=== PATIENT | female | born 1985 | race Two or more races ===

== ENCOUNTER 2023-12-22 12:51 | Emergency (ER) | payer MEDICAID, SELFPAY ==
[2023-12-22 12:56] VITALS: BP 100/70; PULSE 99; RESP 20; TEMP 37; O2SAT 98
[2023-12-22 13:06] VITALS: PULSE 120; RESP 18; O2SAT 100; BMI 29.2
--- NOTE | 2023-12-22 13:15 | EKG_ITS ---
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
--- NOTE | 2023-12-22 13:15 | XR_ITS ---
Examination: AP chest single view Technique one AP portable upright chest single view Exam date and time: December 22, 2023 1349 hrs. Comparison November 11, 2023 Indications: Onset chest pain today. Findings: Normal heart size Epidural pain lead projects lower dorsal spine No pneumonia or pulmonary edema Mild osteopenia Impression: No active disease
--- NOTE | 2023-12-22 13:17 | EDNOTE_ITS ---
ED Chest Pain RME/HPI General Chief Complaint: Chest Pain Stated Complaint: CHEST PAIN Time Seen by Provider: 12/22/23 13:10 Arrival date/time: 12/22/23 12:51 RME / HPI RME / HPI narrative: 38-year-old female patient with significant history of neurological disorder, was brought in by EMS for evaluation regarding left-sided chest pain. Onset of symptoms for the last 10 minutes as sudden onset of left-sided chest pain, more on the chest wall pain, reproducible with palpation, severity 9 out of 10. Patient denies any cough denies any fever denies any diaphoresis denies any other complaints no medication was taken prior to arrival. Related Data Home Medications ?Medication ?Instructions ?Recorded ?Confirmed rosuvastatin 40 mg tablet 40 mg PO HS 03/07/23 12/14/23 Previous Rx's ?Medication ?Instructions ?Recorded omeprazole 20 mg capsule,delayed 20 mg PO QDAY #30 caps 05/05/23 release tamsulosin 0.4 mg capsule (Flomax) 0.4 mg PO QDAY #20 caps 11/13/23 linaclotide 72 mcg capsule 72 mcg PO QDAY #30 caps 12/16/23 (Linzess) Allergies Allergy/AdvReac Type Severity Reaction Status Date / Time alcohol Allergy Severe ICHY, Verified 12/09/23 17:55 REDNESS TO FACE diphenhydramine Allergy Severe Difficulty Verified 12/09/23 17:55 [From Benadryl Allergy] Swallowing ibuprofen Allergy Severe RASH Verified 12/09/23 17:55 loratadine [From Claritin] Allergy Severe Hives Verified 12/09/23 17:55 morphine Allergy Severe Difficulty Verified 12/09/23 17:55 Breathing oxycodone Allergy Severe Hives Verified 12/09/23 17:55 Penicillins Allergy Severe Difficulty Verified 12/09/23 17:55 Swallowing hydrocodone [From [place]] Allergy Intermediate Hypertensio Verified 12/09/23 17:55 n ketorolac [From Toradol] AdvReac Severe Fainting Verified 12/10/23 00:36 Review of Systems Review of Systems Narrative Review of Systems: Review of system reviewed and within normal limits except mentioned in HPI ED Exam Narrative Physical exam: VITAL SIGNS: Reviewed. GENERAL APPEARANCE: Alert and interactive, follows commands, no acute distress, HEAD AND FACE: Non-traumatic. ENT: PERRL, pink conjunctivitis, eyelid no trauma, Mucous membrane moist. NECK: Supple, nontender, no nuchal rigidity. CHEST: Left chest wall tenderness, no crepitus, no paradoxical movement, no retractions. LUNGS: Clear, well ventilated, symmetric, no rales, no wheezing, no ronchi, no stridor, good breath sounds bilaterally. HEART: Regular rate, regular rhythm, no murmur, no gallops. ABDOMEN: Soft, positive bowel sounds, nondistended, no guarding, nontender, no rebound, no masses, RECTAL: Deferred. GENITAL: Deferred. NEUROLOGICAL: Gross motor function intact sensory function intact, Appropriate for age. MUSCULOSKELETAL: low back nontender, full range of motion. EXTREMITIES: Weakness left upper extremity, chronic, full range of motion. SKIN: Color pink, dry, no rash, no lacerations, no abrasions, no contusions. LYMPHATICS: Deferred. Course Quality Measures none Orders Category Date Time Status EKG (ED ONLY) *Do not use* NOW Care 12/22/23 13:16 Completed EKG (ED Only) Stat Exams 12/22/23 13:15 Draft XR chest 1V Stat Exams 12/22/23 13:15 Completed CBC [CBC] Stat Lab 12/22/23 14:25 Completed CMP [Comprehensive Metabolic Panel] Stat Lab 12/22/23 14:25 Completed Troponin I Stat Lab 12/22/23 14:25 Completed Vital Signs Vital signs: Vital Signs Temperature 98.6 F 12/22/23 12:56 Pulse Rate 99 12/22/23 12:56 Respiratory Rate 20 12/22/23 12:56 Blood Pressure 100/70 12/22/23 12:56 Pulse Oximetry (%) 98 12/22/23 12:56 Oxygen Delivery Method Nasal Cannula 12/22/23 12:56 Oxygen Flow Rate 2 12/22/23 12:56 Chest Pain Patient data External records reviewed:: None Clinical information provided by:: patient Social determinants that could affect healthcare access:: none Patient has the following chronic illnesses:: Neurological disorder How is presenting disease/condition affected by chronic disease/condition?: uneffected by Evaluation data The following diagnostics were reviewed and interpreted by me:: lab results, radiology exam(s) and EKG tracing(s) Lab and/or radiology exams considered but not ordered:: None Interpretation Summary: Lab workup all came back normal. Troponin is normal. I personally reviewed and interpreted the x-ray of this patient. There is no acute abnormalities found, no infiltrates no pneumothorax no hemothorax normal chest x-ray. Review of other structures was without significant abnormal findings also. I additionally reviewed the radiologist report and agree with the interpretation. EKG as interpreted by me showed normal sinus rhythm, ventricular rate of 84 bpm, no ST segment elevation depression noted. Medications / Prescriptions Medications or Prescriptions considered but not ordered:: None Medication administrations:: Aspirin Consultations Consultation(s) initiated? (list below): No Diagnosis Chest Pain Differential Diagnosis: atypical chest pain, costochondritis and chest pain Most likely diagnosis given after review of the tests above:: Costochondritis Admission Indicated Admission indicated?: not indicated Explain why admission is indicated or not indicated:: Stable Admission Request Was there a request for admission?: No Disposition Plan Disposition Plan: Discharge Discharge Attestation Discharge Attestation: The patient and all family members were given an opportunity to ask questions and understood the discharge instructions. Discharge instructions specifically effects, indications for sooner follow up or return to the emergency department, and the expected course of current diagnosis. Patient condition: Stable Discharge Plan Plan Patient Disposition: HOME (Self Care) Disposition Comment: stable Prescriptions/Referrals Prescriptions/Med Rec: No Action rosuvastatin 40 mg tablet 40 mg PO HS Patient Comments: TAKE 1 TABLET BY MOUTH EVERY DAY omeprazole 20 mg capsule,delayed release(DR/EC) 20 mg PO QDAY Qty: 30 0RF Linzess 72 mcg capsule 72 mcg PO QDAY Qty: 30 0RF tamsulosin [Flomax] 0.4 mg capsule 0.4 mg PO QDAY Qty: 20 0RF Referrals: Wyatt Kellogg PA-C [Primary Care Provider] - In 1 week Problem List Clinical Impression: Costochondritis Patient/Caregiver Discharge Instructions Discharge Activity: activity as tolerated Education Materials: ED Chest Wall Pain, Costochondritis Additional Instructions: Thank you for the opportunity for serving you today. You are stable for discharged . You are advised to: Follow-up with your PCP in 1 to 2 days Return to ED for worsening of symptoms Increase oral fluids Take [id number] Tylenol as needed for pain Print Language: Liberian Stand Alone Forms: Carin Award Info., Patient Portal Info Letter Attestation Attestation The patient was seen by the midlevel practitioner. I, the co-signing physician, was present during the entire ER visit. While I did not physically examine the patient, I was available for consultation as needed.
[2023-12-22 13:50] VITALS: BP 108/78; PULSE 79; RESP 15; TEMP 36.8; O2SAT 97
[2023-12-22 15:13] LABS: Basophils % (Auto) 0 % (0-2.5); Eosinophils # (Auto) 0.1 Thou/mm3 (0.0-0.5); Eosinophils % (Auto) 1 % (0-10); Hemoglobin 13.7 g/dL (12.0-16.0); Immature Granulocytes % (Auto) 0 % (0-0); Immature Granulocytes Auto 0.03 Thou/mm3 (0.00-0.00); Lymphocytes # (Auto) 3.2 Thou/mm3 (1.0-4.8); Lymphocytes % (Auto) 27 % (10-50); Mean Corpuscular HGB Conc 32.6 g/dl (31.0-37.0); Mean Corpuscular Hemoglobin 29.8 pg (25.0-35.0); Mean Corpuscular Volume 91 fL (80-100); Monocytes # (Auto) 0.5 Thou/mm3 (0.0-0.8); Monocytes % (Auto) 5 % (0-12); Neutrophils # (Auto) 7.7 Thou/mm3 (1.8-7.7); Neutrophils % (Auto) 67 % (37-80); Nucleated Red Blood Cell % 0 /100 WBC (0); Platelet Count 272 Thou/mm3 (140-440); RDW Standard Deviation 45.4 fL (36.4-46.3); White Blood Count 11.6 Thou/mm3 (3.6-11.0)
[2023-12-22 15:27] LABS: Alanine Aminotransferase 55 U/L (10-49); Albumin, Serum 4.7 gm/dL (3.5-5.0); Albumin/Globulin Ratio 1.8 (1.2-2.2); Alkaline Phosphatase 112 U/L (46-116); Anion Gap 6 (7-16); Aspartate Amino Transferase 23 U/L (0-34); BUN/Creatinine Ratio 11 Ratio (12-20); Bilirubin,Total 0.5 mg/dL (0.3-1.2); Blood Urea Nitrogen 8 mg/dL (9-23); Calcium 9.7 mg/dL (8.3-10.6); Calcium (Corrected) 9.7 mg/dL (8.5-10.1); Carbon Dioxide 25.9 mMol/L (20.0-31.0); Chloride 106 mMol/L (98-107); Creatinine (Component) 0.7 mg/dL (0.6-1.3); Estimated Creatinine Clearance 111.5 mL/min (>60); Globulin 2.6 gm/dL (2.3-3.5); Glucose 83 mg/dL (74-106); Osmolality,Calculated 272 (275-295); Sodium 138 mMol/L (136-145); Total Protein 7.3 gm/dL (5.7-8.2); Troponin I < 0.002 ng/mL (0.0-0.045); eGFR > 60 See Note
[2023-12-22 16:06] VITALS: BP 116/71; PULSE 71; RESP 16; TEMP 36.6; O2SAT 99
--- NOTE | 2023-12-24 10:21 | PC.CM ---
Start of care date with Ravin ADAMSON is 12/24/23.
== END 2023-12-22 18:05 | disposition home or self-care (01) ==
PROVIDERS: Nurse Practitioner Family; Emergency Provider Emergency Medicine; PCP Physician Assistant
DX: M94.0 Chondrocostal junction syndrome [Tietze] (principal); R94.31 Abnormal electrocardiogram [ECG] [EKG]
CPT/HCPCS: 36415; 71045; 80053; 84484; 85025; 93005; 99283

== ENCOUNTER → 2024-05-22 | Outpatient (CLI) | payer MEDICAID, SELFPAY ==
--- NOTE | 2024-05-22 10:00 | XR_ITS ---
Examination: Breast ultrasound complete, bilateral Date and time of exam: May 22, 2024 1030 hrs. Indications: Palpable lump left breast note is beginning 3 months ago Technique: Real-time grayscale ultrasonographic imaging bilateral breasts, including all 4 quadrants as well as nipple retroareolar and axillary regions. Findings: Sonographic images right breast Multiple benign cysts 5:00 nodule lobular margins 5 x 5 mm Sonographic images left breast Multiple benign cysts No solid nodules Impression: BI-RADS Category 3: Probably benign findings One additional 6 month right breast sonogram follow-up needed to document stability of 5:00 nodule right breast described above
--- NOTE | 2024-05-22 11:00 | XR_ITS ---
Examination: Diagnostic digital mammography, bilateral Computer aided detection 3-D breast Tomosynthesis, bilateral Date and time of exam: Palpable abnormality left breast 3 months Comparisons: February 2021 through Indications:Palpable abnormality left breast. Technique: Nonmagnified MLO, CC views of the breasts to been obtained, reconstructed from 3-D Tomosynthesis images. R2 computer aided detection program utilized for evaluation of suspicious masses and/or abnormal calcifications. 3-D Tomosynthesis images obtained. Findings: The breasts are heterogeneously dense, which may obscure small masses. Oval mass with indistinct borders in the lower central right breast. Finding corresponds 5:00, 4 cm from the nipple on today's ultrasound exam. Otherwise, no evidence of abnormal masses or suspicious calcifications. Impression: Suspicious mass in the lower central right breast corresponds to mass seen at 5:00, 4 cm from the nipple on today's ultrasound exam. Findings are suspicious. Ultrasound-guided biopsy is recommended. BI-RADS category 4: Suspicious abnormality, biopsy recommended
== END | disposition home or self-care (01) ==
LOC: CDIM 10:05
PROVIDERS: PCP Physician Assistant; Referring Provider Physician Assistant; Visit Provider Physician Assistant
DX: R92.343 Mammographic extreme density, bilateral breasts (principal); N63.14 Unspecified lump in the right breast, lower inner quadrant
CPT/HCPCS: 76641; 77062; 77066; G0279

== ENCOUNTER 2024-06-30 14:59 | Emergency (ER) | payer MEDICAID, SELFPAY ==
[2024-06-30 15:01] VITALS: BMI 30.7
[2024-06-30 15:17] VITALS: BP 103/71; PULSE 97; RESP 16; TEMP 36.6; O2SAT 97; BMI 30.7
--- NOTE | 2024-06-30 15:41 | EDRME_ITS ---
Rapid Medical Screening Exam RME Arrival date/time: 06/30/24 14:59 Chief Complaint: Syncope / Near Syncope Time Seen by Provider: 06/30/24 15:32 Vital signs: Vital Signs Temperature 97.8 F 06/30/24 15:17 Pulse Rate 97 06/30/24 15:17 Respiratory Rate 16 06/30/24 15:17 Blood Pressure 103/71 06/30/24 15:17 Pulse Oximetry (%) 97 06/30/24 15:17 Oxygen Delivery Method Room Air 06/30/24 15:17 Patient is 97% [facility] Narrative: Patient presents with a bad headache x 4 days with findings of very mild racing heart chest pain chest pain began 2 days ago. Diarrhea x 4 days 78 times per day. Past medical history includes as she describes it with water drain with loss of urine
--- NOTE | 2024-06-30 15:43 | XR_ITS ---
Examination: CT brain head without contrast. 2-D sagittal coronal reconstructions Date and time of exam:June 30, 2024 1652 hours Comparison December 13, 2023 INDICATIONS: Stroke alert, onset left-sided body weakness December 13, 2023, headache today CTDI: vol (mGy):46 DLP: (mGycm):873 Technique: Multiple CT axial sections of the brain have been obtained, 5 mm slice thickness. Contrast has not been administered. 2-D sagittal, coronal reconstructions have been obtained Low dose protocols were performed. One or more of the following dose reduction techniques were used; automated exposure control, adjustment of the mA and/or KV according to patient size, use of iterative reconstruction technique. Findings: No significant ventricular enlargement. Intra-axial or extra-axial hemorrhage density is not seen. No mass effect or midline shift Basal cisterns are not remarkable. Fourth ventricle is midline. Cranial vault intact. Impression: Negative for acute hemorrhage, mass effect or midline shift As clinically warranted, consider repeat brain MRI follow-up without contrast
--- NOTE | 2024-06-30 15:44 | EKG_ITS ---
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
--- NOTE | 2024-06-30 15:44 | XR_ITS ---
Examination: PA lateral chest 2 views TECHNIQUE: upright PA lateral chest 2 views Date and time: June 30, 2024 1700 hours Comparison December 22, 2023 INDICATIONS: Syncopal episode last night. FINDINGS: Normal heart size. Lungs are clear. Osseous structures are intact IMPRESSION: No active disease
[2024-06-30 16:39] LABS: Basophils # (Auto) 0.1 Thou/mm3 (0.0-0.2); Basophils % (Auto) 0 % (0-2.5); Eosinophils # (Auto) 0.1 Thou/mm3 (0.0-0.5); Eosinophils % (Auto) 1 % (0-10); Hematocrit 42.4 % (36.0-46.0); Hemoglobin 14.1 g/dL (12.0-16.0); Immature Granulocytes % (Auto) 0 % (0-0); Immature Granulocytes Auto 0.03 Thou/mm3 (0.00-0.00); Lymphocytes # (Auto) 2.6 Thou/mm3 (1.0-4.8); Lymphocytes % (Auto) 21 % (10-50); Mean Corpuscular HGB Conc 33.3 g/dl (31.0-37.0); Mean Corpuscular Hemoglobin 29.2 pg (25.0-35.0); Mean Corpuscular Volume 88 fL (80-100); Monocytes # (Auto) 0.5 Thou/mm3 (0.0-0.8); Monocytes % (Auto) 4 % (0-12); Neutrophils # (Auto) 9.2 Thou/mm3 (1.8-7.7); Neutrophils % (Auto) 73 % (37-80); Nucleated Red Blood Cell % 0 /100 WBC (0); Platelet Count 290 Thou/mm3 (140-440); RDW Standard Deviation 45.9 fL (36.4-46.3); Red Blood Count 4.83 Miln/mm3 (4.00-5.20); White Blood Count 12.5 Thou/mm3 (3.6-11.0)
[2024-06-30 17:02] LABS: B-Type Natriuretic Peptide < 20 pg/mL (0-100)
[2024-06-30 17:03] LABS: Alanine Aminotransferase 18 U/L (10-49); Albumin, Serum 4.8 gm/dL (3.5-5.0); Albumin/Globulin Ratio 1.6 (1.2-2.2); Alkaline Phosphatase 101 U/L (46-116); Anion Gap 11 (7-16); Aspartate Amino Transferase 14 U/L (0-34); BUN/Creatinine Ratio 10 Ratio (12-20); Bilirubin,Total 0.7 mg/dL (0.3-1.2); Blood Urea Nitrogen 8 mg/dL (9-23); Calcium 9.2 mg/dL (8.3-10.6); Calcium (Corrected) 9.2 mg/dL (8.5-10.1); Carbon Dioxide 21.9 mMol/L (20.0-31.0); Chloride 107 mMol/L (98-107); Creatinine (Component) 0.8 mg/dL (0.6-1.3); Glucose 88 mg/dL (74-106); Osmolality,Calculated 276 (275-295); Potassium 4.2 mMol/L (3.4-5.1); Sodium 140 mMol/L (136-145); Total Protein 7.8 gm/dL (5.7-8.2); Troponin I < 0.002 ng/mL (0.0-0.045); eGFR > 60 See Note
[2024-06-30 17:46] VITALS: BP 112/81; PULSE 76; RESP 17; TEMP 36.6; O2SAT 98
--- NOTE | 2024-06-30 21:59 | PD.EDSYNC ---
ED Syncope RME/HPI General Chief Complaint: Syncope / Near Syncope Stated Complaint: HEADACHE SINCE LAST NIGHT; NEAR SYNCOPE Time Seen by Provider: 06/30/24 15:32 Arrival date/time: 06/30/24 14:59 RME / HPI RME / HPI narrative: Dr. Rain?s Main ED Evaluation: 39yo female presents to the ED for a chief complaint of near syncope. Patient states she's had nausea, feels like the room is spinning, a headache, diarrhea, and felt like she was going to pass out for the last 4 days, reporting her symptoms significantly worsened today, so she came in for evaluation. Patient reports also having a loss of appetite. Patient denies any vomiting, cough, sore throat, fever, chills or any other associated symptoms. Related Data Home Medications ?Medication ?Instructions ?Recorded ?Confirmed rosuvastatin 40 mg tablet 40 mg PO HS 03/07/23 12/14/23 Previous Rx's ?Medication ?Instructions ?Recorded omeprazole 20 mg capsule,delayed 20 mg PO QDAY #30 caps 05/05/23 release tamsulosin 0.4 mg capsule (Flomax) 0.4 mg PO QDAY #20 caps 11/13/23 linaclotide 72 mcg capsule 72 mcg PO QDAY #30 caps 12/16/23 (Linzess) acetaminophen 500 mg tablet 1,000 mg (2 x 500 mg) PO Q6H PRN 06/30/24 pain #30 tabs loperamide 2 mg capsule 2 mg PO Q6H PRN loose stool #20 06/30/24 (Anti-Diarrheal (loperamide)) caps Allergies Allergy/AdvReac Type Severity Reaction Status Date / Time alcohol Allergy Severe ICHY, Verified 06/30/24 15:06 REDNESS TO FACE diphenhydramine (From Allergy Severe Difficulty Verified 06/30/24 15:06 Benadryl Allergy) Swallowing ibuprofen Allergy Severe RASH Verified 06/30/24 15:06 loratadine (From Claritin) Allergy Severe Hives Verified 06/30/24 15:06 morphine Allergy Severe Difficulty Verified 06/30/24 15:06 Breathing oxycodone Allergy Severe Hives Verified 06/30/24 15:06 Penicillins Allergy Severe Difficulty Verified 06/30/24 15:06 Swallowing hydrocodone (From [place]) Allergy Intermediate Hypertensio Verified 06/30/24 15:06 n ketorolac (From Toradol) AdvReac Severe Fainting Verified 06/30/24 15:06 Review of Systems Review of Systems Systems Reviewed: All systems reviewed, normal except as documented Past Medical History Past Medical History NEUROLOGIC: Positive Neurological Disorders; Negative Seizures CARDIAC: Positive Hypercholesterolemia; Negative Cardiac Disorders, Congestive Heart Failure or Hypertension RESPIRATORY: Negative Chronic Obstructive Pulmonary Disease (COPD) or Asthma GASTROINTESTINAL: Negative Gastrointestinal Disorders, Hepatitis or Colorectal Cancer GENITOURINARY: Negative Genitourinary Disorders or Renal Disease REPRODUCTIVE: Negative Breast Cancer, Endometriosis, Genital Herpes, Gonorrhea, Pelvic Inflammatory Disease, Previous Pregnancies, Syphilis or Uterine Prolapse MUSCULOSKELETAL: Positive Carpal Tunnel Syndrome; Negative Musculoskeletal Disorders or Bone Cancer ENDOCRINE: Negative Endocrine Disorders, Diabetes Mellitus Type 1 or Diabetes Mellitus Type 2 HEMATOLOGIC: Negative Blood Disorders, Anemia, Leukemia, Hemophilia, Thalassemia, Sickle Cell Disease or Clotting Problems OTHER HISTORY: Negative Hospitalization, Autoimmune Disease, Down Syndrome, Developmental Delay, Shingles, Falls, Blood Transfusions, Blood Transfusion Reaction, Anesthesia Reactions, Organ Transplant, Chemotherapy, Radiation Therapy, Hyperbaric Therapy, MRSA, VRSA, Vancomycin-Resistant Enterococci, Human Immunodeficiency Virus (HIV), Chicken Pox, Measles, Mumps, Rubella ([place] Irish Measles), Pertussis, Clostridium Difficile, Breast Cancer, Cervical Cancer, Colorectal Cancer, Lung Cancer or Ovarian Cancer Family History FAMILY HISTORY: Positive Family Respiratory Disorders and Family Cardiac Disorders; Negative Family Psychiatric Problems, Family Gastrointestinal Problems, Family Cancer, Family Surgery or Family Anesthesia Reaction Surgical History SURGICAL: Positive Abdominal Surgery; Negative Organ Transplant Social History SMOKING STATUS: Never smoker SECOND HAND EXPOSURE: No ED Exam Narrative Physical exam: GENERAL APPEARANCE: alert and oriented x 4, well-developed, well-nourished, no acute distress VITALS: All vitals were reviewed and the pulse ox is 98% on room air, which is normal according to my interpretation. HEENT: Normocephalic, atraumatic; pupils equal, round, reactive to light; EOMI; no nystagmus, mucous membranes pink, moist; oropharynx clear NECK: Supple LUNGS: CTABL; no wheezes, no rales, no rhonchi HEART: Regular rate, regular rhythm; normal S1, S2; no murmurs ABDOMEN: non distended; normal BS; soft, no tenderness, no guarding, no rebound; no masses, no organomegaly, no hernia BACK: no CVA tenderness EXTREMITIES: atraumatic; no edema NEUROLOGIC: awake; alert and oriented x4; cranial nerves II-XII grossly intact; no focal sensory or motor deficits PSYCHIATRIC: appropriate mood and affect SKIN: warm, dry, normal color; no rashes Course Course Course Narrative: CXR is ordered for determining the etiology of dizziness. Quality Measures none Orders Category Date Time Status EKG (ED ONLY) *Do not use* NOW Care 06/30/24 15:[address] head/brain wo con Stat Exams 06/30/24 15:43 Completed CXR2 [XR chest 2V] Stat Exams 06/30/24 15:44 Completed EKG (ED Only) Stat Exams 06/30/24 15:44 Draft BNP [B-Type Natriuretic Peptide] Stat Lab 06/30/24 16:22 Completed CBC Stat Lab 06/30/24 16:22 Completed CMP [Comprehensive Metabolic Panel] Stat Lab 06/30/24 16:22 Completed Troponin I Stat Lab 06/30/24 16:22 Completed Acetaminophen Tab [Tylenol ES Tab] Med 06/30/24 22:06 Discontinued 1,000 mg PO X1 ONE Ondansetron Odt [Zofran Odt] Med 06/30/24 22:05 Discontinued 4 mg PO X1 ONE Vital Signs Vital signs: Vital Signs Temperature 97.8 F 06/30/24 15:17 Pulse Rate 97 06/30/24 15:17 Respiratory Rate 16 06/30/24 15:17 Blood Pressure 103/71 06/30/24 15:17 Pulse Oximetry (%) 97 06/30/24 15:17 Oxygen Delivery Method Room Air 06/30/24 15:17 Syncope MDM Narrative [facility] Narrative:: Scribe Attestation: 06/30/24 Gayatri Kumar am scribing for and in the presence of Dr. Rain. Patient data External records reviewed:: [facility] previous records (Per chart review, patient was seen here on 12/22/23 for costochondritis.) Clinical information provided by:: patient Social determinants that could affect healthcare access:: none Patient has the following chronic illnesses:: HLD How is presenting disease/condition affected by chronic disease/condition?: uneffected by Evaluation data The following diagnostics were reviewed and interpreted by me:: lab results and EKG tracing(s) Lab and/or radiology exams considered but not ordered:: none Interpretation Summary: WBC 12.5, CMP is normal, Troponin is normal, BNP is normal, according to my interpretation. EKG done at 1609, paced rhythm, rate of 84, good sensing, good capture, no ischemia, according to my interpretation. [facility] Report Signed Patient: MARCO ANTONIO SALAS. Record#: [id number] Birthdate: 1985 Age/Sex: 39 / F Location: [facility] Attending Dr: Ordering Physician: Leonardo Galan PA-C Date of Service: 06/30/24 Procedure(s): XR chest 2V Accession Number(s): [id number] cc: Rey Vizcarra MD; Leonardo Galan PA-C~ Examination: PA lateral chest 2 views TECHNIQUE: upright PA lateral chest 2 views Date and time: June 30, 2024 1700 hours Comparison December 22, 2023 INDICATIONS: Syncopal episode last night. FINDINGS: Normal heart size. Lungs are clear. Osseous structures are intact IMPRESSION: No active disease Dictated By: Rey Vizcarra MD Signed By: <Electronically signed by Rey Vizcarra MD in OV> 06/30/24 1645 [facility] Signed Patient: MARCO ANTONIO SALAS. Record#: [id number] Birthdate: 1985 Age/Sex: 39 / F Location: [facility] Attending Dr: Ordering Physician: Leonardo Galan PA-C Date of Service: 06/30/24 Procedure(s): CT head/brain wo con Accession Number(s): [id number] cc: Rey Vizcarra MD; Leonardo Galan PA-C~ Examination: CT brain head without contrast. 2-D sagittal coronal reconstructions Date and time of exam:June 30, 2024 1652 hours Comparison December 13, 2023 INDICATIONS: Stroke alert, onset left-sided body weakness December 13, 2023, headache today CTDI: vol (mGy):46 DLP: (mGycm):873 Technique: Multiple CT axial sections of the brain have been obtained, 5 mm slice thickness. Contrast has not been administered. 2-D sagittal, coronal reconstructions have been obtained Low dose protocols were performed. One or more of the following dose reduction techniques were used; automated exposure control, adjustment of the mA and/or KV according to patient size, use of iterative reconstruction technique. Findings: No significant ventricular enlargement. Intra-axial or extra-axial hemorrhage density is not seen. No mass effect or midline shift Basal cisterns are not remarkable. Fourth ventricle is midline. Cranial vault intact. Impression: Negative for acute hemorrhage, mass effect or midline shift As clinically warranted, consider repeat brain MRI follow-up without contrast Dictated By: Rey Vizcarra MD Signed By: <Electronically signed by Rey Vizcarra MD in OV> 06/30/24 1649 Medications / Prescriptions Medications or Prescriptions considered but not ordered:: none Medication administrations:: Medication Administration History Discontinued Medications Acetaminophen (Acetaminophen 500 Mg Tablet) 1,000 mg PO X1 ONE Stop: 06/30/24 22:07 Last Admin: 06/30/24 22:17 Dose: 1,000 mg Documented By: KAMALJIT Ondansetron HCl (Ondansetron Odt 4 Mg Tabrap) 4 mg PO X1 ONE; Protocol Stop: 06/30/24 22:06 Last Admin: 06/30/24 22:17 Dose: 4 mg Documented By: KAMALJIT see above, if any Consultations Consultation(s) initiated? (list below): No Diagnosis Syncope Differential Diagnosis: other (STEMI, NSTEMI, dehydration, sepsis, viral syndrome, near syncope) Most likely diagnosis given after review of the tests above:: Near syncope, Headache, Diarrhea Admission Indicated Admission indicated?: not indicated Admission Request Was there a request for admission?: No Disposition Plan Disposition Plan: Discharge Discharge Attestation Discharge Attestation: The patient and all family members were given an opportunity to ask questions and understood the discharge instructions. Discharge instructions specifically effects, indications for sooner follow up or return to the emergency department, and the expected course of current diagnosis. Patient condition: Stable Discharge Plan Plan Patient Disposition: HOME (Self Care) Discharge Disposition comment: Stable for discharge home Patient condition on transfer: Stable Prescriptions/Referrals Prescriptions/Med Rec: New acetaminophen 500 mg tablet 1,000 mg PO Q6H PRN (Reason: pain) Qty: 30 0RF loperamide [Anti-Diarrheal (loperamide)] 2 mg capsule 2 mg PO Q6H PRN (Reason: loose stool) Qty: 20 0RF No Action rosuvastatin 40 mg tablet 40 mg PO HS Patient Comments: TAKE 1 TABLET BY MOUTH EVERY DAY omeprazole 20 mg capsule,delayed release(DR/EC) 20 mg PO QDAY Qty: 30 0RF Linzess 72 mcg capsule 72 mcg PO QDAY Qty: 30 0RF tamsulosin [Flomax] 0.4 mg capsule 0.4 mg PO QDAY Qty: 20 0RF Referrals: Wyatt Kellogg PA-C [Primary Care Provider] - In 1 week Problem List Clinical Impression: Headache, Near syncope, Diarrhea Patient/Caregiver Discharge Instructions Discharge Activity: activity as tolerated Education Materials: Self-Care for Headaches, Dizziness Balance Probs Fainting, ED Diarrhea, Unknown Cause, ED Near-Fainting, Uncertain Cause Additional Instructions: Please return to the emergency department if you have any worsening or any further medical problems and they will help you. Otherwise you should follow-up with your primary care doctor within the next several days. There are several prescriptions waiting for you at your pharmacy. One of them is called Imodium. This is for diarrhea. You could take it up to 4 times per day. The other 1 is acetaminophen. You should take 2 tabs up to every 6 hours for headache. Print Language: Belgian Stand Alone Forms: [employer] Award Info., Patient Portal Info Letter
[2024-06-30] MEDS: ACETAMINOPHEN 500 MG TABLET 1000 MG PO (22:17)
[2024-06-30] MEDS: ONDANSETRON ODT 4 MG TABRAP PO (22:17)
[2024-06-30 22:20] VITALS: BP 116/76; PULSE 72; RESP 18; TEMP 36.6; O2SAT 98
== END 2024-06-30 22:21 | disposition home or self-care (01) ==
PROVIDERS: Physician Assistant; Emergency Provider Emergency Medicine; PCP Physician Assistant
DX: R51.9 Headache, unspecified (principal); R55 Syncope and collapse; R19.7 Diarrhea, unspecified; R94.31 Abnormal electrocardiogram [ECG] [EKG]
CPT/HCPCS: 36415; 70450; 71046; 80053; 83880; 84484; 85025; 93005; 99284; Q0162; A9270

== ENCOUNTER 2024-07-16 15:11 | Emergency (ER) | payer MEDICAID, SELFPAY ==
[2024-07-16 15:28] VITALS: BP 133/84; PULSE 83; RESP 18; TEMP 36.8; O2SAT 95
--- NOTE | 2024-07-16 15:31 | XR_ITS ---
Examination: Foot, left, 3 views Technique: AP, oblique, lateral views foot, 3 views Date and time of exam: July 16, 2024 1535 hours INDICATIONS: Injury to the foot today, foot pain. FINDINGS: No acute fracture. No dislocation. No foreign body IMPRESSION: No acute fracture
--- NOTE | 2024-07-16 15:31 | XR_ITS ---
EXAMINATION: Ankle, left 3 views . Technique: Ankle AP, oblique, lateral 3 views Date and time of exam: July 16, 2024 1535 hours INDICATIONS: Injury with ankle today with pain and swelling. FINDINGS: No fracture or dislocation. No foreign body IMPRESSION: No fracture or dislocation
--- NOTE | 2024-07-16 17:24 | EDNOTE_ITS ---
Lower Extremity Injury RME/HPI General Chief Complaint: Extremity Injury, Lower Stated Complaint: Left foot injury Time Seen by Provider: 07/16/24 15:17 Arrival date/time: 07/16/24 15:11 39-year-old female presents to the emergency department for complaint of left foot and left ankle injury patient works at a twisting injury injuring her left foot Limitations: no limitations Related Data Home Medications ?Medication ?Instructions ?Recorded ?Confirmed rosuvastatin 40 mg tablet 40 mg PO HS 03/07/23 4 Previous Rx's ?Medication ?Instructions ?Recorded omeprazole 20 mg capsule,delayed 20 mg PO QDAY #30 cap s 05/05/23 release tamsulosin 0.4 mg capsule (Flomax) 0.4 mg PO QDAY #20 caps 11/13/23 linaclotide 72 mcg capsule 72 mcg PO QDAY #30 caps 05/05 (Linzess) acetaminophen 500 mg tablet 1,000 mg (2 x 500 mg) PO Q 6H PRN 06/30/24 pain #30 tabs loperamide 2 mg capsule 2 mg PO Q6H PRN loose stool #20 06/30/24 (Anti-Diarrheal (loperamide)) caps Allergies Allergy/AdvReac Type Severity Reaction Status Date / Time alcohol Allergy Severe ICHY, Verified 07/16/24 15:15 REDNESS TO FACE diphenhydramine (From Allergy Severe Difficulty Verified 07/16/24 15:15 Benadryl Allergy) Swallowing ibuprofen Allergy Severe RASH Verified 07/16/24 15:15 loratadine (From Claritin) Allergy Severe Hives Verified 07/16/24 15:15 morphine Allergy Severe Difficulty Verified 07/16/24 15:15 Breathing oxycodone Allergy Severe Hives Verified 07/16/24 15:15 Penicillins Allergy Severe Difficulty Verified 07/16/24 15:15 Swallowing hydrocodone (From [place]) Allergy Intermediate Hypertensio Verified 07/16/24 15:15 n ketorolac (From Toradol) AdvReac Severe Fainting Verified 07/16/24 15:15 Review of Systems Review of Systems Systems Reviewed: All systems reviewed, normal except as documented Constitutional Constitutional: Reports system reviewed and no additional complaints, except as documented, Denies fever(s) and Denies headache(s) Eyes Eyes: Reports system reviewed and no additional complaints, except as documented and Denies blurry vision ENT Ears, Nose, Mouth, and Throat: Reports system reviewed and no additional complaints, except as documented, Denies headache(s), Denies nasal congestion and Denies nasal discharge Cardiovascular Cardiovascular: Reports system reviewed and no additional complaints, except as documented, Denies chest pain and Denies dyspnea Respiratory Respiratory: Reports system reviewed and no additional complaints, except as documented, Denies chest congestion, Denies cough and Denies dyspnea Gastrointestinal Gastrointestinal: Reports system reviewed and no additional complaints, except as documented and Denies abdominal pain Musculoskeletal Musculoskeletal: Reports system reviewed and no additional complaints, except as documented, Reports abnormal gait, Reports arthralgias, Denies back pain, Denies deformity, Denies numbness, Reports stiffness and Denies tingling Integumentary/Breasts Skin/Breast: Reports system reviewed and no additional complaints, except as documented and Denies rash Neurologic Neurologic: Reports system reviewed and no additional complaints, except as documented, Reports as per HPI, Reports abnormal gait, Denies headache(s), Denies numbness and Denies tingling Past Medical History Past Medical History NEUROLOGIC: Positive Neurological Disorders; Negative Seizures CARDIAC: Positive Hypercholesterolemia; Negative Cardiac Disorders, Congestive Heart Failure or Hypertension RESPIRATORY: Negative Chronic Obstructive Pulmonary Disease (COPD) or Asthma GASTROINTESTINAL: Negative Gastrointestinal Disorders, Hepatitis or Colorectal Cancer GENITOURINARY: Negative Genitourinary Disorders or Renal Disease REPRODUCTIVE: Negative Breast Cancer, Endometriosis, Genital Herpes, Gonorrhea, Pelvic Inflammatory Disease, Previous Pregnancies, Syphilis or Uterine Prolapse MUSCULOSKELETAL: Positive Carpal Tunnel Syndrome; Negative Musculoskeletal Disorders or Bone Cancer ENDOCRINE: Negative Endocrine Disorders, Diabetes Mellitus Type 1 or Diabetes Mellitus Type 2 HEMATOLOGIC: Negative Blood Disorders, Anemia, Leukemia, Hemophilia, Thalas semia, Sickle Cell Disease or Clotting Problems OTHER HISTORY: Negative Hospitalization, Autoimmune Disease, Down Syndrome, Developmental Delay, Shingles, Falls, Blood Transfusions, Blood Transfusion Reaction, Anesthesia Reactions, Organ Transplant, Chemotherapy, Radiation Therapy, Hyperbaric Therapy, MRSA, VRSA, Vancomycin-Resistant Enterococci, Human Immunodeficiency Virus (HIV), Chicken Pox, Measles, Mumps, Rubella (Lao Measles), Pertussis, Clostridium Difficile, Breast Cancer, Cervical Cancer, Colorectal Cancer, Lung Cancer or Ovarian Cancer Family History FAMILY HISTORY: Positive Family Respiratory Disorders and Family Cardiac Disorders; Negative Family Psychiatric Problems, Family Gastrointestinal Problems, Family Cancer, Family Surgery or Family Anesthesia Reaction Surgical History SURGICAL: Positive Abdominal Surgery; Negative Organ Transplant Social History SMOKING STATUS: Never smoker SECOND HAND EXPOSURE: No ED Exam General Limitations: Present no limitations General appearance: Present alert and in no apparent distress Head Head exam: Present atraumatic Eye Eye exam: Present normal appearance, PERRL and EOMI ENT ENT exam: Present normal exam, normal oropharynx and mucous membranes moist Neck Neck exam: Present normal inspection, full ROM and trachea midline Chest Chest inspection: Present normal inspection and symmetric chest wall rise Respiratory Respiratory exam: Present normal lung sounds bilaterally Cardiovascular Cardiovascular exam: Present regular rate, normal rhythm and normal heart sounds Abdominal Exam Abdominal exam: Present soft and normal bowel sounds Extremities Exam Extremities exam: Present full ROM, tenderness, normal capillary refill and joint swelling; Absent pedal edema or calf tenderness Back Exam Back exam: Present normal inspection and full ROM Neurological Exam Neurological exam: Present alert, oriented X3 and CN II-XII intact Psychiatric Psychiatric exam: Present normal affect and normal mood Skin Skin exam: Present warm, dry, intact and normal color Course Quality Measures none Orders Category Date Time Status XR ankle comp LT min 3V Stat Exams 07/16/24 15:31 Completed XR foot comp LT min 3V Stat Exams 07/16/24 15:31 Completed Vital Signs Vital signs: Vital Signs Temperature 98.3 F 07/16/24 15:28 Pulse Rate 83 07/16/24 15:28 Respiratory Rate 18 07/16/24 15:28 Blood Pressure 133/84 H 07/16/24 15:28 Pulse Oximetry (%) 95 07/16/24 15:28 Oxygen Delivery Method Room Air 07/16/24 15:28 O2 saturation 95% on room air within normal limits Extremity Injury, Lower MDM Narrative MDM Narrative:: 39-year-old female presents to the emergency department for complaint of left foot and left ankle injury patient works at a twisting injury injuring her left foot On exam patient is mild swelling dorsal aspect of the left foot X-ray of the left foot and ankle obtained no acute fracture dislocation noted Patient placed in Tylor wrap and given crutches Patient discharged home in no distress to follow-up with primary care doctor in the next 24 to 48 hours and for any worsening symptoms to return to the ER immediately Patient data External records reviewed:: [facility] previous records Clinical information provided by:: patient Social determinants that could affect healthcare access:: none Patient has the following chronic illnesses:: none How is presenting disease/condition affected by chronic disease/condition?: no chronic disease Evaluation data The following diagnostics were reviewed and interpreted by me:: radiology exam(s) Lab and/or radiology exams considered but not ordered:: radiology obtained Interpretation Summary: By me Medications / Prescriptions Medications or Prescriptions considered but not ordered:: Given Medication administrations:: Given Consultations Consultation(s) initiated? (list below): No Diagnosis Extremity Injury, Lower Differential Diagnosis: other Most likely diagnosis given after review of the tests above:: Foot sprain Admission Indicated Admission indicated?: not indicated Admission Request Was there a request for admission?: No Disposition Plan Disposition Plan: Discharge Discharge Attestation Discharge Attestation: The patient and all family members were given an opportunity to ask questions and understood the discharge instructions. Discharge instructions specifically effects, indications for sooner follow up or return to the emergency department, and the expected course of current diagnosis. Patient condition: Stable Discharge Plan Plan Patient Disposition: HOME (Self Care) Discharge Disposition comment: Stable Prescriptions/Referrals Prescriptions/Med Rec: No Action rosuvastatin 40 mg tablet 40 mg PO HS Patient Comments: TAKE 1 TABLET BY MOUTH EVERY DAY omeprazole 20 mg capsule,delayed release(DR/EC) 20 mg PO QDAY Qty: 30 0RF Linzess 72 mcg capsule 72 mcg PO QDAY Qty: 30 0RF tamsulosin [Flomax] 0.4 mg capsule 0.4 mg PO QDAY Qty: 20 0RF acetaminophen 500 mg tablet 1,000 mg PO Q6H PRN (Reason: pain) Qty: 30 0RF loperamide [Anti-Diarrheal (loperamide)] 2 mg capsule 2 mg PO Q6H PRN (Reason: loose stool) Qty: 20 0RF Referrals: George Grijalva MD [Primary Care Provider] - 07/17/24 Problem List Clinical Impression: Sprain of foot, left Patient/Caregiver Discharge Instructions Education Materials: ED Foot Sprain Additional Instructions: Please follow up with your primary care doctor in the next 24-48hrs for any worsening symptoms return here immediately Print Language: Upper Sorbian Stand Alone Forms: Carin Award Info., Patient Portal Info Letter PA/CORPORATE LEARNING CONSULTANT Supervising Physician PA/TERESE Supervising Physician: Dr Saunders
== END 2024-07-16 17:49 | disposition home or self-care (01) ==
PROVIDERS: Emergency Provider Emergency Medicine; PCP Family Medicine
DX: S93.602A Unspecified sprain of left foot, initial encounter (principal); X50.1XXA Overexertion from prolonged static or awkward postures, initial encounter
CPT/HCPCS: 73610; 73630; 99283

== ENCOUNTER 2024-08-12 06:21 | Emergency (ER) | payer MEDICAID, SELFPAY ==
[2024-08-12 06:23] VITALS: BMI 29.6
[2024-08-12 06:35] VITALS: BP 106/73; PULSE 78; RESP 16; TEMP 36.7; O2SAT 98
--- NOTE | 2024-08-12 06:55 | XR_ITS ---
Examination: CT abdomen and pelvis without contrast. Coronal 3-D reconstructions. Sagittal 2-D reconstructions. Date and time of exam:August 12, 2024 1014 hours Comparison December 09, 2023 INDICATIONS: Left-sided flank pain beginning 3 days ago, history kidney stones December 09, 2023 CTDI: vol (mGy): 15.1 DLP: (mGycm): 855 Technique: Axial images of the abdomen have been obtained, 3 mm slice thickness Intravenous contrast material has not been administered. Low dose protocols were performed. One or more of the following dose reduction techniques were used; automated exposure control, adjustment of the mA and/or KV according to patient size, use of iterative reconstruction technique. Findings: No focal liver or splenic lesions No gallstones No pancreatic or adrenal mass Bilateral minute 1 to 2 mm renal calculi, no hydronephrosis or ureteral calculi Aorta normal size No bowel obstruction No pericecal inflammatory change Anteverted uterus No adnexal mass No bladder mass or bladder calculi IMPRESSION: Bilateral 1 to 2 mm renal calculi, no hydronephrosis or ureteral calculi No pericecal inflammatory change No bladder mass or bladder calculi, bladder wall is not thickened
--- NOTE | 2024-08-12 06:56 | EDNOTE_ITS ---
<Statement entered by Brina Haider MD - 08/25/24 18:58> As co-signing physician, I was present and available for consult prn. I concur with the plan and care as documented by the midlevel provider. ED Abdominal Pain RME/HPI General Chief Complaint: Abdominal Pain Stated complaint: LEFT ABD PAIN Time seen by provider: 08/12/24 06:33 Arrival date/time: 08/12/24 06:21 39-year-old female with no known medical history presents to the emergency room with a chief complaint of 8 out of 10 left-sided abdominal pain and left-sided flank pain x 2 days Source: patient Mode of arrival: ambulatory Limitations: no limitations Related Data Home Medications ?Medication ?Instructions ?Recorded ?Confirmed rosuvastatin 40 mg tablet 40 mg PO HS 03/07/23 4 Previous Rx's ?Medication ?Instructions ?Recorded omeprazole 20 mg capsule,delayed 20 mg PO QDAY #30 cap s 05/05/23 release tamsulosin 0.4 mg capsule (Flomax) 0.4 mg PO QDAY #20 caps 11/13/23 linaclotide 72 mcg capsule 72 mcg PO QDAY #30 caps 05/05 (Linzess) acetaminophen 500 mg tablet 1,000 mg (2 x 500 mg) PO Q 6H PRN 06/30/24 pain #30 tabs loperamide 2 mg capsule 2 mg PO Q6H PRN loose stool #20 06/30/24 (Anti-Diarrheal (loperamide)) caps Allergies Allergy/AdvReac Type Severity Reaction Status Date / Time alcohol Allergy Severe ICHY, Verified 08/12/24 06:22 REDNESS TO FACE diphenhydramine (From Allergy Severe Difficulty Verified 08/12/24 06:22 Benadryl Allergy) Swallowing ibuprofen Allergy Severe RASH Verified 08/12/24 06:22 loratadine (From Claritin) Allergy Severe Hives Verified 08/12/24 06:22 morphine Allergy Severe Difficulty Verified 08/12/24 06:22 Breathing oxycodone Allergy Severe Hives Verified 08/12/24 06:22 Penicillins Allergy Severe Difficulty Verified 08/12/24 06:22 Swallowing hydrocodone (From Republic) Allergy Intermediate Hypertensio Verified 08/12/24 06:22 n ketorolac (From Toradol) AdvReac Severe Fainting Verified 08/12/24 06:22 Review of Systems Review of Systems Systems Reviewed: All systems reviewed, normal except as documented Constitutional Constitutional: Reports system reviewed and no additional complaints, except as documented, Denies fatigue, Denies fever(s), Denies headache(s) and Denies weakness Eyes Eyes: Reports system reviewed and no additional complaints, except as documented, Denies blurry vision and Denies change in vision ENT Ears, Nose, Mouth, and Throat: Reports system reviewed and no additional complaints, except as documented, Denies otalgia, Denies headache(s), Denies nasal congestion, Denies throat swelling and Denies vertigo Cardiovascular Cardiovascular: Reports system reviewed and no additional complaints, except as documented, Denies chest pain, Denies dyspnea and Denies dyspnea on exertion Respiratory Respiratory: Reports system reviewed and no additional complaints, except as documented, Denies chest congestion, Denies cough, Denies dyspnea, Denies dyspnea on exertion and Denies wheezing Gastrointestinal Gastrointestinal: Reports system reviewed and no additional complaints, except as documented, Reports abdominal pain, Reports cramping, Reports nausea and Denies vomiting Genitourinary Genitourinary: Reports system reviewed and no additional complaints, except as documented Musculoskeletal Musculoskeletal: Reports system reviewed and no additional complaints, except as documented and Denies back pain Integumentary/Breasts Skin/Breast: Reports system reviewed and no additional complaints, except as documented and Denies wounds Neurologic Neurologic: Reports system reviewed and no additional complaints, except as documented, Denies confusion, Denies headache(s), Denies lack of coordination, Denies vertigo and Denies weakness Psychiatric Psychiatric: Reports system reviewed and no additional complaints, except as documented, Denies anxiety, Denies confusion, Denies depression, Denies paranoia, Denies suicidal ideation and Denies tactile hallucinations Endocrine Endocrine: Reports system reviewed and no additional complaints, except as documented and Denies fatigue Hematologic/Lymphatic Hematologic/Lymphatic: Reports system reviewed and no additional complaints, except as documented and Denies lymphadenopathy Allergic/Immunologic Allergic/Immunologic: Reports system reviewed and no additional complaints, except as documented, Denies throat swelling, Denies urticaria and Denies wheezing Past Medical History Past Medical History NEUROLOGIC: Positive Neurological Disorders; Negative Seizures CARDIAC: Positive Hypercholesterolemia; Negative Cardiac Disorders, Congestive Heart Failure or Hypertension RESPIRATORY: Negative Chronic Obstructive Pulmonary Disease (COPD) or Asthma GASTROINTESTINAL: Negative Gastrointestinal Disorders, Hepatitis or Colorectal Cancer GENITOURINARY: Negative Genitourinary Disorders or Renal Disease REPRODUCTIVE: Negative Breast Cancer, Endometriosis, Genital Herpes, Gonorrhea, Pelvic Inflammatory Disease, Previous Pregnancies, Syphilis or Uterine Prolapse MUSCULOSKELETAL: Positive Carpal Tunnel Syndrome; Negative Musculoskeletal Disorders or Bone Cancer ENDOCRINE: Negative Endocrine Disorders, Diabetes Mellitus Type 1 or Diabetes Mellitus Type 2 HEMATOLOGIC: Negative Blood Disorders, Anemia, Leukemia, Hemophilia, Thalassemia, Sickle Cell Disease or Clotting Problems OTHER HISTORY: Negative Hospitalization, Autoimmune Disease, Down Syndrome, Developmental Delay, Shingles, Falls, Blood Transfusions, Blood Transfusion Reaction, Anesthesia Reactions, Organ Transplant, Chemotherapy, Radiation Therapy, Hyperbaric Therapy, MRSA, VRSA, Vancomycin-Resistant Enterococci, Human Immunodeficiency Virus (HIV), Chicken Pox, Measles, Mumps, Rubella (Urdu Measles), Pertussis, Clostridium Difficile, Breast Cancer, Cervical Cancer, Colorectal Cancer, Lung Cancer or Ovarian Cancer Family History FAMILY HISTORY: Positive Family Respiratory Disorders and Family Cardiac Disorders; Negative Family Psychiatric Problems, Family Gastrointestinal Problems, Family Cancer, Family Surgery or Family Anesthesia Reaction Surgical History SURGICAL: Positive Abdominal Surgery; Negative Organ Transplant Social History SMOKING STATUS: Never smoker SECOND HAND EXPOSURE: No ED Exam General Limitations: Present no limitations General appearance: Present alert and in no apparent distress Head Head exam: Present atraumatic Eye Eye exam: Present normal appearance, PERRL and EOMI ENT ENT exam: Present normal exam, normal oropharynx and mucous membranes moist Neck Neck exam: Present normal inspection, full ROM and trachea midline Chest Chest inspection: Present normal inspection and symmetric chest wall rise Respiratory Respiratory exam: Present normal lung sounds bilaterally Cardiovascular Cardiovascular exam: Present regular rate, normal rhythm and normal heart sounds Abdominal Exam Abdominal exam: Present soft, tenderness and normal bowel sounds Abdominal tenderness: Present LLQ and mild Extremities Exam Extremities exam: Present normal inspection and full ROM Back Exam Back exam: Present normal inspection, full ROM and CVA tenderness (L) Neurological Exam Neurological exam: Present alert, oriented X3 and CN II-XII intact Psychiatric Psychiatric exam: Present normal affect and normal mood Skin Skin exam: Present warm, dry, intact and normal color Course Quality Measures none Orders Category Date Time Status CT abdomen pelvis wo con Stat Exams 08/12/24 06:55 Completed CBC Stat Lab 08/12/24 07:39 Completed CMP [Comprehensive Metabolic Panel] Stat Lab 08/12/24 07:39 Completed HCG Qualitative,Urine Stat Lab 08/12/24 08:06 Completed Lipase Stat Lab 08/12/24 07:39 Completed UA [Urinalysis] Stat Lab 08/12/24 08:06 Completed Urine Culture Stat Lab 08/12/24 08:06 Received Acetaminophen Tab [Tylenol Tab] Med 08/12/24 06:56 Discontinued 650 mg PO X1 ONE Ondansetron Odt [Zofran Odt] Med 08/12/24 06:56 Discontinued 4 mg PO X1 ONE Vital Signs Vital signs: Vital Signs Temperature 98.0 F 08/12/24 06:35 Pulse Rate 78 08/12/24 06:35 Respiratory Rate 16 08/12/24 06:35 Blood Pressure 106/73 08/12/24 06:35 Pulse Oximetry (%) 98 08/12/24 06:35 Oxygen Delivery Method Room Air 08/12/24 06:35 Abdominal Pain MDM MDM Narrative MDM Narrative:: 39-year-old female with no known medical history presents to the emergency room with a chief complaint of 8 out of 10 left-sided abdominal pain and left-sided flank pain x 2 days Patient is hemodynamically stable and in no apparent distress. Patient is hemodynamically stable and in no apparent distress. She is afebrile not tachycardic not tachypneic Physical examination shows left-sided CVA tenderness with palpation as well as left-sided groin tenderness. CT of the abdomen and pelvis was completed and shows a 1 to 2 mm renal calculi there is no hydronephrosis there is no urinary tract infection and there are no other acute findings CBC CMP are within normal limits Patient was discharged and educated to follow-up with primary care provider in the next 24 to 48 hours and return to the emergency room for any evidence of worsening signs or symptoms Patient data External records reviewed:: [facility] previous records Clinical information provided by:: patient Social determinants that could affect healthcare access:: none Patient has the following chronic illnesses:: No chronic illness How is presenting disease/condition affected by chronic disease/condition?: no chronic disease Evaluation data The following diagnostics were reviewed and interpreted by me:: lab results and radiology exam(s) Lab and/or radiology exams considered but not ordered:: Labs and radiology exams considered and ordered Interpretation Summary: CT abdomen and pelvis-Findings: No focal liver or splenic lesions No gallstones No pancreatic or adrenal mass Bilateral minute 1 to 2 mm renal calculi, no hydronephrosis or ureteral calculi Aorta normal size No bowel obstruction No pericecal inflammatory change Anteverted uterus No adnexal mass No bladder mass or bladder calculi IMPRESSION: Bilateral 1 to 2 mm renal calculi, no hydronephrosis or ureteral calculi No pericecal inflammatory change No bladder mass or bladder calculi, bladder wall is not thickened Medications / Prescriptions Medications or Prescriptions considered but not ordered:: Medication given Medication administrations:: Medication Administration History Discontinued Medications Acetaminophen (Acetaminophen 325 Mg Tablet) 650 mg PO X1 ONE Stop: 08/12/24 06:57 Last Admin: 08/12/24 07:38 Dose: 650 mg Documented By: KIM Ondansetron HCl (Ondansetron Odt 4 Mg Tabrap) 4 mg PO X1 ONE; Protocol Stop: 08/12/24 06:57 Last Admin: 08/12/24 07:39 Dose: 4 mg Documented By: KIM Medication given Consultations Consultation(s) initiated? (list below): No Diagnosis Differential diagnosis abdominal pain: abdominal pain, calculus of kidney, const ipation, gastroenteritis, small bowel obstruction and other (Renal calculi/pyelonephritis/urinary tract infection) Most likely diagnosis given after review of the tests above:: Calculus of kidney Admission Indicated Admission indicated?: not indicated Admission Request Was there a request for admission?: No Disposition Plan Disposition Plan: Discharge Discharge Attestation Discharge Attestation: The patient and all family members were given an opportunity to ask questions and understood the discharge instructions. Discharge instructions specifically effects, indications for sooner follow up or return to the emergency department, and the expected course of current diagnosis. Patient condition: Stable Discharge Plan Plan Patient Disposition: HOME (Self Care) Discharge Disposition comment: Stable Prescriptions/Referrals Prescriptions/Med Rec: No Action rosuvastatin 40 mg tablet 40 mg PO HS Patient Comments: TAKE 1 TABLET BY MOUTH EVERY DAY omeprazole 20 mg capsule,delayed release(DR/EC) 20 mg PO QDAY Qty: 30 0RF Linzess 72 mcg capsule 72 mcg PO QDAY Qty: 30 0RF tamsulosin [Flomax] 0.4 mg capsule 0.4 mg PO QDAY Qty: 20 0RF acetaminophen 500 mg tablet 1,000 mg PO Q6H PRN (Reason: pain) Qty: 30 0RF loperamide [Anti-Diarrheal (loperamide)] 2 mg capsule 2 mg PO Q6H PRN (Reason: loose stool) Qty: 20 0RF Referrals: Wyatt Kellogg PA-C [Primary Care Provider] - In 1 week Problem List Clinical Impression: Left renal stone Patient/Caregiver Discharge Instructions Education Materials: ED Kidney Stone w/ Colic Additional Instructions: Please follow-up with your primary care provider in the next [address] of your abdomen and pelvis showed some stones in your left kidney. At this point there are not in your ureters and there is no urinary tract infection. Your blood work was all within normal limits For any evidence of worsening signs or symptoms return to the emergency room immediately Print Language: French Stand Alone Forms: Carin Award Info., Work/School Release, Patient Portal Info Letter TAMANNA/TERESE Supervising Physician TAMANNA/TERESE Supervising Physician: Dr. HAIDER
[2024-08-12] MEDS: ACETAMINOPHEN 325 MG TABLET 650 MG PO (07:38)
[2024-08-12] MEDS: ONDANSETRON ODT 4 MG TABRAP PO (07:39)
[2024-08-12 07:52] LABS: Basophils # (Auto) 0.0 Thou/mm3 (0.0-0.2); Basophils % (Auto) 0 % (0-2.5); Eosinophils # (Auto) 0.2 Thou/mm3 (0.0-0.5); Eosinophils % (Auto) 2 % (0-10); Hematocrit 42.7 % (36.0-46.0); Hemoglobin 13.9 g/dL (12.0-16.0); Immature Granulocytes Auto 0.03 Thou/mm3 (0.00-0.00); Lymphocytes # (Auto) 3.4 Thou/mm3 (1.0-4.8); Lymphocytes % (Auto) 32 % (10-50); Mean Corpuscular HGB Conc 32.6 g/dl (31.0-37.0); Mean Corpuscular Hemoglobin 29.8 pg (25.0-35.0); Mean Corpuscular Volume 91 fL (80-100); Monocytes # (Auto) 0.5 Thou/mm3 (0.0-0.8); Monocytes % (Auto) 5 % (0-12); Neutrophils # (Auto) 6.5 Thou/mm3 (1.8-7.7); Neutrophils % (Auto) 62 % (37-80); Nucleated Red Blood Cell # 0.00 Thou/mm3 (0.00-0.00); Nucleated Red Blood Cell % 0 /100 WBC (0); Platelet Count 315 Thou/mm3 (140-440); RDW Standard Deviation 47.8 fL (36.4-46.3); Red Blood Count 4.67 Miln/mm3 (4.00-5.20); White Blood Count 10.6 Thou/mm3 (3.6-11.0)
[2024-08-12 08:15] LABS: Alanine Aminotransferase 20 U/L (10-49); Albumin, Serum 4.6 gm/dL (3.5-5.0); Albumin/Globulin Ratio 1.7 (1.2-2.2); Alkaline Phosphatase 94 U/L (46-116); Anion Gap 7 (7-16); Aspartate Amino Transferase 14 U/L (0-34); BUN/Creatinine Ratio 13 Ratio (12-20); Bilirubin,Total 0.6 mg/dL (0.3-1.2); Blood Urea Nitrogen 10 mg/dL (9-23); Calcium 9.2 mg/dL (8.3-10.6); Calcium (Corrected) 9.2 mg/dL (8.5-10.1); Carbon Dioxide 25.2 mMol/L (20.0-31.0); Chloride 108 mMol/L (98-107); Creatinine (Component) 0.8 mg/dL (0.6-1.3); Estimated Creatinine Clearance 97.1 mL/min (>60); Globulin 2.7 gm/dL (2.3-3.5); Glucose 96 mg/dL (74-106); Lipase 45 U/L (12-53); Osmolality,Calculated 278 (275-295); Potassium 4.2 mMol/L (3.4-5.1); Sodium 140 mMol/L (136-145); Total Protein 7.3 gm/dL (5.7-8.2); eGFR > 60 See Note
[2024-08-12 08:16] LABS: Collection Type, Urine Clean Catch
[2024-08-12 08:30] LABS: HCG Qualitative,Urine Negative
[2024-08-12 08:48] LABS: Bacteria,Urine 2+; Bilirubin,Urine Negative (Negative); Blood,Urine Trace (Negative); Clarity,Urine Clear (Clear/Hazy); Color,Urine Lt-Yellow (Lt Yel-Yel); Glucose, Urine Negative (Negative); Hyaline Casts,Urine < 1 /hpf (0-1); Ketones,Urine Negative (Negative); Leukocyte Esterase,Urine Negative (Negative); Nitrite,Urine Negative (Negative); PH,Urine 6.5 (5.0-7.0); Protein,Urine Negative (Neg - Trace); RBC,Urine 3 /hpf (0-3); Specific Gravity,Urine 1.014 (1.001-1.035); Squamous Epithelial Cell,Urine 1 /hpf (0-5); Urobilinogen,Urine Negative mg/dL (0.0-1.0); WBC,Urine 1 /hpf (0-5)
--- NOTE | 2024-08-12 11:20 | PC.NURSE ---
PT C/O OF A LOT OF PAIN. REQUESTING PAIN MED. NOT LEFT FOR PROVIDER.
== END 2024-08-12 11:32 | disposition home or self-care (01) ==
PROVIDERS: Nurse Practitioner Family; Emergency Provider Emergency Medicine; PCP Physician Assistant
DX: N20.0 Calculus of kidney (principal)
CPT/HCPCS: 36415; 74176; 80053; 81001; 81025; 83690; 85025; 87086; 99284; Q0162; A9270

== ENCOUNTER 2024-08-18 23:34 | Inpatient (IN) | payer MEDICAID, SELFPAY ==
[2024-08-18 23:34] VITALS: BMI 29.6
[2024-08-18 23:41] VITALS: BP 122/84; PULSE 127; RESP 16; TEMP 37.6; O2SAT 97
[2024-08-19] VITALS (10 sets, daily range): BP systolic 92–112; BP diastolic 64–81; PULSE 75–112; RESP 13–96; TEMP 36.3–37.2; O2SAT 95–99; BMI 32.8; BMI 12.0
--- NOTE | 2024-08-19 | XR_ITS ---
Examinations: MRI Brain without intravenous contrast. MRI brain with intravenous contrast MRA brain with intravenous contrast. MRA brain without intravenous contrast MRA neck with intravenous contrast Date and time of exam: August 19, 2024, 1719 hours INDICATIONS: Stroke alert today, onset focal neurologic deficit left-sided body weakness numbness headaches today Technique: Multiple axial and sagittal images of the brain have been obtained Siemens high-resolution 1.5 Gely short bore scanner is utilized. Sagittal sections, T1-weighted, TR 500, TE 14 Axial sections proton density and T2-weighted, TR 3,000, TE 34, TR 3,000, TE 91 Inversion recovery axial images, TR 9,260, TE 111, TI 2,500 Diffusion weighted images, axial sections, TR 4,800, TE 128, B value 1,000 Axial sections, ADC map, TR 4,800, TE 128. Contrast images have been obtained post intravenous 20 cc Gadolinium. T1-weighted axial and coronal images post contrast have been obtained. Angiographic images of neck and brain are obtained pre and post contrast. 3-D post processing performed, including brain, extracranial neck arterial maximum intensity projections Findings: Sellaturcica is not enlarged. The optic chiasm and infundibular stalk are not remarkable. Prepontine and interpeduncular cisterns are not enlarged. No localized enlargement of the medulla or robin. Fourth ventricle and cerebellar tonsils normal in position. Subacute hemorrhage is not seen. Fourth ventricle is midline. Mass in the cerebellopontine angle region is not evident. 7th and 8th nerve complexes exhibits symmetry. Globes are symmetrical with no retro-orbital mass. Increased white matter signal not seen Diffusion-weighted images demonstrateno focus of restricted diffusion. Mass-effect upon the ventricular system is not identified. Abnormal contrast enhancement is not seen. MRA brain carotid images no carotid stenoses, no large vessel cerebral conclusions Impression: Negative for acute hemorrhage mass effect or midline shift No acute infarct No MR findings diagnostic for demyelinating disease No abnormal enhancing cerebellar or cerebral lesions No carotid stenoses No cerebral large vessel arterial occlusions or thrombus
--- NOTE | 2024-08-19 00:03 | EDNOTE_ITS ---
Altered Mental Status RME/HPI General Chief Complaint: Altered Mental Status Stated Complaint: ALTERED MENTAL STATUS Time Seen by Provider: 08/18/24 23:52 Arrival date/time: 08/18/24 23:34 RME / HPI RME / HPI narrative: This section includes all my notes and documentations, including HPI, PE, and ED course. Lonnie Bagley MD HPI: 39yo female presents to the ED for complaints of left-sided weakness, numbness, and headache x 45 minutes [employer]. Here with friend who witnessed it. Patient has trouble describing all her symptoms, repeatedly saying not feeling well. No speech or visual impairment. No chest pain. No other complaints. ROS: All negative except as documented in HPI. Physical Exam: General: Alert and oriented. Crying, probably from fear. Eyes: Conjunctivae and lids clear. EOMI. PERRL. ENT: No nasal congestion. Pharynx normal. Tympanic membrane normal bilaterally. Neck: Supple. No carotid bruit. No JVD. Heart: RRR. Lungs: No respiratory distress. Good air movement. No rhonchi, wheezing, rales. Abdomen: Soft and nontender. Normal bowel sounds. No distension. No rebound or guarding. Legs: No clubbing, cyanosis, edema. Skin: Warm and dry. Neuro: Alert and oriented X 3. Cranial Nerves II-XII grossly intact. Left arm and leg weakness noted. I reviewed all diagnostic test results. My review of the CT head report is NAD. My review of the CT angio head and neck report is NAD. Blood tests unremarkable. UA showed 6 RBC and 2+ bacteria. At this point, diagnoses include strokelike symptoms and bacteriuria. Treatment here from me included NS and Zofran and Rocephin. I discussed the case with our teleneurologist. About the presentation and exam and diagnostics and treatments here. And need of further care in the hospital. Recommended TNK but patient declined. Recommended hospitalization for further care. I discussed the case with our hospitalist. About the presentation and exam and diagnostics and treatments here. And need of further care in the hospital. Will accept the patient. Lonnie Bagley MD Related Data Home Medications ?Medication ?Instructions ?Recorded ?Confirmed rosuvastatin 40 mg tablet 40 mg PO HS 03/07/23 4 Previous Rx's ?Medication ?Instructions ?Recorded omeprazole 20 mg capsule,delayed 20 mg PO QDAY #30 cap s 05/05/23 release tamsulosin 0.4 mg capsule (Flomax) 0.4 mg PO QDAY #20 caps 11/13/23 linaclotide 72 mcg capsule 72 mcg PO QDAY #30 caps 05/05 (Linzess) acetaminophen 500 mg tablet 1,000 mg (2 x 500 mg) PO Q 6H PRN 06/30/24 pain #30 tabs loperamide 2 mg capsule 2 mg PO Q6H PRN loose stool #20 06/30/24 (Anti-Diarrheal (loperamide)) caps Allergies Allergy/AdvReac Type Severity Reaction Status Date / Time alcohol Allergy Severe ICHY, Verified 08/12/24 06:22 REDNESS TO FACE diphenhydramine (From Allergy Severe Difficulty Verified 08/12/24 06:22 Benadryl Allergy) Swallowing ibuprofen Allergy Severe RASH Verified 08/12/24 06:22 loratadine (From Claritin) Allergy Severe Hives Verified 08/12/24 06:22 morphine Allergy Severe Difficulty Verified 08/12/24 06:22 Breathing oxycodone Allergy Severe Hives Verified 08/12/24 06:22 Penicillins Allergy Severe Difficulty Verified 08/12/24 06:22 Swallowing hydrocodone (From [place]) Allergy Intermediate Hypertensio Verified 08/12/24 06:22 n ketorolac (From Toradol) AdvReac Severe Fainting Verified 08/12/24 06:22 Review of Systems Review of Systems Systems Reviewed: All systems reviewed, normal except as documented Past Medical History Past Medical History NEUROLOGIC: Positive Neurological Disorders; Negative Seizures CARDIAC: Positive Hypercholesterolemia; Negative Cardiac Disorders, Congestive Heart Failure or Hypertension RESPIRATORY: Negative Chronic Obstructive Pulmonary Disease (COPD) or Asthma GASTROINTESTINAL: Negative Gastrointestinal Disorders, Hepatitis or Colorectal Cancer GENITOURINARY: Negative Genitourinary Disorders or Renal Disease REPRODUCTIVE: Negative Breast Cancer, Endometriosis, Genital Herpes, Gonorrhea, Pelvic Inflammatory Disease, Previous Pregnancies, Syphilis or Uterine Prolapse MUSCULOSKELETAL: Positive Carpal Tunnel Syndrome; Negative Musculoskeletal Disorders or Bone Cancer ENDOCRINE: Negative Endocrine Disorders, Diabetes Mellitus Type 1 or Diabetes Mellitus Type 2 HEMATOLOGIC: Negative Blood Disorders, Anemia, Leukemia, Hemophilia, Thalassemia, Sickle Cell Disease or Clotting Problems OTHER HISTORY: Negative Hospitalization, Autoimmune Disease, Down Syndrome, Developmental Delay, Shingles, Falls, Blood Transfusions, Blood Transfusion Reaction, Anesthesia Reactions, Organ Transplant, Chemotherapy, Radiation Therapy, Hyperbaric Therapy, MRSA, VRSA, Vancomycin-Resistant Enterococci, Human Immunodeficiency Virus (HIV), Chicken Pox, Measles, Mumps, Rubella (Tamazight Measles), Pertussis, Clostridium Difficile, Breast Cancer, Cervical Cancer, Colorectal Cancer, Lung Cancer or Ovarian Cancer Family History FAMILY HISTORY: Positive Family Respiratory Disorders and Family Cardiac Disorders; Negative Family Psychiatric Problems, Family Gastrointestinal Problems, Family Cancer, Family Surgery or Family Anesthesia Reaction Surgical History SURGICAL: Positive Abdominal Surgery; Negative Organ Transplant Social History SMOKING STATUS: Never smoker SECOND HAND EXPOSURE: No ED Exam Narrative Physical exam: As noted in HPI. Course Course Course Narrative: Stroke alert initiated at 0002. Quality Measures Suspected type of Stroke: Unknown at this time Tenecteplase given: Reason(s) TPA not given: Refusal not given stroke Orders Category Date Time Status Bedside Blood Glucose NOW Care 08/19/24 00:05 Active Sword Swallower NOW Care 08/19/24 00:05 Active Continuous Pulse Oximetry NOW Care 08/19/24 00:05 Completed EKG (ED ONLY) *Do not use* NOW Care 08/19/24 00:05 Completed In and Out Catheter X1 Care 08/19/24 00:05 Completed Insert IV NOW Care 08/19/24 00:05 Active NIH Stroke Scale now Care 08/19/24 00:05 Active NPO NOW Care 08/19/24 00:05 Active Nurse Swallow Screen x1 Care 08/19/24 00:05 Active Consult to Neurology / Tele-Neurology Routine Cons 08/19/24 00:05 Active Referral Speech Therapy Stat Cons 08/19/24 01:[address] angio stroke protocol Stat Exams 08/19/24 00:[address] stroke protocol Stat Exams 08/19/24 00:05 Taken EKG (ED Only) Stat Exams 08/19/24 00:05 Ordered Alcohol, Blood Medical Stat Lab 08/19/24 00:42 Completed Arterial Blood Gas Stat Lab 08/19/24 01:20 Completed B-Type Natriuretic Peptide Stat Lab 08/19/24 00:42 Completed CBC Stat Lab 08/19/24 00:42 Completed Comprehensive Metabolic Panel Stat Lab 08/19/24 00:42 Completed Drug Screen,Urine Stat Lab 08/19/24 02:31 Completed Free T4 (Free Thyroxine) Stat Lab 08/19/24 00:42 Completed HCG Titer if Positive Stat Lab 08/19/24 00:42 Completed Magnesium Stat Lab 08/19/24 00:42 Completed Partial Thromboplastin Time Stat Lab 08/19/24 00:42 Completed Prothrombin Time with INR Stat Lab 08/19/24 00:42 Completed TSH [Thyroid Stimulating Hormone] Stat Lab 08/19/24 00:42 Completed Troponin I Stat Lab 08/19/24 00:42 Completed Urinalysis Stat Lab 08/19/24 02:31 Completed Urine Culture Stat Lab 08/19/24 02:31 Received Ondansetron Inj [Zofran Inj] Med 08/19/24 00:05 Active 4 mg IVP Q4HR PRN Sodium Chloride 0.9% 1000 ml [Ns] 1,000 ml Med 08/19/24 00:15 Active IV Q10H Oxygen Delivery NOW RT 08/19/24 00:05 Active Vital Signs Vital signs: Vital Signs Temperature 99.6 F 08/18/24 23:41 Pulse Rate 127 H 08/18/24 23:41 Respiratory Rate 16 08/18/24 23:41 Blood Pressure 122/84 08/18/24 23:41 Pulse Oximetry (%) 97 08/18/24 23:41 Oxygen Delivery Method Room Air 08/18/24 23:41 Altered Mental Status MDM Narrative MDM Narrative:: 39yo female presents to the ED for complaints of left-sided weakness, numbness, and a headache x 45 minutes [employer]. No history of similar symptoms. No other c omplaints reported. Patient data External records reviewed:: [facility] previous records (Per chart review, patient was seen here on 08/12/24 for left renal stone.) Clinical information provided by:: family Social determinants that could affect healthcare access:: none Patient has the following chronic illnesses:: HLD How is presenting disease/condition affected by chronic disease/condition?: uneffected by Evaluation data The following diagnostics were reviewed and interpreted by me:: lab results and radiology exam(s) Lab and/or radiology exams considered but not ordered:: none Interpretation Summary: I reviewed all diagnostic test results. My review of the CT head report is NAD. My review of the CT angio head and neck report is NAD. Blood tests unremarkable. UA showed 6 RBC and 2+ bacteria. Medications / Prescriptions Medications or Prescriptions considered but not ordered:: none Medication administrations:: Medication Administration History Acetaminophen (Acetaminophen 325 Mg Tablet) 650 mg PO Q6H PRN PRN Reason: Pain 1-3 and/or Fever >100.1 Stop: 09/18/24 02:15 Aspirin (Aspirin 325 Mg Tablet) 325 mg PO QDAY THU Stop: 09/18/24 08:59 Atorvastatin Calcium (Atorvastatin Calcium 20 Mg Tablet) 40 mg PO HS THU Stop: 09/18/24 20:59 Sodium Chloride (Ns) 1,000 mls @ 100 mls/hr IV Q10H THU Stop: 09/18/24 00:14 Last Admin: 08/19/24 01:08 Dose: 100 mls/hr Documented By: LOWELL Ondansetron HCl (Ondansetron Inj 2 Mg/Ml Inj 2 Ml) 4 mg IVP Q4HR PRN PRN Reason: NAUSEA OR VOMITING Stop: 09/18/24 00:04 Last Admin: 08/19/24 01:08 Dose: 4 mg Documented By: LOWELL Sennosides (Senna Tablet) 1 tab PO QDAY PRN; Protocol PRN Reason: constipation Stop: 09/18/24 02:15 Treatment here from me included NS and Zofran and Rocephin. Consultations Consultation(s) initiated? (list below): Yes Consultation #1 (Physician, Specialty, Details): I discussed the case with our teleneurologist. About the presentation and exam and diagnostics and treatments here. And need of further care in the hospital. Recommended TNK but patient declined. Recommended hospitalization for further care. Consultation #2 (Physician, Specialty, Details): I discussed the case with our hospitalist. About the presentation and exam and diagnostics and treatments here. And need of further care in the hospital. Will accept the patient. Diagnosis Differential diagnosis altered mental status: alcoholic intoxication, altered mental status, delirium, dementia, hypoglycemia, hyponatremia, subarachnoid hemorrhage, sepsis and other (CVA, brain tumor, psychogenic) Most likely diagnosis given after review of the tests above:: Strokelike symptoms and bacteriuria Admission Indicated Admission indicated?: indicated Explain why admission is indicated or not indicated:: I discussed the case with our teleneurologist. About the presentation and exam and diagnostics and treatments here. And need of further care in the hospital. Recommended TNK but patient declined. Recommended hospitalization for further care. Admission Request Was there a request for admission?: Yes Admission Attestation Admission request attestation: Discussed case with Hospitalist service regarding admission. Discussed patients ED course, exam findings, labs, and radiology results. The Hospitalist [agrees] to accept the patient for admission. Disposition Plan Disposition Plan: Admit Critical Care Time Critical Care Time Critical Care Time: Yes Total Critical Care Time (min.): 45 Attestation: Due to a high probability of clinically significant, life threatening deterioration, the patient required my highest level of preparedness to i ntervene emergently and I personally spent this critical care time directly and personally managing the patient. This critical care time included obtaining a history; examining the patient; ordering and review of studies; arranging urgent treatment with development of a management plan; evaluation of patient's response to treatment; frequent reassessment; and discussions with family and other providers. It was exclusive of separately billable procedures and treating other patients and teaching time. Lonnie Bagley MD Discharge Plan Plan Patient Disposition: Admit Acute Care w/in Hospital Problem List Clinical Impression: Stroke-like symptoms, Bacteriuria
--- NOTE | 2024-08-19 00:05 | XR_ITS ---
Examination: CT brain head without contrast. 2-D sagittal coronal reconstructions Date and time of exam:August 19, 2024 0010 hours, comparison June 30, 2024 INDICATIONS: Altered mental status today CTDI: vol (mGy):46.2. DLP: (mGycm):862. Technique: Multiple CT axial sections of the brain have been obtained, 5 mm slice thickness. Contrast has not been administered. 2-D sagittal, coronal reconstructions have been obtained Low dose protocols were performed. One or more of the following dose reduction techniques were used; automated exposure control, adjustment of the mA and/or KV according to patient size, use of iterative reconstruction technique. Findings: No significant ventricular enlargement. Intra-axial or extra-axial hemorrhage density is not seen. No mass effect or midline shift Basal cisterns are not remarkable. Fourth ventricle is midline. Cranial vault intact. Impression: Negative for acute hemorrhage, mass effect or midline shift Advise clinical correlation and follow-up coronary
--- NOTE | 2024-08-19 00:05 | XR_ITS ---
Examination: CTA carotids with intravenous contrast CTA brain, head with intravenous contrast. 2-D sagittal, coronal reconstructions. 3-D reconstructions. Exam date and time: August 19, 2024 0016 hours INDICATIONS: Stroke alert, onset focal neurologic deficit today CTDI: vol (mGy) 11.5 DLP: (mGycm) 432 Technique: Multiple CTA axial brain, head carotid images post intravenous contrast injection 75 cc, [id number]. 2-D sagittal, coronal reconstructions. 3-D reconstructions, 3-D post processing including vascular maximum intensity projection images. Low dose protocols were performed. One or more of the following dose reduction techniques were used; automated exposure control, adjustment of the mA and/or KV according to patient size, use of iterative reconstruction technique. Findings: No significant common carotid carotid bifurcation or internal carotid artery stenoses Dominant left vertebral artery with no critical stenoses No cerebral or basilar arterial occlusions thrombus. IMPRESSION: No significant neck arterial stenoses No cerebral large vessel arterial occlusions or thrombus
--- NOTE | 2024-08-19 00:32 | PRELIM_ITS ---
CT scan of the head without intravenous contrast (axial sections with sagittal and coronal reformats) August 19, 2024 0010 hours Clinical History: Focal neuro deficit, stroke suspected Left Sided weakness. Comparison: CT head June 30, 2024. Findings: No evidence of intracranial hemorrhage, mass effect or midline shift. No definitive wedge-shaped acute infarcts are detected. Again noted is a small ill- defined hypodensity in the left frontal lobe subcortical white matter, which may represent an old infarct, without significant interval change . The ventricles and CSF spaces are unremarkable. The calvarium is unremarkable. The mastoid air cells and the visualized paranasal sinuses are clear. Impression: No evidence of intracranial hemorrhage, mass effect or midline shift. No definitive wedge-shaped acute infarcts are detected. Please note that subtle early infarcts are better assessed using diffusion-weighted MR imaging, if clinically indicated. Discussion Details: Results verbally communicated to : Dr. Bagley at 12:27 AM 08/19/2024 Report Electronically Signed By: Gerardo Yanez 08/19/2024 12:32:29 AM [EST]
--- NOTE | 2024-08-19 00:41 | PC.NURSE ---
PT REFUSED TNK. DR. CAMPBELL MADE AWARE.
--- NOTE | 2024-08-19 00:42 | ESCONSULT_ITS ---
Tele Neuro Consultation Consultation Date 08/19/24 Most Recent Vital Signs Last Vital Signs Temp 99.6 F 08/18/24 23:41 Pulse 127 H 08/18/24 23:41 Resp 16 08/18/24 23:41 BP 122/84 08/18/24 23:41 Pulse Ox 97 08/18/24 23:41 O2 Del Method Room Air 08/18/24 23:41 Consultation Narrative [facility] Tele[facility]urology Consult Services Patient Name:???Marcella Jackson Date of :???1985 Identification Number:??? Date of Service:???08/19/2024 00:04:14 Diagnosis:?R53.1 - Weakness Impression: ?39 yo F who presents with left sided weakness. Head CT personally reviewed on PACS and negative for hemorrhage or acute area of developing infarct on my direct view. ? ?I discussed contraindications to thrombolytics with patient and no contraindications to thrombolytics reported. I discussed with patient that the major risk of thrombolytics (such as TNK/tPA) is bleeding, which can occur anywhere in the body and can be significant enough to cause symptoms and worsening of neurologic status. Approximately 3 out of 100 people that receive TNK/tPA do worse after administration (usually due to bleeding complications), with 1 out of 100 dying due to complications from TNK/tPA administration. I explained that the reason the medication is offered is approximately 1/3 of patient that receive thrombolytics (TNK/tPA) have improvement in their neurologic status after administration. After our discussion of these risks/benefits, the patient declined administration of TNK (we discussed risks/benefits of TNK a couple different times, also discussed what would happen if she did not take the medication and I even told her if it were me I would take the medication (after she asked me what I would do) before she decided against getting TNK). ? ?CTA head/neck pending. With friend saying she passed out this evening (and seemed normal prior to that), non GARNETT FEEDER etiology to symptoms certainly possible. Pending acute abnormalities on CTA, would admit for broad workup including stroke workup and EEG. Full recommendations as follows: Our recommendations are outlined below. Recommendations: ?-f/u CTA head/neck ?-frequent neuro checks/vitals during admission ?-Goal blood pressure less than 220 systolic ?-Euglycemia and Avoid Hyperthermia (PRN Acetaminophen) ?-NPO with maintenance IVFs (including no po medications) until bedside swallow screening performed (speech/swallow therapy if pt fails and also keep pt NPO) ?-obtain MRI brain w/ and w/o contrast (routine) ?-obtain Lipid panel, Hb A1c, TTE with bubble study ?-Place on telemetry ?-start asa 325 mg po daily ?-Start atorvastatin 40 mg po qhs ?-dvt ppx per primary team ?-obtain routine EEG ?-obtain UA, UDS, Etoh Level ?-obtain CMP, CBC if not already done ?-PT/OT/ST consults - inpatient rehab if recommended ?-Please notify neurology immediately for change in exam Advanced Imaging:Advanced imaging has been ordered. Results pending. Metrics: Last Known Well: 08/18/2024 21:00:00 Dispatch Time: 08/19/2024 00:04:13 Arrival Time: 08/18/2024 23:34:00 Initial Response Time: 08/19/2024 00:06:54Symptoms: left sided weakness. Initial patient interaction: 08/19/2024 00:11:29 NIHSS Assessment Completed: 08/19/2024 00:23:26Patient is not a candidate for Thrombolytic. Thrombolytic Medical Decision: 08/19/2024 00:30:10Patient was not deemed candidate for Thrombolytic because of following reasons: Patient/Family declined . CT Head: I personally reviewed all the CT images that were available to me and it showed: Head CT personally reviewed on PACS and negative for hemorrhage or acute area of developing infarct on my direct view (it is noted that remote physician workstations do not possess the same resolution, calibration, or diagnostic capabilities as hospital-based radiology reading stations, and formal radiologist read is necessary). Primary Provider Notified of Diagnostic Impression and Management Plan on: 08/19/2024 00:41:15 History of Present Illness:Patient is a 39 year old Female. Patient was brought by private transportation with symptoms of left sided weakness. 39 yo F who presents with left sided weakness. Per report, patient presents with LKN of 1130 pm. Not acting herself reportedly. Left side is flaccid . Reportedly only takes tylenol and has hx of anxiety. Has blank stare but can leave right side up. Patient states she feels like her heart is going so fast. Also has left sided weakness. Has had weakness like this in the past and was told she had fluid on the brain that was pushing on the nerves ; states since this happened in November she has gotten better with left sided weakness but not all the way better (uses walker she states when she goes out). States she was sitting with her mother and her friend and was normal at 9 pm. States after 9 pm she noted left sided weakness and also numb. States it is hard to talk right now. States her vision is foggy. Also had dizziness and headache. Later I spoke with patient's friend who was with her today/galen (through video/audio automobile mechanic helper at bedside for sinhala) who let me know that tonight she was doing fine. She then asked for hypertension device. BP taken and was high along with heart beat being high. She then went dizzy and then fainted. When she woke up she told them to take her to the hospital, and she fainted right away. Today she also faced alot of stress her friend states. Friend then brought her to hospital. ? Past Medical History: ?Hyperlipidemia ?There is no history of Hypertension ?There is no history of Diabetes Mellitus ?There is no history of Atrial Fibrillation ?There is no history of Stroke ?There is no history of Seizures Medications: No Anticoagulant use? No Antiplatelet use Reviewed EMR for current medications Other Medications Pertinent To Assessment Include: prescribed medication for headaches but does not take any medications every day Allergies:? Reviewed Social History: Smoking: No Family History: There is no family history of premature cerebrovascular disease pertinent to this consultation ROS : 14 Points Review of Systems was performed and was negative except mentioned in HPI. ? ? Examination: BP(122/84),?Pulse(108),?Blood Glucose(130) 1A: Level of Consciousness - Arouses to minor stimulation?+ 1 1B: Ask Month and Age - Both Questions Right?+ 0 1C: Blink Eyes & Squeeze Hands - Performs Both Tasks?+ 0 2: Test Horizontal Extraocular Movements - Normal?+ 0 3: Test Visual Valerio - Complete Hemianopia?+ 2 4: Test Facial Palsy (Use Grimace if Obtunded) - Minor paralysis (flat nasolabial fold, smile asymmetry)?+ 1 5A: Test Left Arm Motor Drift - No Effort Against [place]?+ 3 5B: Test Right Arm Motor Drift - No Drift for 10 Seconds?+ 0 6A: Test Left Leg Motor Drift - Some Effort Against [place]?+ 2 6B: Test Right Leg Motor Drift - No Drift for 5 Seconds?+ 0 7: Test Limb Ataxia (FNF/Heel-Daigle) - No Ataxia?+ 0 8: Test Sensation - Complete Loss: Cannot Sense Being Touched At All?+ 2 9: Test Language/Aphasia - Mild-Moderate Aphasia: Some Obvious Changes, Without Significant Limitation?+ 1 10: Test Dysarthria - Mild-Moderate Dysarthria: Slurring but can be understood?+ 1 11: Test Extinction/Inattention - No abnormality?+ 0 NIHSS Free Text :?full oriented at this time but does tend to close eyes at times but answer most questions appropriately but not following all commands; is not sensing light touch on left; cannot see on left side Pre-Morbid Modified [place] Scale:3 Points = Moderate disability; requiring some help, but able to walk without assistance Spoke with :?ED provider Dr. Bagley through video software at end of encounter This consult was conducted in real time using interactive audio and video technology. Patient was informed of the technology being used for this visit and agreed to proceed. Patient located in hospital and provider located at home/office setting. Patient is being evaluated for possible acute neurologic impairment and high p robability of imminent or life-threatening deterioration. I spent total of 40 minutes providing care to this patient, including time for face to face visit via telemedicine, review of medical records, imaging studies and discussion of findings with providers, the patient and/or family. Dr Matt Lei [facility] For Inpatient follow-up with [facility] physician please call [facility] at [phone]. As we are not an outpatient service for any post hospital discharge needs please contact the hospital for assistance. If you have any questions for the [facility] physicians or need to reconsult for clinical or diagnostic changes please contact us via [facility] at . ?
[2024-08-19 01:00] LABS: Basophils # (Auto) 0.1 Thou/mm3 (0.0-0.2); Basophils % (Auto) 0 % (0-2.5); Eosinophils # (Auto) 0.1 Thou/mm3 (0.0-0.5); Eosinophils % (Auto) 1 % (0-10); Hematocrit 37.9 % (36.0-46.0); Hemoglobin 12.8 g/dL (12.0-16.0); Immature Granulocytes Auto 0.05 Thou/mm3 (0.00-0.00); Lymphocytes # (Auto) 2.6 Thou/mm3 (1.0-4.8); Lymphocytes % (Auto) 21 % (10-50); Mean Corpuscular HGB Conc 33.8 g/dl (31.0-37.0); Mean Corpuscular Hemoglobin 29.6 pg (25.0-35.0); Mean Corpuscular Volume 88 fL (80-100); Monocytes # (Auto) 0.6 Thou/mm3 (0.0-0.8); Monocytes % (Auto) 5 % (0-12); Neutrophils # (Auto) 8.8 Thou/mm3 (1.8-7.7); Neutrophils % (Auto) 72 % (37-80); Nucleated Red Blood Cell # 0.00 Thou/mm3 (0.00-0.00); Nucleated Red Blood Cell % 0 /100 WBC (0); Platelet Count 263 Thou/mm3 (140-440); RDW Standard Deviation 46.1 fL (36.4-46.3); Red Blood Count 4.32 Miln/mm3 (4.00-5.20); White Blood Count 12.2 Thou/mm3 (3.6-11.0)
[2024-08-19] MEDS: ONDANSETRON INJ 2 MG/ML INJ 2 ML 4 MG IVP ×2 (01:08→12:07)
[2024-08-19] MEDS: SODIUM CHLORIDE 0.9% 1000 ML 1,000 ML 100 ML IV ×2 (01:08→14:24)
[2024-08-19 01:13] LABS: HCG Titer if Positive Negative
[2024-08-19 01:15] LABS: INR 1.0 (0.9-1.3); Partial Thromboplastin Time 29.3 Seconds (22.0-36.0); Prothrombin Time 10.8 Seconds (9.0-12.2)
[2024-08-19 01:19] LABS: B-Type Natriuretic Peptide < 20 pg/mL (0-100)
[2024-08-19 01:26] LABS: Alanine Aminotransferase 24 U/L (10-49); Albumin, Serum 4.3 gm/dL (3.5-5.0); Albumin/Globulin Ratio 1.8 (1.2-2.2); Alcohol, Blood Medical < 3.0 mg/dL (0-10.0); Alkaline Phosphatase 78 U/L (46-116); Anion Gap 9 (7-16); Aspartate Amino Transferase 16 U/L (0-34); BUN/Creatinine Ratio 11 Ratio (12-20); Bilirubin,Total 0.4 mg/dL (0.3-1.2); Blood Urea Nitrogen 8 mg/dL (9-23); Calcium 9.3 mg/dL (8.3-10.6); Calcium (Corrected) 9.3 mg/dL (8.5-10.1); Carbon Dioxide 23.4 mMol/L (20.0-31.0); Chloride 107 mMol/L (98-107); Creatinine (Component) 0.7 mg/dL (0.6-1.3); Estimated Creatinine Clearance 111.0 mL/min (>60); Free T4 (Free Thyroxine) 1.12 ng/dL (0.89-1.76); Globulin 2.4 gm/dL (2.3-3.5); Glucose 106 mg/dL (74-106); Magnesium 1.6 mg/dL (1.6-2.6); Osmolality,Calculated 275 (275-295); Potassium 3.7 mMol/L (3.4-5.1); Sodium 139 mMol/L (136-145); Thyroid Stimulating Hormone 1.99 uIU/mL (0.55-4.78); Total Protein 6.7 gm/dL (5.7-8.2); Troponin I < 0.002 ng/mL (0.0-0.045); eGFR > 60 See Note
[2024-08-19 01:26] LABS: Base Excess -1 (-3-3); HCO3 24 mEq/L (20-26); Inspired Oxygen, FIO2 21 %; O2 Saturation 78 % (91-98); PCO2 40 mmHg (32.0-48.0); pH, Arterial 7.39 (7.35-7.45)
[2024-08-19 01:33] LABS: Allen Test Performed/OK; PO2 35 mmHg (83-108); Puncture Site Left Radial
--- NOTE | 2024-08-19 02:20 | ECHO_ITS ---
Transthoracic Echo Report Ht (in): 65 Wt (lb): 178 Exam Location: Echo Lab Status: Emergency Beauty Artist: Ynes Miranda Indications: Procedure Performed: BP: 110 / 81 HR: 112 Technical Quality: Techncially Difficult Study Due to Body Habitus MEASUREMENTS (Male / Female) Normal Values 2D ECHO LV Diastolic Diameter PLAX 4.3 cm 4.2 - 5.9 / 3.9 - 5.3 cm LV Systolic Diameter PLAX 2.9 cm IVS Diastolic Thickness 0.9 cm 0.6 - 1.0 / 0.6 - 0.9 cm LVPW Diastolic Thickness 0.7 cm 0.6 - 1.0 / 0.6 - 0.9 cm LV Relative Wall Thickness 0.4 LVOT Diameter 1.7 cm Ascending Aorta Diameter 2.5 cm M-MODE AV Cusp Separation MM 1.5 cm DOPPLER AV Peak Velocity 111.0 cm/s AV Peak Gradient 4.9 mmHg LVOT Peak Velocity 79.1 cm/s LVOT Peak Gradient 2.5 mmHg AV Area Cont Eq pk 1.6 cm? MV Area PHT 2.8 cm? Mitral E Point Velocity 74.2 cm/s Mitral A Point Velocity 76.2 cm/s Mitral E to A Ratio 1.0 LV E' Lateral Velocity 14.1 cm/s Mitral E to LV E' Lateral Ratio 5.3 LV E' Septal Velocity 8.8 cm/s Mitral E to LV E' Septal Ratio 8.4 TR Peak Velocity 175.0 cm/s TR Peak Gradient 12.3 mmHg PV Peak Velocity 96.4 cm/s PV Peak Gradient 3.7 mmHg FINDINGS Left Ventricle Normal left ventricular size, wall thickness, systolic function with no obvious regional wall motion abnormalities. Normal left ventricular diastolic filling pattern for age. The ejection fraction is visually estimated at 55 %. Right Ventricle The right ventricle is normal in size and systolic function. The estimated right ventricular systolic pressure, 12 mmHg. RAP 5mmHg. Left Atrium The left atrium is normal by two-dimensional, color flow and Doppler imaging with no structural abnormalities, no thrombus formation present. Right Atrium The right atrium is normal by two-dimensional imaging, color flow and Doppler imaging with no structural abnormalities, no thrombus formation present. Atrial Septum The interatrial septum appears normal with no evidence of a shunt. Bubble study negative for PFO/ASD. Aorta The aorta is normal by two-dimensional, color flow and Doppler interrogation. Mitral Valve The mitral valve is normal by two-dimensional, color flow and Doppler interrogation. There is no significant mitral valve regurgitation, stenosis or prolapse. Aortic Valve The aortic valve is trileaflet and normal by two-dimensional, color flow and Doppler interrogation. There is no significant aortic valve regurgitation. Tricuspid Valve The tricuspid valve is normal by two-dimensional, color flow and Doppler interrogation. There is trace tricuspid valve regurgitation. Pulmonic Valve The pulmonic valve is not well visualized. There is no significant pulmonic valve regurgitation. Vessels The pulmonary artery appears normal. The inferior vena cava pulmonary and hepatic veins appear normal. Pericardium The pericardium is normal by two-dimensional imaging. There is no significant pericardial effusion. CONCLUSIONS Indications: R/O Stroke Bubble Study Negative for PFO/ASD. Normal LV size and function Estimated EF 55%. RV Normal. RVSP 12mmHg. RAP 5mmHg. Trace TR. No Pericardial Effusion. Marcela Madrid (Electronically Signed) Final Date: 19 August 2024 19:21
--- NOTE | 2024-08-19 02:26 | PD.RESHP ---
Documentation for date of: 08/19/24 HPI History of Present Illness Chief complaint: Headache, tachycardia and left-sided weakness History of present illness: 39-year-old female with significant medical history for right-side complex regional pain syndrome (CRPS), nephrolithiasis and GERD came to ED on 08/19 for tachycardia, left-sided weakness accompanied with headache which apparently began around 11 PM on 08/18. Patient states that she has difficulty ambulating her left upper and lower extremity since the onset of symptoms. She also does remember much of what occurred other than the fact that she was talking and laughing with her family and friend. Of note, patient with similar presentation and she was admitted on 12/12; moreover, at that time neurology was consulted and MRI studies were found to be inconclusive for any significant disease process.patient apparently follows up with a neurologist at [facility] and was seen sometime in July; moreover, she was started on new medications but she has not taking them due to fear of allergies. It appears based off looking at the [facility] EMR with the patient provided that the patient is on nortriptyline, rizatriptan, trazodone but she denies taking any of these medications at this time. She also states that she was told that she has fluid around her brain but there are no imaging findings that support that statement. Medical history: As stated above Surgical history: Denies Allergies: See list in the EMR Medications: Pending official med rec Family history: Noncontributory Social history: Denies smoking cigarettes, drinking alcohol or using other illicit drugs ROS: All 12 systems assessed and the patient denies unless otherwise stated in HPI In the ED, patient presented normotensive, tachycardic with a heart rate of 127, respiratory rate 16, moderately febrile 99.6 ?F but satting 97 on room air. Pertinent lab findings included WBC of 12.2, ABG which showed a pH of 7.39, PCO2 of 40 and PO2 of 35. Electrolytes were largely unremarkable other than a magnesium of 1.6, troponin was within normal limits and BNP was less than 20. Urinalysis was negative for any signs of infection and U tox is pending collection. Preliminary read of CT head shows no acute findings and CTA of the head and neck is still pending. Stroke alert was initiated and teleneurology was consulted who recommended admitting the patient for further workup. Will consult in-house neurology team for further evaluation as well. Exam Vital Signs Temp Pulse Resp BP Pulse Ox O2 Del Method 99.6 F 112 H 21 H 122/84 97 Room Air 08/18/24 23:41 08/19/24 01:24 08/19/24 01:24 08/18/24 23:41 08/18/24 23:41 08/18/24 23:41 Narrative Exam Physical Exam: GENERAL: Awake, mental status waxes and wanes, patient appears under the influence, but does answer questions appropriately when redirected HEENT: NC/AT. Moist mucosa. PERRLA/EOMI. CARDIO: Heart RRR, no obvious murmurs, no JVD. PULM: No coughing or visible SOB. Lungs CTA B/L. GI: Abdomen soft, NT/ND, +BS. SKIN/MSK/EXT: No wounds/discoloration/rashes/edema/amputations fissure. +Pedal pulses present B/L. NEURO: Oriented x3, cranial nerves II to XII intact other than cranial nerve V which the patient has reduced sensation on the left side of face, [id number] test failed, patient unable to keep left upper and lower extremities up against gravity, no deficits noted on the right extremities. [employer] Executive strength 0 out of 5 on the left but 5 out of 5 on the right. Results: Labs 08/19/24 00:42 08/19/24 00:42 Labs: Short CBC 08/19/24 Range/Units 00:42 WBC 12.2 H (3.6-11.0) Thou/mm3 Hgb 12.8 (12.0-16.0) g/dL Hct 37.9 (36.0-46.0) % Plt Count 263 D (140-440) Thou/mm3 BMP 08/19/24 00:42 Sodium 139 Potassium 3.7 Chloride 107 Carbon Dioxide 23.4 BUN 8 L Creatinine 0.7 Glucose 106 Calcium 9.3 Cardiac Enzymes 08/19/24 Range/Units 00:42 Troponin I < 0.002 (0.0-0.045) ng/mL Liver Function 08/19/24 Range/Units 00:42 Total Bilirubin 0.4 (0.3-1.2) mg/dL AST 16 (0-34) U/L ALT 24 (10-49) U/L Alkaline Phosphatase 78 (46-116) U/L Albumin 4.3 (3.5-5.0) gm/dL ABG Interpretation ABG results: 08/19/24 01:20 ABG pH 7.39 ABG pCO2 40 ABG pO2 35 L* ABG HCO3 24 ABG O2 Saturation 78 L ABG Base Excess -1 Quality Measures Quality Measures stroke Suspected type of Stroke: Unknown at this time Tenecteplase given: Reason(s) Tenecteplase not given: Refusal not given Rehab services: PT evaluation ordered VTE Prophylaxis: mechanical Antithrombotic by day 2:: ordered Statin ordered: <75 y/o high intensity dose Anticoagulation ordered for A-fib or flutter (current or hx): not indicated Medications Home Medications and Allergies Home Medications ?Medication ?Instructions ?Recorded ?Confirmed ?Type rosuvastatin 40 mg tablet 40 mg PO HS 03/07/23 08/19/24 History Allergies Allergy/AdvReac Type Severity Reaction Status Date / Time alcohol Allergy Severe ICHY, Verified 08/12/24 06:22 REDNESS TO FACE diphenhydramine (From Allergy Severe Difficulty Verified 08/12/24 06:22 Benadryl Allergy) Swallowing ibuprofen Allergy Severe RASH Verified 08/12/24 06:22 loratadine (From Claritin) Allergy Severe Hives Verified 08/12/24 06:22 morphine Allergy Severe Difficulty Verified 08/12/24 06:22 Breathing oxycodone Allergy Severe Hives Verified 08/12/24 06:22 Penicillins Allergy Severe Difficulty Verified 08/12/24 06:22 Swallowing hydrocodone (From [place]) Allergy Intermediate Hypertensio Verified 08/12/24 06:22 n ketorolac (From Toradol) AdvReac Severe Fainting Verified 08/12/24 06:22 Visit Medications Acetaminophen (Acetaminophen 325 Mg Tablet) 650 mg PO Q6H PRN PRN Reason: Pain 1-3 and/or Fever >100.1 Stop: 09/18/24 02:15 Aspirin (Aspirin 325 Mg Tablet) 325 mg PO QDAY THU Stop: 09/18/24 08:59 Atorvastatin Calcium (Atorvastatin Calcium 20 Mg Tablet) 40 mg PO HS THU Stop: 09/18/24 20:59 Sodium Chloride (Ns) 1,000 mls @ 100 mls/hr IV Q10H THU Stop: 09/18/24 00:14 Last Admin: 08/19/24 01:08 Dose: 100 mls/hr Ondansetron HCl (Ondansetron Inj 2 Mg/Ml Inj 2 Ml) 4 mg IVP Q4HR PRN PRN Reason: NAUSEA OR VOMITING Stop: 09/18/24 00:04 Last Admin: 08/19/24 01:08 Dose: 4 mg Sennosides (Senna Tablet) 1 tab PO QDAY PRN; Protocol PRN Reason: constipation Stop: 09/18/24 02:15 Assessment & Plan Plan 39-year-old female with significant medical history for right-side complex regional pain syndrome (CRPS), nephrolithiasis and GERD came to ED on 08/19 for tachycardia, left-sided weakness accompanied with headache which apparently began around 11 PM on 08/18 Stroke alert was initiated and teleneurology was consulted who recommended admitting the patient for further workup. Will consult in-house neurology team for further evaluation as well. #Acute encephalopathy with neurologic deficits #Leukocytosis, mild Differentials include: Hemiplegic migraine, stroke/TIA, MS, malingering, drug toxicity, primary [employer]ISH[employer] tumor less likely to be seizures versus meningitis As noted above in the HPI, patient has similar presentation in the past with MRI findings being largely negative Patient is presenting with similar complaints of left-sided hemiplegia associated with headache and apparent loss of consciousness with weakness On examination, patient does have tachycardia and neuroexam as noted above is significant Labs do show WBC of 12.2 but there are no signs of infection noted with UA and the patient's oxygen status is within normal limits even with an ABG showing a PO2 of 39 Teleneurology was consulted and recommendation was to admit for further workup Head CT negative and head CTA head and neck is pending at this time Plan: Will initiate aspirin 325 p.o. daily along with atorvastatin 40 mg p.o. daily Frequent neurochecks MR stroke protocol and echo with bubble study ordered Neurology consulted, appreciate recommendations Please follow-up on U tox Euglycemia and temperature monitoring PT and speech eval, n.p.o. until passes speech eval Head of bed greater than 30 degrees and aspiration precautions #Sinus tachycardia As noted from ED EKG Plan: Telemetry monitoring Health Maintenance: Lines: PIV Diet: N.p.o. pending speech eval Bowel: Senna as needed GI prophylaxis: Not needed DVT prophylaxis: SCDs Dispo: Neurology consultation for acute encephalopathy with neurologic deficits Code: Full Patient seen and assessed with attending Dr. Scooter Rodriguez, PGY-2 Internal Medicine - GME Attending Provider Attestation/Addendum I have examined the patient, reviewed labs and imaging findings, discussed the case with the resident(s), and reviewed entered orders. I agree with the plan of care as outlined in this note, with these additional summaries/recommendations: After examination of the patient and review of the clinical data, I feel that this patient needs admission to the hospital for further treatment and evaluation. Patient is a 39-year-old female with a medical history of CRPS, migraine headaches/occipital neuralgia, GERD, vitamin D deficiency, nephrolithiasis, and hyperlipidemia who presents to [facility] emergency department on of left-sided weakness and numbness. Patient seen at bedside. She appears to be in a pleasant mood and relatively unconcerned that she is unable to move the left side of her body. Left upper extremity strength 0 out of 5 and left lower extremity strength 1 out of 5. Sensation is intact throughout. Patient has previous hospitalizations for similar symptoms. At this time patient denies headache to me. Patient will be admitted for CVA rule out. CT head negative for intracranial hemorrhage, mass effect or midline shift. CTA head and neck currently pending read although I do not identify any LVO or critical stenosis. Patient was seen by teleneurology and NIHSS score of 13 on admission. Patient was deemed a tPA candidate although after a lengthy discussion with teleneurology patient opted against TNK. Start patient on aspirin 325 mg p.o. daily and atorvastatin 40 mg p.o. nightly. Consult in-house neurology, recommendations appreciated. We will allow permissive hypertension for the first 24 hours and maintain euglycemia. N.p.o. until bedside swallow screen and refer to speech therapy. Order physical therapy evaluation. Order MRI brain with and without contrast. Order EEG. Risk factor stratification with lipid panel, A1c, and TSH. Order echocardiogram with bubble study. Possible etiologies for left-sided weakness include acute CVA versus migraine headache versus demyelinating disease versus ?psychiatric. Leukocytosis present on hematology panel although most likely reactive and will monitor for now without antibiotics. Patient updated on the plan and in agreement. All questions answered to satisfaction. Please see residents note for additional details and management. Dr. Scooter MD
[2024-08-19 02:48] LABS: Collection Type, Urine Clean Catch
[2024-08-19 02:58] LABS: Bacteria,Urine 2+; Bilirubin,Urine Negative (Negative); Blood,Urine Trace (Negative); Clarity,Urine Clear (Clear/Hazy); Color,Urine Lt-Yellow (Lt Yel-Yel); Glucose, Urine Negative (Negative); Ketones,Urine Negative (Negative); Leukocyte Esterase,Urine Negative (Negative); Nitrite,Urine Negative (Negative); PH,Urine 6.0 (5.0-7.0); Protein,Urine Negative (Neg - Trace); RBC,Urine 6 /hpf (0-3); Specific Gravity,Urine 1.044 (1.001-1.035); Squamous Epithelial Cell,Urine 1 /hpf (0-5); Urobilinogen,Urine Negative mg/dL (0.0-1.0); WBC,Urine 1 /hpf (0-5)
[2024-08-19 03:02] LABS: Amphetamine/Methamp Scrn,U Negative (Negative); Barbiturate Screen,Urine Negative (Negative); Benzodiazepines Screen,Urine Negative (Negative); Benzoylecgonine Screen, Ur Negative (Negative); Fentanyl Screen,Urine Negative (Negative); Opiate Screen,Urine Negative (Negative); THC Screen,Urine Negative (Negative)
[2024-08-19] MEDS: cefTRIAXone/D5w 1gm IV premix 1 G/50 ML BAG IV (03:52)
[2024-08-19 05:15] LABS: Basophils # (Auto) 0.1 Thou/mm3 (0.0-0.2); Basophils % (Auto) 0 % (0-2.5); Eosinophils # (Auto) 0.1 Thou/mm3 (0.0-0.5); Eosinophils % (Auto) 1 % (0-10); Hematocrit 38.8 % (36.0-46.0); Hemoglobin 12.6 g/dL (12.0-16.0); Immature Granulocytes Auto 0.04 Thou/mm3 (0.00-0.00); Lymphocytes # (Auto) 3.4 Thou/mm3 (1.0-4.8); Lymphocytes % (Auto) 30 % (10-50); Mean Corpuscular HGB Conc 32.5 g/dl (31.0-37.0); Mean Corpuscular Hemoglobin 29.6 pg (25.0-35.0); Mean Corpuscular Volume 91 fL (80-100); Monocytes # (Auto) 0.5 Thou/mm3 (0.0-0.8); Monocytes % (Auto) 5 % (0-12); Neutrophils # (Auto) 7.1 Thou/mm3 (1.8-7.7); Neutrophils % (Auto) 63 % (37-80); Nucleated Red Blood Cell # 0.00 Thou/mm3 (0.00-0.00); Nucleated Red Blood Cell % 0 /100 WBC (0); Platelet Count 236 Thou/mm3 (140-440); RDW Standard Deviation 47.6 fL (36.4-46.3); Red Blood Count 4.26 Miln/mm3 (4.00-5.20); White Blood Count 11.2 Thou/mm3 (3.6-11.0)
[2024-08-19 05:32] LABS: Alanine Aminotransferase 26 U/L (10-49); Albumin, Serum 4.4 gm/dL (3.5-5.0); Albumin/Globulin Ratio 1.9 (1.2-2.2); Alkaline Phosphatase 82 U/L (46-116); Anion Gap 9 (7-16); Aspartate Amino Transferase 12 U/L (0-34); BUN/Creatinine Ratio 15 Ratio (12-20); Bilirubin,Total 0.4 mg/dL (0.3-1.2); Blood Urea Nitrogen 9 mg/dL (9-23); Calcium 9.7 mg/dL (8.3-10.6); Calcium (Corrected) 9.7 mg/dL (8.5-10.1); Carbon Dioxide 23.8 mMol/L (20.0-31.0); Chloride 109 mMol/L (98-107); Creatinine (Component) 0.6 mg/dL (0.6-1.3); Estimated Creatinine Clearance 129.5 mL/min (>60); Globulin 2.3 gm/dL (2.3-3.5); Glucose 93 mg/dL (74-106); Osmolality,Calculated 281 (275-295); Potassium 3.8 mMol/L (3.4-5.1); Sodium 142 mMol/L (136-145); Total Protein 6.7 gm/dL (5.7-8.2); eGFR > 60 See Note
--- NOTE | 2024-08-19 06:47 | ESCONSULT_ITS ---
HPI Data of Consult Requesting Physician: Noel Rodriguez MD Admitting Provider: Noel Rodriguez MD Attending Provider: Noel Rodriguez MD Primary Care Provider: Physician No Primary/Family Consult Narrative History of present illness: Ms. Jackson is a 39-year-old female with PMHx right-side complex regional pain syndrome (CRPS), migraine headaches/occipital neuralgia, GERD, vitamin D deficiency, nephrolithiasis, and hyperlipidemia came to ED on 08/19 for tachycardia, left-sided weakness, headache which began around 11 PM on 08/18. +LOC, witnessed by family. Upon initial evaluation by primary team, patient failed finger to nose, left upper and lower cannot sustain against gravity. 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 Of note, patient was admitted on 12/12 for similar presentation. At that time neurology was consulted and MRI studies were found to be inconclusive for any significant disease process. Patient follows up with a neurologist at [facility] and was seen sometime in July. Patient provided that she was prescribed nortriptyline, rizatriptan, trazodone. Denies smoking cigarettes, drinking alcohol or using other illicit drugs. In the ED, patient presented normotensive, tachycardic with a heart rate of 127, respiratory rate 16, moderately febrile 99.6 ?F but satting 97 on room air. Pertinent lab findings included WBC of 12.2, ABG which showed a pH of 7.39, PCO2 of 40 and PO2 of 35. Electrolytes were largely unremarkable other than a magnesium of 1.6, troponin was within normal limits and BNP was less than 20. Urinalysis was negative for any signs of infection. UDS negative, EtOH negative. Stroke alert was initiated and teleneurology was consulted who recommended admitting the patient for further workup. Upon evaluation today, patient reports dizziness, left-sided weakness, left sided headache, and blurry vision. She reports that she developed left-sided weakness in November 2023, after which her strength somewhat increased with PT. At that time, imaging showed isolated right occipital white change is not significant for demyelination. She suddenly developed worsening weakness on 08/18 which prompted her to come to the hospital. Patient reports blurry vision with white liight in left eye. cc:: cc: Noel Rodriguez MD Review of Systems Review of Systems Narrative Review of Systems: 14 point ROS negative other than HPI Exam Vital Signs Temp Pulse Resp BP Pulse Ox O2 Del Method 98.7 F 94 13 105/75 98 Room Air 08/19/24 05:10 08/19/24 05:10 08/19/24 05:10 08/19/24 05:10 08/19/24 05:10 08/19/24 05:10 Narrative Exam General: No acute distress, well nourished Eye: PERRL, EOMI, normal conjunctiva, no scleral icterus HENT: Normocephalic, atraumatic, hearing intact to conversation at normal volume, moist oral mucosa Neck: Supple, non-tender, no JVD, no lymphadenopathy Lungs: Non-labored respirations, symmetric chest rise Heart: Peripheral pulses intact bilaterally Abdomen: Soft, non-tender, non-distended Musculoskeletal: Normal range of motion and strength Skin: Skin is warm, dry, no rashes or lesions. Psychiatric: Cooperative, appropriate mood and affect Neurologic: Mental status: Orientation: Oriented to person, place, time, and situation Communication: Patient is cooperative and can follow simple instructions Language: Speech fluent, normal rate and volume, comprehension intact Cranial nerves: CN II: visual field intact in right eye, decreased in left eye in all visual ugarte CN III: Pupils equal, round, and reactive to light CN III, IV, : No gaze deviation, no nystagmus Horizontal pursuit: intact Vertical pursuit: intact Ptosis: none CN V: Facial sensation to light touch intact on right at the forehead, cheeks, and jaw line, decreased on left CN VII: Face symmetric, no facial droop appreciated CN VIII: Able to hear and respond to conversation at normal volume, intact to finger rub CN IX, X: Palate elevation symmetric, uvula midline CN XI: Head turn and shoulder shrug strong, symmetric bilaterally CN XII: Normal tongue protrusion without deviation, no fasciculations Motor: Normal bulk and tone No atrophy No abnormal movements or fasciculations Muscle strength: Shoulder abduction: R 5/5 L 0/5 Elbow flexion: R 5/5 L 0/5 Elbow extension: R 5/5 L 0/5 Hip flexion: R 5/5 L 0/5 Hip extension: R 5/5 L 0/5 Knee flexion: R 5/5 L 0/5 Knee extension: R 5/5 L 0/5 Sensory: Light touch intact in right upper and lower extremities. Absent in left upper and lower extremities Reflexes: Biceps (C5-6): R 2+ L 2+ Triceps (C7-8): R 2+ L 2+ Patellae (L3-4): R 2+ L 2+ No clonus Cerebellum: RUE: No dysmetria (finger to nose), no dysdiadochokinesia (rapid alternating movements) LUE: Unable to assess due to weakness Romberg: deferred Gait: Deferred Results Labs 08/19/24 04:32 08/19/24 04:32 Labs: Short CBC 08/19/24 08/19/24 Range/Units 00:42 04:32 WBC 12.2 H 11.2 H (3.6-11.0) Thou/mm3 Hgb 12.8 12.6 (12.0-16.0) g/dL Hct 37.9 38.8 (36.0-46.0) % Plt Count 263 D 236 (140-440) Thou/mm3 BMP 08/19/24 08/19/24 00:42 04:32 Sodium 139 142 Potassium 3.7 3.8 Chloride 107 109 H Carbon Dioxide 23.4 23.8 BUN 8 L 9 Creatinine 0.7 0.6 Glucose 106 93 Calcium 9.3 9.7 Cardiac Enzymes 08/19/24 Range/Units 00:42 Troponin I < 0.002 (0.0-0.045) ng/mL Liver Function 08/19/24 08/19/24 Range/Units 00:42 04:32 Total Bilirubin 0.4 0.4 (0.3-1.2) mg/dL AST 16 12 (0-34) U/L ALT 24 26 (10-49) U/L Alkaline Phosphatase 78 82 (46-116) U/L Albumin 4.3 4.4 (3.5-5.0) gm/dL Urine 08/19/24 Range/Units 02:31 Urine Color Lt-Yellow (Lt Yel-Yel) Urine Clarity Clear (Clear/Hazy) Urine pH 6.0 (5.0-7.0) Ur Specific [place] 1.044 H (1.001-1.035) Urine Protein Negative (Neg - Trace) Urine Glucose (UA) Negative (Negative) ABG Interpretation ABG results: 08/19/24 01:20 ABG pH 7.39 ABG pCO2 40 ABG pO2 35 L* ABG HCO3 24 ABG O2 Saturation 78 L ABG Base Excess -1 Quality Measures Quality Measures stroke Suspected type of Stroke: Unknown at this time Tenecteplase given: Reason(s) Tenecteplase not given: Refusal not given Rehab services: PT evaluation ordered VTE Prophylaxis: not indicated Antithrombotic by day 2:: not indicated (describe) Statin ordered: n/a Anticoagulation ordered for A-fib or flutter (current or hx): not indicated Medications Home Medications and Allergies Home Medications ?Medication ?Instructions ?Recorded ?Confirmed ?Type rosuvastatin 40 mg tablet 40 mg PO HS 03/07/23 5 History Allergies Allergy/AdvReac Type Severity Reaction Status Date / Time alcohol Allergy Severe ICHY, Verified 08/12/24 06:22 REDNESS TO FACE diphenhydramine (From Allergy Severe Difficulty Verified 08/12/24 06:22 Benadryl Allergy) Swallowing ibuprofen Allergy Severe RASH Verified 08/12/24 06:22 loratadine (From Claritin) Allergy Severe Hives Verified 08/12/24 06:22 morphine Allergy Severe Difficulty Verified 08/12/24 06:22 Breathing oxycodone Allergy Severe Hives Verified 08/12/24 06:22 Penicillins Allergy Severe Difficulty Verified 08/12/24 06:22 Swallowing hydrocodone (From [place]) Allergy Intermediate Hypertensio Verified 08/12/24 06:22 n ketorolac (From Toradol) AdvReac Severe Fainting Verified 08/12/24 06:22 Visit Medications Acetaminophen (Acetaminophen 325 Mg Tablet) 650 mg PO Q6H PRN PRN Reason: Pain 1-3 and/or Fever >100.1 Stop: 09/18/24 02:15 Aspirin (Aspirin 325 Mg Tablet) 325 mg PO QDAY THU Stop: 09/18/24 08:59 Atorvastatin Calcium (Atorvastatin Calcium 20 Mg Tablet) 40 mg PO HS [facility] Stop: 09/18/24 20:59 Sodium Chloride (Ns) 1,000 mls @ 100 mls/hr IV Q10H THU Stop: 09/18/24 00:14 Last Admin: 08/19/24 01:08 Dose: 100 mls/hr Ondansetron HCl (Ondansetron Inj 2 Mg/Ml Inj 2 Ml) 4 mg IVP Q4HR PRN PRN Reason: NAUSEA OR VOMITING Stop: 09/18/24 00:04 Last Admin: 08/19/24 01:08 Dose: 4 mg Sennosides (Senna Tablet) 1 tab PO QDAY PRN; Protocol PRN Reason: constipation Stop: 09/18/24 02:15 Discontinued Medications Ceftriaxone Sodium/Dextrose (Rocephin/D5w 1gm Iv Premix) 1 g in 50 mls @ 100 mls/hr IV X1 ONE Stop: 08/19/24 03:34 Last Infusion: 08/19/24 04:51 Dose: Infused Assessment & Plan Assessment #Acute encephalopathy with neurologic deficits Initial presentation: reduced sensation on left side of face, 0/5 LUE, 1/5 LLE, failed finger to nose. Initial NIHSS 13. Patient was deemed a tPA candidate although after a lengthy discussion with teleneurology patient opted against TNK Home meds for migraine: Prescribed nortriptyline, rizatriptan, trazodone but she denies taking any of these. 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 No acute infarct. No MR findings diagnostic for demyelinating disease. No abnormal enhancing cerebellar or cerebral lesions. No carotid stenoses. No cerebral large vessel arterial occlusions or thrombus TTE 12/13/23: No PFO. LVEF 60-65% Plan: - Permissive hypertension for the first 24 hours - Maintain euglycemia - ASA 81 mg daily, high intensity statin (Atorvastatin 40 mg daily) - Pending lipid panel, A1C - Pending routine spot EEG - Pending TTE with bubble study - Pending PT and speech/swallow eval #Sinus tachycardia As noted from ED EKG Plan: - Telemetry monitoring #Mild Leukocytosis Initial WBC: 12.2 Most likely reactive No apparent source of infection, afebrile Plan: - Continue to monitor Plan discussed with Dr. Kristine Fernandez, PGY1 Attending Provider Attestation/Addendum I personally have seen and examined the patient at the bedside and agreed with resident's findings, assessment and plan of care. Patient's symptoms continues to vary from time to time, workup is negative including CT CT angiogram of the head and neck and MRI of the brain. Suspect functional/nonneurological cause. Reassurance given to the patient regarding the negative workup. Encouraged her to participate with the physical therapy session. Follow-up with EEG.
--- NOTE | 2024-08-19 07:27 | PD.RESPRO ---
Documentation for date of: 08/19/24 Exam Vital Signs Temp Pulse Resp BP Pulse Ox O2 Del Method 98.7 F 94 13 105/75 98 Room Air 08/19/24 05:10 08/19/24 05:10 08/19/24 05:10 08/19/24 05:10 08/19/24 05:10 08/19/24 05:10 Objective Labs 08/19/24 04:32 08/19/24 04:32 Labs: Laboratory Results - last 24 hr 08/19/24 08/19/24 08/19/24 00:42 01:20 02:31 WBC 12.2 H RBC 4.32 Hgb 12.8 Hct 37.9 MCV 88 MCH 29.6 MCHC 33.8 RDW Std Deviation 46.1 Plt Count 263 D Neut % (Auto) 72 Lymph % (Auto) 21 [place] % (Auto) 5 Eos % (Auto) 1 Baso % (Auto) 0 Neut # (Auto) 8.8 H Lymph # (Auto) 2.6 [place] # (Auto) 0.6 Eos # (Auto) 0.1 Baso # (Auto) 0.1 Immature Gran # (Auto) 0.05 H Absolute Nucleated RBC 0.00 Immature Gran % 0 Nucleated RBC % 0 PT 10.8 INR 1.0 APTT 29.3 Puncture Site Left Radial ABG pH 7.39 ABG pCO2 40 ABG pO2 35 L* ABG HCO3 24 ABG O2 Saturation 78 L ABG Base Excess -1 FiO2 21 Sodium 139 Potassium 3.7 Chloride 107 Carbon Dioxide 23.4 Anion Gap 9 BUN 8 L Creatinine 0.7 Estim Creat Clear Calc 111.0 eGFR > 60 BUN/Creatinine Ratio 11 L Glucose 106 Calculated Osmolality 275 Calcium 9.3 Corrected Calcium 9.3 Magnesium 1.6 Total Bilirubin 0.4 AST 16 ALT 24 Alkaline Phosphatase 78 Troponin I < 0.002 B-Natriuretic Peptide < 20 Total Protein 6.7 Albumin 4.3 Globulin 2.4 Albumin/Globulin Ratio 1.8 TSH 1.99 Free T4 1.12 Ur Collection Type Clean Catch Urine Color Lt-Yellow Urine Clarity Clear Urine pH 6.0 Ur Specific [place] 1.044 H Urine Protein Negative Urine Glucose (UA) Negative Urine Ketones Negative Urine Blood Trace Urine Nitrite Negative Urine Bilirubin Negative Urine Urobilinogen (Auto) Negative Ur Leukocyte Esterase Negative Urine RBC 6 H Urine WBC 1 Ur Squamous Epith Cells 1 Urine Bacteria 2+ A Urine Opiates Screen Negative Urine Fentanyl Screen Negative Ur Barbiturates Screen Negative U Amphetamin/Meth Scrn Negative U Benzodiazepines Scrn Negative U Cocaine Metab Screen Negative U Marijuana (THC) Screen Negative Ethyl Alcohol < 3.0 HCG (Qual) Negative 08/19/24 04:32 WBC 11.2 H RBC 4.26 Hgb 12.6 Hct 38.8 MCV 91 MCH 29.6 MCHC 32.5 RDW Std Deviation 47.6 H Plt Count 236 Neut % (Auto) 63 Lymph % (Auto) 30 [place] % (Auto) 5 Eos % (Auto) 1 Baso % (Auto) 0 Neut # (Auto) 7.1 Lymph # (Auto) 3.4 [place] # (Auto) 0.5 Eos # (Auto) 0.1 Baso # (Auto) 0.1 Immature Gran # (Auto) 0.04 H Absolute Nucleated RBC 0.00 Immature Gran % 0 Nucleated RBC % 0 PT INR APTT Puncture Site ABG pH ABG pCO2 ABG pO2 ABG HCO3 ABG O2 Saturation ABG Base Excess FiO2 Sodium 142 Potassium 3.8 Chloride 109 H Carbon Dioxide 23.8 Anion Gap 9 BUN 9 Creatinine 0.6 Estim Creat Clear Calc 129.5 eGFR > 60 BUN/Creatinine Ratio 15 Glucose 93 Calculated Osmolality 281 Calcium 9.7 Corrected Calcium 9.7 Magnesium Total Bilirubin 0.4 AST 12 ALT 26 Alkaline Phosphatase 82 Troponin I B-Natriuretic Peptide Total Protein 6.7 Albumin 4.4 Globulin 2.3 Albumin/Globulin Ratio 1.9 TSH Free T4 Ur Collection Type Urine Color Urine Clarity Urine pH Ur Specific [place] Urine Protein Urine Glucose (UA) Urine Ketones Urine Blood Urine Nitrite Urine Bilirubin Urine Urobilinogen (Auto) Ur Leukocyte Esterase Urine RBC Urine WBC Ur Squamous Epith Cells Urine Bacteria Urine Opiates Screen Urine Fentanyl Screen Ur Barbiturates Screen U Amphetamin/Meth Scrn U Benzodiazepines Scrn U Cocaine Metab Screen U Marijuana (THC) Screen Ethyl Alcohol HCG (Qual) ABG Interpretation ABG results: 08/19/24 01:20 ABG pH 7.39 ABG pCO2 40 ABG pO2 35 L* ABG HCO3 24 ABG O2 Saturation 78 L ABG Base Excess -1 Quality Measures Quality Measures stroke Suspected type of Stroke: Unknown at this time Tenecteplase given: Reason(s) Tenecteplase not given: Refusal not given Assessment & Plan Assessment Current Active Medications: Generic Name Dose Route Start Last Admin Trade Name Crystal PRN Reason Stop Dose Admin Acetaminophen 650 mg 08/19/24 02:16 Acetaminophen 325 Mg Tablet PO 09/18/24 02:15 Q6H PRN Pain 1-3 and/or Fever >100.1 Aspirin 325 mg 08/19/24 09:00 Aspirin 325 Mg Tablet PO 09/18/24 08:59 QDAY HTU Atorvastatin Calcium 40 mg 08/19/24 21:00 Atorvastatin Calcium 20 Mg Tablet PO 09/18/24 20:59 HS THU Sodium Chloride 1,000 mls @ 100 mls/hr 08/19/24 00:15 08/19/24 01:08 Ns IV 09/18/24 00:14 100 mls/hr Q10H THU Administration Ondansetron HCl 4 mg 08/19/24 00:05 08/19/24 01:08 Ondansetron Inj 2 Mg/Ml Inj 2 Ml IVP 09/18/24 00:04 4 mg Q4HR PRN Administration NAUSEA OR VOMITING Sennosides 1 tab 08/19/24 02:16 Senna Tablet PO 09/18/24 02:15 QDAY PRN constipation Protocol
[2024-08-19 09:50] LABS: Magnesium 1.8 mg/dL (1.6-2.6)
--- NOTE | 2024-08-19 11:02 | PD.RESPRO ---
Documentation for date of: 08/19/24 Subjective Subjective Interval history: Senior attestation: Patient examined at bedside. Patient continues to have left upper and lower extremity weakness. Patient is pending MRI and EEG. Dysphagia diet per speech evaluation. Physical Therapy recommendations: rehab placement. Continue aspirin and atorvastatin. MRI negative for acute hemorrhage mass effect or midline shift. Pending physical therapy. Pending echo, taken but not read. Pending EEG. Pending Neurology Recommendations. Patient was seen and examined at bedside. A.m. vitals and labs reviewed. Patient still have motor and sensory deficit on her left upper and lower extremity. The left side of her head only has sensory deficit. Complains of constant frontal headache. Patient feels fine otherwise. Denies shortness of breath, chest pain, fever, chills. Exam Vital Signs Temp Pulse Resp BP Pulse Ox O2 Del Method 98.0 F 80 20 95/64 95 Room Air 08/19/24 08:00 08/19/24 08:00 08/19/24 08:00 08/19/24 08:00 08/19/24 08:00 08/19/24 08:00 Narrative Exam General: No acute distress, well nourished Eye: PERRL, EOMI, normal conjunctiva, no scleral icterus HENT: Normocephalic, atraumatic, hearing intact to conversation at normal volume, moist oral mucosa Neck: Supple, non-tender, no JVD, no lymphadenopathy Lungs: Non-labored respirations, symmetric chest rise, Clear to auscultate bilaterally Heart: Peripheral pulses intact bilaterally Abdomen: Soft, non-tender, non-distended Musculoskeletal: Normal range of motion and strength Skin: Skin is warm, dry, no rashes or lesions. Psychiatric: Cooperative, appropriate mood and affect Neuro: Cranial nerves II-XII grossly intact. Motor Strength 1/5 in left upper and lower extremity. Motor Strength 5/5 in right upper and lower extremity. Sensory deficit in left side of head, upper and lower extremity. Objective Labs 08/22/24 05:56 08/22/24 05:56 Labs: Laboratory Results - last 24 hr 08/19/24 08/19/24 08/19/24 00:42 01:20 02:31 WBC 12.2 H RBC 4.32 Hgb 12.8 Hct 37.9 MCV 88 MCH 29.6 MCHC 33.8 RDW Std Deviation 46.1 Plt Count 263 D Neut % (Auto) 72 Lymph % (Auto) 21 [place] % (Auto) 5 Eos % (Auto) 1 Baso % (Auto) 0 Neut # (Auto) 8.8 H Lymph # (Auto) 2.6 [place] # (Auto) 0.6 Eos # (Auto) 0.1 Baso # (Auto) 0.1 Immature Gran # (Auto) 0.05 H Absolute Nucleated RBC 0.00 Immature Gran % 0 Nucleated RBC % 0 PT 10.8 INR 1.0 APTT 29.3 Puncture Site Left Radial ABG pH 7.39 ABG pCO2 40 ABG pO2 35 L* ABG HCO3 24 ABG O2 Saturation 78 L ABG Base Excess -1 FiO2 21 Sodium 139 Potassium 3.7 Chloride 107 Carbon Dioxide 23.4 Anion Gap 9 BUN 8 L Creatinine 0.7 Estim Creat Clear Calc 111.0 eGFR > 60 BUN/Creatinine Ratio 11 L Glucose 106 Calculated Osmolality 275 Calcium 9.3 Corrected Calcium 9.3 Magnesium 1.6 Total Bilirubin 0.4 AST 16 ALT 24 Alkaline Phosphatase 78 Troponin I < 0.002 B-Natriuretic Peptide < 20 Total Protein 6.7 Albumin 4.3 Globulin 2.4 Albumin/Globulin Ratio 1.8 TSH 1.99 Free T4 1.12 Ur Collection Type Clean Catch Urine Color Lt-Yellow Urine Clarity Clear Urine pH 6.0 Ur Specific [place] 1.044 H Urine Protein Negative Urine Glucose (UA) Negative Urine Ketones Negative Urine Blood Trace Urine Nitrite Negative Urine Bilirubin Negative Urine Urobilinogen (Auto) Negative Ur Leukocyte Esterase Negative Urine RBC 6 H Urine WBC 1 Ur Squamous Epith Cells 1 Urine Bacteria 2+ A Urine Opiates Screen Negative Urine Fentanyl Screen Negative Ur Barbiturates Screen Negative U Amphetamin/Meth Scrn Negative U Benzodiazepines Scrn Negative U Cocaine Metab Screen Negative U Marijuana (THC) Screen Negative Ethyl Alcohol < 3.0 HCG (Qual) Negative 08/19/24 04:32 WBC 11.2 H RBC 4.26 Hgb 12.6 Hct 38.8 MCV 91 MCH 29.6 MCHC 32.5 RDW Std Deviation 47.6 H Plt Count 236 Neut % (Auto) 63 Lymph % (Auto) 30 [place] % (Auto) 5 Eos % (Auto) 1 Baso % (Auto) 0 Neut # (Auto) 7.1 Lymph # (Auto) 3.4 [place] # (Auto) 0.5 Eos # (Auto) 0.1 Baso # (Auto) 0.1 Immature Gran # (Auto) 0.04 H Absolute Nucleated RBC 0.00 Immature Gran % 0 Nucleated RBC % 0 PT INR APTT Puncture Site ABG pH ABG pCO2 ABG pO2 ABG HCO3 ABG O2 Saturation ABG Base Excess FiO2 Sodium 142 Potassium 3.8 Chloride 109 H Carbon Dioxide 23.8 Anion Gap 9 BUN 9 Creatinine 0.6 Estim Creat Clear Calc 129.5 eGFR > 60 BUN/Creatinine Ratio 15 Glucose 93 Calculated Osmolality 281 Calcium 9.7 Corrected Calcium 9.7 Magnesium 1.8 Total Bilirubin 0.4 AST 12 ALT 26 Alkaline Phosphatase 82 Troponin I B-Natriuretic Peptide Total Protein 6.7 Albumin 4.4 Globulin 2.3 Albumin/Globulin Ratio 1.9 TSH Free T4 Ur Collection Type Urine Color Urine Clarity Urine pH Ur Specific [place] Urine Protein Urine Glucose (UA) Urine Ketones Urine Blood Urine Nitrite Urine Bilirubin Urine Urobilinogen (Auto) Ur Leukocyte Esterase Urine RBC Urine WBC Ur Squamous Epith Cells Urine Bacteria Urine Opiates Screen Urine Fentanyl Screen Ur Barbiturates Screen U Amphetamin/Meth Scrn U Benzodiazepines Scrn U Cocaine Metab Screen U Marijuana (THC) Screen Ethyl Alcohol HCG (Qual) ABG Interpretation ABG results: 08/19/24 01:20 ABG pH 7.39 ABG pCO2 40 ABG pO2 35 L* ABG HCO3 24 ABG O2 Saturation 78 L ABG Base Excess -1 Quality Measures Quality Measures stroke Suspected type of Stroke: Unknown at this time Last known well (date): 08/18/24 Last known well (time): 23:30 Tenecteplase given: Reason(s) Tenecteplase not given: Refusal not given Rehab services: PT evaluation ordered VTE Prophylaxis: pharmaceutical Antithrombotic by day 2:: ordered Statin ordered: <75 y/o high intensity dose Anticoagulation ordered for A-fib or flutter (current or hx): not indicated Assessment & Plan Assessment Current Active Medications: Generic Name Dose Route Start Last Admin Trade Name Freq PRN Reason Stop Dose Admin Acetaminophen 650 mg 08/19/24 02:16 Acetaminophen 325 Mg Tablet PO 09/18/24 02:15 Q6H PRN Pain 1-3 and/or Fever >100.1 Aspirin 325 mg 08/19/24 09:00 08/19/24 08:17 Aspirin 325 Mg Tablet PO 09/18/24 08:59 325 mg QDAY THU Administration Atorvastatin Calcium 40 mg 08/19/24 21:00 Atorvastatin Calcium 20 Mg Tablet PO 09/18/24 20:59 HS THU Sodium Chloride 1,000 mls @ 100 mls/hr 08/19/24 00:15 08/19/24 01:08 Ns IV 09/18/24 00:14 100 mls/hr Q10H THU Administration Ondansetron HCl 4 mg 08/19/24 00:05 08/19/24 01:08 Ondansetron Inj 2 Mg/Ml Inj 2 Ml IVP 09/18/24 00:04 4 mg Q4HR PRN Administration NAUSEA OR VOMITING Sennosides 1 tab 08/19/24 02:16 Senna Tablet PO 09/18/24 02:15 QDAY PRN constipation Protocol Plan 39-year-old female with significant medical history for right-side complex regional pain syndrome (CRPS), nephrolithiasis and GERD came to ED on 08/19 for tachycardia, left-sided weakness accompanied with headache which apparently began around 11 PM on 08/18 Stroke alert was initiated and teleneurology was consulted who recommended admitting the patient for further workup. Will consult in-house neurology team for further evaluation as well. 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 less likely to be seizures versus meningitis As noted above in the HPI, patient has similar presentation in the past with MRI findings being largely negative Patient is presenting with similar complaints of left-sided hemiplegia associated with headache and apparent loss of consciousness with weakness On examination, patient does have tachycardia and neuroexam as noted above is significant Labs do show WBC of 12.2 but there are no signs of infection noted with UA and the patient's oxygen status is within normal limits even with an ABG showing a PO2 of 35 Teleneurology was consulted and recommendation was to admit for further workup Head CT negative and head CTA head and neck is negative. U-tox was negative. Plan: Continue aspirin 325 p.o. daily along with atorvastatin 40 mg p.o. daily Frequent neurochecks MR stroke protocol and echo with bubble study ordered Neurology consulted, appreciate recommendations Euglycemia and temperature monitoring Head of bed greater than 30 degrees and aspiration precautions PT-->SNF & Speech Dysphagia #Sinus tachycardia As noted from ED EKG Plan: Telemetry monitoring Health Maintenance: Lines: PIV Diet: Diet Dysphagia. Bowel: Senna as needed GI prophylaxis: Not needed DVT prophylaxis: SCDs Dispo: Neurology consultation for acute encephalopathy with neurologic deficits Code: Full Case discussed with attending,Dr. Borja and resident Dr. Rodriguez - The patient's plan was discussed with attending Dr. Jonh Rodriguez MD PGY2 Internal Medicine Attending Provider Attestation/Addendum 39-year-old female with history of complex regional pain syndrome diagnosed at [facility] who presented to the ER on 08/19/2024 with left-sided weakness and subsequently underwent stroke workup including CT head and CTA both of which was negative and teleneurology evaluated the patient and recommended admission for MRI however did not recommend giving the patient tPA. Currently, patient continues to have left upper and lower extremity weakness and will admit the patient for stroke workup. I reviewed above note and agree with findings and plans. I have also personally examined the patient with medicine team and went over assessment and plan with medical team including help desk intern and resident physician.
--- NOTE | 2024-08-19 16:23 | PC.RT ---
Attempted to do the EEG but CHAVA Medina said that she had to take to MRI- said MRI is priority.
--- NOTE | 2024-08-19 16:27 | PC.SS ---
SS met with patient regarding her d/c plan.? Pt is alert/oriented.? Pt was admitted for Stroke R/O.? Pt confirmed demographic and contact information is correct on facesheet.? Pt resides with mom.? Pt ambulates independently without assistance or DME.? Pt is ok with all ADLs.? Pt has a 2 wheel walker.? 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 Patient?s pharmacy of choice is [facility] [address] Pt named her mom, Lauryn Hathaway medical decision maker if she is unable.? Patient?s choice is to return home upon d/c.? Pt states she is not diabetic and is not on dialysis.? Cousin, Yoel Her, phone# [phone] provide transportation home. D/C plan:? Return home Next of Kin:? Sylviejose Manuel, mom, phone#[phone] PCP:? [facility]. [facility] Address:? Correct on facesheet
[2024-08-19] MEDS: ATORVASTATIN CALCIUM 20 MG TABLET 40 MG PO (21:13)
--- NOTE | 2024-08-19 23:30 | RESP.EEG ---
EEG has been completed and is ready for MD interpretation.
[2024-08-20] VITALS (9 sets, daily range): BP systolic 98–139; BP diastolic 60–91; PULSE 64–76; RESP 14–97; TEMP 35.9–36.6; O2SAT 95–99
[2024-08-20] MEDS: SODIUM CHLORIDE 0.9% 1000 ML 1,000 ML 100 ML IV ×3 (00:11→23:50)
[2024-08-20] MEDS: ACETAMINOPHEN 325 MG TABLET 650 MG PO ×3 (04:13→19:07)
[2024-08-20 06:03] LABS: Basophils # (Auto) 0.1 Thou/mm3 (0.0-0.2); Basophils % (Auto) 1 % (0-2.5); Eosinophils # (Auto) 0.2 Thou/mm3 (0.0-0.5); Eosinophils % (Auto) 2 % (0-10); Hematocrit 36.7 % (36.0-46.0); Hemoglobin 11.7 g/dL (12.0-16.0); Immature Granulocytes Auto 0.03 Thou/mm3 (0.00-0.00); Lymphocytes # (Auto) 3.3 Thou/mm3 (1.0-4.8); Lymphocytes % (Auto) 32 % (10-50); Mean Corpuscular HGB Conc 31.9 g/dl (31.0-37.0); Mean Corpuscular Hemoglobin 29.7 pg (25.0-35.0); Mean Corpuscular Volume 93 fL (80-100); Monocytes # (Auto) 0.6 Thou/mm3 (0.0-0.8); Monocytes % (Auto) 6 % (0-12); Neutrophils # (Auto) 6.0 Thou/mm3 (1.8-7.7); Neutrophils % (Auto) 60 % (37-80); Nucleated Red Blood Cell # 0.00 Thou/mm3 (0.00-0.00); Nucleated Red Blood Cell % 0 /100 WBC (0); Platelet Count 224 Thou/mm3 (140-440); RDW Standard Deviation 49.4 fL (36.4-46.3); Red Blood Count 3.94 Miln/mm3 (4.00-5.20); White Blood Count 10.1 Thou/mm3 (3.6-11.0)
[2024-08-20 06:38] LABS: Alanine Aminotransferase 25 U/L (10-49); Albumin, Serum 3.7 gm/dL (3.5-5.0); Albumin/Globulin Ratio 1.7 (1.2-2.2); Alkaline Phosphatase 70 U/L (46-116); Anion Gap 6 (7-16); Aspartate Amino Transferase 19 U/L (0-34); BUN/Creatinine Ratio 9 Ratio (12-20); Bilirubin,Total 0.6 mg/dL (0.3-1.2); Blood Urea Nitrogen 6 mg/dL (9-23); Calcium 8.7 mg/dL (8.3-10.6); Calcium (Corrected) 8.9 mg/dL (8.5-10.1); Carbon Dioxide 24.6 mMol/L (20.0-31.0); Chloride 110 mMol/L (98-107); Creatinine (Component) 0.7 mg/dL (0.6-1.3); Estimated Creatinine Clearance 121.9 mL/min (>60); Globulin 2.2 gm/dL (2.3-3.5); Glucose 85 mg/dL (74-106); Magnesium 1.7 mg/dL (1.6-2.6); Osmolality,Calculated 277 (275-295); Phosphorous 3.2 mg/dL (2.4-5.1); Potassium 3.8 mMol/L (3.4-5.1); Sodium 141 mMol/L (136-145); Total Protein 5.9 gm/dL (5.7-8.2); eGFR > 60 See Note
[2024-08-20] MEDS: ASPIRIN EC 81 MG TABEC PO (08:30)
--- NOTE | 2024-08-20 08:40 | ESPR_ITS ---
Documentation for date of: 08/20/24 Subjective Subjective Interval history: Patient seen at bedside. Reports left-sided headache and blurry vision in left eye, stable from yesterday. Reports that she slept well last night and feels a bit better today. Exam Vital Signs Temp Pulse Resp BP Pulse Ox O2 Del Method 97.0 F 71 24 H 98/64 96 Room Air 08/20/24 04:00 08/20/24 04:00 08/20/24 04:00 08/20/24 04:00 08/20/24 04:00 08/20/24 04:00 Narrative Exam General: No acute distress, well nourished Eye: PERRL, EOMI, normal conjunctiva, no scleral icterus HENT: Normocephalic, atraumatic, hearing intact to conversation at normal volume, moist oral mucosa Neck: Supple, non-tender, no JVD, no lymphadenopathy Lungs: Non-labored respirations, symmetric chest rise Heart: Peripheral pulses intact bilaterally Abdomen: Soft, non-tender, non-distended Musculoskeletal: Normal range of motion and strength Skin: Skin is warm, dry, no rashes or lesions. Psychiatric: Cooperative, appropriate mood and affect Neurologic: Mental status: Orientation: Oriented to person, place, time, and situation Communication: Patient is cooperative and can follow simple instructions Language: Speech fluent, normal rate and volume, comprehension intact Cranial nerves: CN II: visual field intact in right eye, decreased in left eye in all visual ugarte CN III: Pupils equal, round, and reactive to light CN III, IV, : No gaze deviation, no nystagmus Horizontal pursuit: intact Vertical pursuit: intact Ptosis: none CN V: Facial sensation to light touch intact on right at the forehead, cheeks, and jaw line, decreased on left CN VII: Face symmetric, no facial droop appreciated CN VIII: Able to hear and respond to conversation at normal volume, intact to finger rub CN IX, X: Palate elevation symmetric, uvula midline CN XI: Head turn and shoulder shrug strong, symmetric bilaterally CN XII: Normal tongue protrusion without deviation, no fasciculations Motor: Normal bulk and tone No atrophy No abnormal movements or fasciculations Muscle strength: Shoulder abduction: R 5/5 L 0/5 Elbow flexion: R 5/5 L 0/5 Elbow extension: R 5/5 L 0/5 Hip flexion: R 5/5 L 0/5 Hip extension: R 5/5 L 0/5 Knee flexion: R 5/5 L 0/5 Knee extension: R 5/5 L 0/5 Sensory: Light touch intact in right upper and lower extremities. Absent in left upper and lower extremities Reflexes: Biceps (C5-6): R 2+ L 2+ Triceps (C7-8): R 2+ L 2+ Patellae (L3-4): R 2+ L 2+ No clonus Cerebellum: RUE: No dysmetria (finger to nose), no dysdiadochokinesia (rapid alternating movements) LUE: Unable to assess due to weakness Romberg: deferred Gait: Deferred Objective Labs 08/20/24 05:28 08/20/24 05:28 Labs: Laboratory Results - last 24 hr 08/19/24 08/20/24 04:32 05:28 WBC 10.1 RBC 3.94 L Hgb 11.7 L Hct 36.7 MCV 93 MCH 29.7 MCHC 31.9 RDW Std Deviation 49.4 H Plt Count 224 Neut % (Auto) 60 Lymph % (Auto) 32 [place] % (Auto) 6 Eos % (Auto) 2 Baso % (Auto) 1 Neut # (Auto) 6.0 Lymph # (Auto) 3.3 [place] # (Auto) 0.6 Eos # (Auto) 0.2 Baso # (Auto) 0.1 Immature Gran # (Auto) 0.03 H Absolute Nucleated RBC 0.00 Immature Gran % 0 Nucleated RBC % 0 Sodium 141 Potassium 3.8 Chloride 110 H Carbon Dioxide 24.6 Anion Gap 6 L BUN 6 L Creatinine 0.7 Estim Creat Clear Calc 121.9 eGFR > 60 BUN/Creatinine Ratio 9 L Glucose 85 Calculated Osmolality 277 Calcium 8.7 Corrected Calcium 8.9 Phosphorus 3.2 Magnesium 1.8 1.7 Total Bilirubin 0.6 AST 19 ALT 25 Alkaline Phosphatase 70 Total Protein 5.9 Albumin 3.7 D Globulin 2.2 L Albumin/Globulin Ratio 1.7 ABG Interpretation ABG results: 08/19/24 01:20 ABG pH 7.39 ABG pCO2 40 ABG pO2 35 L* ABG HCO3 24 ABG O2 Saturation 78 L ABG Base Excess -1 Quality Measures Quality Measures stroke Suspected type of Stroke: Unknown at this time Last known well (date): 08/18/24 Last known well (time): 23:30 Tenecteplase given: Reason(s) Tenecteplase not given: Refusal not given Rehab services: PT evaluation ordered VTE Prophylaxis: not indicated Antithrombotic by day 2:: not indicated (describe) Statin ordered: n/a Anticoagulation ordered for A-fib or flutter (current or hx): not indicated Assessment & Plan Assessment Current Active Medications: Generic Name Dose Route Start Last Admin Trade Name Freq PRN Reason Stop Dose Admin Acetaminophen 650 mg 08/19/24 02:16 08/20/24 04:13 Acetaminophen 325 Mg Tablet PO 09/18/24 02:15 650 mg Q6H PRN Administration Pain 1-3 and/or Fever >100.1 Aspirin 81 mg 08/20/24 09:00 08/20/24 08:30 Aspirin Ec 81 Mg Tabec PO 09/19/24 08:59 81 mg QDAY THU Administration Protocol Atorvastatin Calcium 40 mg 08/19/24 21:00 08/19/24 21:13 Atorvastatin Calcium 20 Mg Tablet PO 09/18/24 20:59 40 mg HS THU Administration Sodium Chloride 1,000 mls @ 100 mls/hr 08/19/24 00:15 08/20/24 00:11 Ns IV 09/18/24 00:14 100 mls/hr Q10H THU Administration Ondansetron HCl 4 mg 08/19/24 00:05 08/19/24 12:07 Ondansetron Inj 2 Mg/Ml Inj 2 Ml IVP 09/18/24 00:04 4 mg Q4HR PRN Administration NAUSEA OR VOMITING Sennosides 1 tab 08/19/24 02:16 Senna Tablet PO 09/18/24 02:15 QDAY PRN constipation Protocol Plan #Acute encephalopathy with neurologic deficits Initial presentation: reduced sensation on left side of face, 0/5 LUE, 1/5 LLE, failed finger to nose. Initial NIHSS 13. Patient was deemed a tPA candidate although after a lengthy discussion with teleneurology patient opted against TNK Home meds for migraine: Prescribed nortriptyline, rizatriptan, trazodone but she denies taking any of these. Rosuvastatin 40 daily Afebrile, BP WNL Mild leukocytosis, TSH WNL, UA negative, UDS negative, EtOH <10, glucose WNL, HCG negative December 2023 labs: A1C 4.8, cholesterol high 210, LDL high 160, HDL low 35 CT head: Negative for acute hemorrhage, mass effect or midline shift CTA: No LVO, thrombus, stenosis MR stroke: Negative for acute hemorrhage mass effect or midline shift. No acute infarct. No MR findings diagnostic for demyelinating disease. No abnormal enhancing cerebellar or cerebral lesions. No carotid stenoses. No cerebral large vessel arterial occlusions or thrombus TTE 12/13/23: No PFO. LVEF 60-65% TTE 08/19/24: No PFO. LVEF 55% Workup is negative for stroke at this time EEG: Abnormal - bitemporal epileptic discharges PT rec acute rehab for PT DDX: seizure, function / non-neurological cause / conversion disorder,, hemplegic migraine Plan: - ASA 81 mg daily, high intensity statin (Atorvastatin 40 mg daily) - Keppra 500 mg BID, watch 24 hours then decide on discharge plans - Repeat EEG in 1 month outpatient - Encouraged patient to participate in PT sessions #Sinus tachycardia - resolved As noted from ED EKG Plan: - Telemetry monitoring #Mild Leukocytosis - resolved Initial WBC: 12.2 Most likely reactive No apparent source of infection, afebrile Plan: - Continue to monitor Plan discussed with Dr. Kristine Fernandez, PGY1 Attending Provider Attestation/Addendum I personally have seen and examined the patient at the bedside and I agreed with resident's findings, assessment and plan of care. Persistent left sided weakness and paresthesias could have been chronic it has been there since November of last year. As the EEG shows bitemporal epileptiform discharges suggestive of seizures, we will start her on Keppra 500 mg twice a day.we will observe her overnight and then decide about discharge tomorrow.
--- NOTE | 2024-08-20 12:27 | PC.SS ---
SS met with pt to inform her PT is recommending SNF due to her being maximum assist. Pt refused SNF or acute rehab. Pt states her mom and cousin will help care for her at home. Pt state she has been followed up [facility] in the past and is requesting to return home with [facility]. Patient's PCP is Alisson Kellogg from [facility] and she followed up with her Jualy 2024. Bedside nurse is aware.
--- NOTE | 2024-08-20 13:26 | ESDS_ITS ---
Planned Discharge Date 08/20/24 Patient has a past medical history of right-sided complex regional syndrome and follows closesly with a neurologist from [facility]. Current left upper extremity weakness with increased swelling appears to be chronic as life threating condtitions have been ruled out during this admission such as stroke. [place] noted to have anterior temporal and temporal areas for suspicious for seizure, thus Keppra 500 mg BID started. Discharge canceled. Plan to discharge patient within the next 24 hours, as new medicaiton of Keppra monitored after starting. Repeat EEG within 4 weeks. DS: Providers Provider Date of admission: 08/19/24 02:16 Primary care physician: Physician No Primary/Family Admitting Provider: Noel Rodriguez MD Attending Provider on Admission: Adolfo Borja MD Consults: 08/19/24 00:05 Consult to Neurology / Tele-Neurology Routine Comment: Consulting Provider: [facility] 08/19/24 01:13 Referral Speech Therapy Stat Comment: 08/19/24 02:23 Consult to Neurology / Tele-Neurology Routine Comment: Stroke r/o vs. Migraine w/ Aura vs. other etiology Consulting Provider: Bora Carmona 08/19/24 09:00 Referral Physical Therapy Routine Comment: Physician Instructions: Attending Provider on DC: RESIDENT Ranjana Discharging Provider: RESIDENT Ranjana DS: Diagnosis Problem List Completed Was Problem List Reviewed/Reconciled?: Yes Hospital Course Hospital Course Hospital course: 39-year-old female with significant medical history for right-side complex regional pain syndrome (CRPS), nephrolithiasis and GERD came to ED on 08/19 for tachycardia, left-sided weakness accompanied with headache which apparently began around 11 PM on 08/18. CT head, CTA head/neck, ECHO, MRI was negative. Discharged to follow up with neurologist. ED Course: In the ED, patient presented normotensive, tachycardic with a heart rate of 127, respiratory rate 16, moderately febrile 99.6 ?F but satting 97 on room air. Pertinent lab findings included WBC of 12.2, ABG which showed a pH of 7.39, PCO2 of 40 and PO2 of 35. Electrolytes were largely unremarkable other than a magnesium of 1.6, troponin was within normal limits and BNP was less than 20. Urinalysis was negative for any signs of infection and U tox was negative. Preliminary read of CT head showed no acute findings and CTA of the head and neck was negative Hospital Course: Upon admission, patient was given aspirin 325mg PO along with atorvastatin 40mg POqd. Later, aspirin 81mg was given with atorvastatin 40mg. ECHO was negative, Bubble study was negative, MRI was negative. Stroke has been ruled out. Given with patient's history of similar episodes, the current symptoms appear to follow a chronic course. Patient was discharged to her home to follow up with her neurologist. #new onset of Seizure #Right-side complex regional pain syndrome #Acute encephalopathy with neurologic deficits #Left upper and lower hemiplegia #Leukocytosis, mild #Sinus tachycardia Instructions: -New medication of Keppra 500 mg orally twice daily for new onset of seizure. -Please continue all medication as prescribed. -Please follow up with your established outpatient neurologist. -Please follow up with your primary care provider within one week of discharge -If your symptoms worsen,please seek immediate medical attention and return to your nearest emergency room -If you do not have a primary care provider, you may follow up at the [facility] at [address] [place] [address] [address], [place] [address], Safe to discharge to Home Assessment and plan discussed with my attending physicianDr. Borja and Dr. Rodriguez (PGY-2) Dr. Quezada (PGY-1)- Internal medicine resident - The patient's plan was discussed with attending Dr. Jonh Rodriguez MD PGY2 Internal Medicine Time Spent with Patient Time attestation: Total time spent providing and/or coordinating discharge services: Time spent: Greater than 30 minutes Exam Vital Signs Temp Pulse Resp BP Pulse Ox O2 Del Method 97.2 F 76 18 98/60 97 Room Air 08/20/24 12:08/20/24 13:08/20/24 13:08/20/24 12:00 08/20/24 12:08/20/24 12:00 Narrative Exam General: No acute distress, well nourished Eye: PERRL, EOMI, normal conjunctiva, no scleral icterus HENT: Normocephalic, atraumatic, hearing intact to conversation at normal volume, moist oral mucosa Neck: Supple, non-tender, no JVD, no lymphadenopathy Lungs: Non-labored respirations, symmetric chest rise, Clear to auscultate bilaterally Heart: Peripheral pulses intact bilaterally Abdomen: Soft, non-tender, non-distended Musculoskeletal: Normal range of motion and strength Skin: Skin is warm, dry, no rashes or lesions. Psychiatric: Cooperative, appropriate mood and affect Neuro: Cranial nerves II-XII grossly intact. Motor Strength 1/5 in left upper and lower extremity. Motor Strength 5/5 in right upper and lower extremity. Sensory deficit in left side of head, upper and lower extremity. Discharge Plan Plan Patient Disposition: HOME (Self Care) Patient condition on transfer: Stable Care Plan Goals: Instructions: -Please continue all medication as prescribed. -Please follow up with your established outpatient neurologist. -Please follow up with your primary care provider within one week of discharge -If your symptoms worsen,please seek immediate medical attention and return to your nearest emergency room -If you do not have a primary care provider, [facility] [address], [place] [address], Prescriptions/Referrals Prescriptions/Med Rec: New aspirin 81 mg Tablet,Delayed Release (/Ec) 81 mg PO QDAY 30 Days Qty: 30 0RF lacosamide 50 mg tablet 50 mg PO BID Qty: 60 0RF Continued rosuvastatin 40 mg tablet 40 mg PO HS Patient Comments: TAKE 1 TABLET BY MOUTH EVERY DAY acetaminophen 500 mg tablet 1,000 mg PO Q6H PRN (Reason: pain) Qty: 30 0RF Discontinued tamsulosin [Flomax] 0.4 mg capsule 0.4 mg PO QDAY Qty: 20 0RF Referrals: No Primary/Family,Physician [Primary Care Provider] - Patient/Caregiver Discharge Instructions Education Materials: Discharge Instructions for Stroke Print Language: Syrian Stand Alone Forms: eInstruction by [employer] Award Info., Patient Portal Info Letter Discharge Order Discharge Orders: Discharge (Routine); Ordered 08/22/24 Ordered By: Linette Rodriguez Quality Discharge Quality Measures VTE prophylaxis Attestestation Attestation 39-year-old female with history of complex regional pain syndrome diagnosed at [facility] who presented to the ER on 08/19/2024 with left-sided weakness and subsequently underwent stroke workup including CT head and CTA both of which was negative and teleneurology evaluated the patient and recommended admission for MRI however did not recommend giving the patient tPA. Currently, patient continues to have left upper and lower extremity weakness and patient underwent MRI which was negative for any acute strokes. Evaluated by neurology and recommended EEG. I reviewed above note and agree with findings and plans. I have also personally examined the patient with medicine team and went over assessment and plan with medical team including manager internet and resident physician.
--- NOTE | 2024-08-20 13:44 | PC.SS ---
Addendum entered by Odessa Mcclure 08/20/24 16:05: SS spoke to Pauly from [facility] to inform her [facility] still has not been contacted for transportation. SS provided Pauly with [facility]'s phone#. Per Pauly, [facility] is has been contacted and transport time is now 6:30pm. Kalpana Alejo is aware. Reed CHOI is aware. Kalpana Alejo is covering for Ml Alejo. Original Note: has setup gurney transportation with Chani from [facility] [phone] for 3pm and requested [facility]. Ref# [id number]. has sent patient's facesheet and ambulance form to [facility] using [employer]. Georgette from [facility] has placed pt on will call list until they have been contacted by [facility]. Pt is aware. Bedside nurse, Ml is aware.
--- NOTE | 2024-08-20 16:22 | PC.SS ---
SS was informed by bedside nurse, Ml Carmona is requesting to keep pt over night. SS has confirmed with Dr. Casillas d/c has been cancelled. SS has called Georgette from [facility] to cancel transportation.
[2024-08-20] MEDS: ATORVASTATIN CALCIUM 20 MG TABLET 40 MG PO (20:43)
--- NOTE | 2024-08-20 22:11 | PC.NURSE ---
Patient was given new med, Keppra for the first time. Patient is very sensitive to any new medications and was monitored closely. After 15 minutes of taking Keppra po the patient became very lethargic, complaints of throat discomfort on the left side, difficulty swallowing and a swollen tongue. Concerns of a possible allergic reaction. Rapid response called called. Solumedrol IV given per physicians orders during [employer]. Orders to monitor the patient closely. See [employer] documentation.
--- NOTE | 2024-08-20 22:23 | PD.RESEVENT ---
Documentation for date of: 08/20/24 Event Note Event Note: A rapid response was called for the patient at around 9:30 PM for suspected anaphylaxis after Keppra was started for her. Patient was assessed and airway and breathing were found to be intact. Vitals at the time were BP 121/80 HR 71 RR 19 Temp 97.3 SpO2 95% on room air. Ordered a CBC to confirm whether or not patient's complaints about her throat swelling and difficulty breathing were a true anaphylactic reaction. At this time, the suspicion for an anaphylactic reaction is low due to patient's vitals being stable at the time of the rapid response. Will keep monitoring patient for any acute changes. -Dominik Harris, DO PGY-1 Internal Medicine GME A rapid response was called of concern for possible anaphylaxis, and somnolence status post dose of Keppra. I did assess the patient, concern for anaphylaxis was low, the patient had no tongue swelling no lip swelling, vital signs were stable, no respiratory distress. Hard to tell if the patient's neck was slightly edematous or not, the patient Rubbing the left side of her neck stating that her throat hurt which apparently she has been doing since admission, tissues may be inflamed just from that act alone. I did give her a dose of Solu-Medrol 120 mg IV and will continue to monitor closely. Day team can reevaluate in the morning and get additional recommendations from neurology in regards to possibly a different AED. - Dr. Trejo, attending physician
[2024-08-20 22:55] LABS: Basophils # (Auto) 0.0 Thou/mm3 (0.0-0.2); Basophils % (Auto) 0 % (0-2.5); Eosinophils # (Auto) 0.1 Thou/mm3 (0.0-0.5); Eosinophils % (Auto) 2 % (0-10); Hematocrit 35.4 % (36.0-46.0); Hemoglobin 11.8 g/dL (12.0-16.0); Immature Granulocytes Auto 0.03 Thou/mm3 (0.00-0.00); Lymphocytes # (Auto) 3.2 Thou/mm3 (1.0-4.8); Lymphocytes % (Auto) 35 % (10-50); Mean Corpuscular HGB Conc 33.3 g/dl (31.0-37.0); Mean Corpuscular Hemoglobin 29.5 pg (25.0-35.0); Mean Corpuscular Volume 89 fL (80-100); Monocytes # (Auto) 0.6 Thou/mm3 (0.0-0.8); Monocytes % (Auto) 7 % (0-12); Neutrophils # (Auto) 5.1 Thou/mm3 (1.8-7.7); Neutrophils % (Auto) 56 % (37-80); Nucleated Red Blood Cell # 0.00 Thou/mm3 (0.00-0.00); Nucleated Red Blood Cell % 0 /100 WBC (0); Platelet Count 232 Thou/mm3 (140-440); RDW Standard Deviation 47.0 fL (36.4-46.3); Red Blood Count 4.00 Miln/mm3 (4.00-5.20); White Blood Count 9.1 Thou/mm3 (3.6-11.0)
[2024-08-21] VITALS (8 sets, daily range): BP systolic 108–114; BP diastolic 65–83; PULSE 68–86; RESP 17–96; TEMP 36.1–36.5; O2SAT 95–97
[2024-08-21] MEDS: ACETAMINOPHEN 325 MG TABLET 650 MG PO ×4 (03:36→22:51)
[2024-08-21 06:37] LABS: Basophils # (Auto) 0.0 Thou/mm3 (0.0-0.2); Basophils % (Auto) 0 % (0-2.5); Eosinophils # (Auto) 0.0 Thou/mm3 (0.0-0.5); Eosinophils % (Auto) 0 % (0-10); Hematocrit 40.4 % (36.0-46.0); Hemoglobin 12.9 g/dL (12.0-16.0); Immature Granulocytes Auto 0.04 Thou/mm3 (0.00-0.00); Lymphocytes # (Auto) 1.1 Thou/mm3 (1.0-4.8); Lymphocytes % (Auto) 12 % (10-50); Mean Corpuscular HGB Conc 31.9 g/dl (31.0-37.0); Mean Corpuscular Hemoglobin 29.5 pg (25.0-35.0); Mean Corpuscular Volume 92 fL (80-100); Monocytes # (Auto) 0.1 Thou/mm3 (0.0-0.8); Monocytes % (Auto) 1 % (0-12); Neutrophils # (Auto) 7.7 Thou/mm3 (1.8-7.7); Neutrophils % (Auto) 87 % (37-80); Nucleated Red Blood Cell # 0.00 Thou/mm3 (0.00-0.00); Nucleated Red Blood Cell % 0 /100 WBC (0); Platelet Count 245 Thou/mm3 (140-440); RDW Standard Deviation 48.5 fL (36.4-46.3); Red Blood Count 4.38 Miln/mm3 (4.00-5.20); White Blood Count 8.8 Thou/mm3 (3.6-11.0)
[2024-08-21 07:15] LABS: Alanine Aminotransferase 27 U/L (10-49); Albumin, Serum 4.2 gm/dL (3.5-5.0); Albumin/Globulin Ratio 1.7 (1.2-2.2); Alkaline Phosphatase 79 U/L (46-116); Anion Gap 13 (7-16); Aspartate Amino Transferase 17 U/L (0-34); BUN/Creatinine Ratio 10 Ratio (12-20); Bilirubin,Total 0.5 mg/dL (0.3-1.2); Blood Urea Nitrogen 7 mg/dL (9-23); Calcium 9.2 mg/dL (8.3-10.6); Calcium (Corrected) 9.2 mg/dL (8.5-10.1); Carbon Dioxide 22.4 mMol/L (20.0-31.0); Chloride 107 mMol/L (98-107); Creatinine (Component) 0.7 mg/dL (0.6-1.3); Estimated Creatinine Clearance 121.3 mL/min (>60); Globulin 2.5 gm/dL (2.3-3.5); Glucose 133 mg/dL (74-106); Magnesium 1.5 mg/dL (1.6-2.6); Osmolality,Calculated 283 (275-295); Phosphorous 2.8 mg/dL (2.4-5.1); Potassium 4.2 mMol/L (3.4-5.1); Sodium 142 mMol/L (136-145); Total Protein 6.7 gm/dL (5.7-8.2); eGFR > 60 See Note
--- NOTE | 2024-08-21 07:27 | PC.NURSE ---
Spoke with Dr. Carmona regarding patients possible reaction to Keppra last evening. Infomred that a rapid response was called for the patient at around 9:30 PM for suspected anaphylaxis after Keppra was started for her. Patient was assessed by the physician and airway and breathing were found to be intact. Vitals at the time. Patient also complained of throat swelling and difficulty breathing. New orders to stop the Keppra and repeat an EEG. Will keep monitoring patient for any acute changes.
[2024-08-21] MEDS: ASPIRIN EC 81 MG TABEC PO (08:16)
[2024-08-21] MEDS: Magnesium Sulfate 2 GM Ivpb 2 GM/50 ML BAG IV (08:16)
--- NOTE | 2024-08-21 12:30 | PD.RESPRO ---
Documentation for date of: 08/21/24 Subjective Subjective Interval history: Overnight patient was given Keppra after which she developed tightening of her throat and respiratory distress. She was given Solu-Medrol x1 with resolution of symptoms. Patient was seen at bedside. She reports that she does not have a headache but continues to feel dizzy. Her appetite is good and she has been able to eat without nausea or vomiting. Her blurry vision has also somewhat improved from yesterday, though has not returned to baseline. Exam Vital Signs Temp Pulse Resp BP Pulse Ox O2 Del Method 97.1 F 72 18 108/71 95 Room Air 08/21/24 08:00 08/21/24 11:43 08/21/24 11:43 08/21/24 08:00 08/21/24 08:00 08/21/24 08:00 Narrative Exam General: No acute distress, well nourished Eye: PERRL, EOMI, normal conjunctiva, no scleral icterus HENT: Normocephalic, atraumatic, hearing intact to conversation at normal volume, moist oral mucosa, no erythema or edema noted Neck: Supple, non-tender, no JVD, no lymphadenopathy Lungs: Non-labored respirations, symmetric chest rise Heart: Peripheral pulses intact bilaterally Abdomen: Soft, non-tender, non-distended Musculoskeletal: Normal range of motion and strength Skin: Skin is warm, dry, no rashes or lesions. Psychiatric: Cooperative, appropriate mood and affect Neurologic: Mental status: Orientation: Oriented to person, place, time, and situation Communication: Patient is cooperative and can follow simple instructions Language: Speech fluent, normal rate and volume, comprehension intact Cranial nerves: CN II: visual field intact in right eye, decreased in left eye in all visual ugarte CN III: Pupils equal, round, and reactive to light CN III, IV, : No gaze deviation, no nystagmus Horizontal pursuit: intact Vertical pursuit: intact Ptosis: none CN V: Facial sensation to light touch intact on right at the forehead, cheeks, and jaw line, decreased on left CN VII: Face symmetric, no facial droop appreciated CN VIII: Able to hear and respond to conversation at normal volume, intact to finger rub CN IX, X: Palate elevation symmetric, uvula midline CN XI: Head turn and shoulder shrug strong, symmetric bilaterally CN XII: Normal tongue protrusion without deviation, no fasciculations Motor: Normal bulk and tone No atrophy No abnormal movements or fasciculations Muscle strength: Patient was able to stand with minimal support and use walker to walk several steps Sensory: Light touch intact in right upper and lower extremities. Absent in left upper and lower extremities Reflexes: Biceps (C5-6): R 2+ L 2+ Triceps (C7-8): R 2+ L 2+ Patellae (L3-4): R 2+ L 2+ Objective Labs 08/22/24 05:56 08/22/24 05:56 Labs: Laboratory Results - last 24 hr 08/20/24 08/21/24 21:55 05:40 WBC 9.1 8.8 RBC 4.00 4.38 Hgb 11.8 L 12.9 Hct 35.4 L 40.4 MCV 89 92 MCH 29.5 29.5 MCHC 33.3 31.9 RDW Std Deviation 47.0 H 48.5 H Plt Count 232 245 Neut % (Auto) 56 87 H Lymph % (Auto) 35 12 [place] % (Auto) 7 1 Eos % (Auto) 2 0 Baso % (Auto) 0 0 Neut # (Auto) 5.1 7.7 Lymph # (Auto) 3.2 1.1 [place] # (Auto) 0.6 0.1 Eos # (Auto) 0.1 0.0 Baso # (Auto) 0.0 0.0 Immature Gran # (Auto) 0.03 H 0.04 H Absolute Nucleated RBC 0.00 0.00 Immature Gran % 0 1 H Nucleated RBC % 0 0 Sodium 142 Potassium 4.2 Chloride 107 Carbon Dioxide 22.4 Anion Gap 13 BUN 7 L Creatinine 0.7 Estim Creat Clear Calc 121.3 eGFR > 60 BUN/Creatinine Ratio 10 L Glucose 133 H D Calculated Osmolality 283 Calcium 9.2 Corrected Calcium 9.2 Phosphorus 2.8 Magnesium 1.5 L Total Bilirubin 0.5 AST 17 ALT 27 Alkaline Phosphatase 79 Total Protein 6.7 Albumin 4.2 D Globulin 2.5 Albumin/Globulin Ratio 1.7 ABG Interpretation ABG results: 08/19/24 01:20 ABG pH 7.39 ABG pCO2 40 ABG pO2 35 L* ABG HCO3 24 ABG O2 Saturation 78 L ABG Base Excess -1 Quality Measures Quality Measures VTE prophylaxis Assessment & Plan Assessment Current Active Medications: Generic Name Dose Route Start Last Admin Trade Name Freq PRN Reason Stop Dose Admin Acetaminophen 650 mg 08/19/24 02:16 08/21/24 10:32 Acetaminophen 325 Mg Tablet PO 09/18/24 02:15 650 mg Q6H PRN Administration Pain 1-3 and/or Fever >100.1 Aspirin 81 mg 08/20/24 09:00 08/21/24 08:16 Aspirin Ec 81 Mg Tabec PO 09/19/24 08:59 81 mg QDAY TUH Administration Protocol Atorvastatin Calcium 40 mg 08/19/24 21:00 08/20/24 20:43 Atorvastatin Calcium 20 Mg Tablet PO 09/18/24 20:59 40 mg HS THU Administration Sodium Chloride 1,000 mls @ 100 mls/hr 08/19/24 00:15 08/20/24 23:50 Ns IV 09/18/24 00:14 100 mls/hr Q10H THU Administration Ondansetron HCl 4 mg 08/19/24 00:05 08/19/24 12:07 Ondansetron Inj 2 Mg/Ml Inj 2 Ml IVP 09/18/24 00:04 4 mg Q4HR PRN Administration NAUSEA OR VOMITING Sennosides 1 tab 08/19/24 02:16 Senna Tablet PO 09/18/24 02:15 QDAY PRN constipation Protocol Plan #Acute encephalopathy with neurologic deficits Initial presentation: reduced sensation on left side of face, 0/5 LUE, 1/5 LLE, failed finger to nose. Initial NIHSS 13. Patient was deemed a tPA candidate although after a lengthy discussion with teleneurology patient opted against TNK Patient reports that she initially developed left-sided deficits in November 2023 which somewhat improved with PT. These symptoms acutely worsened prompting ED visit. Home meds for migraine: Prescribed nortriptyline, rizatriptan, trazodone but she denies taking any of these. Rosuvastatin 40 daily Afebrile, BP WNL Mild leukocytosis, TSH WNL, UA negative, UDS negative, EtOH <10, glucose WNL, HCG negative December 2023 labs: A1C 4.8, cholesterol high 210, LDL high 160, HDL low 35 CT head: Negative for acute hemorrhage, mass effect or midline shift CTA: No LVO, thrombus, stenosis MR stroke: Negative for acute hemorrhage mass effect or midline shift. No acute infarct. No MR findings diagnostic for demyelinating disease. No abnormal enhancing cerebellar or cerebral lesions. No carotid stenoses. No cerebral large vessel arterial occlusions or thrombus TTE 12/13/23: No PFO. LVEF 60-65% TTE 08/19/24: No PFO. LVEF 55% Workup is negative for stroke at this time EEG and repeat EEG: Abnormal - bitemporal epileptic discharges Patient did not tolerate Keppra 2/2 respiratory distress, possible angioedema. D/C Keppra, switch to Lacosamide PT rec acute rehab for PT DDX: seizure, function / non-neurological cause / conversion disorder,, hemplegic migraine Plan: - ASA 81 mg daily, high intensity statin (Atorvastatin 40 mg daily) - Lacosamide 50 mg BID, watch 24 hours then decide on discharge plans - Repeat EEG in 1 month outpatient - Encouraged patient to participate in PT sessions #Sinus tachycardia - resolved As noted from ED EKG Plan: - Telemetry monitoring #Mild Leukocytosis - resolved Initial WBC: 12.2 Most likely reactive No apparent source of infection, afebrile Plan: - Continue to monitor Plan discussed with Dr. Kristine Fernandez, PGY1 Attending Provider Attestation/Addendum I personally have seen and examined the patient at the bedside and agree with resident findings, assessment and plan of care. She did not have any seizures after admission. As the EEG continued to be adequate we will try Vimpat 50 mg to get suppression as she tolerates.
[2024-08-21] MEDS: SODIUM CHLORIDE 0.9% 1000 ML 1,000 ML 100 ML IV ×2 (12:54→22:52)
--- NOTE | 2024-08-21 13:20 | PD.RESPRO ---
Documentation for date of: 08/21/24 -------- Patinet examined at bedside. Patient experienced possible allergic reaction to Keppra. Currenlty holding keppra and repeat EEG. Subjective Subjective Interval history: Patient was seen and examined at bedside. A.m. vitals and labs reviewed. Patient still have motor and sensory deficit on her left upper and lower extremity. The left side of her head only has sensory deficit. Complains of constant frontal headache. Patient feels fine otherwise. Denies shortness of breath, chest pain, fever, chills. Patient failed to discharge due to EEG report of suspicion for seizure. Continue all treatment as previous progressive note Exam Vital Signs Temp Pulse Resp BP Pulse Ox O2 Del Method 97.1 F 72 18 108/71 95 Room Air 08/21/24 08:00 08/21/24 11:43 08/21/24 11:43 08/21/24 08:00 08/21/24 08:00 08/21/24 08:00 Narrative Exam General: No acute distress, well nourished Eye: PERRL, EOMI, normal conjunctiva, no scleral icterus HENT: Normocephalic, atraumatic, hearing intact to conversation at normal volume, moist oral mucosa Neck: Supple, non-tender, no JVD, no lymphadenopathy Lungs: Non-labored respirations, symmetric chest rise, Clear to auscultate bilaterally Heart: Peripheral pulses intact bilaterally Abdomen: Soft, non-tender, non-distended Musculoskeletal: Motor Strength 1/5 in left upper and lower extremity. Motor Strength 5/5 in right upper and lower extremity. Skin: Skin is warm, dry, no rashes or lesions. Psychiatric: Cooperative, appropriate mood and affect Neuro: Cranial nerves II-XII grossly intact. Sensory deficit in left side of head, upper and lower extremity. Objective Labs 08/22/24 05:56 08/22/24 05:56 Labs: Laboratory Results - last 24 hr 08/20/24 08/21/24 21:55 05:40 WBC 9.1 8.8 RBC 4.00 4.38 Hgb 11.8 L 12.9 Hct 35.4 L 40.4 MCV 89 92 MCH 29.5 29.5 MCHC 33.3 31.9 RDW Std Deviation 47.0 H 48.5 H Plt Count 232 245 Neut % (Auto) 56 87 H Lymph % (Auto) 35 12 [place] % (Auto) 7 1 Eos % (Auto) 2 0 Baso % (Auto) 0 0 Neut # (Auto) 5.1 7.7 Lymph # (Auto) 3.2 1.1 [place] # (Auto) 0.6 0.1 Eos # (Auto) 0.1 0.0 Baso # (Auto) 0.0 0.0 Immature Gran # (Auto) 0.03 H 0.04 H Absolute Nucleated RBC 0.00 0.00 Immature Gran % 0 1 H Nucleated RBC % 0 0 Sodium 142 Potassium 4.2 Chloride 107 Carbon Dioxide 22.4 Anion Gap 13 BUN 7 L Creatinine 0.7 Estim Creat Clear Calc 121.3 eGFR > 60 BUN/Creatinine Ratio 10 L Glucose 133 H D Calculated Osmolality 283 Calcium 9.2 Corrected Calcium 9.2 Phosphorus 2.8 Magnesium 1.5 L Total Bilirubin 0.5 AST 17 ALT 27 Alkaline Phosphatase 79 Total Protein 6.7 Albumin 4.2 D Globulin 2.5 Albumin/Globulin Ratio 1.7 ABG Interpretation ABG results: 08/19/24 01:20 ABG pH 7.39 ABG pCO2 40 ABG pO2 35 L* ABG HCO3 24 ABG O2 Saturation 78 L ABG Base Excess -1 Quality Measures Quality Measures VTE prophylaxis Assessment & Plan Assessment Current Active Medications: Generic Name Dose Route Start Last Admin Trade Name Freq PRN Reason Stop Dose Admin Acetaminophen 650 mg 08/19/24 02:16 08/21/24 10:32 Acetaminophen 325 Mg Tablet PO 09/18/24 02:15 650 mg Q6H PRN Administration Pain 1-3 and/or Fever >100.1 Aspirin 81 mg 08/20/24 09:00 08/21/24 08:16 Aspirin Ec 81 Mg Tabec PO 09/19/24 08:59 81 mg QDAY THU Administration Protocol Atorvastatin Calcium 40 mg 08/19/24 21:00 08/20/24 20:43 Atorvastatin Calcium 20 Mg Tablet PO 09/18/24 20:59 40 mg HS THU Administration Sodium Chloride 1,000 mls @ 100 mls/hr 08/19/24 00:15 08/21/24 12:54 Ns IV 09/18/24 00:14 100 mls/hr Q10H THU Administration Ondansetron HCl 4 mg 08/19/24 00:05 08/19/24 12:07 Ondansetron Inj 2 Mg/Ml Inj 2 Ml IVP 09/18/24 00:04 4 mg Q4HR PRN Administration NAUSEA OR VOMITING Sennosides 1 tab 08/19/24 02:16 Senna Tablet PO 09/18/24 02:15 QDAY PRN constipation Protocol Plan 39-year-old female with significant medical history for right-side complex regional pain syndrome (CRPS), nephrolithiasis and GERD came to ED on 08/19 for tachycardia, left-sided weakness accompanied with headache which apparently began around 11 PM on 08/18 Stroke alert was initiated and teleneurology was consulted who recommended admitting the patient for further workup. Will consult in-house neurology team for further evaluation as well. 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 less likely to be seizures versus meningitis As noted above in the HPI, patient has similar presentation in the past with MRI findings being largely negative Patient is presenting with similar complaints of left-sided hemiplegia associated with headache and apparent loss of consciousness with weakness On examination, patient does have tachycardia and neuroexam as noted above is significant Labs do show WBC of 12.2 but there are no signs of infection noted with UA and the patient's oxygen status is within normal limits even with an ABG showing a PO2 of 35 Teleneurology was consulted and recommendation was to admit for further workup Head CT negative and head CTA head and neck is negative. MRI and ECHO with bubble study was negative U-tox was negative. Rapid event called (08/20/2024 9:30PM) for patient's complaints about her throat swelling and difficulty breathing after taking Keppra. However, concern for anaphylaxis was low, the patient had no tongue swelling no lip swelling, vital signs were stable, no respiratory distress. A dose of Solu-Medrol 120 mg IV was given. Plan: -Continue aspirin 81mg p.o. daily along with atorvastatin 40 mg p.o. daily -Frequent neurochecks -Neurology consulted, appreciate recommendations -Euglycemia and temperature monitoring -Head of bed greater than 30 degrees and aspiration precautions -PT-->SNF & Speech Dysphagia - Keppra 500mg PO bid currently discontinued. - Second EEG was taken today 08/21/2024. Currently waiting for report. #Sinus tachycardia As noted from ED EKG Plan: Telemetry monitoring Health Maintenance: Lines: PIV Diet: Diet Dysphagia. Bowel: Senna as needed GI prophylaxis: Not needed DVT prophylaxis: SCDs Dispo: Neurology consultation for acute encephalopathy with neurologic deficits Code: Full Case discussed with attending,Dr. Borja and resident Dr. Rodriguez Attending Provider Attestation/Addendum 39-year-old female with history of complex regional pain syndrome diagnosed at [facility] who presented to the ER on 08/19/2024 with left-sided weakness and subsequently underwent stroke workup including CT head and CTA both of which was negative and teleneurology evaluated the patient and recommended admission for MRI however did not recommend giving the patient tPA. Currently, patient continues to have left upper and lower extremity weakness and patient underwent MRI which was negative for any acute strokes. Evaluated by neurology and recommended EEG. EEG positive for seizures and will start the patient on antiepileptic agents. Patient continues to have left-sided weakness. Asked neurology about doing an LP and cervical spine imaging however stated that patient had got it done in the past and follows up closely with [facility]. I reviewed above note and agree with findings and plans. I have also personally examined the patient with medicine team and went over assessment and plan with medical team including sports broadcasting internship and resident physician.
[2024-08-21] MEDS: ATORVASTATIN CALCIUM 20 MG TABLET 40 MG PO (21:00)
[2024-08-21] MEDS: LACOSAMIDE 50 MG TABLET PO (21:00)
[2024-08-22] VITALS: BP 114/70; PULSE 64; PULSE 74; RESP 19; TEMP 36.2; O2SAT 97
[2024-08-22 04:00] VITALS: BP 140/76; PULSE 71; PULSE 72; RESP 20; TEMP 36.6; O2SAT 98
[2024-08-22] MEDS: ACETAMINOPHEN 325 MG TABLET 650 MG PO ×2 (04:25→11:50)
--- NOTE | 2024-08-22 04:56 | PC.NURSE ---
Spoke with Dr. Harris regarding pt's O2 increased from 2L to 5L. O2 sats 93-95%. No signs of respiratory distress. MD to place orders for mucolytic
[2024-08-22 06:30] LABS: Basophils # (Auto) 0.0 Thou/mm3 (0.0-0.2); Basophils % (Auto) 0 % (0-2.5); Eosinophils # (Auto) 0.1 Thou/mm3 (0.0-0.5); Eosinophils % (Auto) 1 % (0-10); Hematocrit 35.4 % (36.0-46.0); Hemoglobin 11.7 g/dL (12.0-16.0); Immature Granulocytes Auto 0.04 Thou/mm3 (0.00-0.00); Lymphocytes # (Auto) 3.8 Thou/mm3 (1.0-4.8); Lymphocytes % (Auto) 37 % (10-50); Mean Corpuscular HGB Conc 33.1 g/dl (31.0-37.0); Mean Corpuscular Hemoglobin 30.0 pg (25.0-35.0); Mean Corpuscular Volume 91 fL (80-100); Monocytes # (Auto) 0.5 Thou/mm3 (0.0-0.8); Monocytes % (Auto) 5 % (0-12); Neutrophils # (Auto) 5.7 Thou/mm3 (1.8-7.7); Neutrophils % (Auto) 56 % (37-80); Nucleated Red Blood Cell # 0.00 Thou/mm3 (0.00-0.00); Nucleated Red Blood Cell % 0 /100 WBC (0); Platelet Count 218 Thou/mm3 (140-440); RDW Standard Deviation 48.2 fL (36.4-46.3); Red Blood Count 3.90 Miln/mm3 (4.00-5.20); White Blood Count 10.1 Thou/mm3 (3.6-11.0)
[2024-08-22 07:08] LABS: Alanine Aminotransferase 23 U/L (10-49); Albumin, Serum 3.8 gm/dL (3.5-5.0); Albumin/Globulin Ratio 1.7 (1.2-2.2); Alkaline Phosphatase 67 U/L (46-116); Anion Gap 10 (7-16); Aspartate Amino Transferase 14 U/L (0-34); BUN/Creatinine Ratio 11 Ratio (12-20); Bilirubin,Total 0.4 mg/dL (0.3-1.2); Blood Urea Nitrogen 8 mg/dL (9-23); Calcium 8.7 mg/dL (8.3-10.6); Calcium (Corrected) 8.9 mg/dL (8.5-10.1); Carbon Dioxide 24.7 mMol/L (20.0-31.0); Chloride 109 mMol/L (98-107); Creatinine (Component) 0.7 mg/dL (0.6-1.3); Estimated Creatinine Clearance 121.3 mL/min (>60); Globulin 2.2 gm/dL (2.3-3.5); Glucose 88 mg/dL (74-106); Magnesium 1.4 mg/dL (1.6-2.6); Osmolality,Calculated 284 (275-295); Phosphorous 3.2 mg/dL (2.4-5.1); Potassium 3.8 mMol/L (3.4-5.1); Sodium 144 mMol/L (136-145); Total Protein 6.0 gm/dL (5.7-8.2); eGFR > 60 See Note
[2024-08-22 08:00] VITALS: BP 108/76; PULSE 70; PULSE 98; RESP 12; TEMP 36.8; O2SAT 98
[2024-08-22] MEDS: ASPIRIN EC 81 MG TABEC PO (08:43)
[2024-08-22] MEDS: LACOSAMIDE 50 MG TABLET PO (08:44)
--- NOTE | 2024-08-22 10:12 | PC.SS ---
Follow up note: SS and bedside nurse, Ml met with pt and provided her with verbal options for d/c. Pt is aware PT is recommending acute rehab. Pt refused acute rehab and her choice is to return home with [facility].
[2024-08-22 12:00] VITALS: BP 118/74; PULSE 66; PULSE 71; RESP 15; TEMP 36.7; O2SAT 98
[2024-08-22] MEDS: LACTULOSE SYRUP 20 GM/30 ML UDC 10 GM PO (13:50)
[2024-08-22 16:00] VITALS: BP 113/80; PULSE 67; PULSE 75; RESP 18; TEMP 36.6; O2SAT 100
--- NOTE | 2024-08-22 16:30 | PC.SS ---
SS [facility]. First personal banking representative was unsuccessful (phone disconnected while SS was speaking with pt's insurance). Second representive was able to setup gurney transportation is set for 6pm.? Ref# [id number]. SS has requested [facility].? Per [facility] personal banking representative, [facility] is not a guaranteed transport company.? Estimated time is 3-4 hours.? SS has sent patient?s facesheet and ambulance form to [facility] using [facility] SS has spoken to Landen at [facility] who has placed pt on will call list until she has been contacted by [facility]. Bedside nurse, Ml is aware. Didi CHOI is aware. Pt is aware. SS has received call from [facility] transport is set for 7pm but will note pt is ready at 6pm.
--- NOTE | 2024-08-22 17:28 | PC.CM ---
Complete Home Health orders and packet sent to [facility] via [employer], pending acceptance and Start of care.
--- NOTE | 2024-08-22 19:40 | ESDS_ITS ---
<Statement entered by Adolfo Borja MD - 09/01/24 14:15> I reviewed above note and agree with findings and plans. I have also personally examined the patient with medicine team and went over assessment and plan with medical team including multicultural internship and resident physician. Planned Discharge Date 08/22/24 DS: Providers Provider Date of admission: 08/19/24 02:16 Primary care physician: Physician No Primary/Family Admitting Provider: Miky Helms MD Attending Provider on Admission: Adolfo Borja MD Consults: 08/19/24 00:05 Consult to Neurology / Tele-Neurology Routine Comment: Consulting Provider: [facility] 08/19/24 01:13 Referral Speech Therapy Stat Comment: 08/19/24 02:23 Consult to Neurology / Tele-Neurology Routine Comment: Stroke r/o vs. Migraine w/ Aura vs. other etiology Consulting Provider: Bora Carmona 08/19/24 09:00 Referral Physical Therapy Routine Comment: Physician Instructions: Attending Provider on DC: Linette Rodriguez MD Discharging Provider: Linette Rodriguez MD DS: Diagnosis Problem List Completed Was Problem List Reviewed/Reconciled?: Yes Hospital Course Hospital Course Hospital course: Summary: Patient is a 39-year-old female with past medical history of right-sided complex regional pain syndrome, nephrolithiasis, history of GERD, and admitted on 08/19/2024 with a chief complaint of headache and left-sided weakness and subsequently diagnosed with seizure seizures. ER Course: Vitals: BP 122/84, HR 127, RR 16, temperature 99.6 CMP: Unremarkable Troponin within normal limits, TSH within normal limits, free T4 within normal limits CBC: WBC count 12.2 CT head: Negative for acute hemorrhage/mass effect or midline shift Head neck CTA no significant neck arterial stenosis, no cerebral large vessel arterial occlusions or thrombosis Hospital Course: In the hospital course, patient followed up with an MRI for acute on chronic onset of left-sided weakness, which showed negative acute hemorrhages negative for acute infarcts and negative for any demyelinating disease. Per patient history, left sided weakness is not new and occurs periodically. Neurology consulted, Dr Carmona. Echo obtained on 08/19/2024 normal LV size and function and ejection fraction of 55. EEG: Noted for localized spike and wave activity was noted in both temporal areas consistent with seizures. Patient initially started on Keppra but concerned for allergic reaction,, decision was made to change patient over to lacosamide 50 mg p.o. twice daily. Patient advised to follow-up with outpatient neurology who she follows at [facility]. #New on set of Seizure #Acute encephalopathy with neurologic deficits, resolved. #History of Right Side Complex Region Pain syndrome #Left upper and lower hemiplegia, improved. #Leukocytosis, resolved. #Sinus tachycardia Instructions: -Please continue all medication as prescribed. -Please follow up with your established outpatient neurologist. -Please follow up with your primary care provider within one week of discharge -If your symptoms worsen,please seek immediate medical attention and return to your nearest emergency room -If you do not have a primary care provider, you may follow up at the [facility] at [address] [place] [address] [facility] [address], [place] [address], Phone [phone] - The patient's plan was discussed with attending Dr. Jonh Rodriguez MD PGY2 Internal Medicine Time Spent with Patient Time attestation: Total time spent providing and/or coordinating discharge services: at least thirty minutes of care and coordination Time spent: Greater than 30 minutes Quality: Stroke Pt Provided Written Stroke Discharge Instructions: Yes Home Health Home Health Referral Orders: 08/22/24 13:54 Home Health Referral Routine Reason For Exam: PT Home-Bound The patient must either because of illness or injury, need the aid of supportive devices such as crutches, canes, wheelchairs, and walkers; the use of special transportation; or the assistance of another person in order to leave their place of residence; OR have a condition such that leaving his or her home is medically contraindicated. In addition, the patient also meets the following criteria: patient is normally unable to leave the home and leaving home requires considerable taxing effort. Addendum to Home Health Certification Practitioner's Certification: I certify that the patient has been under my care in the hospital and the care of attending physician (see below). We had a [id number] encounter on (see date below). My clinical findings indicate that the patient is home bound per the above criteria and the Home Health Services noted in these orders are medically necessary. The primary reason for the [id number] encounter is related to the fact that the patient requires home health services. Date Certifying [id number] Physician Encounter: 08/19/24 Physician's Name who will Assume Oversight for HH Services: Physician No Primary/Family OUTBOUND SALES CONSULTANT - Community Resources: No PT to Evaluate: Yes PT to evaluate and provide a treatmnet plan to increase patient's mobility and strength. Wound Care: No IV Therapy: No RN Safety Evaluation: Yes RN to evaluate and create a plan of care that will produce positive outcomes. Palliative Treatment: No Palliative treatment and evaluate the need for hospice. Home Health Aide - Personal Care: No Home Health Aide to assist with any ADL's. Exam Vital Signs Temp Pulse Resp BP Pulse Ox O2 Del Method 97.8 F 67 18 113/80 100 Room Air 08/22/24 16:00 08/22/24 16:00 08/22/24 16:00 08/22/24 16:00 08/22/24 16:08/22/24 16:00 Narrative Exam General Appearance: Alert & Oriented X3, well-nourished female who is lying in bed in no acute distress HEENT: Skull symmetrical and atraumatic. Conjunctivae pink and moist. Pupils equal, round, reactive to light and accommodation (PERRL). External ear without lesion or discharge. Straight, nares patient, mucosa pink, no discharge. No thyroid nodule appreciated. No cervical lymphadenopathy. Cardio: Normal Rate and Rhythm with S1 and S2 heart sounds. No murmurs or extra heart sounds auscultated. No bruits on carotid auscultation. No peripheral edema or cyanosis. Lungs: Symmetric with good expansion. Chest and back non-tender. Breath sounds vesicular without crackles, wheezing or rhonchi Abdomen: Non-tender, Non-distended, Normal Reactive Bowel Sounds Neuro: Alert, cooperative, oriented to person, place, and time. Speech clear. CN grossly intact. left upper motor 3/5 and Lower motor strength 5/5. Sensation intact. Discharge Plan Plan Patient Disposition: HOME (Self Care) Patient condition on transfer: Stable Care Plan Goals: Instructions: -Please continue all medication as prescribed. -Please follow up with your established outpatient neurologist. -Please follow up with your primary care provider within one week of discharge -If your symptoms worsen,please seek immediate medical attention and return to your nearest emergency room -If you do not have a primary care provider, you may follow up at the [facility] at [address], [place] [address], Prescriptions/Referrals Prescriptions/Med Rec: New aspirin 81 mg Tablet,Delayed Release (Dr/Ec) 81 mg PO QDAY 30 Days Qty: 30 0RF lacosamide 50 mg tablet 50 mg PO BID Qty: 60 0RF Continued rosuvastatin 40 mg tablet 40 mg PO HS Patient Comments: TAKE 1 TABLET BY MOUTH EVERY DAY acetaminophen 500 mg tablet 1,000 mg PO Q6H PRN (Reason: pain) Qty: 30 0RF Discontinued tamsulosin [Flomax] 0.4 mg capsule 0.4 mg PO QDAY Qty: 20 0RF Referrals: No Primary/Family,Physician [Primary Care Provider] - Patient/Caregiver Discharge Instructions Meds to Beds: No Education Materials: Self-Care for Headaches, Discharge Instructions for Stroke Print Language: Khmer Stand Alone Forms: Carin Award Info., Patient Portal Info Letter Discharge Order Discharge Orders: Discharge (Routine); Ordered 08/22/24 Ordered By: Linette Rodriguez Quality Discharge Quality Measures VTE prophylaxis
[2024-08-22 19:45] VITALS: BP 114/59; PULSE 68; RESP 24; TEMP 36.5; O2SAT 100
--- NOTE | 2024-08-22 20:27 | PC.NURSE ---
@1936 [facility] here to hop picker pt, Patient A&O x3, IV and customer success specialist removed. VS: BP 114/58 HR 68 O2 95% on RA, Temp 97.7 RR 16, all belongings with pt.
--- NOTE | 2024-08-22 23:49 | PD.NEUROPROG ---
Documentation for date of: 08/22/24 Subjective Subjective Interval history: Patient was seen in telemetry at the bedside. No seizures or side effects on Vimpat. Exam - Neurology Vital Signs Temp Pulse Resp BP Pulse Ox O2 Del Method 97.7 F 68 24 H 114/59 L 100 Room Air 08/22/24 19:45 08/22/24 19:45 08/22/24 19:45 08/22/24 19:45 08/22/24 19:45 08/22/24 19:45 Narrative Exam GENERAL APPEARANCE: Well hydrated, well-nourished in no acute distress. HEENT: Normocephalic, atraumatic, extraocular movements intact. Pupils: Equal reacting to light and accommodation NECK: Supple, no JVD or bruits. CARDIOVASULAR: Heart: S1, S2 heard, regular without S3-S4 or murmur no rubs or gallops. LUNGS/CHEST: Clear to auscultation bilaterally. No rails, rhonchi, or wheezing. Normal inspection. ABDOMEN: Soft, nontender, with normal bowel sounds. No pulsatile masses. No rebound, rigidity, or guarding. Normal inspection and palpation. EXTREMITIES: Normal inspection and palpation. No edema, clubbing or cyanosis. SKIN: Warm and dry without rashes. Normal inspection. MUSCULOSKELETAL: No cervical, thoracic, lumbar or midline bony tenderness. Normal inspection. NEURO: Alert, awake and oriented x3. Cranial nerves: II through XII grossly intact. Speech and language: Normal with no dysarthria or dysphasia. Motor system: Tone and bulk: Normal: Strength: Continues to have giveaway weakness in the left upper and lower extremities. Deep tendon reflexes: 2+ bilaterally symmetrical. Plantar reflex: Downgoing bilaterally. Sensory system: Intact to all modalities of sensation bilaterally. Coordination: Intact to [id number] and risu-[id number]-[id number] test bilaterally. No ataxia, no dysmetria, or dysdiadochokinesia noted. No intention tremors noted. Gait: Walked better in the hallway without my assistance. No signs of meningeal irritation noted. PSYCHIATRIC: Normal mood and affect. Objective Labs 08/22/24 05:56 08/22/24 05:56 Labs: Laboratory Results - last 24 hr 08/22/24 05:56 WBC 10.1 RBC 3.90 L Hgb 11.7 L Hct 35.4 L MCV 91 MCH 30.0 MCHC 33.1 RDW Std Deviation 48.2 H Plt Count 218 Neut % (Auto) 56 Lymph % (Auto) 37 [place] % (Auto) 5 Eos % (Auto) 1 Baso % (Auto) 0 Neut # (Auto) 5.7 Lymph # (Auto) 3.8 [place] # (Auto) 0.5 Eos # (Auto) 0.1 Baso # (Auto) 0.0 Immature Gran # (Auto) 0.04 H Absolute Nucleated RBC 0.00 Immature Gran % 0 Nucleated RBC % 0 Sodium 144 Potassium 3.8 Chloride 109 H Carbon Dioxide 24.7 Anion Gap 10 BUN 8 L Creatinine 0.7 Estim Creat Clear Calc 121.3 eGFR > 60 BUN/Creatinine Ratio 11 L Glucose 88 Calculated Osmolality 284 Calcium 8.7 Corrected Calcium 8.9 Phosphorus 3.2 Magnesium 1.4 L Total Bilirubin 0.4 AST 14 ALT 23 Alkaline Phosphatase 67 Total Protein 6.0 Albumin 3.8 Globulin 2.2 L Albumin/Globulin Ratio 1.7 ABG Interpretation ABG results: 08/19/24 01:20 ABG pH 7.39 ABG pCO2 40 ABG pO2 35 L* ABG HCO3 24 ABG O2 Saturation 78 L ABG Base Excess -1 Assessment & Plan Assessment and plan (1) Numbness and tingling of left arm and leg: Status: Acute Assessment and plan: Reassurance given to the patient regarding the MRI brain findings, isolated right occipital white change is not significant for demyelination. Patient is stable from neurology standpoint for discharge home. As the EEG showed abnormal with bitemporal epileptiform discharges, we will start her on antiepileptic drug. No driving advised, we will follow-up in 2 weeks. Noted that she is scheduled to see neurology at [facility] next Sunday.
--- NOTE | 2024-08-23 11:13 | PC.CC ---
[facility] accepted and bookd. SOC 08/26
== END 2024-08-22 19:36 | disposition home or self-care (01) | DRG 53 ==
LOC: SERX 08-19 02:27 → SERHOLD 08-19 02:38 → S2NX 08-19 05:20
PROVIDERS: Student in an Organized Health Care Education/Training Program; Admitting Provider Student in an Organized Health Care Education/Training Program; Emergency Provider Emergency Medicine; Visit Provider Internal Medicine
DX: G40.909 Epilepsy, unspecified, not intractable, without status epilepticus (principal); G93.40 Encephalopathy, unspecified; R20.0 Anesthesia of skin; R53.1 Weakness; Z87.442 Personal history of urinary calculi; K21.9 Gastro-esophageal reflux disease without esophagitis; D72.829 Elevated white blood cell count, unspecified; R00.0 Tachycardia, unspecified; E78.5 Hyperlipidemia, unspecified; G43.909 Migraine, unspecified, not intractable, without status migrainosus; G81.94 Hemiplegia, unspecified affecting left nondominant side; G90.59 Complex regional pain syndrome I of other specified site; I10 Essential (primary) hypertension; R13.10 Dysphagia, unspecified; T78.2XXA Anaphylactic shock, unspecified, initial encounter; Z79.82 Long term (current) use of aspirin; Z79.899 Other long term (current) drug therapy; Z88.5 Allergy status to narcotic agent; Z88.0 Allergy status to penicillin; Z88.6 Allergy status to analgesic agent; Z88.8 Allergy status to other drugs, medicaments and biological substances
CPT/HCPCS: 36415; 36600; 70450; 70496; 70498; 70553; 80053; 80307; 80320; 81001; 82803; 83735; 83880; 84100; 84439; 84443; 84484; 84703; 85025; 85610; 85730; 87086; 92526; 92610; 93306; 95816; 96365; 97162; 99291; A4649; J0696; J2405; J2919; J3475; J7030; Q9967; A9270; G0480

== ENCOUNTER 2024-09-14 21:34 | Emergency (ER) | payer MEDICAID, SELFPAY ==
--- NOTE | 2024-09-14 21:41 | PD.EDCHEST ---
ED Chest Pain RME/HPI General Chief Complaint: Chest Pain Stated Complaint: CHEST WALL PAIN Arrival date/time: 09/14/24 21:34 RME / HPI RME / HPI narrative: This section includes all my notes and documentations, including HPI, PE, and ED course. 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 Patient has associated N/V and decreased appetite. No abdominal pain or diarrhea. No other complaints reported. ROS: All negative except as documented in HPI. Physical Exam: General: Alert and oriented. Appears anxious. Eyes: Conjunctivae and lids clear. ENT: No nasal congestion. Neck: Supple. Heart: RRR. Chest: Reproducible left-sided chest pain. Lungs: No respiratory distress. Good air movement. No rhonchi, wheezing, rales. Abdomen: Soft and nontender. Normal bowel sounds. No distension. No rebound or guarding. Back: No CVA tenderness. Skin: Warm and dry. Neuro: Alert and oriented X 3. I reviewed EMS notes. I reviewed all diagnostic test results. My interpretation of the EKG is sinus rhythm with nonspecific ST-T changes. My interpretation of the chest x-ray is NAD. Blood tests are unremarkable. UA showed 2 RBC, 2 WBC, and 4+ bacteria. COVID/Influenza negative. At this point, diagnoses include chest wall pain and UTI. Treatment here included Xanax, NS, Zofran, and Rocephin. Significant improvement noted. Based on my best medical judgment, made decision no further evaluation or treatment indicated at this time. Patient understands and agrees to the discharge instructions customized and printed, see below. Discharge instructions from Dr. Bagley: 1. After extensive evaluation, there is no life-threatening condition. Such as heart attack or pneumothorax (collapsed lung). 2. Your pain is originating from the chest wall and not from an internal organ. The chest wall has many joints and muscles between the ribs, so sprains and strains are common. 3. Apply ice or heat if helpful. Tylenol/ibuprofen as needed. Xanax can help by relaxing the muscles. Cefdinir for UTI. 4. See a private doctor on 09/15/2024 for recheck. To make sure there is no serious underlying heart condition, ask to help you get more tests for your heart that cannot be done here in the ER. Such as Holter Monitor (cardiac monitoring at home from a day to even a month), heart stress test (on treadmill or with medication), echocardiogram (imaging of your heart structures), heart catherization (checking for blockages in your heart arteries), and a referral to see a Radiology Equipment Servicer. Ask to review all test results and official radiology reports, to make sure you receive all necessary follow-ups and monitoring. 5. Seek immediate medical care with worsening or with any concerns. Lonnie Bagley MD Related Data Home Medications ?Medication ?Instructions ?Recorded ?Confirmed rosuvastatin 40 mg tablet 40 mg PO HS 03/07/23 08/19/24 Previous Rx's ?Medication ?Instructions ?Recorded acetaminophen 500 mg tablet 1,000 mg (2 x 500 mg) PO Q6H PRN 06/30/24 pain #30 tabs aspirin 81 mg tablet,delayed 81 mg PO QDAY 30 days #30 tabs 08/20/24 release lacosamide 50 mg tablet 50 mg PO BID #60 tabs 08/22/24 alprazolam 0.5 mg tablet (Xanax) 0.5 mg PO BID PRN anxiety #10 tabs 09/14/24 cefdinir 300 mg capsule 300 mg PO BID #14 caps 09/15/24 Allergies Allergy/AdvReac Type Severity Reaction Status Date / Time alcohol Allergy Severe ICHY, Verified 08/12/24 06:22 REDNESS TO FACE diphenhydramine (From Allergy Severe Difficulty Verified 08/12/24 06:22 Benadryl Allergy) Swallowing ibuprofen Allergy Severe RASH Verified 08/12/24 06:22 loratadine (From Claritin) Allergy Severe Hives Verified 08/12/24 06:22 morphine Allergy Severe Difficulty Verified 08/12/24 06:22 Breathing oxycodone Allergy Severe Hives Verified 08/12/24 06:22 Penicillins Allergy Severe Difficulty Verified 08/12/24 06:22 Swallowing hydrocodone (From [place]) Allergy Intermediate Hypertensio Verified 08/12/24 06:22 n ketorolac (From Toradol) AdvReac Severe Fainting Verified 08/12/24 06:22 Review of Systems Review of Systems Systems Reviewed: All systems reviewed, normal except as documented Past Medical History Past Medical History NEUROLOGIC: Positive Neurological Disorders (COMPLEX REGIONAL PAIN SYNDROME); Negative Seizures CARDIAC: Positive Hypercholesterolemia; Negative Cardiac Disorders, Congestive Heart Failure or Hypertension RESPIRATORY: Negative Chronic Obstructive Pulmonary Disease (COPD) or Asthma GASTROINTESTINAL: Positive Gastroesophageal Reflux Disease; Negative Gastrointestinal Disorders, Hepatitis or Colorectal Cancer GENITOURINARY: Positive Kidney Stones; Negative Genitourinary Disorders or Renal Disease REPRODUCTIVE: Negative Breast Cancer, Endometriosis, Genital Herpes, Gonorrhea, Pelvic Inflammatory Disease, Previous Pregnancies, Syphilis or Uterine Prolapse MUSCULOSKELETAL: Positive Carpal Tunnel Syndrome (LEFT WRIST); Negative Musculoskeletal Disorders or Bone Cancer ENDOCRINE: Negative Endocrine Disorders, Diabetes Mellitus Type 1 or Diabetes Mellitus Type 2 HEMATOLOGIC: Negative Blood Disorders, Anemia, Leukemia, Hemophilia, Thalassemia, Sickle Cell Disease or Clotting Problems PSYCHO/SOCIAL: Positive Anxiety OTHER HISTORY: Positive Hospitalization; Negative Autoimmune Disease, Down Syndrome, Developmental Delay, Shingles, Falls, Blood Transfusions, Blood Transfusion Reaction, Anesthesia Reactions, Organ Transplant, Chemotherapy, Radiation Therapy, Hyperbaric Therapy, MRSA, VRSA, Vancomycin-Resistant Enterococci, Human Immunodeficiency Virus (HIV), Chicken Pox, Measles, Mumps, Rubella (Bul[place]ian Measles), Pertussis, Clostridium Difficile, Breast Cancer, Cervical Cancer, Colorectal Cancer, Lung Cancer or Ovarian Cancer Family History FAMILY HISTORY: Positive Family Respiratory Disorders and Family Cardiac Disorders; Negative Family Psychiatric Problems, Family Gastrointestinal Problems, Family Cancer, Family Surgery or Family Anesthesia Reaction Surgical History SURGICAL: Positive Abdominal Surgery; Negative Organ Transplant Social History SMOKING STATUS: Never smoker SECOND HAND EXPOSURE: No ED Exam Narrative Physical exam: As noted in HPI. Course Course Course Narrative: CXR is ordered for determining the etiology of chest pain. Quality Measures none Orders Category Date Time Status Bedside COVID-19 Antigen Test NOW Care 09/14/24 21:51 Completed Bedside Influenza A&B Antigen Test NOW Care 09/14/24 21:51 Completed EKG (ED ONLY) *Do not use* NOW Care 09/14/24 21:55 Completed Saline [Insert IV] NOW Care 09/14/24 21:51 Completed Straight [In and Out Catheter] X1 Care 09/14/24 21:51 Completed EKG (ED Only) Stat Exams 09/14/24 21:55 Draft XR chest 1V portable Stat Exams 09/14/24 21:55 Completed Amylase Stat Lab 09/14/24 22:20 Completed BNP [B-Type Natriuretic Peptide] Stat Lab 09/14/24 22:20 Completed Bilirubin,Direct Stat Lab 09/14/24 22:20 Completed CBC Stat Lab 09/14/24 22:20 Completed CMP [Comprehensive Metabolic Panel] Stat Lab 09/14/24 22:20 Completed Lipase Stat Lab 09/14/24 22:20 Completed Magnesium Stat Lab 09/14/24 22:20 Completed Troponin I Stat Lab 09/14/24 22:20 Completed UA, C/S IF [Urinalysis, C/S if Indicated] Stat Lab 09/14/24 23:34 Completed Urine Culture Stat Lab 09/14/24 23:34 Received ALPRazoLAM [Xanax] Med 09/14/24 23:11 Discontinued 0.5 mg PO X1 ONE Famotidine [Pepcid] Med 09/14/24 21:53 Discontinued 40 mg PO X1 ONE LORazepam Inj (ASD USE ONLY) [Ativan Inj (ASD USE ONLY) Med 09/14/24 21:54 Discontinued ] 0.75 mg IV X1 ONE Ondansetron Inj [Zofran Inj] Med 09/14/24 21:53 Discontinued 4 mg IVP X1 ONE Sodium Chloride 0.9% 1000 ml [Ns] 1,000 ml Med 09/14/24 21:53 Discontinued IV 999 mls/hr cefTRIAXone/D5w 1gm IV premix [Rocephin/D5w 1gm IV Med 09/15/24 00:26 Discontinued premix] 1 gm in 50 ml IV X1 Vital Signs Vital signs: Vital Signs Temperature 98.2 F 09/14/24 21:43 Pulse Rate 81 09/14/24 21:43 Respiratory Rate 15 09/14/24 21:43 Blood Pressure 133/90 H 09/14/24 21:43 Pulse Oximetry (%) 95 09/14/24 21:43 Oxygen Delivery Method Room Air 09/14/24 21:43 Chest Pain MDM Narrative MDM Narrative:: 39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 Patient has associated N/V and decreased appetite. No abdominal pain or diarrhea. No other complaints reported. Patient data External records reviewed:: [facility] previous records (Per chart review, patient was admitted here on 08/19/54 for stroke-like symptoms and bacteriuria.) and EMS form Clinical information provided by:: patient and EMS Social determinants that could affect healthcare access:: none Patient has the following chronic illnesses:: none How is presenting disease/condition affected by chronic disease/condition?: no chronic disease Evaluation data The following diagnostics were reviewed and interpreted by me:: lab results, radiology exam(s) and EKG tracing(s) (My interpretation of the EKG is: Sinus rhythm (78 bpm) with nonspecific ST-T changes. Lonnie Bagley MD) Lab and/or radiology exams considered but not ordered:: none Interpretation Summary: I reviewed all diagnostic test results. My interpretation of the EKG is sinus rhythm with nonspecific ST-T changes. My interpretation of the chest x-ray is NAD. Blood tests are unremarkable. UA remarkable for 4+ bacteria. COVID/Influenza negative. Medications / Prescriptions Medications or Prescriptions considered but not ordered:: none Medication administrations:: Medication Administration History Discontinued Medications Alprazolam (Alprazolam 0.25 Mg Tablet) 0.5 mg PO X1 ONE Stop: 09/14/24 23:12 Last Admin: 09/14/24 23:37 Dose: 0.5 mg Documented By: CCT Famotidine (Famotidine 20 Mg Tablet) 40 mg PO X1 ONE Stop: 09/14/24 21:54 Last Admin: 09/14/24 22:36 Dose: 40 mg Documented By: CCT Sodium Chloride (Ns) 1,000 mls @ 999 mls/hr IV .Q1H1M ONE Stop: 09/14/24 22:53 Last Infusion: 09/15/24 00:40 Dose: Infused Documented By: Admin: 09/14/24 22:36 Dose: 999 mls/hr Documented By: CCT Ceftriaxone Sodium/Dextrose (Rocephin/D5w 1gm Iv Premix) 1 gm in 50 mls @ 100 mls/hr IV X1 ONE Stop: 09/15/24 00:55 Last Infusion: 09/15/24 02:05 Dose: Infused Documented By: Admin: 09/15/24 01:34 Dose: 100 mls/hr Documented By: CCT Lorazepam (Lorazepam 2 Mg/Ml Vial (Asd Use Only)) 0.75 mg IV X1 ONE Stop: 09/14/24 21:55 Last Admin: 09/14/24 23:10 Dose: Not Given Documented By: CCT Non-Admin Reason: Medication Not Available Ondansetron HCl (Ondansetron Inj 2 Mg/Ml Inj 2 Ml) 4 mg IVP X1 ONE; Protocol Stop: 09/14/24 21:54 Last Admin: 09/14/24 22:36 Dose: 4 mg Documented By: ANGE Steele, [place], Rocephin Consultations Consultation(s) initiated? (list below): No Diagnosis Chest Pain Differential Diagnosis: pneumothorax, stable angina, unstable angina pectoris, atypical chest pain, st elevation myocardial infarction, costochondritis, chest pain, biliary colic and other (Psychogenic) Most likely diagnosis given after review of the tests above:: Chest wall pain and UTI Admission Indicated Admission indicated?: not indicated Explain why admission is indicated or not indicated:: With significant improvement and no condition needing emergent intervention, there was no indication for admission. Admission Request Was there a request for admission?: No Disposition Plan Disposition Plan: Discharge Discharge Attestation Discharge Attestation: The patient and all family members were given an opportunity to ask questions and understood the discharge instructions. Discharge instructions specifically effects, indications for sooner follow up or return to the emergency department, and the expected course of current diagnosis. Patient condition: Stable Discharge Plan Plan Patient Disposition: HOME (Self Care) Prescriptions/Referrals Prescriptions/Med Rec: New alprazolam [Xanax] 0.5 mg tablet 0.5 mg PO BID PRN (Reason: anxiety) Qty: 10 0RF cefdinir 300 mg capsule 300 mg PO BID Qty: 14 0RF No Action rosuvastatin 40 mg tablet 40 mg PO HS Patient Comments: TAKE 1 TABLET BY MOUTH EVERY DAY aspirin 81 mg Tablet,Delayed Release (Dr/Ec) 81 mg PO QDAY 30 Days Qty: 30 0RF lacosamide 50 mg tablet 50 mg PO BID Qty: 60 0RF acetaminophen 500 mg tablet 1,000 mg PO Q6H PRN (Reason: pain) Qty: 30 0RF Referrals: No Primary/Family,Physician [Referring Provider] - In 1 week Problem List Clinical Impression: Chest wall pain, UTI (urinary tract infection) Patient/Caregiver Discharge Instructions Discharge Activity: activity as tolerated Education Materials: ED Chest Pain, Uncertain Cause, ED CYSTITIS Female Adult, ED Chest Wall Strain (Child) Additional Instructions: Discharge instructions from Dr. Bagley: 1. After extensive evaluation, there is no life-threatening condition.? Such as heart attack or pneumothorax (collapsed lung). 2. Your pain is originating from the chest wall and not from an internal organ.? The chest wall has many joints and muscles between the ribs, so sprains and strains are common.?? 3. Apply ice or heat if helpful.? Tylenol/ibuprofen as needed. Xanax can help by relaxing the muscles. Cefdinir for UTI. 4. See a private doctor on 09/15/2024 for recheck. To make sure there is no serious underlying heart condition, ask to help you get more tests for your heart that cannot be done here in the ER.? Such as Holter Monitor (cardiac monitoring at home from a day to even a month), heart stress test (on treadmill or with medication), echocardiogram (imaging of your heart structures), heart catherization (checking for blockages in your heart arteries), and a referral to see a Radiology Equipment Servicer.? Ask to review all test results and official radiology reports, to make sure you receive all necessary follow-ups and monitoring. 5. Seek immediate medical care with worsening or with any concerns.?? Print Language: Tunisian Stand Alone Forms: [facility]in Award Info., Patient Portal Info Letter
[2024-09-14 21:43] VITALS: BP 133/90; PULSE 81; RESP 15; TEMP 36.8; O2SAT 95
--- NOTE | 2024-09-14 21:55 | XR_ITS ---
Examination: AP chest single view TECHNIQUE: AP portable upright chest single view Date and time: September 14, 2024, 10:19 AM INDICATIONS: Left-sided chest pain today FINDINGS: Normal heart size. Lungs are clear. The osseous structures are intact IMPRESSION: No active disease
--- NOTE | 2024-09-14 21:55 | EKG_ITS ---
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
[2024-09-14 22:20] VITALS: PULSE 92; RESP 18; O2SAT 97
[2024-09-14 22:33] LABS: Basophils # (Auto) 0.0 Thou/mm3 (0.0-0.2); Basophils % (Auto) 0 % (0-2.5); Eosinophils # (Auto) 0.1 Thou/mm3 (0.0-0.5); Eosinophils % (Auto) 1 % (0-10); Hematocrit 41.6 % (36.0-46.0); Hemoglobin 13.5 g/dL (12.0-16.0); Immature Granulocytes Auto 0.04 Thou/mm3 (0.00-0.00); Lymphocytes # (Auto) 2.9 Thou/mm3 (1.0-4.8); Lymphocytes % (Auto) 25 % (10-50); Mean Corpuscular HGB Conc 32.5 g/dl (31.0-37.0); Mean Corpuscular Hemoglobin 29.1 pg (25.0-35.0); Mean Corpuscular Volume 90 fL (80-100); Monocytes # (Auto) 0.6 Thou/mm3 (0.0-0.8); Monocytes % (Auto) 5 % (0-12); Neutrophils # (Auto) 8.1 Thou/mm3 (1.8-7.7); Neutrophils % (Auto) 69 % (37-80); Nucleated Red Blood Cell # 0.00 Thou/mm3 (0.00-0.00); Nucleated Red Blood Cell % 0 /100 WBC (0); Platelet Count 280 Thou/mm3 (140-440); RDW Standard Deviation 45.5 fL (36.4-46.3); Red Blood Count 4.64 Miln/mm3 (4.00-5.20); White Blood Count 11.7 Thou/mm3 (3.6-11.0)
[2024-09-14] MEDS: SODIUM CHLORIDE 0.9% 1000 ML 1,000 ML 999 ML IV (22:36)
[2024-09-14] MEDS: ONDANSETRON INJ 2 MG/ML INJ 2 ML 4 MG IVP (22:36)
[2024-09-14] MEDS: FAMOTIDINE 20 MG TABLET 40 MG PO (22:36)
[2024-09-14 22:50] VITALS: BP 132/98; PULSE 76; RESP 14; TEMP 36.9; O2SAT 99
[2024-09-14 22:52] LABS: Alanine Aminotransferase 13 U/L (10-49); Albumin, Serum 4.6 gm/dL (3.5-5.0); Albumin/Globulin Ratio 1.8 (1.2-2.2); Alkaline Phosphatase 100 U/L (46-116); Amylase 117 U/L (30-118); Anion Gap 9 (7-16); Aspartate Amino Transferase 12 U/L (0-34); BUN/Creatinine Ratio 13 Ratio (12-20); Bilirubin,Direct 0.2 mg/dL (0.0-0.3); Bilirubin,Total 0.5 mg/dL (0.3-1.2); Blood Urea Nitrogen 9 mg/dL (9-23); Calcium 9.5 mg/dL (8.3-10.6); Calcium (Corrected) 9.5 mg/dL (8.5-10.1); Carbon Dioxide 24.8 mMol/L (20.0-31.0); Chloride 107 mMol/L (98-107); Creatinine (Component) 0.7 mg/dL (0.6-1.3); Globulin 2.5 gm/dL (2.3-3.5); Glucose 90 mg/dL (74-106); Lipase 50 U/L (12-53); Magnesium 2.1 mg/dL (1.6-2.6); Osmolality,Calculated 279 (275-295); Potassium 3.7 mMol/L (3.4-5.1); Sodium 141 mMol/L (136-145); Total Protein 7.1 gm/dL (5.7-8.2); Troponin I < 0.002 ng/mL (0.0-0.045); eGFR > 60 See Note
[2024-09-14 22:59] LABS: B-Type Natriuretic Peptide < 20 pg/mL (0-100)
[2024-09-14 23:43] LABS: Collection Type, Urine Clean Catch
[2024-09-14 23:58] LABS: Bacteria,Urine 4+; Bilirubin,Urine Negative (Negative); Blood,Urine Negative (Negative); Clarity,Urine Clear (Clear/Hazy); Color,Urine Lt-Yellow (Lt Yel-Yel); Glucose, Urine Negative (Negative); Ketones,Urine Negative (Negative); Leukocyte Esterase,Urine Negative (Negative); Nitrite,Urine Negative (Negative); PH,Urine 6.5 (5.0-7.0); Protein,Urine Negative (Neg - Trace); RBC,Urine 2 /hpf (0-3); Specific Gravity,Urine 1.007 (1.001-1.035); Squamous Epithelial Cell,Urine 1 /hpf (0-5); Urobilinogen,Urine Negative mg/dL (0.0-1.0); WBC,Urine 3 /hpf (0-5)
[2024-09-14 23:59] LABS: Culture Indicated,Urine Yes
[2024-09-15 00:25] VITALS: BP 125/81; PULSE 70; RESP 18; TEMP 36.8; O2SAT 97
[2024-09-15] MEDS: cefTRIAXone/D5w 1gm IV premix 1 GM/50 ML BAG IV (01:34)
[2024-09-15 02:15] VITALS: BP 117/68; PULSE 73; RESP 18; TEMP 36.5; O2SAT 98
== END 2024-09-15 02:15 | disposition home or self-care (01) ==
PROVIDERS: Emergency Provider Emergency Medicine; PCP Physician Assistant
DX: R07.89 Other chest pain (principal); N39.0 Urinary tract infection, site not specified; R94.31 Abnormal electrocardiogram [ECG] [EKG]
CPT/HCPCS: 36415; 71045; 80053; 81001; 82150; 82248; 83690; 83735; 83880; 84484; 85025; 87086; 87400; 87811; 93005; 96361; 96365; 96375; 99283; J0696; J2405; J7030; A9270

== ENCOUNTER → 2024-09-22 | Outpatient (CLI) | payer MEDICAID, SELFPAY ==
[2024-09-22 09:28] LABS: Basophils # (Auto) 0.0 Thou/mm3 (0.0-0.2); Basophils % (Auto) 0 % (0-2.5); Eosinophils # (Auto) 0.2 Thou/mm3 (0.0-0.5); Eosinophils % (Auto) 2 % (0-10); Hematocrit 40.5 % (36.0-46.0); Hemoglobin 13.4 g/dL (12.0-16.0); Immature Granulocytes Auto 0.02 Thou/mm3 (0.00-0.00); Lymphocytes # (Auto) 2.8 Thou/mm3 (1.0-4.8); Lymphocytes % (Auto) 30 % (10-50); Mean Corpuscular HGB Conc 33.1 g/dl (31.0-37.0); Mean Corpuscular Hemoglobin 29.8 pg (25.0-35.0); Mean Corpuscular Volume 90 fL (80-100); Monocytes # (Auto) 0.4 Thou/mm3 (0.0-0.8); Monocytes % (Auto) 5 % (0-12); Neutrophils # (Auto) 5.9 Thou/mm3 (1.8-7.7); Neutrophils % (Auto) 63 % (37-80); Nucleated Red Blood Cell # 0.00 Thou/mm3 (0.00-0.00); Nucleated Red Blood Cell % 0 /100 WBC (0); Platelet Count 278 Thou/mm3 (140-440); RDW Standard Deviation 46.4 fL (36.4-46.3); Red Blood Count 4.50 Miln/mm3 (4.00-5.20); White Blood Count 9.4 Thou/mm3 (3.6-11.0)
[2024-09-22 09:36] LABS: INR 1.0 (0.9-1.3); Partial Thromboplastin Time 28.0 Seconds (22.0-36.0); Prothrombin Time 10.6 Seconds (9.0-12.2)
[2024-09-22 09:40] LABS: HCG,Qualitative Serum Negative
--- NOTE | 2024-09-22 10:30 | XR_ITS ---
Examinations: Ultrasound-guided percutaneous breast biopsy, right breast 5:00 nodule Right breast sonography limited INDICATIONS: Suspicious nodule 5:00 position right breast on ultrasound May 22, 2024 Exam date and time: September 22, 2024 1044 hours. Informed consent provided. Technique: A timeout was completed verifying correct patient, procedure, site, positioning, and special equipment if applicable Informed consent provided. The patient was placed in a supine position for the breast biopsy. Sonographic images of the breast were performed for localization of the suspicious nodule The patient's breast was prepped and draped in sterile fashion. Maximum sterile barrier technique, hand hygiene, ultrasound sterile technique 1% lidocaine was used to anesthetize the skin and breast adjacent to the suspicious nodule. Utilizing ultrasonographic guidance, 8 core biopsies were obtained of the suspicious nodule utilizing an 18-gauge BioPince needle. The specimens appears satisfactory. US guided breast biopsy marker placement. Estimated blood loss 3 cc. The patient tolerated the procedure well and there were no complications. Impression: Successful ultrasound-guided percutaneous breast biopsy, right breast 5:00 nodule. Ultrasound guided breast biopsy marker placement.
== END | disposition home or self-care (01) ==
PROVIDERS: Radiology Diagnostic Radiology; PCP Physician Assistant; Referring Provider Surgery; Visit Provider Surgery
DX: D24.1 Benign neoplasm of right breast (principal); N60.11 Diffuse cystic mastopathy of right breast; Z01.812 Encounter for preprocedural laboratory examination
CPT/HCPCS: 19083; 36415; 84703; 85025; 85610; 85730; A4648

== ENCOUNTER 2024-11-08 14:03 | Inpatient (IN) | payer MEDICAID, SELFPAY ==
[2024-11-08] VITALS (9 sets, daily range): BP systolic 102–117; BP diastolic 66–78; PULSE 63–104; RESP 16–99; TEMP 36.1–36.7; O2SAT 97–99; BMI 29.3
--- NOTE | 2024-11-08 14:12 | XR_ITS ---
Examination: AP chest single view Technique one AP portable upright chest single view Date and time: November 08, 2024, 1545 hrs., Comparison September 14, 2024 Indications: Stroke alert today, onset focal neurologic deficit. Findings: Minimal prominence left ventricle. No aspiration pneumonia or pulmonary edema. Mild osteopenia. Impression: Graft no aspiration pneumonia or pulmonary edema
--- NOTE | 2024-11-08 14:12 | XR_ITS ---
Examination: CTA carotids with intravenous contrast CTA brain, head with intravenous contrast. 2-D sagittal, coronal reconstructions. 3-D reconstructions. Exam date and time: November 08, 2024, 1438 hrs. Indications: Stroke alert, onset focal neurologic deficit including dizziness blurred vision today CTDI: vol (mGy) 11.4 DLP: (mGycm) 400 Technique: Multiple CTA axial brain, head carotid images post intravenous contrast injection 75 cc, [id number]. 2-D sagittal, coronal reconstructions. 3-D reconstructions, 3-D post processing including vascular maximum intensity projection images. Low dose protocols were performed. One or more of the following dose reduction techniques were used; automated exposure control, adjustment of the mA and/or KV according to patient size, use of iterative reconstruction technique. Findings: 4 mm left thyroid nodule No significant common carotid carotid bifurcation or internal carotid artery stenoses. Dominant left vertebral artery in the neck Diffusely atretic right vertebral artery which is grossly intact Intracranial vertebral arteries basilar artery and posterior cerebral branches fill with no large vessel occlusions Petrous juxtasellar portions internal carotid arteries fill. M1 segments middle cerebral arteries middle cerebral artery trifurcation vessels anterior cerebral arteries fill with no large vessel occlusions. Impression: No significant neck arterial stenoses No cerebral large vessel arterial occlusions or thrombus
--- NOTE | 2024-11-08 14:12 | XR_ITS ---
Examination: CT brain head without contrast. 2-D sagittal coronal reconstructions Date and time of exam:November 08, 2024, 1423 hrs. Indications: Stroke alert, onset focal neurologic deficit today CTDI: vol (mGy):47.6 DLP: (mGycm):924 Technique: Multiple CT axial sections of the brain have been obtained, 5 mm slice thickness. Contrast has not been administered. 2-D sagittal, coronal reconstructions have been obtained Low dose protocols were performed. One or more of the following dose reduction techniques were used; automated exposure control, adjustment of the mA and/or KV according to patient size, use of iterative reconstruction technique. Findings: No significant ventricular enlargement. Intra-axial or extra-axial hemorrhage density is not seen. No mass effect or midline shift Basal cisterns are not remarkable. Fourth ventricle is midline. Cranial vault intact. Impression: Negative for acute hemorrhage, mass effect or midline shift
--- NOTE | 2024-11-08 14:12 | EKG_ITS ---
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
--- NOTE | 2024-11-08 14:13 | PD.EDDIZZY ---
ED Dizzyness RME/HPI General Chief Complaint: Head Injury Stated Complaint: HEAD ACHE/DIZZY X3 DAYS Time Seen by Provider: 11/08/24 14:07 Arrival date/time: 11/08/24 14:03 RME / HPI RME / HPI Narrative: 39-year-old female patient with significant history of migraine headache, seizure disorder, currently on lacosamide, came in for evaluation regarding worsening headache. Patient noticed worsening headache on the left side, associated with blurry vision on the left since 11:00 PM last night., severity moderate. Patient told me that she has been having weakness to the left upper and lower extremity since August. Currently followed by neurologist at [facility]. Patient denies any slurring of speech. Denies any vomiting, denies any nausea, denies any fever, denies any recent fall or trauma. No medication was taken prior to ER visit. Related Data Home Medications ?Medication ?Instructions ?Recorded ?Confirmed rosuvastatin 40 mg tablet 40 mg PO HS 03/07/23 08/19/24 Previous Rx's ?Medication ?Instructions ?Recorded acetaminophen 500 mg tablet 1,000 mg (2 x 500 mg) PO Q6H PRN 06/30/24 pain #30 tabs lacosamide 50 mg tablet 50 mg PO BID #60 tabs 08/22/24 alprazolam 0.5 mg tablet (Xanax) 0.5 mg PO BID PRN anxiety #10 tabs 09/14/24 cefdinir 300 mg capsule 300 mg PO BID #14 caps 09/15/24 Allergies Allergy/AdvReac Type Severity Reaction Status Date / Time alcohol Allergy Severe ICHY, Verified 08/12/24 06:22 REDNESS TO FACE diphenhydramine (From Allergy Severe Difficulty Verified 08/12/24 06:22 Benadryl Allergy) Swallowing ibuprofen Allergy Severe RASH Verified 08/12/24 06:22 loratadine (From Claritin) Allergy Severe Hives Verified 08/12/24 06:22 morphine Allergy Severe Difficulty Verified 08/12/24 06:22 Breathing oxycodone Allergy Severe Hives Verified 08/12/24 06:22 Penicillins Allergy Severe Difficulty Verified 08/12/24 06:22 Swallowing hydrocodone (From [place]) Allergy Intermediate Hypertensio Verified 08/12/24 06:22 n ketorolac (From Toradol) AdvReac Severe Fainting Verified 08/12/24 06:22 Review of Systems Review of Systems Narrative Review of Systems: Review of system reviewed and within normal limits except mentioned in HPI ED Exam Narrative Physical exam: VITAL SIGNS: Reviewed. GENERAL APPEARANCE: Alert and interactive, follows commands, no acute distress, HEAD AND FACE: Non-traumatic. ENT: PERRL, pink conjunctivitis, eyelid no trauma, Mucous membrane moist. NECK: Supple, nontender, no nuchal rigidity. CHEST: No tenderness, no crepitus, no paradoxical movement, no retractions. LUNGS: Clear, well ventilated, symmetric, no rales, no wheezing, no ronchi, no stridor, good breath sounds bilaterally. HEART: Regular rate, regular rhythm, no murmur, no gallops. ABDOMEN: Soft, positive bowel sounds, nondistended, no guarding, nontender, no rebound, no masses, RECTAL: Deferred. GENITAL: Deferred. NEUROLOGICAL: Gross motor function intact sensory function intact, Appropriate for age. MUSCULOSKELETAL: low back nontender, full range of motion. EXTREMITIES: Left upper extremity drifting noted, weakness also noted to the left lower extremity which according to the patient is chronic. Nontender, full range of motion. SKIN: Color pink, dry, no rash, no lacerations, no abrasions, no contusions. LYMPHATICS: Deferred. Course Quality Measures none Orders Category Date Time Status Bedside Blood Glucose NOW Care 11/08/24 14:12 Completed COVID-19 Screening Questionnaire NOW Care 11/08/24 15:52 Active Wire Charger NOW Care 11/08/24 14:12 Active Continuous Pulse Oximetry NOW Care 11/08/24 14:12 Completed Decision to Admit X1 Care 11/08/24 15:52 Completed EKG (ED ONLY) *Do not use* NOW Care 11/08/24 14:12 Completed In and Out Catheter NEEDED Care 11/08/24 14:12 Active Insert IV NOW Care 11/08/24 14:12 Active NIH Stroke Scale now Care 11/08/24 14:12 Active NPO NOW Care 11/08/24 14:12 Active Nurse Swallow Screen x1 Care 11/08/24 14:12 Active Consult to Neurology / Tele-Neurology Routine Cons 11/08/24 14:12 Active Referral Speech Therapy Stat Cons 11/08/24 15:[address] angio stroke protocol Stat Exams 11/08/24 14:[address] stroke protocol Stat Exams 11/08/24 14:12 Completed EKG (ED Only) Stat Exams 11/08/24 14:12 Draft XR chest 1V portable Stat Exams 11/08/24 14:12 Completed CBC Stat Lab 11/08/24 14:30 Completed Comprehensive Metabolic Panel Stat Lab 11/08/24 14:30 Completed Drug Screen,Urine Stat Lab 11/08/24 14:12 Ordered HCG Titer if Positive Stat Lab 11/08/24 14:30 Completed Magnesium Stat Lab 11/08/24 14:30 Completed Partial Thromboplastin Time Stat Lab 11/08/24 14:30 Completed Prothrombin Time with INR Stat Lab 11/08/24 14:30 Completed Troponin I Stat Lab 11/08/24 14:30 Completed Urinalysis, C/S if Indicated Stat Lab 11/08/24 14:12 Ordered Labetalol IV [Trandate IV] Med 11/08/24 14:11 Active 10 mg IVP Q15M PRN Ondansetron Inj [Zofran Inj] Med 11/08/24 14:11 Active 4 mg IVP Q4HR PRN Oxygen Delivery NOW RT 11/08/24 14:12 Active Vital Signs Vital signs: Vital Signs Temperature 97.8 F 11/08/24 14:08 Pulse Rate 104 H 11/08/24 14:08 Respiratory Rate 16 11/08/24 14:08 Blood Pressure 108/73 11/08/24 14:08 Pulse Oximetry (%) 98 11/08/24 14:08 Oxygen Delivery Method Room Air 11/08/24 14:08 Dizziness MDM Narrative MDM Narrative:: 39-year-old female patient with significant history of migraine headache, seizure disorder, currently on lacosamide, came in for evaluation regarding worsening headache. Patient noticed worsening headache on the left side, associated with blurry vision on the left since 11:00 PM last night., severity moderate. Patient told me that she has been having weakness to the left upper and lower extremity since August. Currently followed by neurologist at [facility]. Patient denies any slurring of speech. Denies any vomiting, denies any nausea, denies any fever, denies any recent fall or trauma. No medication was taken prior to ER visit. Stroke alert was initiated right away on my initial evaluation. I spoke with teleneurologist, who told me to admit the patient for stroke workup, no recommendation for TNKase, and no aspirin or Plavix at this time. Patient CT scan of the head came back unremarkable CTA of the head and neck also came back unremarkable patient's workup also came back normal. Spoke with hospitalist, will admit the patient. Patient data External records reviewed:: None Clinical information provided by:: patient Social determinants that could affect healthcare access:: none Patient has the following chronic illnesses:: Migraine headache, history of seizure How is presenting disease/condition affected by chronic disease/condition?: exacerbated by Evaluation data The following diagnostics were reviewed and interpreted by me:: lab results and radiology exam(s) Lab and/or radiology exams considered but not ordered:: None Interpretation Summary: EKG showed paced rhythm, ventricular rate of 73 bpm,no ST segment elevation depression noted. Medications / Prescriptions Medications or Prescriptions considered but not ordered:: None Medication administrations:: Medication Administration History Acetaminophen (Acetaminophen 325 Mg Tablet) 650 mg PO Q6H PRN PRN Reason: Pain 1-3 and/or Fever >100.1 Stop: 12/08/24 16:09 Hydrocodone Bitart/Acetaminophen (Hydrocodone/Apap 10/325 Tab) 1 tab PO Q4H PRN PRN Reason: PAIN SCALE 4-6 (Moderate Stop: 11/13/24 16:09 Alprazolam (Alprazolam 0.25 Mg Tablet) 0.5 mg PO BID PRN PRN Reason: ANXIETY Stop: 11/13/24 16:16 Atorvastatin Calcium (Atorvastatin Calcium 20 Mg Tablet) 40 mg PO HS THU Stop: 12/08/24 20:59 Heparin Sodium (Porcine) (Heparin Sod Inj 5000 Unit/Ml Vial) 5,000 unit SC Q12HR THU Stop: 11/22/24 20:59 Magnesium Sulfate (Magnesium Sulfate Ivpb) 4 gm in 50 mls @ 12.5 mls/hr IV X1 ONE Stop: 11/08/24 20:18 Last Admin: 11/08/24 16:39 Dose: 12.5 mls/hr Documented By: SOFIYA Labetalol HCl (Labetalol Inj 5 Mg/Ml Vial 20 Ml) 10 mg IVP Q15M PRN PRN Reason: HYPER Lacosamide (Lacosamide 50 Mg Tablet) 50 mg PO BID THU Stop: 12/08/24 20:59 Ondansetron HCl (Ondansetron Inj 2 Mg/Ml Inj 2 Ml) 4 mg IVP Q4HR PRN PRN Reason: NAUSEA OR VOMITING Stop: 12/08/24 14:10 Sennosides (Senna Tablet) 1 tab PO QDAY PRN; Protocol PRN Reason: constipation Stop: 12/08/24 16:09 None Consultations Consultation(s) initiated? (list below): Yes Consultation #1 (Physician, Specialty, Details): Teleneurologist thank you Diagnosis Dizziness Differential Diagnosis: cerebrovascular accident, transient cerebral ischemia and other (Strokelike symptoms) Most likely diagnosis given after review of the tests above:: Strokelike symptoms Admission Indicated Admission indicated?: indicated Admission Request Was there a request for admission?: Yes Admission Attestation Admission request attestation: Discussed case with [Dr. Zimmerman] from Hospitalist service regarding admission. Discussed patients ED course, exam findings, labs, and radiology results. The Hospitalist [agrees to accept the patient for admission. Disposition Plan Disposition Plan: Admit Discharge Plan Plan Patient Disposition: Admit Acute Care w/in Hospital Discharge Disposition comment: Stable Problem List Clinical Impression: Stroke-like symptom
--- NOTE | 2024-11-08 14:57 | PD.TNEURO ---
Tele Neuro Consultation Consultation Date 11/08/24 Most Recent Vital Signs Last Vital Signs Temp 97.8 F 11/08/24 14:08 Pulse 86 11/08/24 14:55 Resp 16 11/08/24 14:08 BP 108/73 11/08/24 14:08 Pulse Ox 98 11/08/24 14:08 O2 Del Method Room Air 11/08/24 14:08 Consultation Narrative [facility] Tele[facility] Consult [facility] Patient Name:???Marcella Jackson Date of :???1985 Identification Number:??? Date of Service:???11/08/2024 14:10:44 Diagnosis:?R20.2 - Paresthesia of skin ?H53.8 - Blurred Vision Impression: ?Patient is a 39 yo F with a PMH of right sided CRPS s/p nerve stimulator per patient, recent diagnosis of possibly epilepsy (EEG showing bitemporal epileptiform discharges on Lamictal), migraines, occipital neuralgia, HLD who p/w progressive, severe headache with associated dizziness and left eye blurred and double vision. LNK 2300 per patient. On exam, baseline LUE and LLE marked weakness/no effort against gravity, new left eye vision changes (inconsistent on exam) and left scalp numbness. CTH reviewed, no acute changes noted. CTA head and neck are pending. Prior CTA head and neck, MRI brain reviewed. No corresponding acute ischemia or changes consistent with MS noted in the past. Although lower clinical suspicion, stroke cannot be excluded. Possibly recurrent migraine/occipital neuralgia. Thrombolytic therapy not recommended with LNK >4.5 hours. Our recommendations are outlined below. Addendum: No LVO or dissection on CTA head and neck. Emergent BALWINDER not indicated. F/U of 4mm thyroid nodule per primary team/provider as indicated Case previously d/w ED MD Recommendations: ? Stroke/Telemetry Floor ? Neuro Checks (Q4) ? Bedside Swallow Eval ? DVT Prophylaxis ? IV Fluids, Normal Saline ? Head of Bed 30 Degrees ? Euglycemia and Avoid Hyperthermia (PRN Acetaminophen) ? Antihypertensives PRN if Blood pressure is greater than 220/120 or there is a concern for End organ damage/contraindications for permissive HTN. If blood pressure is greater than 220/120 give labetalol PO or IV or Vasotec IV with a goal of 15% reduction in BP during the first 24 hours. ?- Case d/w ED MD. Rec MRI brain w/wo contrast to evaluate for central cause of pain and headache. Given recurrent headaches worsening over the past 3 months, can consider MRV brain w/o. At this time lower suspicion of acute CVST. ?- In addition, would consider MRI cervical spine w/wo given persistent left sided weakness to evaluate for underlying structural/demyelinating disease ?- Avoid triptans ?- Will hold ASA given uncertain etiology of symptoms and lower suspicion of stroke with negative MRI brain x3 for stroke with similar symptoms, can be considered as indicated based on MRI results and neurology follow-up ?- She will need close outpt follow-up with her neurologist possibly referral to a headache center, consideration of occipital nn block as indicated Sign Out: ? Discussed with Emergency Department Provider Advanced Imaging: Advanced imaging has been ordered. Results pending. Metrics: Last Known Well: 11/07/2024 23:00:00 Dispatch Time: 11/08/2024 14:10:44 Arrival Time: 11/08/2024 14:03:00 Initial Response Time: 11/08/2024 14:14:09Symptoms: blurred vision, dizziness, headache. Initial patient interaction: 11/08/2024 14:25:00 NIHSS Assessment Completed: 11/08/2024 14:49:37Patient is not a candidate for Thrombolytic. Thrombolytic Medical Decision: 11/08/2024 14:49:39Patient was not deemed candidate for Thrombolytic because of following reasons: LKW outside 4.[address] Head: I personally reviewed all the CT images that were available to me and it showed: NO acute changes noted on review Primary Provider Notified of Diagnostic Impression and Management Plan on: 11/08/2024 14:53:23 History of Present Illness:Patient is a 39 year old Female. Patient was brought by private transportation with symptoms of blurred vision, dizziness, headache. Patient is a 39 yo F with a PMH of right sided CRPS s/p nerve stimulator per patient, recent diagnosis of possibly epilepsy (EEG showing bitemporal epileptiform discharges on Lamictal), migraines, occipital neuralgia, HLD who p/w progressive, severe headache with associated dizziness and left eye blurred and double vision. LNK 2300 per patient. She reports that she had a gradual onset headache, with increasing severity over the past three days. She called her neurologist at [facility] who prescribed a new medication, NOS. No relief in her headache. After 11pm last night she began to have blurred vision in her left eye and possibly seeing double. Associated dizziness. These symptoms have persisted. No LOC. No limb weakness or numbness. The left side of her head feels numb. No reported seizure activity. Since hospital discharge in 08/2024 she has had 5 similar severe headaches. Not thunderclap in nature. Associated dizziness and scalp numbness, previously dx as migraines/occipital neuralgia. In addition, she has been referred to a movement disorder specialist for her persistent left sided weakness. No recent pregnancies, trauma or history of hypercoagulable disorder. She is uncertain if she has had MRV head or MRI cervical spine since 08/2024. No records of these available in EMR> Past Medical History: Other PMH:? As noted above Medications: No Anticoagulant use? No Antiplatelet use Reviewed EMR for current medications Allergies:? Reviewed Social History: Drug Use: No Family History: There is no family history of premature cerebrovascular disease pertinent to this consultation ROS : 14 Points Review of Systems was performed and was negative except mentioned in HPI. Past Surgical History: There Is No Surgical History Contributory To Today?s Visit Examination: BP(108/73),?Pulse(103), 1A: Level of Consciousness - Alert; keenly responsive?+ 0 1B: Ask Month and Age - Both Questions Right?+ 0 1C: Blink Eyes & Squeeze Hands - Performs Both Tasks?+ 0 2: Test Horizontal Extraocular Movements - Normal?+ 0 3: Test Visual Valerio - No Visual Loss?+ 0 4: Test Facial Palsy (Use Grimace if Obtunded) - Normal symmetry?+ 0 5A: Test Left Arm Motor Drift - No Effort Against [place]?+ 3 5B: Test Right Arm Motor Drift - No Drift for 10 Seconds?+ 0 6A: Test Left Leg Motor Drift - No Effort Against [place]?+ 3 6B: Test Right Leg Motor Drift - No Drift for 5 Seconds?+ 0 7: Test Limb Ataxia (FNF/Heel-Daigle) - No Ataxia?+ 0 8: Test Sensation - Complete Loss: Cannot Sense Being Touched At All?+ 2 9: Test Language/Aphasia - Normal; No aphasia?+ 0 10: Test Dysarthria - Normal?+ 0 11: Test Extinction/Inattention - No abnormality?+ 0 NIHSS Score:?8 NIHSS Free Text :?Per patient left UE and LLE numbness and weakness inability to move against gravity has been constant since August 2024 Pre-Morbid Modified [place] Scale: 3 Points = Moderate disability; requiring some help, but able to walk without assistance Spoke with :?Dr Lea This consult was conducted in real time using interactive audio and video technology. Patient was informed of the technology being used for this visit and agreed to proceed. Patient located in hospital and provider located at home/office setting. Patient is being evaluated for possible acute neurologic impairment and high probability of imminent or life-threatening deterioration. I spent total of 41 minutes providing care to this patient, including time for face to face visit via telemedicine, review of medical records, imaging studies and discussion of findings with providers, the patient and/or family. Dr Sherry Wharton [facility] For Inpatient follow-up with [facility] physician please call [facility] at . As we are not an outpatient service for any post hospital discharge needs please contact the hospital for assistance. If you have any questions for the [facility] physicians or need to reconsult for clinical or diagnostic changes please contact us via [facility] at . Signature :?Sherry Wharton
[2024-11-08 15:20] LABS: Basophils # (Auto) 0.1 Thou/mm3 (0.0-0.2); Basophils % (Auto) 1 % (0-2.5); Eosinophils # (Auto) 0.1 Thou/mm3 (0.0-0.5); Eosinophils % (Auto) 2 % (0-10); Hematocrit 42.9 % (36.0-46.0); Hemoglobin 13.9 g/dL (12.0-16.0); Immature Granulocytes Auto 0.02 Thou/mm3 (0.00-0.00); Lymphocytes # (Auto) 3.4 Thou/mm3 (1.0-4.8); Lymphocytes % (Auto) 39 % (10-50); Mean Corpuscular HGB Conc 32.4 g/dl (31.0-37.0); Mean Corpuscular Hemoglobin 29.8 pg (25.0-35.0); Mean Corpuscular Volume 92 fL (80-100); Monocytes # (Auto) 0.4 Thou/mm3 (0.0-0.8); Monocytes % (Auto) 5 % (0-12); Neutrophils # (Auto) 4.7 Thou/mm3 (1.8-7.7); Neutrophils % (Auto) 54 % (37-80); Nucleated Red Blood Cell # 0.00 Thou/mm3 (0.00-0.00); Nucleated Red Blood Cell % 0 /100 WBC (0); Platelet Count 317 Thou/mm3 (140-440); RDW Standard Deviation 47.0 fL (36.4-46.3); Red Blood Count 4.67 Miln/mm3 (4.00-5.20); White Blood Count 8.7 Thou/mm3 (3.6-11.0)
[2024-11-08 15:31] LABS: HCG Titer if Positive Negative
[2024-11-08 15:33] LABS: INR 1.0 (0.9-1.3); Partial Thromboplastin Time 29.7 Seconds (22.0-36.0); Prothrombin Time 10.8 Seconds (9.0-12.2)
[2024-11-08 15:39] LABS: Alanine Aminotransferase 16 U/L (10-49); Albumin, Serum 4.7 gm/dL (3.5-5.0); Albumin/Globulin Ratio 1.7 (1.2-2.2); Alkaline Phosphatase 69 U/L (46-116); Anion Gap 11 (7-16); Aspartate Amino Transferase 16 U/L (0-34); BUN/Creatinine Ratio 11 Ratio (12-20); Bilirubin,Total 0.6 mg/dL (0.3-1.2); Blood Urea Nitrogen 8 mg/dL (9-23); Calcium 9.6 mg/dL (8.3-10.6); Calcium (Corrected) 9.6 mg/dL (8.5-10.1); Carbon Dioxide 20.0 mMol/L (20.0-31.0); Chloride 107 mMol/L (98-107); Creatinine (Component) 0.7 mg/dL (0.6-1.3); Estimated Creatinine Clearance 110.5 mL/min (>60); Globulin 2.8 gm/dL (2.3-3.5); Glucose 80 mg/dL (74-106); Magnesium 1.9 mg/dL (1.6-2.6); Osmolality,Calculated 272 (275-295); Potassium 4.0 mMol/L (3.4-5.1); Sodium 138 mMol/L (136-145); Total Protein 7.5 gm/dL (5.7-8.2); Troponin I < 0.002 ng/mL (0.0-0.045); eGFR > 60 See Note
--- NOTE | 2024-11-08 16:18 | ESHP_ITS ---
Documentation for date of: 11/08/24 HPI History of Present Illness Chief complaint: Left eye vision changes History of present illness: 39-year-old female with past medical history of right-sided complex regional pain syndrome status post nerve stimulator, possible epilepsy, migraines, occipital neuralgia, hyperlipidemia, nephrolithiasis presenting to the ED on 11/08 with worsening episode of headache associated with left eye vision changes. Patient states that about 3 days ago she started experiencing worsening left- sided headache which radiates from scalp down to her neck. Patient states that she was seen by her neurologist at [facility] about 2 days ago who has initiated some type of injection which patient states that has not helped her. Patient is also being referred by her neurologist to a movement specialist for her left upper extremity paralysis/weakness, she has yet to be seen by that specialist. Patient also states that she has been having vomiting episodes associated with the headache but denies any loss of consciousness or falls. Medical history: As stated above Surgical history: Denies Allergies: See list in the EMR Medications: Pending official med rec Family history: Noncontributory Social history: Denies smoking cigarettes, drinking alcohol or using other illicit drugs ROS: All 12 systems assessed and the patient denies unless otherwise stated in HPI In the ED, patient presented normotensive, slightly tachycardic heart rate 104, regular respiratory rate, afebrile satting 98 on room air. There was no significant lab findings. Chest x-ray did not show any active disease process, head CT was negative for any acute hemorrhage, mass effect or midline shift, head/neck CTA showed a 4 mm left thyroid nodule but otherwise no significant findings and EKG showed normal sinus rhythm without any concerning findings. Stroke alert was initiated and teleneurologist was able to see and assessed the patient. NIHS score was 8 and recommendation was to admit the patient for strokelike symptoms. Patient will be admitted for strokelike symptoms with neurology consultation and MRI imaging. Exam Vital Signs Temp Pulse Resp BP Pulse Ox O2 Del Method 97.8 F 66 16 108/73 98 Room Air 11/08/24 14:08 11/08/24 15:08 11/08/24 15:08 11/08/24 14:08 11/08/24 14:08 11/08/24 14:08 Narrative Exam Physical Exam: GENERAL: Awake, answer questions appropriately, appears stated age HEENT: NC/AT. Moist mucosa. PERRLA/EOMI. CARDIO: Heart RRR, no obvious murmurs, no JVD. PULM: No coughing or visible SOB. Lungs CTA B/L. GI: Abdomen soft, NT/ND, +BS. SKIN/MSK/EXT: No wounds/discoloration/rashes/edema/amputations fissure. +Pedal pulses present B/L. NEURO: Oriented x3, cranial nerves II to XII intact, [id number] test passed, L upper extremity unable to move or hold up against gravity, no deficits noted on the right extremities. Digital Content Coordinator strength 0 out of 5 on the left but 5 out of 5 on the right. Results: Labs 11/09/24 05:22 11/09/24 05:22 Labs: Short CBC 11/08/24 Range/Units 14:30 WBC 8.7 (3.6-11.0) Thou/mm3 Hgb 13.9 (12.0-16.0) g/dL Hct 42.9 (36.0-46.0) % Plt Count 317 (140-440) Thou/mm3 BMP 11/08/24 14:30 Sodium 138 Potassium 4.0 Chloride 107 Carbon Dioxide 20.0 BUN 8 L Creatinine 0.7 Glucose 80 Calcium 9.6 Cardiac Enzymes 11/08/24 Range/Units 14:30 Troponin I < 0.002 (0.0-0.045) ng/mL Liver Function 11/08/24 Range/Units 14:30 Total Bilirubin 0.6 (0.3-1.2) mg/dL AST 16 (0-34) U/L ALT 16 (10-49) U/L Alkaline Phosphatase 69 (46-116) U/L Albumin 4.7 (3.5-5.0) gm/dL Quality Measures Quality Measures VTE prophylaxis Medications Home Medications and Allergies Home Medications ?Medication ?Instructions ?Recorded ?Confirmed ?Type rosuvastatin 40 mg tablet 40 mg PO HS 03/07/23 5 History aspirin 81 mg tablet,delayed 81 mg PO DAILY 11/08/24 0 11/08/24 History release ondansetron HCl 8 mg tablet 8 mg PO Q8H PRN nausea and vomiting 11/08/24 11/08/24 History tirzepatide (weight loss) 7.5 7.5 mg subcut .weekly 11/08/24 History mg/0.5 mL subcutaneous pen injector (Zepbound) tizanidine 2 mg capsule 2 mg PO 1XD 11/08/24 5 History Allergies Allergy/AdvReac Type Severity Reaction Status Date / Time alcohol Allergy Severe ICHY, Verified 08/12/24 06:22 REDNESS TO FACE diphenhydramine (From Allergy Severe Difficulty Verified 08/12/24 06:22 Benadryl Allergy) Swallowing ibuprofen Allergy Severe RASH Verified 08/12/24 06:22 loratadine (From Claritin) Allergy Severe Hives Verified 08/12/24 06:22 morphine Allergy Severe Difficulty Verified 08/12/24 06:22 Breathing oxycodone Allergy Severe Hives Verified 08/12/24 06:22 Penicillins Allergy Severe Difficulty Verified 08/12/24 06:22 Swallowing hydrocodone (From Drury) Allergy Intermediate Hypertensio Verified 08/12/24 06:22 n ketorolac (From Toradol) AdvReac Severe Fainting Verified 08/12/24 06:22 Visit Medications Acetaminophen (Acetaminophen 325 Mg Tablet) 650 mg PO Q6H PRN PRN Reason: Pain 1-3 and/or Fever >100.1 Stop: 12/08/24 16:09 Hydrocodone Bitart/Acetaminophen (Hydrocodone/Apap 10/325 Tab) 1 tab PO Q4H PRN PRN Reason: PAIN SCALE 4-6 (Moderate Stop: 11/13/24 16:09 Heparin Sodium (Porcine) (Heparin Sod Inj 5000 Unit/Ml Vial) 5,000 unit SC Q12HR THU Stop: 11/22/24 20:59 Labetalol HCl (Labetalol Inj 5 Mg/Ml Vial 20 Ml) 10 mg IVP Q15M PRN PRN Reason: HYPER Lacosamide (Lacosamide 50 Mg Tablet) 50 mg PO BID THU Stop: 12/08/24 20:59 Ondansetron HCl (Ondansetron Inj 2 Mg/Ml Inj 2 Ml) 4 mg IVP Q4HR PRN PRN Reason: NAUSEA OR VOMITING Stop: 12/08/24 14:10 Sennosides (Senna Tablet) 1 tab PO QDAY PRN; Protocol PRN Reason: constipation Stop: 12/08/24 16:09 Assessment & Plan Plan 39-year-old female with past medical history of right-sided complex regional pain syndrome status post nerve stimulator, possible epilepsy, migraines, occipital neuralgia, hyperlipidemia, nephrolithiasis presenting with worsening episode of headache associated with left eye vision changes will be admitted for strokelike symptoms with neurology consultation and MRI imaging. #Stroke-like symptoms As noted above in HPI, patient is presenting with worsening left-sided headache with left eye vision changes Differentials include: Underlying migraine versus occipital neuralgia, MS versus possible TIA/CVA Teleneurologist seen and assessed the patient, NIH score of [address] was negative for any acute hemorrhage, mass effect or midline shift Head/neck CTA showed a 4 mm left thyroid nodule but otherwise no significant findings EKG showed normal sinus rhythm without any concerning findings Plan: MR stroke protocol MR cervical spine No need for antiplatelet as per teleneurology Statin, high intensity Head of bed greater than 30, keep euthermic and euglycemic PT and speech therapy Will hold off on echo with bubble study as it was completed recently #Right-sided complex regional pain syndrome #Possible epilepsy #MS? #Migraines #Occipital neuralgia Follows up with neurology at [facility] Patient is on lacosamide 50 mg twice daily for epilepsy Plan: Restarted epileptic medication and alprazolam as needed for anxiety #Hyperlipidemia As seen from lipid panel Plan: Continue high intensity statin as above Repeat lipid panel #Incidental thyroid nodule As seen on CTA of the head and neck, measuring 4 mm Plan: Follow-up outpatient Morning TSH level Health Maintenance: Lines: PIV Diet: Cardiac Bowel: Senna as needed GI prophylaxis: Not needed DVT prophylaxis: Heparin subcu Dispo: Neurology consultation for strokelike symptoms, MRI pending Code: Full Patient seen and assessed with attending Dr. Neil Rodriguez DO PGY-2 Internal Medicine - GME Attending Provider Attestation/Addendum After examination of the patient and review of the clinical data I feel that this patient needs admission to the hospital for further treatment/evaluation. I have discussed and was present for the essential components of the history, physical examination, diagnosis, and treatment plan with the resident. I agree with the patient's care as documented by the resident and amended herein by me. Enrike Trejo DO. Although this document has been carefully reviewed, there may still be some phonetic and other typographical errors. These errors are purely grammatical due to imperfections in the software program and should not be construed in any way to compromise the substance of the patient's medical care during this visit.
[2024-11-08] MEDS: Magnesium Sulfate 4 GM Ivpb 4 GM/50 ML BAG IV (16:39)
--- NOTE | 2024-11-08 18:12 | PC.NURSE ---
PER ANTONIO FROM MRI, HE IS UNABLE TO DO THE MRI DUE TO THE PT UNABLE TO TURN OFF THE CRPS NERVE STIMULATOR BECAUSE THE REMOTE ONLY HAS ONE BAR OF CHARGE.
[2024-11-08] MEDS: HEPARIN SOD INJ 5000 UNIT/ML VIAL SC (20:18)
[2024-11-08] MEDS: ACETAMINOPHEN 325 MG TABLET 650 MG PO (20:18)
[2024-11-08] MEDS: LACOSAMIDE 50 MG TABLET PO (20:18)
[2024-11-08] MEDS: ATORVASTATIN CALCIUM 20 MG TABLET 40 MG PO (20:18)
[2024-11-08 20:54] LABS: Collection Type, Urine Clean Catch
[2024-11-08 20:59] LABS: Bacteria,Urine 2+; Bilirubin,Urine Negative (Negative); Blood,Urine Trace (Negative); Clarity,Urine Clear (Clear/Hazy); Color,Urine Colorless (Lt Yel-Yel); Glucose, Urine Negative (Negative); Ketones,Urine Negative (Negative); Leukocyte Esterase,Urine Negative (Negative); Nitrite,Urine Negative (Negative); PH,Urine 5.5 (5.0-7.0); Protein,Urine Negative (Neg - Trace); RBC,Urine 2 /hpf (0-3); Squamous Epithelial Cell,Urine 2 /hpf (0-5); Urobilinogen,Urine Negative mg/dL (0.0-1.0); WBC,Urine 1 /hpf (0-5)
[2024-11-08 21:00] LABS: Culture Indicated,Urine Yes; Specific Gravity,Urine < 1.005 (1.001-1.035)
[2024-11-08 21:12] LABS: Amphetamine/Methamp Scrn,U Negative (Negative); Barbiturate Screen,Urine Negative (Negative); Benzodiazepines Screen,Urine Negative (Negative); Benzoylecgonine Screen, Ur Negative (Negative); Fentanyl Screen,Urine Negative (Negative); Opiate Screen,Urine Negative (Negative); THC Screen,Urine Negative (Negative)
--- NOTE | 2024-11-08 23:53 | ESPR_ITS ---
Documentation for date of: 11/08/24 Subjective Subjective Interval history: Patient was seen in [facility] today at the bedside. She continues to complain of dizziness, severe headache and vision changes for the last 3 days with persistent left-sided weakness since August. However she states that she uses the walker with her right hand to move around at her home. she stated that she underwent trigger point injections in both neck and upper back and occipital regions likely ON block at [facility] without much improvement. Exam - Neurology Vital Signs Temp Pulse Resp BP Pulse Ox O2 Del Method 97.0 F 68 17 117/78 98 Room Air 11/08/24 20:00 11/08/24 20:00 11/08/24 20:00 11/08/24 20:00 11/08/24 20:11/08/24 20:00 Narrative Exam GENERAL APPEARANCE: Well hydrated, well-nourished in no acute distress. HEENT: Normocephalic, atraumatic, extraocular movements intact. Pupils: Equal reacting to light and accommodation NECK: Supple, no JVD or bruits. CARDIOVASULAR: Heart: S1, S2 heard, regular without S3-S4 or murmur no rubs or gallops. LUNGS/CHEST: Clear to auscultation bilaterally. No rails, rhonchi, or wheezing. Normal inspection. ABDOMEN: Soft, nontender, with normal bowel sounds. No pulsatile masses. No rebound, rigidity, or guarding. Normal inspection and palpation. EXTREMITIES: Normal inspection and palpation. No edema, clubbing or cyanosis. SKIN: Warm and dry without rashes. Normal inspection. MUSCULOSKELETAL: No cervical, thoracic, lumbar or midline bony tenderness. Normal inspection. NEURO: Alert, awake and oriented x3. Cranial nerves: II through XII grossly intact. Speech and language: Normal with no dysarthria or dysphasia. Motor system: Tone and bulk: Normal: Strength: Continues to have giveaway weakness in the left upper and lower extremities. Deep tendon reflexes: 2+ bilaterally symmetrical. Plantar reflex: Downgoing bilaterally. Sensory system: Intact to all modalities of sensation bilaterally. Coordination: Intact to [id number] and [id number]-[id number] test on the right but cannot be tested on the left sec to weakness. No ataxia, no dysmetria, or dysdiadochokinesia noted. No intention tremors noted. Gait: cannot be tested. No signs of meningeal irritation noted. PSYCHIATRIC: Normal mood and affect. Objective Labs 11/08/24 14:30 11/08/24 14:30 Labs: Laboratory Results - last 24 hr 11/08/24 11/08/24 11/08/24 14:30 20:30 20:34 WBC 8.7 RBC 4.67 Hgb 13.9 Hct 42.9 MCV 92 MCH 29.8 MCHC 32.4 RDW Std Deviation 47.0 H Plt Count 317 Neut % (Auto) 54 Lymph % (Auto) 39 [place] % (Auto) 5 Eos % (Auto) 2 Baso % (Auto) 1 Neut # (Auto) 4.7 Lymph # (Auto) 3.4 [place] # (Auto) 0.4 Eos # (Auto) 0.1 Baso # (Auto) 0.1 Immature Gran # (Auto) 0.02 H Absolute Nucleated RBC 0.00 Immature Gran % 0 Nucleated RBC % 0 PT 10.8 INR 1.0 APTT 29.7 Sodium 138 Potassium 4.0 Chloride 107 Carbon Dioxide 20.0 Anion Gap 11 BUN 8 L Creatinine 0.7 Estim Creat Clear Calc 110.5 eGFR > 60 BUN/Creatinine Ratio 11 L Glucose 80 Calculated Osmolality 272 L Calcium 9.6 Corrected Calcium 9.6 Magnesium 1.9 Total Bilirubin 0.6 AST 16 ALT 16 Alkaline Phosphatase 69 Troponin I < 0.002 Total Protein 7.5 Albumin 4.7 Globulin 2.8 Albumin/Globulin Ratio 1.7 Ur Collection Type Clean Catch Urine Color Colorless A Urine Clarity Clear Urine pH 5.5 Ur Specific [place] < 1.005 Urine Protein Negative Urine Glucose (UA) Negative Urine Ketones Negative Urine Blood Trace Urine Nitrite Negative Urine Bilirubin Negative Urine Urobilinogen (Auto) Negative Ur Leukocyte Esterase Negative Urine RBC 2 Urine WBC 1 Ur Squamous Epith Cells 2 Urine Bacteria 2+ A Ur Culture Indicated? Yes Urine Opiates Screen Negative Urine Fentanyl Screen Negative Ur Barbiturates Screen Negative U Amphetamin/Meth Scrn Negative U Benzodiazepines Scrn Negative U Cocaine Metab Screen Negative U Marijuana (THC) Screen Negative HCG (Qual) Negative Assessment & Plan Assessment and plan (1) Headache: Status: Acute Assessment and plan: severe headache with dizziness and vision changes chronic left UE and LE weakness Will do a repeat MRI cervical spine and MRV with contrast to evaluate further. Then she might need EMG AND NCS of both UE and LE to see if there is any peripheral causes for the persistent weakness. If all the results come back negative, she most likely has FND. Noted that she is waiting to be seen by Movement disorder specialist in [facility]. Will do a repeat EEG as well to see if the findings from the last study persists. Then, if the EEG comes back normal, will d/c Lacosamide. Noted that she never had a clinical sz per the patient.
[2024-11-09] VITALS (10 sets, daily range): BP systolic 96–110; BP diastolic 58–74; PULSE 65–88; RESP 14–98; TEMP 36.2–36.6; O2SAT 97–99
[2024-11-09] MEDS: ACETAMINOPHEN 325 MG TABLET 650 MG PO ×2 (04:21→10:56)
[2024-11-09 06:24] LABS: Basophils # (Auto) 0.0 Thou/mm3 (0.0-0.2); Basophils % (Auto) 1 % (0-2.5); Eosinophils # (Auto) 0.2 Thou/mm3 (0.0-0.5); Eosinophils % (Auto) 2 % (0-10); Hematocrit 38.8 % (36.0-46.0); Hemoglobin 12.8 g/dL (12.0-16.0); Immature Granulocytes Auto 0.02 Thou/mm3 (0.00-0.00); Lymphocytes # (Auto) 3.2 Thou/mm3 (1.0-4.8); Lymphocytes % (Auto) 40 % (10-50); Mean Corpuscular HGB Conc 33.0 g/dl (31.0-37.0); Mean Corpuscular Hemoglobin 30.1 pg (25.0-35.0); Mean Corpuscular Volume 91 fL (80-100); Monocytes # (Auto) 0.4 Thou/mm3 (0.0-0.8); Monocytes % (Auto) 5 % (0-12); Neutrophils # (Auto) 4.3 Thou/mm3 (1.8-7.7); Neutrophils % (Auto) 53 % (37-80); Nucleated Red Blood Cell # 0.00 Thou/mm3 (0.00-0.00); Nucleated Red Blood Cell % 0 /100 WBC (0); Platelet Count 276 Thou/mm3 (140-440); RDW Standard Deviation 46.7 fL (36.4-46.3); Red Blood Count 4.25 Miln/mm3 (4.00-5.20); White Blood Count 8.1 Thou/mm3 (3.6-11.0)
[2024-11-09 06:45] LABS: Anion Gap 11 (7-16); BUN/Creatinine Ratio 10 Ratio (12-20); Blood Urea Nitrogen 6 mg/dL (9-23); Calcium 9.2 mg/dL (8.3-10.6); Carbon Dioxide 20.3 mMol/L (20.0-31.0); Cardiac Risk Estimate 8.7 RATIO (3.7-5.6); Chloride 107 mMol/L (98-107); Cholesterol 347 mg/dL (132-200); Creatinine (Component) 0.6 mg/dL (0.6-1.3); Estimated Creatinine Clearance 131.0 mL/min (>60); Glucose 76 mg/dL (74-106); HDL Cholesterol 40 mg/dL (40-60); LDL Cholesterol,Calculated 271 mg/dL (0-130); Osmolality,Calculated 272 (275-295); Potassium 3.7 mMol/L (3.4-5.1); Sodium 138 mMol/L (136-145); Thyroid Stimulating Hormone 1.53 uIU/mL (0.55-4.78); Triglycerides 179 mg/dL (30-150); eGFR > 60 See Note
[2024-11-09] MEDS: HEPARIN SOD INJ 5000 UNIT/ML VIAL SC ×2 (09:20→21:07)
[2024-11-09] MEDS: LACOSAMIDE 50 MG TABLET PO (09:20)
--- NOTE | 2024-11-09 13:21 | PD.RESPRO ---
Documentation for date of: 11/09/24 Subjective Subjective Interval history: Patient seen and assessed in hospital bed reporting persistent left eye blurriness with headache. Patient was seen by neurologist overnight who recommended completion of the MRI brain/MRV and MRI cervical spine along with an EEG. If the patient's studies are negative then as per neurology will obtain EMG and NCS of the upper and lower extremities. Patient continues to be on lacosamide with the following medication might be discontinued upon EEG findings. Patient's lipid panel shows severely high cholesterol with an LDL of 271 warranting genetic testing on an outpatient basis. Switch patient's p.o. Tylenol to IV Tylenol as she is having difficulty with swallowing pills as per speech evaluation. Nurse swallow screen was negative as she did not have any issues with taking lacosamide earlier. Will continue to monitor and expect MRI studies to be completed by Friday 11/10. Exam Vital Signs Temp Pulse Resp BP Pulse Ox O2 Del Method 97.6 F 88 20 100/58 L 97 Room Air 11/09/24 11:43 11/09/24 12:00 11/09/24 11:43 11/09/24 11:43 11/09/24 11:43 11/09/24 11:43 Narrative Exam Physical Exam: GENERAL: Awake, answer questions appropriately, appears stated age HEENT: NC/AT. Moist mucosa. PERRLA/EOMI. CARDIO: Heart RRR, no obvious murmurs, no JVD. PULM: No coughing or visible SOB. Lungs CTA B/L. GI: Abdomen soft, NT/ND, +BS. SKIN/MSK/EXT: No wounds/discoloration/rashes/edema/amputations fissure. +Pedal pulses present B/L. NEURO: Oriented x3, cranial nerves II to XII intact, [id number] test passed, L upper extremity unable to move or hold up against gravity, no deficits noted on the right extremities. Auto Electrician strength 0 out of 5 on the left but 5 out of 5 on the right. Objective Labs 11/09/24 05:22 11/09/24 05:22 Labs: Laboratory Results - last 24 hr 11/08/24 11/08/24 11/08/24 14:30 20:30 20:34 WBC 8.7 RBC 4.67 Hgb 13.9 Hct 42.9 MCV 92 MCH 29.8 MCHC 32.4 RDW Std Deviation 47.0 H Plt Count 317 Neut % (Auto) 54 Lymph % (Auto) 39 [place] % (Auto) 5 Eos % (Auto) 2 Baso % (Auto) 1 Neut # (Auto) 4.7 Lymph # (Auto) 3.4 [place] # (Auto) 0.4 Eos # (Auto) 0.1 Baso # (Auto) 0.1 Immature Gran # (Auto) 0.02 H Absolute Nucleated RBC 0.00 Immature Gran % 0 Nucleated RBC % 0 PT 10.8 INR 1.0 APTT 29.7 Sodium 138 Potassium 4.0 Chloride 107 Carbon Dioxide 20.0 Anion Gap 11 BUN 8 L Creatinine 0.7 Estim Creat Clear Calc 110.5 eGFR > 60 BUN/Creatinine Ratio 11 L Glucose 80 Calculated Osmolality 272 L Calcium 9.6 Corrected Calcium 9.6 Magnesium 1.9 Total Bilirubin 0.6 AST 16 ALT 16 Alkaline Phosphatase 69 Troponin I < 0.002 Total Protein 7.5 Albumin 4.7 Globulin 2.8 Albumin/Globulin Ratio 1.7 Triglycerides Cholesterol LDL Cholesterol, Calc HDL Cholesterol Cholesterol/HDL Ratio TSH Ur Collection Type Clean Catch Urine Color Colorless A Urine Clarity Clear Urine pH 5.5 Ur Specific [place] < 1.005 Urine Protein Negative Urine Glucose (UA) Negative Urine Ketones Negative Urine Blood Trace Urine Nitrite Negative Urine Bilirubin Negative Urine Urobilinogen (Auto) Negative Ur Leukocyte Esterase Negative Urine RBC 2 Urine WBC 1 Ur Squamous Epith Cells 2 Urine Bacteria 2+ A Ur Culture Indicated? Yes Urine Opiates Screen Negative Urine Fentanyl Screen Negative Ur Barbiturates Screen Negative U Amphetamin/Meth Scrn Negative U Benzodiazepines Scrn Negative U Cocaine Metab Screen Negative U Marijuana (THC) Screen Negative HCG (Qual) Negative 11/09/24 05:22 WBC 8.1 RBC 4.25 Hgb 12.8 Hct 38.8 MCV 91 MCH 30.1 MCHC 33.0 RDW Std Deviation 46.7 H Plt Count 276 D Neut % (Auto) 53 Lymph % (Auto) 40 [place] % (Auto) 5 Eos % (Auto) 2 Baso % (Auto) 1 Neut # (Auto) 4.3 Lymph # (Auto) 3.2 [place] # (Auto) 0.4 Eos # (Auto) 0.2 Baso # (Auto) 0.0 Immature Gran # (Auto) 0.02 H Absolute Nucleated RBC 0.00 Immature Gran % 0 Nucleated RBC % 0 PT INR APTT Sodium 138 Potassium 3.7 Chloride 107 Carbon Dioxide 20.3 Anion Gap 11 BUN 6 L Creatinine 0.6 Estim Creat Clear Calc 131.0 eGFR > 60 BUN/Creatinine Ratio 10 L Glucose 76 Calculated Osmolality 272 L Calcium 9.2 Corrected Calcium Magnesium Total Bilirubin AST ALT Alkaline Phosphatase Troponin I Total Protein Albumin Globulin Albumin/Globulin Ratio Triglycerides 179 H Cholesterol 347 H LDL Cholesterol, Calc 271 H HDL Cholesterol 40 Cholesterol/HDL Ratio 8.7 H TSH 1.53 Ur Collection Type Urine Color Urine Clarity Urine pH Ur Specific [place] Urine Protein Urine Glucose (UA) Urine Ketones Urine Blood Urine Nitrite Urine Bilirubin Urine Urobilinogen (Auto) Ur Leukocyte Esterase Urine RBC Urine WBC Ur Squamous Epith Cells Urine Bacteria Ur Culture Indicated? Urine Opiates Screen Urine Fentanyl Screen Ur Barbiturates Screen U Amphetamin/Meth Scrn U Benzodiazepines Scrn U Cocaine Metab Screen U Marijuana (THC) Screen HCG (Qual) Quality Measures Quality Measures none Assessment & Plan Assessment Current Active Medications: Generic Name Dose Route Start Last Admin Trade Name Freq PRN Reason Stop Dose Admin Hydrocodone Bitart/Acetaminophen 1 tab 11/08/24 16:10 Hydrocodone/Apap 10/325 Tab PO 11/13/24 16:09 Q4H PRN PAIN SCALE 4-6 (Moderate Alprazolam 0.5 mg 11/08/24 16:17 Alprazolam 0.25 Mg Tablet PO 11/13/24 16:16 BID PRN ANXIETY Atorvastatin Calcium 40 mg 11/08/24 21:00 11/08/24 20:18 Atorvastatin Calcium 20 Mg Tablet PO 12/08/24 20:59 40 mg HS THU Administration Diazepam 10 mg 11/09/24 08:06 Diazepam Inj 5 Mg/Ml Vial 2 Ml IV Q4HR PRN SEIZURES Heparin Sodium (Porcine) 5,000 unit 11/08/24 21:00 11/09/24 09:20 Heparin Sod Inj 5000 Unit/Ml Vial SC 11/22/24 20:59 5,000 unit Q12HR THU Administration Acetaminophen 1,000 mg in 100 mls @ 250 mls/hr 11/09/24 11:56 Ofirmev Inj IV 11/10/24 00:23 Q6HR PRN BREAKTHROUGH PAIN (MODERATE) Protocol Labetalol HCl 10 mg 11/08/24 14:11 Labetalol Inj 5 Mg/Ml Vial 20 Ml IVP Q15M PRN HYPER Lacosamide 50 mg 11/08/24 21:00 11/09/24 09:20 Lacosamide 50 Mg Tablet PO 12/08/24 20:59 50 mg BID THU Administration Ondansetron HCl 4 mg 11/08/24 14:11 Ondansetron Inj 2 Mg/Ml Inj 2 Ml IVP 12/08/24 14:10 Q4HR PRN NAUSEA OR VOMITING Sennosides 1 tab 11/08/24 16:10 Senna Tablet PO 12/08/24 16:09 QDAY PRN constipation Protocol Plan 39-year-old female with past medical history of right-sided complex regional pain syndrome status post nerve stimulator, possible epilepsy, migraines, occipital neuralgia, hyperlipidemia, nephrolithiasis presenting with worsening episode of headache associated with left eye vision changes will be admitted for strokelike symptoms with neurology consultation and MRI imaging. #Stroke-like symptoms As noted above in HPI, patient is presenting with worsening left-sided headache with left eye vision changes Differentials include: Underlying migraine versus occipital neuralgia, MS versus possible TIA/CVA, functional neurologic dysfunction Teleneurologist seen and assessed the patient, NIH score of [address] was negative for any acute hemorrhage, mass effect or midline shift Head/neck CTA showed a 4 mm left thyroid nodule but otherwise no significant findings EKG showed normal sinus rhythm without any concerning findings Plan: MR stroke protocol MR cervical spine No need for antiplatelet as per teleneurology Statin, high intensity Head of bed greater than 30, keep euthermic and euglycemic PT and speech therapy Will hold off on echo with bubble study as it was completed recently Neurology recommends EEG, ordered If MRI findings and EEG findings are inconclusive, can consider ordering EMG and NCS as per neurology #Right-sided complex regional pain syndrome #Possible epilepsy #MS? #Migraines #Occipital neuralgia Follows up with neurology at [facility] Patient is on lacosamide 50 mg twice daily for epilepsy Plan: Restarted epileptic medication and alprazolam as needed for anxiety Seizure precautions IV diazepam as needed for breakthrough seizures #Hyperlipidemia As seen from lipid panel Repeat lipid panel shows triglycerides 179, cholesterol 347, LDL 271, HDL 40 Plan: Continue high intensity statin as above Outpatient workup for familial hypercholesteremia along with genetic testing #Incidental thyroid nodule As seen on CTA of the head and neck, measuring 4 mm TSH 1.53 Plan: Follow-up outpatient Health Maintenance: Lines: PIV Diet: Cardiac Bowel: Senna as needed GI prophylaxis: Not needed DVT prophylaxis: Heparin subcu Dispo: Neurology consultation for strokelike symptoms, MRI brain/MRV/MRI cervical spine and EEG pending Code: Full Patient seen and assessed with attending Dr. Neil Rodriguez DO PGY-2 Internal Medicine - GME Attending Provider Attestation/Addendum I have discussed and was present for the essential components of the history, physical examination, diagnosis, and treatment plan with the resident. I agree with the patient's care as documented by the resident and amended herein by me. Enrike Trejo DO. Although this document has been carefully reviewed, there may still be some phonetic and other typographical errors. These errors are purely grammatical due to imperfections in the software program and should not be construed in any way to compromise the substance of the patient's medical care during this visit. Patient seen and evaluated this AM. Patient did have complaints of continued headache this morning although improved. She also had some episodes of dysphagia hence the patient has been made n.p.o., will have a formal swallow evaluation done tomorrow. The patient is also pending MRV and MRI cervical spine tomorrow as well as an EEG. Neurology is consulted, appreciate recommendation
--- NOTE | 2024-11-09 14:12 | PC.NURSE ---
PATIENT C/O HEADACHE,REFUSES NORCO, THERAPEUTIC PAIN INTERVENTIONS PROVIDED.
[2024-11-09] MEDS: ACETAMINOPHEN IVPB 1,000 MG/100 ML VIAL 250 MG IV (17:48)
--- NOTE | 2024-11-09 23:08 | PD.VPROG1 ---
Telemedicine visit statement This visit was conducted with the use of phone was obtained on 11/09/24 at 2308. Documentation for date of: 11/09/24 Subjective Subjective Interval history: Patient is in MedSurg. Her weakness and paresthesias involving the left upper and lower extremities have significantly improved. She is able to ambulate with a walker with the assistance. Now all of a sudden she started having trouble with swallowing and she was made n.p.o. Virtual exam Vital Signs Temp Pulse Resp BP Pulse Ox O2 Del Method 97.9 F 72 20 97/68 97 Room Air 11/09/24 20:00 11/09/24 20:00 11/09/24 20:00 11/09/24 20:00 11/09/24 20:00 11/09/24 20:00 Objective Labs 11/09/24 05:22 11/09/24 05:22 Labs: Laboratory Results - last 24 hr 11/09/24 05:22 WBC 8.1 RBC 4.25 Hgb 12.8 Hct 38.8 MCV 91 MCH 30.1 MCHC 33.0 RDW Std Deviation 46.7 H Plt Count 276 D Neut % (Auto) 53 Lymph % (Auto) 40 [place] % (Auto) 5 Eos % (Auto) 2 Baso % (Auto) 1 Neut # (Auto) 4.3 Lymph # (Auto) 3.2 [place] # (Auto) 0.4 Eos # (Auto) 0.2 Baso # (Auto) 0.0 Immature Gran # (Auto) 0.02 H Absolute Nucleated RBC 0.00 Immature Gran % 0 Nucleated RBC % 0 Sodium 138 Potassium 3.7 Chloride 107 Carbon Dioxide 20.3 Anion Gap 11 BUN 6 L Creatinine 0.6 Estim Creat Clear Calc 131.0 eGFR > 60 BUN/Creatinine Ratio 10 L Glucose 76 Calculated Osmolality 272 L Calcium 9.2 Triglycerides 179 H Cholesterol 347 H LDL Cholesterol, Calc 271 H HDL Cholesterol 40 Cholesterol/HDL Ratio 8.7 H TSH 1.53
[2024-11-10] VITALS (10 sets, daily range): BP systolic 93–113; BP diastolic 59–72; PULSE 61–83; RESP 15–94; TEMP 36.1–37.1; O2SAT 94–98
--- NOTE | 2024-11-10 | XR_ITS ---
Examinations: MRI Brain without intravenous contrast. MRI brain with intravenous contrast MRA brain with intravenous contrast. MRA brain without intravenous contrast MRA neck with intravenous contrast Date and time of exam: November 10, 2024, 1603 hrs., Comparison August 19, 2024 Indications: Stroke alert 11/08/2024, onset blurred vision vomiting focal neurologic deficit Technique: Multiple axial and sagittal images of the brain have been obtained Siemens high-resolution 1.5 Gely short bore scanner is utilized. Sagittal sections, T1-weighted, TR 500, TE 14 Axial sections proton density and T2-weighted, TR 3,000, TE 34, TR 3,000, TE 91 Inversion recovery axial images, TR 9,260, TE 111, TI 2,500 Diffusion weighted images, axial sections, TR 4,800, TE 128, B value 1,000 Axial sections, ADC map, TR 4,800, TE 128. Contrast images have been obtained post intravenous 19 cc Gadolinium. T1-weighted axial and coronal images post contrast have been obtained. Angiographic images of neck and brain are obtained pre and post contrast. 3-D post processing performed, including brain, extracranial neck arterial maximum intensity projections Findings: [place] is not enlarged. The optic chiasm and infundibular stalk are not remarkable. Prepontine and interpeduncular cisterns are not enlarged. No localized enlargement of the medulla or robin. Fourth ventricle and cerebellar tonsils normal in position. Subacute hemorrhage is not seen. Fourth ventricle is midline. Mass in the cerebellopontine angle region is not evident. 7th and 8th nerve complexes exhibits symmetry. Globes are symmetrical with no retro-orbital mass. Increased white matter signal evident, punctate focus increased signal in the right frontal white matter FLAIR image 16 Diffusion-weighted images demonstrateno focus of restricted diffusion. Mass-effect upon the ventricular system is not identified. Abnormal contrast enhancement is not seen. MRA brain carotid images no large vessel occlusions, no carotid stenoses Impression: Negative for acute hemorrhage mass effect or midline shift No acute infarct Punctate focus increased signal on the right frontal white matter, FLAIR image 16, demyelinating disease pattern No carotid stenoses No cerebral large vessel arterial occlusions
--- NOTE | 2024-11-10 | XR_ITS ---
Examination: MRI cervical spine, without intravenous contrast. MRI cervical spine , with intravenous contrast. Exam date and time: November 10, 2024 1603 hrs. Indications: Vomiting headaches neck pain 5 days Technique: Multiple axial, sagittal and coronal images of the cervical spine have been obtained with the Siemens high-resolution 1.5 Gely MRI scanner. Images obtained included T2 weighted fat suppressed sagittal sections, TR 3500, TE 46, T2 weighted coronal fat suppressed images, TR 3050, TE 84, T2-weighted transverse fat suppressed images, TR 30-60, TE 63, proton density transverse images, TR 4720, TE 46, and T1 weighted coronal images, TR 560, TE 13. Axial, sagittal and coronal images are obtained post intravenous injection 19 cc gadolinium. Findings: Precontrast images demonstrate subtle increased signal in the cervical cord No cervical fracture Intact odontoid Mild disc narrowing C5-C6 C5-C6 4 mm left paracentral disc bulge with moderate left neural foraminal stenosis Postcontrast images demonstrate no abnormal osseous epidural or cervical cord enhancement Impression: Subtle increased signal in the cervical cord on the precontrast images, seen with demyelinating disease C5-C6 4 mm left paracentral disc bulge with moderate left neural foraminal stenosis No abnormal osseous epidural or cervical cord enhancement
--- NOTE | 2024-11-10 | XR_ITS ---
Examination: MR venogram without contrast Date and time: November 10, 2024, 1708 hrs. Indications: Worsening headaches, vomiting left eye blurred vision beginning 5 days ago Technique: Multiple MR venogram images obtained without intravenous contrast including 3-D postprocessing maximum intensity projection images Findings: Intact sagittal sinus Internal cerebral vein and straight sinus transverse sinuses and jugular veins fill with no filling defects No angiomatous malformation, no large early draining veins Impression: No findings of venous thrombosis
[2024-11-10] MEDS: ACETAMINOPHEN IVPB 1,000 MG/100 ML VIAL 250 MG IV (03:42)
[2024-11-10 05:52] LABS: Basophils # (Auto) 0.0 Thou/mm3 (0.0-0.2); Basophils % (Auto) 0 % (0-2.5); Eosinophils # (Auto) 0.1 Thou/mm3 (0.0-0.5); Eosinophils % (Auto) 2 % (0-10); Hematocrit 39.6 % (36.0-46.0); Hemoglobin 12.8 g/dL (12.0-16.0); Immature Granulocytes Auto 0.02 Thou/mm3 (0.00-0.00); Lymphocytes # (Auto) 2.9 Thou/mm3 (1.0-4.8); Lymphocytes % (Auto) 42 % (10-50); Mean Corpuscular HGB Conc 32.3 g/dl (31.0-37.0); Mean Corpuscular Hemoglobin 29.6 pg (25.0-35.0); Mean Corpuscular Volume 92 fL (80-100); Monocytes # (Auto) 0.4 Thou/mm3 (0.0-0.8); Monocytes % (Auto) 5 % (0-12); Neutrophils # (Auto) 3.5 Thou/mm3 (1.8-7.7); Neutrophils % (Auto) 51 % (37-80); Nucleated Red Blood Cell # 0.00 Thou/mm3 (0.00-0.00); Nucleated Red Blood Cell % 0 /100 WBC (0); Platelet Count 257 Thou/mm3 (140-440); RDW Standard Deviation 46.4 fL (36.4-46.3); Red Blood Count 4.33 Miln/mm3 (4.00-5.20); White Blood Count 6.9 Thou/mm3 (3.6-11.0)
[2024-11-10 06:06] LABS: Anion Gap 9 (7-16); BUN/Creatinine Ratio 14 Ratio (12-20); Blood Urea Nitrogen 10 mg/dL (9-23); Calcium 9.5 mg/dL (8.3-10.6); Carbon Dioxide 24.8 mMol/L (20.0-31.0); Chloride 107 mMol/L (98-107); Creatinine (Component) 0.7 mg/dL (0.6-1.3); Estimated Creatinine Clearance 112.3 mL/min (>60); Glucose 76 mg/dL (74-106); Osmolality,Calculated 279 (275-295); Potassium 3.8 mMol/L (3.4-5.1); Sodium 141 mMol/L (136-145); eGFR > 60 See Note
[2024-11-10] MEDS: HEPARIN SOD INJ 5000 UNIT/ML VIAL SC ×2 (08:46→20:31)
[2024-11-10] MEDS: LACOSAMIDE 50 MG TABLET PO ×2 (08:47→20:31)
--- NOTE | 2024-11-10 10:10 | CHAP ---
Patient was visited by the Spiritual Care Volunteer who prayed for them. (Volunteer was in the hospital from 09:10-10:10)
--- NOTE | 2024-11-10 11:41 | PC.SS ---
Follow up note: MRI pending. Pt will return home upon dc.
--- NOTE | 2024-11-10 11:47 | ESPR_ITS ---
<Statement entered by Abundio Brennan MD - 11/11/24 17:10> I have personally seen and examined the patient, agree with residents assessment and plan Patient plan of care was discussed with the attending physician, Dr. Neil Brennan, PGY2 Documentation for date of: 11/10/24 Subjective Subjective Interval history: No acute overnight events. This morning, patient continues to endorse headache with left-sided blurry vision, given [place] with improvement. Also endorses difficulty swallowing. Was evaluated by speech who reports that patient is able to tolerate full liquid diet, recommended GI consult for esophageal symptoms. Consulted GI Dr. Heard who will complete EGD tomorrow. Patient is n.p.o. after midnight. Otherwise still pending MRI brain, MRI C-spine, MRI of venogram, and repeat EEG. Exam Vital Signs Temp Pulse Resp BP Pulse Ox O2 Del Method 97.8 F 74 16 93/62 97 Room Air 11/10/24 07:10 11/10/24 08:00 11/10/24 07:10 11/10/24 07:10 11/10/24 07:10 11/10/24 07:10 Narrative Exam Physical Exam General: Awake and in no acute distress. Conversational and non-toxic appearing. HEENT: Normocephalic, atraumatic, mucous membranes moist. Heart: Regular rate and rhythm, normal S1 and S2, no murmurs. Lungs: Clear to auscultation with no wheezing or crackles. Abdomen: Soft, nondistended, nontender, positive bowel sounds. No guarding or rebound tenderness. Neurologic: Alert and oriented x3, L upper extremity unable to move or hold up against gravity, no deficits noted on the right extremities. Insulation Machine Operator strength 0/5 on the left but 5/5 on the right. Extremities: No edema. Skin: No rash or ecchymoses. Objective Labs 11/11/24 05:30 11/11/24 05:30 Labs: Laboratory Results - last 24 hr 11/10/24 04:44 WBC 6.9 RBC 4.33 Hgb 12.8 Hct 39.6 MCV 92 MCH 29.6 MCHC 32.3 RDW Std Deviation 46.4 H Plt Count 257 Neut % (Auto) 51 Lymph % (Auto) 42 [place] % (Auto) 5 Eos % (Auto) 2 Baso % (Auto) 0 Neut # (Auto) 3.5 Lymph # (Auto) 2.9 [place] # (Auto) 0.4 Eos # (Auto) 0.1 Baso # (Auto) 0.0 Immature Gran # (Auto) 0.02 H Absolute Nucleated RBC 0.00 Immature Gran % 0 Nucleated RBC % 0 Sodium 141 Potassium 3.8 Chloride 107 Carbon Dioxide 24.8 Anion Gap 9 BUN 10 Creatinine 0.7 Estim Creat Clear Calc 112.3 eGFR > 60 BUN/Creatinine Ratio 14 Glucose 76 Calculated Osmolality 279 Calcium 9.5 Quality Measures Quality Measures none Assessment & Plan Assessment Current Active Medications: Generic Name Dose Route Start Last Admin Trade Name Freq PRN Reason Stop Dose Admin Hydrocodone Bitart/Acetaminophen 1 tab 11/08/24 16:10 Hydrocodone/Apap 10/325 Tab PO 11/13/24 16:09 Q4H PRN PAIN SCALE 4-6 (Moderate Alprazolam 0.5 mg 11/08/24 16:17 Alprazolam 0.25 Mg Tablet PO 11/13/24 16:16 BID PRN ANXIETY Atorvastatin Calcium 40 mg 11/08/24 21:00 11/09/24 20:11 Atorvastatin Calcium 20 Mg Tablet PO 12/08/24 20:59 Not Given HS THU Diazepam 10 mg 11/09/24 08:06 Diazepam Inj 5 Mg/Ml Vial 2 Ml IV Q4HR PRN SEIZURES Heparin Sodium (Porcine) 5,000 unit 11/08/24 21:00 11/10/24 08:46 Heparin Sod Inj 5000 Unit/Ml Vial SC 11/22/24 20:59 5,000 unit Q12HR THU Administration Labetalol HCl 10 mg 11/08/24 14:11 Labetalol Inj 5 Mg/Ml Vial 20 Ml IVP Q15M PRN HYPER Lacosamide 50 mg 11/08/24 21:00 11/10/24 08:47 Lacosamide 50 Mg Tablet PO 12/08/24 20:59 50 mg BID THU Administration Ondansetron HCl 4 mg 11/08/24 14:11 Ondansetron Inj 2 Mg/Ml Inj 2 Ml IVP 12/08/24 14:10 Q4HR PRN NAUSEA OR VOMITING Sennosides 1 tab 11/08/24 16:10 Senna Tablet PO 12/08/24 16:09 QDAY PRN constipation Protocol Plan Patient is a 39-year-old female with past medical history of right-sided complex regional pain syndrome status post nerve stimulator, possible epilepsy, migraines, occipital neuralgia, hyperlipidemia, nephrolithiasis who presented on 11/08 for worsening episode of headache associated with left eye vision changes, will be admitted for strokelike symptoms with neurology consultation and MRI imaging. #CVA #Left sided headache with left eye vision changes #Dysphagia Differentials include: Underlying migraine versus occipital neuralgia, MS versus possible TIA/CVA, functional neurologic dysfunction Presented with worsening left-sided headache with left eye vision changes. Teleneurology consulted in the ED, NIH score of 8. Head CT was negative for any acute hemorrhage, mass effect or midline shift Head/neck CTA showed a 4 mm left thyroid nodule but otherwise no significant findings EKG showed normal sinus rhythm without any concerning findings Patient now endorsing new onset odynophagia, likely secondary to CVA versus MS versus FND Plan: ?MR stroke protocol ?MR cervical spine ?MR venogram brain without contrast ?EEG ?No need for antiplatelet per teleneurology ?Atorvastatin 40 mg nightly ?Head of bed greater than 30, keep euthermic and euglycemic ?PT and speech therapy ?Will hold off on echo with bubble study as it was completed recently ?Neurology Dr. Carmona consulted, appreciate recommendations. If MRI findings and EEG findings are inconclusive, can consider ordering EMG and NCS as per neurology ?Consulted GI specialist Dr. Heard ?Plan for EGD tomorrow morning, n.p.o. after midnight #Right-sided complex regional pain syndrome #Possible epilepsy #MS? #Migraines #Occipital neuralgia Follows up with neurology at [facility] Patient is on lacosamide 50 mg twice daily for epilepsy Plan: - EEG as above ?Lacosamide 50 mg twice daily ?Alprazolam as needed for anxiety - Seizure precautions - IV diazepam as needed for breakthrough seizures #Hyperlipidemia As seen from lipid panel Repeat lipid panel shows triglycerides 179, cholesterol 347, LDL 271, HDL 40 Plan: - Atorvastatin as above - Outpatient workup for familial hypercholesteremia along with genetic testing #Incidental thyroid nodule As seen on CTA of the head and neck, measuring 4 mm TSH 1.53 Plan: - Follow-up outpatient Health Maintenance Disposition: Telemetry DVT prophylaxis: Heparin GI prophylaxis: None needed Diet: Cardiac CODE STATUS: Full Patient plan of care was discussed with the resident, Dr. Brennan, and attending physician, Dr. Trejo. Julianna No, PGY-1 Attending Provider Attestation/Addendum I have discussed and was present for the essential components of the history, physical examination, diagnosis, and treatment plan with the resident. I agree with the patient's care as documented by the resident and amended herein by me. Enrike Trejo, DO. Although this document has been carefully reviewed, there may still be some phonetic and other typographical errors. These errors are purely grammatical due to imperfections in the software program and should not be construed in any way to compromise the substance of the patient's medical care during this visit.
--- NOTE | 2024-11-10 11:53 | PC.SS ---
SS met with patient regarding her d/c plan. Pt is alert/oriented. Pt was admitted for Stroke R/O. Pt confirmed demographic and contact information is correct on facesheet. Pt resides with mom. Pt ambulates using a 4 wheel with seat, rollator walker. Pt states she is ok with ADLs. Pt also explained mom helps care for her at home. Patient?s pharmacy of choice is [facility] on [address]. Pt named her mom, Lauryn Jackson medical decision maker if she is unable. Patient?s choice is to return home upon d/c. Patient's cousin, Salina will provide transportation home. Pt followed up with PCP in September. D/C plan: Return home Next of Kin: Lauryn Jackson, mom, phone# [phone] PCP: Dr. Schneider from [facility] Address: Correct on facesheet
--- NOTE | 2024-11-10 14:03 | PD.IMCONS ---
HPI Data of Consult Requesting Physician: Yogesh Trejo DO Primary Care Provider: Physician No Primary/Family Consult Narrative Reason for consult: Progressive dysphagia History of present illness: 39 years of female with strokelike symptoms lately has been getting progressive dysphagia difficulty swallowing the pills She is already under the care of neurology and getting her imaging studies cc:: cc: Yogesh Trejo DO Review of Systems Review of Systems Systems Reviewed: All systems reviewed, normal except as documented Meds Home Medications and Allergies Home Medications ?Medication ?Instructions ?Recorded ?Confirmed ?Type rosuvastatin 40 mg tablet 40 mg PO HS 03/07/23 11/08/24 History aspirin 81 mg tablet,delayed 81 mg PO DAILY 11/08/24 11/08/24 History release ondansetron HCl 8 mg tablet 8 mg PO Q8H PRN nausea and vomiting 11/08/24 11/08/24 History tirzepatide (weight loss) 7.5 7.5 mg subcut .weekly 11/08/24 11/08/24 History mg/0.5 mL subcutaneous pen injector (Zepbound) tizanidine 2 mg capsule 2 mg PO 1XD 11/08/24 11/08/24 History Allergies Allergy/AdvReac Type Severity Reaction Status Date / Time alcohol Allergy Severe ICHY, Verified 08/12/24 06:22 REDNESS TO FACE diphenhydramine (From Allergy Severe Difficulty Verified 08/12/24 06:22 Benadryl Allergy) Swallowing ibuprofen Allergy Severe RASH Verified 08/12/24 06:22 loratadine (From Claritin) Allergy Severe Hives Verified 08/12/24 06:22 morphine Allergy Severe Difficulty Verified 08/12/24 06:22 Breathing oxycodone Allergy Severe Hives Verified 08/12/24 06:22 Penicillins Allergy Severe Difficulty Verified 08/12/24 06:22 Swallowing hydrocodone (From [place]) Allergy Intermediate Hypertensio Verified 08/12/24 06:22 n ketorolac (From Toradol) AdvReac Severe Fainting Verified 08/12/24 06:22 Exam Vital Signs Temp Pulse Resp BP Pulse Ox O2 Del Method 97.1 F 70 18 102/59 L 98 Room Air 11/10/24 12:00 11/10/24 12:00 11/10/24 12:00 11/10/24 12:00 11/10/24 12:00 11/10/24 12:00 Constitutional Comments: Chronically ill-appearing Routine Respiratory Exam Comments: Normal to auscultation Routine Abdominal Exam Comments: Soft nontender Results Labs 11/10/24 04:44 11/10/24 04:44 Labs: Short CBC 11/10/24 Range/Units 04:44 WBC 6.9 (3.6-11.0) Thou/mm3 Hgb 12.8 (12.0-16.0) g/dL Hct 39.6 (36.0-46.0) % Plt Count 257 (140-440) Thou/mm3 BMP 11/10/24 04:44 Sodium 141 Potassium 3.8 Chloride 107 Carbon Dioxide 24.8 BUN 10 Creatinine 0.7 Glucose 76 Calcium 9.5 Assessment and Plan Additional Assessment & Plan Additional Plan: # Progressive dysphagia Plan EBONIE TSH Consent obtained for fiberoptic esophagogastroduodenoscopy with possible biopsy possible therapeutic intervention under intravenous moderate sedation scheduled for tomorrow N.p.o. midnight galen Thank you very much for the opportunity to participate in care of this patient
--- NOTE | 2024-11-10 16:53 | RESP.EEG ---
EEG complete and ready to read
[2024-11-10] MEDS: ATORVASTATIN CALCIUM 20 MG TABLET 40 MG PO (20:31)
--- NOTE | 2024-11-10 22:47 | PD.NEUROPROG ---
Documentation for date of: 11/10/24 Subjective Subjective Interval history: Patient was seen in [facility] today at the bedside. She continues to complain of dizziness, severe headache and vision changes for the last 3 days with persistent left-sided weakness since August. However she states that she uses the walker with her right hand to move around at her home. she stated that she underwent trigger point injections in both neck and upper back and occipital regions likely ON block at [facility] without much improvement. Patient continues to complain of left hemiparesis, and not able to move out and help. However she was able to stand and walk and walk with a walker at times. She continues to claim inability to swallow medication/food and constant headache. Exam - Neurology Vital Signs Temp Pulse Resp BP Pulse Ox O2 Del Method 98.6 F 61 18 113/66 94 L Room Air 11/10/24 20:00 11/10/24 20:00 11/10/24 20:00 11/10/24 20:11/10/24 20:11/10/24 20:00 Narrative Exam GENERAL APPEARANCE: Well hydrated, well-nourished in no acute distress. HEENT: Normocephalic, atraumatic, extraocular movements intact. Pupils: Equal reacting to light and accommodation NECK: Supple, no JVD or bruits. CARDIOVASULAR: Heart: S1, S2 heard, regular without S3-S4 or murmur no rubs or gallops. LUNGS/CHEST: Clear to auscultation bilaterally. No rails, rhonchi, or wheezing. Normal inspection. ABDOMEN: Soft, nontender, with normal bowel sounds. No pulsatile masses. No rebound, rigidity, or guarding. Normal inspection and palpation. EXTREMITIES: Normal inspection and palpation. No edema, clubbing or cyanosis. SKIN: Warm and dry without rashes. Normal inspection. MUSCULOSKELETAL: No cervical, thoracic, lumbar or midline bony tenderness. Normal inspection. NEURO: Alert, awake and oriented x3. Cranial nerves: II through XII grossly intact. Speech and language: Normal with no dysarthria or dysphasia. Motor system: Tone and bulk: Normal: Strength: Continues to have giveaway weakness in the left upper and lower extremities. Deep tendon reflexes: 2+ bilaterally symmetrical. Plantar reflex: Downgoing bilaterally. Sensory system: Intact to all modalities of sensation bilaterally. Coordination: Intact to [id number] and [id number] test on the right but cannot be tested on the left sec to weakness. No ataxia, no dysmetria, or dysdiadochokinesia noted. No intention tremors noted. Gait: cannot be tested. No signs of meningeal irritation noted. PSYCHIATRIC: Normal mood and affect. Objective Labs 11/10/24 04:44 11/10/24 04:44 Labs: Laboratory Results - last 24 hr 11/10/24 04:44 WBC 6.9 RBC 4.33 Hgb 12.8 Hct 39.6 MCV 92 MCH 29.6 MCHC 32.3 RDW Std Deviation 46.4 H Plt Count 257 Neut % (Auto) 51 Lymph % (Auto) 42 [place] % (Auto) 5 Eos % (Auto) 2 Baso % (Auto) 0 Neut # (Auto) 3.5 Lymph # (Auto) 2.9 [place] # (Auto) 0.4 Eos # (Auto) 0.1 Baso # (Auto) 0.0 Immature Gran # (Auto) 0.02 H Absolute Nucleated RBC 0.00 Immature Gran % 0 Nucleated RBC % 0 Sodium 141 Potassium 3.8 Chloride 107 Carbon Dioxide 24.8 Anion Gap 9 BUN 10 Creatinine 0.7 Estim Creat Clear Calc 112.3 eGFR > 60 BUN/Creatinine Ratio 14 Glucose 76 Calculated Osmolality 279 Calcium 9.5 Assessment & Plan Assessment and plan (1) Headache: Status: Acute Assessment and plan: severe headache with dizziness and vision changes chronic left UE and LE weakness MRI of the brain showed nonspecific white matter changes, not suggestive of demyelination MRI of the cervical spine showed Subtle increased signal in the cervical cord on the precontrast images, seen with demyelinating disease, not in my opinion C5-C6 4 mm left paracentral disc bulge with moderate left neural foraminal stenosis; No abnormal osseous epidural or cervical cord enhancement MR venogram: Negative for venous sinus thrombosis. Noted that she is waiting to be seen by Movement disorder specialist in [facility]. 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 Follow-up with the EEG result. If it comes back normal, will d/c Lacosamide. Noted that she never had a clinical sz per the patient.
[2024-11-11] VITALS (20 sets, daily range): BP systolic 85–138; BP diastolic 58–87; PULSE 57–78; RESP 13–19; TEMP 36.4–36.7; O2SAT 95–100; BMI 30.2; BMI 30.3
[2024-11-11 05:54] LABS: Basophils # (Auto) 0.0 Thou/mm3 (0.0-0.2); Basophils % (Auto) 0 % (0-2.5); Eosinophils # (Auto) 0.1 Thou/mm3 (0.0-0.5); Eosinophils % (Auto) 2 % (0-10); Hematocrit 36.8 % (36.0-46.0); Hemoglobin 12.1 g/dL (12.0-16.0); Immature Granulocytes Auto 0.01 Thou/mm3 (0.00-0.00); Lymphocytes # (Auto) 2.7 Thou/mm3 (1.0-4.8); Lymphocytes % (Auto) 41 % (10-50); Mean Corpuscular HGB Conc 32.9 g/dl (31.0-37.0); Mean Corpuscular Hemoglobin 29.4 pg (25.0-35.0); Mean Corpuscular Volume 90 fL (80-100); Monocytes # (Auto) 0.4 Thou/mm3 (0.0-0.8); Monocytes % (Auto) 6 % (0-12); Neutrophils # (Auto) 3.3 Thou/mm3 (1.8-7.7); Neutrophils % (Auto) 51 % (37-80); Nucleated Red Blood Cell # 0.00 Thou/mm3 (0.00-0.00); Nucleated Red Blood Cell % 0 /100 WBC (0); Platelet Count 210 Thou/mm3 (140-440); RDW Standard Deviation 44.4 fL (36.4-46.3); Red Blood Count 4.11 Miln/mm3 (4.00-5.20); White Blood Count 6.6 Thou/mm3 (3.6-11.0)
[2024-11-11 06:22] LABS: Anion Gap 10 (7-16); BUN/Creatinine Ratio 11 Ratio (12-20); Blood Urea Nitrogen 8 mg/dL (9-23); Calcium 9.4 mg/dL (8.3-10.6); Carbon Dioxide 25.0 mMol/L (20.0-31.0); Chloride 106 mMol/L (98-107); Creatinine (Component) 0.7 mg/dL (0.6-1.3); Estimated Creatinine Clearance 112.3 mL/min (>60); Glucose 81 mg/dL (74-106); Osmolality,Calculated 278 (275-295); Potassium 3.8 mMol/L (3.4-5.1); Sodium 141 mMol/L (136-145); Thyroid Stimulating Hormone 2.70 uIU/mL (0.55-4.78); eGFR > 60 See Note
[2024-11-11 06:55] LABS: Glucose Estimated Average 91 mg/dL (80-131); Hemoglobin A1C 4.8 % Hgb (4.8-6.0)
[2024-11-11] MEDS: POTASSIUM CHLORIDE 10% 20 MEQ/15 ML UDC PO (09:27)
[2024-11-11] MEDS: HEPARIN SOD INJ 5000 UNIT/ML VIAL SC ×2 (09:27→23:56)
[2024-11-11] MEDS: LACOSAMIDE 50 MG TABLET PO ×2 (09:41→23:55)
--- NOTE | 2024-11-11 10:58 | CHAP ---
Patient was visited by a Spiritual Care Volunteer on 11/11/2024 between 0855 and 0915 and received comfort, encouragement and/or prayer.
--- NOTE | 2024-11-11 11:23 | ESPR_ITS ---
Documentation for date of: 11/11/24 Subjective Subjective Interval history: No acute overnight events. Continues to endorse left sided headache and left eye blurriness, likely secondary to migraine versus C5-C6 4 mm disc bulge with moderate stenosis. Pending EGD this afternoon for dysphagia. Vitals and labs otherwise stable. MRI brain showed demyelinating disease but negative for acute changes. EEG showed abnormal spikes indicative of seizure activity, will continue lacosamide per neurology recommendations. PT recommend discharge to home with outpatient PT follow up. Exam Vital Signs Temp Pulse Resp BP Pulse Ox O2 Del Method 97.8 F 66 18 91/60 98 Room Air 11/11/24 07:59 11/11/24 08:00 11/11/24 07:59 11/11/24 07:59 11/11/24 07:59 11/11/24 07:59 Narrative Exam Physical Exam General: Awake and in no acute distress. Conversational and non-toxic appearing. HEENT: Normocephalic, atraumatic, mucous membranes moist. Decreased vision of left eye. Tenderness at left C1-C2 transverse process. Heart: Regular rate and rhythm, normal S1 and S2, no murmurs. Lungs: Clear to auscultation with no wheezing or crackles. Abdomen: Soft, nondistended, nontender, positive bowel sounds. No guarding or rebound tenderness. Neurologic: Alert and oriented x3, L upper extremity unable to move or hold up against gravity, no deficits noted on the right extremities. Instructional Technology Coordinator strength 0/5 on the left but 5/5 on the right. Extremities: No edema. Skin: No rash or ecchymoses. Objective Labs 11/12/24 04:30 11/12/24 04:30 Labs: Laboratory Results - last 24 hr 11/11/24 05:30 WBC 6.6 RBC 4.11 Hgb 12.1 Hct 36.8 MCV 90 MCH 29.4 MCHC 32.9 RDW Std Deviation 44.4 Plt Count 210 D Neut % (Auto) 51 Lymph % (Auto) 41 [place] % (Auto) 6 Eos % (Auto) 2 Baso % (Auto) 0 Neut # (Auto) 3.3 Lymph # (Auto) 2.7 [place] # (Auto) 0.4 Eos # (Auto) 0.1 Baso # (Auto) 0.0 Immature Gran # (Auto) 0.01 H Absolute Nucleated RBC 0.00 Immature Gran % 0 Nucleated RBC % 0 Sodium 141 Potassium 3.8 Chloride 106 Carbon Dioxide 25.0 Anion Gap 10 BUN 8 L Creatinine 0.7 Estim Creat Clear Calc 112.3 eGFR > 60 BUN/Creatinine Ratio 11 L Glucose [address] Glu mg/dL 91 Hemoglobin A1c 4.8 Calculated Osmolality 278 Calcium 9.4 TSH 2.70 Quality Measures Quality Measures none Assessment & Plan Assessment Current Active Medications: Generic Name Dose Route Start Last Admin Trade Name Freq PRN Reason Stop Dose Admin Hydrocodone Bitart/Acetaminophen 1 tab 11/08/24 16:10 11/11/24 09:27 Hydrocodone/Apap 10/325 Tab PO 11/13/24 16:09 1 tab Q4H PRN Administration PAIN SCALE 4-6 (Moderate Alprazolam 0.5 mg 11/08/24 16:17 Alprazolam 0.25 Mg Tablet PO 11/13/24 16:16 BID PRN ANXIETY Atorvastatin Calcium 40 mg 11/08/24 21:00 11/10/24 20:31 Atorvastatin Calcium 20 Mg Tablet PO 12/08/24 20:59 40 mg HS THU Administration Diazepam 10 mg 11/09/24 08:06 Diazepam Inj 5 Mg/Ml Vial 2 Ml IV Q4HR PRN SEIZURES Heparin Sodium (Porcine) 5,000 unit 11/08/24 21:00 11/11/24 09:27 Heparin Sod Inj 5000 Unit/Ml Vial SC 11/22/24 20:59 5,000 unit Q12HR THU Administration Labetalol HCl 10 mg 11/08/24 14:11 Labetalol Inj 5 Mg/Ml Vial 20 Ml IVP Q15M PRN HYPER Lacosamide 50 mg 11/08/24 21:00 11/11/24 09:41 Lacosamide 50 Mg Tablet PO 12/08/24 20:59 50 mg BID THU Administration Ondansetron HCl 4 mg 11/08/24 14:11 Ondansetron Inj 2 Mg/Ml Inj 2 Ml IVP 12/08/24 14:10 Q4HR PRN NAUSEA OR VOMITING Sennosides 1 tab 11/08/24 16:10 Senna Tablet PO 12/08/24 16:09 QDAY PRN constipation Protocol Plan Patient is a 39-year-old female with past medical history of right-sided complex regional pain syndrome status post nerve stimulator, possible epilepsy, migraines, occipital neuralgia, hyperlipidemia, nephrolithiasis who presented on 11/08 for worsening episode of headache associated with left eye vision changes, will be admitted for strokelike symptoms with neurology consultation and MRI imaging. #CVA #Left sided headache with left eye vision changes #Dysphagia Differentials include: Underlying migraine versus occipital neuralgia, MS versus possible TIA/CVA, functional neurologic dysfunction Presented with worsening left-sided headache with left eye vision changes. Teleneurology consulted in the ED, NIH score of 8. Head CT was negative for any acute hemorrhage, mass effect or midline shift Head/neck CTA showed a 4 mm left thyroid nodule but otherwise no significant findings EKG showed normal sinus rhythm without any concerning findings Patient now endorsing new onset odynophagia, likely secondary to CVA versus MS versus FND MRI brain negative for stroke but suggestive of demyelinating disease. MRI venogram negative for stenosis. MRI C Spine showed left C5-C6 disc bulge with moderate stenosis. Plan: ?No need for antiplatelet per teleneurology ?Atorvastatin 40 mg nightly ?Head of bed greater than 30, keep euthermic and euglycemic ?PT and speech therapy consulted ?Will hold off on echo with bubble study as it was completed recently ?Neurology Dr. Carmona consulted, appreciate recommendations. May can consider ordering EMG and NCS as per neurology ?Consulted GI specialist Dr. Heard: EGD today #Right-sided complex regional pain syndrome #Possible epilepsy #MS? #Migraines #Occipital neuralgia Follows up with neurology at [facility]. Pain stimulator in place. Patient is on lacosamide 50 mg twice daily for epilepsy MRI brain showed Punctate focus increased signal on the right frontal white matter concerning for demyelinating disease pattern EEG showed abnormal spikes indicative of seizure activity Plan: ?Lacosamide 50 mg twice daily per neurology ?Alprazolam as needed for anxiety - Seizure precautions - IV diazepam as needed for breakthrough seizures - Consulted neurology, appreciate recommendations #Hyperlipidemia Repeat lipid panel shows triglycerides 179, cholesterol 347, LDL 271, HDL 40 Plan: - Atorvastatin as above - Outpatient workup for familial hypercholesteremia along with genetic testing #Incidental thyroid nodule As seen on CTA of the head and neck, measuring 4 mm TSH 1.53 Plan: - Follow-up outpatient Health Maintenance Disposition: Telemetry DVT prophylaxis: Heparin GI prophylaxis: None needed Diet: Cardiac CODE STATUS: Full Patient plan of care was discussed with the resident, Dr. Brennan, and attending physician, Dr. Trejo. Julianna No, PGY-1 Attending Provider Attestation/Addendum I have discussed and was present for the essential components of the history, physical examination, diagnosis, and treatment plan with the resident. I agree with the patient's care as documented by the resident and amended herein by me. Enrike Trejo DO. Although this document has been carefully reviewed, there may still be some phonetic and other typographical errors. These errors are purely grammatical due to imperfections in the software program and should not be construed in any way to compromise the substance of the patient's medical care during this visit.
[2024-11-11 22:49] LABS: HCG,Qualitative Serum Negative
[2024-11-11] MEDS: SODIUM CHLORIDE 0.9% 500 ML 500 ML 20 ML IV (22:55)
--- NOTE | 2024-11-11 23:47 | ESPR_ITS ---
Documentation for date of: 11/11/24 Subjective Subjective Interval history: Patient was seen in [facility] today at the bedside. She continues to complain of dizziness, severe headache and vision changes for the last 3 days with persistent left-sided weakness since August. However she states that she uses the walker with her right hand to move around at her home. she stated that she underwent trigger point injections in both neck and upper back and occipital regions likely ON block at [facility] without much improvement. Patient continues to complain of left hemiparesis, and not able to move out and help. However she was able to stand and walk and walk with a walker at times. She continues to claim inability to swallow medication/food and constant headache. She has been n.p.o. for scheduled upper GI endoscopy today to evaluate for dysphagia. Exam - Neurology Vital Signs Temp Pulse Resp BP Pulse Ox O2 Del Method O2 Flow Rate 97.8 F 67 16 121/75 97 Room Air 3 11/11/24 23:15 11/11/24 23:45 11/11/24 23:45 11/11/24 23:45 11/11/24 23:45 11/11/24 20:00 11/11/24 23:10 Narrative Exam GENERAL APPEARANCE: Well hydrated, well-nourished in no acute distress. HEENT: Normocephalic, atraumatic, extraocular movements intact. Pupils: Equal reacting to light and accommodation NECK: Supple, no JVD or bruits. CARDIOVASULAR: Heart: S1, S2 heard, regular without S3-S4 or murmur no rubs or gallops. LUNGS/CHEST: Clear to auscultation bilaterally. No rails, rhonchi, or wheezing. Normal inspection. ABDOMEN: Soft, nontender, with normal bowel sounds. No pulsatile masses. No rebound, rigidity, or guarding. Normal inspection and palpation. EXTREMITIES: Normal inspection and palpation. No edema, clubbing or cyanosis. SKIN: Warm and dry without rashes. Normal inspection. MUSCULOSKELETAL: No cervical, thoracic, lumbar or midline bony tenderness. Normal inspection. NEURO: Alert, awake and oriented x3. Cranial nerves: II through XII grossly intact. Speech and language: Normal with no dysarthria or dysphasia. Motor system: Tone and bulk: Normal: Strength: Continues to have giveaway weakness in the left upper and lower extremities. Deep tendon reflexes: 2+ bilaterally symmetrical. Plantar reflex: Downgoing bilaterally. Sensory system: Intact to all modalities of sensation bilaterally. Coordination: Intact to hhrfvv-[id number]-ysigib and iwwr-yseb-uhzl test on the right but cannot be tested on the left sec to weakness. No ataxia, no dysmetria, or dysdiadochokinesia noted. No intention tremors noted. Gait: cannot be tested. No signs of meningeal irritation noted. PSYCHIATRIC: Normal mood and affect. Objective Labs 11/11/24 05:30 11/11/24 05:30 Labs: Laboratory Results - last 24 hr 11/11/24 11/11/24 05:30 22:09 WBC 6.6 RBC 4.11 Hgb 12.1 Hct 36.8 MCV 90 MCH 29.4 MCHC 32.9 RDW Std Deviation 44.4 Plt Count 210 D Neut % (Auto) 51 Lymph % (Auto) 41 [place] % (Auto) 6 Eos % (Auto) 2 Baso % (Auto) 0 Neut # (Auto) 3.3 Lymph # (Auto) 2.7 [place] # (Auto) 0.4 Eos # (Auto) 0.1 Baso # (Auto) 0.0 Immature Gran # (Auto) 0.01 H Absolute Nucleated RBC 0.00 Immature Gran % 0 Nucleated RBC % 0 Sodium 141 Potassium 3.8 Chloride 106 Carbon Dioxide 25.0 Anion Gap 10 BUN 8 L Creatinine 0.7 Estim Creat Clear Calc 112.3 eGFR > 60 BUN/Creatinine Ratio 11 L Glucose [address] Glu mg/dL 91 Hemoglobin A1c 4.8 Calculated Osmolality 278 Calcium 9.4 TSH 2.70 HCG, Qual Negative Assessment & Plan Assessment and plan (1) Headache: Status: Acute Assessment and plan: Unchanged severe headache with dizziness and vision changes chronic left UE and LE weakness Workup: MRI of the brain showed nonspecific white matter changes, not suggestive of demyelination MRI of the cervical spine showed Subtle increased signal in the cervical cord on the precontrast images, seen with demyelinating disease, not in my opinion C5-C6 4 mm left paracentral disc bulge with moderate left neural foraminal stenosis; No abnormal osseous epidural or cervical cord enhancement MR venogram: Negative for venous sinus thrombosis. Noted that she is waiting to be seen by Movement disorder specialist in [facility]. 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 Continue with the lacosamide as the EEG resulted abnormal.
[2024-11-11] MEDS: ATORVASTATIN CALCIUM 20 MG TABLET 40 MG PO (23:55)
[2024-11-12] VITALS: BP 121/80; PULSE 69; RESP 17; TEMP 36.6; O2SAT 96
--- NOTE | 2024-11-12 02:47 | PC.NURSE ---
[employer] downtime occurred on <11/12> from <0200> to <0235>.
[2024-11-12 03:58] VITALS: BP 94/55; PULSE 64; RESP 17; TEMP 36.6; O2SAT 95
[2024-11-12 05:12] LABS: Basophils # (Auto) 0.0 Thou/mm3 (0.0-0.2); Basophils % (Auto) 1 % (0-2.5); Eosinophils # (Auto) 0.1 Thou/mm3 (0.0-0.5); Eosinophils % (Auto) 2 % (0-10); Hematocrit 36.1 % (36.0-46.0); Hemoglobin 11.8 g/dL (12.0-16.0); Immature Granulocytes Auto 0.01 Thou/mm3 (0.00-0.00); Lymphocytes # (Auto) 2.6 Thou/mm3 (1.0-4.8); Lymphocytes % (Auto) 42 % (10-50); Mean Corpuscular HGB Conc 32.7 g/dl (31.0-37.0); Mean Corpuscular Hemoglobin 30.0 pg (25.0-35.0); Mean Corpuscular Volume 92 fL (80-100); Monocytes # (Auto) 0.4 Thou/mm3 (0.0-0.8); Monocytes % (Auto) 6 % (0-12); Neutrophils # (Auto) 3.1 Thou/mm3 (1.8-7.7); Neutrophils % (Auto) 49 % (37-80); Nucleated Red Blood Cell # 0.00 Thou/mm3 (0.00-0.00); Nucleated Red Blood Cell % 0 /100 WBC (0); Platelet Count 229 Thou/mm3 (140-440); RDW Standard Deviation 46.5 fL (36.4-46.3); Red Blood Count 3.93 Miln/mm3 (4.00-5.20); White Blood Count 6.2 Thou/mm3 (3.6-11.0)
[2024-11-12 06:00] VITALS: BMI 30.3
[2024-11-12 06:10] LABS: Anion Gap 10 (7-16); BUN/Creatinine Ratio 10 Ratio (12-20); Blood Urea Nitrogen 7 mg/dL (9-23); Calcium 9.3 mg/dL (8.3-10.6); Carbon Dioxide 25.9 mMol/L (20.0-31.0); Chloride 105 mMol/L (98-107); Creatinine (Component) 0.7 mg/dL (0.6-1.3); Estimated Creatinine Clearance 110.0 mL/min (>60); Glucose 94 mg/dL (74-106); Osmolality,Calculated 279 (275-295); Potassium 3.4 mMol/L (3.4-5.1); Sodium 141 mMol/L (136-145); eGFR > 60 See Note
[2024-11-12 08:00] VITALS: BP 106/62; PULSE 65; PULSE 72; RESP 22; TEMP 36.1; O2SAT 95
[2024-11-12 08:18] LABS: Magnesium 1.8 mg/dL (1.6-2.6); Phosphorous 3.6 mg/dL (2.4-5.1)
[2024-11-12] MEDS: LACOSAMIDE 50 MG TABLET PO (08:59)
[2024-11-12] MEDS: HEPARIN SOD INJ 5000 UNIT/ML VIAL SC (08:59)
--- NOTE | 2024-11-12 10:17 | PC.CC ---
Addendum entered by Arian Daley RN 11/12/24 10:42: [facility] accepted and booked, soc 11/15 Original Note: [facility] ref sent out, waiting for responses
[2024-11-12 12:00] VITALS: BP 89/62; PULSE 70; RESP 12; TEMP 36.3; O2SAT 97
--- NOTE | 2024-11-12 13:46 | ESDS_ITS ---
<Statement entered by Adolfo Borja MD - 11/21/24 08:16> I reviewed above note and agree with findings and plans. I have also personally examined the patient with medicine team and went over assessment and plan with medical team including internal grinder and resident physician. Planned Discharge Date 11/12/24 DS: Providers Provider Date of admission: 11/08/24 16:10 Primary care physician: Physician No Primary/Family Admitting Provider: Yogesh Trejo DO Attending Provider on Admission: Yogesh Trejo DO Consults: 11/08/24 14:12 Consult to Neurology / Tele-Neurology Routine Comment: Consulting Provider: [facility] 11/08/24 15:26 Referral Speech Therapy Stat Comment: 11/08/24 16:14 Referral Physical Therapy Routine Comment: Physician Instructions: 11/09/24 08:45 Referral - PROJECT MANAGER INDUSTRIAL Living Coach Routine Comment: swallow nikosal brie Spencer 11/09/24 17:48 Consult to Neurology / Tele-Neurology Routine Comment: CVA Consulting Provider: Bora Carmona 11/10/24 10:26 Consult to Gastroenterology Routine Comment: odynophagia Consulting Provider: Carlos Heard Attending Provider on DC: Laureano Quezada DO Discharging Provider: Laureano Quezada DO DS: Diagnosis Problem List Completed Was Problem List Reviewed/Reconciled?: Yes Hospital Course Hospital Course Hospital course: Summary: 39-year-old female with past medical history of right-sided complex regional pain syndrome status post nerve stimulator, possible epilepsy, migraines, occipital neuralgia, hyperlipidemia, nephrolithiasis presenting to the ED on 11/08 with worsening episode of headache associated with left eye vision changes. Stroke has been ruled out. Patient was found to have C4-C5 disc bulging. MRI showed activity of seizure was prescribed lacosamide. Patient will need to follow-up with neurologist in outpatient setting. Also patient is to follow-up with GI doctor in clinic in outpatient setting for management of dysphagia. ED course: In the ED, patient presented normotensive, slightly tachycardic heart rate 104, regular respiratory rate, afebrile satting 98 on room air. There was no significant lab findings. Chest x-ray did not show any active disease process, head CT was negative for any acute hemorrhage, mass effect or midline shift, head/neck CTA showed a 4 mm left thyroid nodule but otherwise no significant findings and EKG showed normal sinus rhythm without any concerning findings. Stroke alert was initiated and teleneurologist was able to see and assessed the patient. NIHS score was 8 and recommendation was to admit the patient for strokelike symptoms. Hospital Course: MRI brain was negative for stroke but suggested demyelinating disease. MRI venogram was negative for stenosis. MRI cervical spine showed left C5-C6 disc bulge with moderate stenosis. EEG showed seizure activity with paroxysmal multifocal spike and wave discharges. Patient was kept on her lacosamide. Stroke has been ruled out. Patient will need to follow-up with a neurologist for her disc bulging. And the GI doctor for her dysphagia. And possibly outpatient certified medical assistant for her incidental finding of 4 mm thyroid nodules on CTA of the head and neck. Instructions: Please follow-up with Dr. Heard within 2 weeks for esophageal stricture which w as dilated and biopsies for gastritis and esophagitis Please follow-up with neurologist at [facility] and movement disorder specialist as scheduled Take Fifty Six 5-325mg as needed every 8 hours for pain secondary to neuralgia Continue all other home medications as prescribed Follow-up with Dr. Heard in 2 weeks for biopsy results Please follow-up with your PCP within 1 week or follow-up at the [address] [place] [address] Ask your PCP to workup reason for hyperlipidemia as your cholesterol levels are too elevated If your symptoms worsen or if you develop new and worsening vision problems, severe headache, chest pain or shortness of breath - please come back to the ED immediately Stable to discharge to home health #CVA #Left sided headache with left eye vision changes #Dysphagia #Right-sided complex regional pain syndrome #Possible epilepsy #MS? #Migraines #Occipital neuralgia #Hyperlipidemia #Incidental thyroid nodule Assessment and plan discussed with my attending physician Dr. oJnh Quezada (PGY-1)- Internal medicine resident Time Spent with Patient Time attestation: Total time spent providing and/or coordinating discharge services: Time spent: Greater than 30 minutes Home Health Home Health Referral Orders: 11/12/24 09:41 Home Health Referral Routine Reason For Exam: PT Home-Bound The patient must either because of illness or injury, need the aid of supportive devices such as crutches, canes, wheelchairs, and walkers; the use of special transportation; or the assistance of another person in order to leave their place of residence; OR have a condition such that leaving his or her home is medically contraindicated. In addition, the patient also meets the following criteria: patient is normally unable to leave the home and leaving home requires considerable taxing effort. Addendum to Home Health Certification Practitioner's Certification: I certify that the patient has been under my care in the hospital and the care of attending physician (see below). We had a [id number] encounter on (see date below). My clinical findings indicate that the patient is home bound per the above criteria and the Home Health Services noted in these orders are medically necessary. The primary reason for the fmjf-[id number] encounter is related to the fact that the patient requires home health services. Date Certifying Tmgt-an-Nban Physician Encounter: 11/08/24 Physician's Name who will Assume Oversight for Services: Wyatt Kellogg Physician's Phone No.who will Assume Oversight for Service: WHITE SOURER - Community Resources: No PT to Evaluate: Yes PT to evaluate and provide a treatmnet plan to increase patient's mobility and strength. Wound Care: No IV Therapy: No RN Safety Evaluation: Yes RN to evaluate and create a plan of care that will produce positive outcomes. Palliative Treatment: No Palliative treatment and evaluate the need for hospice. Home Health Aide - Personal Care: No Home Health Aide to assist with any ADL's. Exam Vital Signs Temp Pulse Resp BP Pulse Ox O2 Del Method O2 Flow Rate 97.0 F 65 22 H 106/62 95 Room Air 3 11/12/24 08:00 11/12/24 08:00 11/12/24 08:00 11/12/24 08:00 11/12/24 08:00 11/12/24 08:00 11/12/24 08:00 Discharge Plan Plan Patient Disposition: Home w/HOME HEALTH Patient condition on transfer: Stable Care Plan Goals: Please follow-up with Dr. Heard within 2 weeks for esophageal stricture which was dilated and biopsies for gastritis and esophagitis Please follow-up with neurologist at [facility] and movement disorder specialist as scheduled Take Fifty Six 5-325mg as needed every 8 hours for pain secondary to neuralgia Continue all other home medications as prescribed Follow-up with Dr. Heard in 2 weeks for biopsy results Please follow-up with your PCP within 1 week or follow-up at the [facility] [address] [place] [address] Ask your PCP to workup reason for hyperlipidemia as your cholesterol levels are too elevated If your symptoms worsen or if you develop new and worsening vision problems, severe headache, chest pain or shortness of breath - please come back to the ED immediately Prescriptions/Referrals Prescriptions/Med Rec: New hydrocodone-acetaminophen 5-325 mg tablet 1 tab PO Q8H MDD hydrocodone 15mg PRN (Reason: pain) 7 Days Qty: 21 0RF Continued lacosamide 50 mg tablet 50 mg PO BID Qty: 60 0RF alprazolam [Xanax] 0.5 mg tablet 0.5 mg PO BID PRN (Reason: anxiety) Qty: 10 0RF tizanidine 2 mg capsule 2 mg PO 1XD Patient Comments: TAKE 1 CAPSULE BY MOUTH AT BEDTIME FOR NECK TIGHTNESS AND PAIN Zepbound 7.5 mg/0.5 mL pen injector 7.5 mg SUBCUT .weekly Patient Comments: INJECT 7.5 MG SUBCUTANEOUSLY WEEKLY ondansetron HCl 8 mg tablet 8 mg PO Q8H PRN (Reason: nausea and vomiting) Patient Comments: TAKE 1 TABLET BY MOUTH EVERY 8 HOURS FOR 2 DAYS aspirin 81 mg tablet,delayed release (DR/EC) 81 mg PO DAILY Patient Comments: TAKE 1 TABLET BY MOUTH EVERY DAY rosuvastatin 40 mg tablet 40 mg PO HS 30 Days Qty: 30 0RF acetaminophen 500 mg tablet 1,000 mg PO Q6H PRN (Reason: pain) Qty: 30 0RF Referrals: Carlos Heard MD [Physician, Gastroenterology] No Primary/Family,Physician [Primary Care Provider] Patient/Caregiver Discharge Instructions Other Discharge Activity Instructions:: Please follow-up with Dr. Heard within 2 weeks for esophageal stricture which was dilated and biopsies for gastritis and esophagitis Please follow-up with neurologist at [facility] and movement disorder specialist as scheduled Continue all other home medications as prescribed Follow-up with Dr. Heard in 2 weeks for biopsy results Please follow-up with your PCP within 1 week or follow-up at the [facility] [address] [place] [address] Ask your PCP to workup reason for hyperlipidemia as your cholesterol levels are too elevated If your symptoms worsen or if you develop new and worsening vision problems, severe headache, chest pain or shortness of breath - please come back to the ED immediately Education Materials: Esophageal Dilation, Cholesterol Medicines, Understanding Dysphagia Print Language: Bahamian Stand Alone Forms: Carin Award Info., Patient Portal Info Letter Discharge Order Discharge Orders: Discharge (Routine); Ordered 11/12/24 Ordered By: Noel Rodriguez Quality Discharge Quality Measures VTE prophylaxis
[2024-11-17 07:16] LABS: ANA Screen, IFA NEGATIVE (NEGATIVE)
== END 2024-11-12 12:45 | disposition home health service (06) | DRG 54 ==
LOC: SERX 16:40 → SERHOLD 16:49 → S3NX 20:16 → S2NX 11-11 17:54
PROVIDERS: Nurse Practitioner Family; Specialist; Admitting Provider Student in an Organized Health Care Education/Training Program; Emergency Provider Emergency Medicine; Visit Provider Student in an Organized Health Care Education/Training Program
PROC: (CPT 43239; principal; 2024-11-11 21:00)
DX: G43.909 Migraine, unspecified, not intractable, without status migrainosus (principal); G40.909 Epilepsy, unspecified, not intractable, without status epilepticus; G81.94 Hemiplegia, unspecified affecting left nondominant side; R20.2 Paresthesia of skin; M54.81 Occipital neuralgia; E78.5 Hyperlipidemia, unspecified; H53.2 Diplopia; E04.2 Nontoxic multinodular goiter; K22.2 Esophageal obstruction; M48.02 Spinal stenosis, cervical region; K20.90 Esophagitis, unspecified without bleeding; R13.10 Dysphagia, unspecified; R11.10 Vomiting, unspecified; K29.70 Gastritis, unspecified, without bleeding; F41.9 Anxiety disorder, unspecified; Z79.899 Other long term (current) drug therapy; G37.9 Demyelinating disease of central nervous system, unspecified; Z88.2 Allergy status to sulfonamides; Z88.0 Allergy status to penicillin; Z88.8 Allergy status to other drugs, medicaments and biological substances; Z88.6 Allergy status to analgesic agent; Z88.5 Allergy status to narcotic agent
CPT/HCPCS: 36415; 70450; 70496; 70498; 70551; 70553; 71045; 72156; 80048; 80053; 80061; 80307; 81001; 83036; 83735; 84100; 84443; 84484; 84703; 85025; 85610; 85730; 86038; 87086; 92526; 92610; 93005; 93225; 95816; 96372; 97162; 99285; A4649; A9577; C1769; J0131; J1644; J2175; J2250; J3010; J3475; J7999; Q9967; A9270

== ENCOUNTER 2024-12-16 13:15 | Inpatient (IN) | payer MEDICAID, SELFPAY ==
[2024-12-16] VITALS (9 sets, daily range): BP systolic 107–137; BP diastolic 80–91; PULSE 66–98; RESP 13–100; TEMP 36.2–37; O2SAT 98–99; BMI 28.3
--- NOTE | 2024-12-16 13:29 | EKG_ITS ---
[facility] (Formerly [facility]) Test Date: 2024-12-16 Pat Name: MARCO ANTONIO SALAS Department: Room: - Gender: Female Bending Roll Hand: : 1985 Requested By: Brina Potts Order Number: [id number] Reading MD: Brina Potts Measurements Intervals [place] Rate: 78 P: 226 W[place]: 242 QRS: -10 QRSD: 93 T: 25 QT: 382 QTc: 436 Interpretive Statements ELECTRONIC ATRIAL PACEMAKER LOW QRS VOLTAGE IN PRECORDIAL LEADS [QRS DEFLECTION < 1.0 mV IN CHEST LEADS] ABNORMAL RHYTHM ECG Compared to ECG 11/08/2024 14:52:07 No significant changes /store/S0/[id number].pdf
--- NOTE | 2024-12-16 13:30 | PD.EDHEAD ---
ED Head Injury RME/HPI General Chief complaint: Head Injury Stated complaint: PASSED OUT, HIT HEAD ON SINK, NO VISION L) EYE Time Seen by Provider: 12/16/24 13:32 Arrival date/time: 12/16/24 13:15 RME / HPI RME / HPI Narrative: 39 year old female with history of right-sided CRPS s/p nerve stimulator, possible epilepsy, migraines, occipital neuralgia, hyperlipidemia presents to the ED brought in by family for evaluation after fall today. Patient reportedly passed out while at home and struck her head on the sink. In the ED, patient complains of headache and right hip pain. Related Data Previous Rx's ?Medication ?Instructions ?Recorded rosuvastatin 40 mg tablet 40 mg PO HS 1 month #30 tabs 11/12/24 epinephrine 0.3 mg/0.3 mL 0.3 ml subcut PRN PRN 12/18/24 injection, auto-injector (EpiPen) hypersensitivity reaction #1 ea lacosamide 50 mg tablet 100 mg (2 x 50 mg) PO BID #60 tabs 12/18/24 ubrogepant 100 mg tablet (Ubrelvy) 100 mg PO QDAY for migraine, 12/18/24 10tablets per month #10 tabs Allergies Allergy/AdvReac Type Severity Reaction Status Date / Time alcohol Allergy Severe ICHY, Verified 12/16/24 13:18 REDNESS TO FACE diphenhydramine (From Allergy Severe Difficulty Verified 12/16/24 13:18 Benadryl Allergy) Swallowing ibuprofen Allergy Severe RASH Verified 12/16/24 13:18 loratadine (From Claritin) Allergy Severe Hives Verified 12/16/24 13:18 morphine Allergy Severe Difficulty Verified 12/16/24 13:18 Breathing oxycodone Allergy Severe Hives Verified 12/16/24 13:18 Penicillins Allergy Severe Difficulty Verified 12/16/24 13:18 Swallowing ketorolac (From Toradol) AdvReac Severe Fainting Verified 12/16/24 13:18 Review of Systems Review of Systems Systems Reviewed: All systems reviewed, normal except as documented Past Medical History Past Medical History NEUROLOGIC: Positive Neurological Disorders (Left sided weakness) CARDIAC: Positive Cardiac Disorders and Hypercholesterolemia GASTROINTESTINAL: Positive Gastrointestinal Disorders and Gastroesophageal Reflux Disease GENITOURINARY: Positive Genitourinary Disorders and Kidney Stones MUSCULOSKELETAL: Positive Musculoskeletal Disorders and Carpal Tunnel Syndrome ENDOCRINE: Positive Endocrine Disorders and Hypothyroidism PSYCHO/SOCIAL: Positive Anxiety OTHER HISTORY: Positive Hospitalization Family History FAMILY HISTORY: Positive Family Respiratory Disorders, Family Cardiac Disorders and Family Cancer Surgical History SURGICAL: Positive Abdominal Surgery Social History SMOKING STATUS: Never smoker SECOND HAND EXPOSURE: No ED Exam Narrative Physical exam: GENERAL APPEARANCE: well-developed, well-nourished, pale, appeared altered, mildly diaphoretic, moaning HEENT: Normocephalic, atraumatic; pupils equal, round, reactive to light; EOMI; mucous membranes pink, moist; oropharynx clear NECK: Supple LUNGS: CTABL; no wheezes, no rales, no rhonchi HEART: Regular rate, regular rhythm; normal S1, S2; no murmurs ABDOMEN: non distended; normal BS; soft, no tenderness, no guarding, no rebound; no masses, no organomegaly, no hernia EXTREMITIES: atraumatic; no edema NEUROLOGIC: Following some commands, appears altered; cranial nerves II-XII grossly intact SKIN: warm, pale, mildly diaphoretic; no rashes Course Course Course Narrative: 1327: Patient evaluated in ED room 5, noted to be slumped over in wheelchair 1330: Stroke alert called overhead 1334: BG 96 1350: I spoke with teleneurologist who reports the dry head CT is negative for acute findings. 1407: I spoke with teleneurologist. 1616: I spoke with resident Dr. Brennan working with hospitalist Dr. Pabon. Quality Measures Suspected type of Stroke: Non Acute Last known well (date): 12/16/24 Last known well (time): 11:00 Tenecteplase given: Reason(s) TPA not given: Stroke severity too mild (non-disabling) (possible syncope vs seizure/head trauma with functional neurological symptoms rather than acute stroke) not given stroke Orders Category Date Time Status Bedside Blood Glucose NOW Care 12/16/24 13:29 Completed Organizational Development Consultant NOW Care 12/16/24 13:29 Completed Continuous Pulse Oximetry NOW Care 12/16/24 13:29 Completed EKG (ED ONLY) *Do not use* NOW Care 12/16/24 13:29 Completed In and Out Catheter NEEDED Care 12/16/24 13:29 Completed Insert IV NOW Care 12/16/24 13:29 Completed NIH Stroke Scale now Care 12/16/24 13:29 Completed NPO NOW Care 12/16/24 13:29 Completed Nurse Swallow Screen x1 Care 12/16/24 13:29 Completed Consult to Neurology / Tele-Neurology Routine Cons 12/16/24 13:[address] angio stroke protocol Stat Exams 12/16/24 13:[address] stroke protocol Stat Exams 12/16/24 13:29 Completed EKG (ED Only) Stat Exams 12/16/24 13:29 Draft XR chest 1V portable Stat Exams 12/16/24 13:29 Completed XR hip RT w pelvis 2-3V Stat Exams 12/16/24 17:10 Completed Arterial Blood Gas Stat Lab 12/16/24 14:16 Completed B-Type Natriuretic Peptide Stat Lab 12/16/24 13:51 Completed Blood Culture (Lab) Stat Lab 12/16/24 14:27 Completed CBC Stat Lab 12/16/24 13:51 Completed Comprehensive Metabolic Panel Stat Lab 12/16/24 13:51 Completed Creatine Kinase Stat Lab 12/16/24 13:51 Completed Drug Screen,Urine Stat Lab 12/16/24 19:40 Completed HCG Titer if Positive Stat Lab 12/16/24 13:51 Completed Lactate (Lactic Acid) Stat Lab 12/16/24 13:51 Completed Magnesium Stat Lab 12/16/24 13:51 Completed Partial Thromboplastin Time Stat Lab 12/16/24 13:51 Completed Procalcitonin Stat Lab 12/16/24 13:51 Completed Prothrombin Time with INR Stat Lab 12/16/24 13:51 Completed Troponin I Stat Lab 12/16/24 13:51 Completed Urinalysis, C/S if Indicated Stat Lab 12/16/24 19:40 Completed Urine Culture Stat Lab 12/16/24 19:40 Completed Acetaminophen Tab [Tylenol ES Tab] Med 12/16/24 15:16 Discontinued 1,000 mg PO X1 ONE EEG Awake and Drowsy Routine RT 12/16/24 14:24 Taken Oxygen Delivery NOW RT 12/16/24 13:29 Completed Vital Signs Vital signs: Vital Signs Temperature 98.6 F 12/16/24 13:23 Pulse Rate 95 12/16/24 13:23 Respiratory Rate 18 12/16/24 13:23 Blood Pressure 125/88 H 12/16/24 13:23 Pulse Oximetry (%) 98 12/16/24 13:23 Oxygen Delivery Method Room Air 12/16/24 13:23 Pulse ox is 98% on room air which is adequate. Head Injury MDM Narrative MDM Narrative:: Ester Chairez am scribing for and in the presence of Dr. Haider. Patient data External records reviewed:: [facility] previous records Clinical information provided by:: patient and family Social determinants that could affect healthcare access:: none Patient has the following chronic illnesses:: right-sided CRPS s/p nerve stimulator, possible epilepsy, migraines, occipital neuralgia, hyperlipidemia How is presenting disease/condition affected by chronic disease/condition?: exacerbated by Evaluation data The following diagnostics were reviewed and interpreted by me:: lab results and radiology exam(s) Lab and/or radiology exams considered but not ordered:: None Interpretation Summary: Ordering Physician: Brina Haider MD Date of Service: 12/16/24 Procedure(s): XR chest 1V portable Accession Number(s): [id number] cc: Brina Haider MD; Cristopher Blue DO~ CLINICAL INDICATION: Focal neuro deficit, stroke suspected TECHNIQUE: XR chest 1V portable Study date and time: 12/16/2024, 2:06 p.m. COMPARISON: Chest radiograph 11/08/2024 FINDINGS: The cardiomediastinal silhouette is within normal limits. Hypoventilatory changes with otherwise no significant pleural-parenchymal abnormality. No airspace opacities suggestive of pneumonia. No mass detected. No pleural effusion or pneumothorax. No acute osseous abnormality detected. Redemonstration of thoracic neurostimulator device. IMPRESSION: No radiographic evidence for acute cardiopulmonary abnormality. No significant interval change since the comparison study. - This report was generated utilizing speech recognition software. - Dictated By: Cristopher Blue DO Signed By: <Electronically signed by Cristopher Blue DO in OV> 12/16/24 1413 Ordering Physician: Brina Haider MD Date of Service: 12/16/24 Procedure(s): CT stroke protocol Accession Number(s): [id number] cc: Brina Haider MD; Cristopher Blue DO~ Examination: CT brain head without contrast. 2-D sagittal coronal reconstructions Date and time of exam: 12/16/2024, 1:42 p.m. INDICATION: Trauma, fall, headaches and dizziness. Stroke alert. COMPARISON: Noncontrast head CT 11/08/2024. CTDI: vol (mGy): 47.5 DLP: (mGycm): 940 Technique: Multiple CT axial sections of the brain have been obtained, 5 mm slice thickness. Contrast has not been administered. 2-D sagittal, coronal reconstructions have been obtained Low dose protocols were performed. One or more of the following dose reduction techniques were used; automated exposure control, adjustment of the mA and/or KV according to patient size, use of iterative reconstruction technique. Findings: The noncontrast CT appearance of the brain is normal and stable compared to prior CT. No significant ventricular enlargement. Intra-axial or extra-axial hemorrhage density is not seen. No mass effect or midline shift Basal cisterns are not remarkable. Fourth ventricle is midline. Cranial vault intact. Trace mucosal hypertrophy noted in anterior bilateral ethmoid air cells. Impression: Negative noncontrast head CT for evidence of acute large vessel transcortical ischemic infarction, hemorrhage or mass effect. No skull fracture. No significant interval change since the comparison study. Findings were discussed with Dr. HAIDER via telephone on 12/16/2024 1:50 PM. Dictated By: Cristopher Blue DO Signed By: <Electronically signed by Cristopher Blue DO in OV> 12/16/24 1351 Ordering Physician: Brina Haider MD Date of Service: 12/16/24 Procedure(s): CT angio stroke protocol Accession Number(s): [id number] cc: Brina Haider MD; Cristopher Blue DO~ Examination: CTA carotids with intravenous contrast CTA brain, head with intravenous contrast. 2-D sagittal, coronal reconstructions. 3-D reconstructions. Exam date and time: 12/16/2024, 2:00 p.m. INDICATION: Stroke alert. Trauma, fall, headaches with dizziness COMPARISON: Noncontrast head CT of earlier the same day. CT angio stroke protocol 08/19/2024 CTDI: vol (mGy) 32.3 DLP: (mGycm) 462 Technique: Multiple CTA axial brain, head carotid images post intravenous contrast injection 70 cc, [id number]. 2-D sagittal, coronal reconstructions. 3-D reconstructions, 3-D post processing including vascular maximum intensity projection images. Low dose protocols were performed. One or more of the following dose reduction techniques were used; automated exposure control, adjustment of the mA and/or KV according to patient size, use of iterative reconstruction technique. FINDINGS: CT angiography of the head: The bilateral ICAs, ACAs, MCAs, machine adjuster helper, distal left vertebral artery and basilar artery are well opacified without apparent significant stenosis, occlusion or aneurysm formation. The dural venous sinuses are patent and well-opacified. Normal variant dominant right transverse and sigmoid sinus as well as right internal jugular vein are noted. Antoine-white differentiation is maintained. No evidence of intracranial hemorrhage. No intracranial mass or evidence of mass-effect. No midline shift or herniation. No extra-axial collections. CT angiography of the neck: The common carotid arteries and cervical internal carotid arteries are normal in course and caliber. Both vertebral arteries are patent and well-opacified. The left vertebral artery is dominant and the right vertebral artery is diffusely hypoplastic which may be developmental. No acute fracture or subluxation is demonstrated in the cervical spine. Dominant disc space narrowing is present at C5-C6, severe anteriorly. There is associate endplate spondylosis and a left posterolateral disc osteophyte complex that contributes to mild central canal stenosis at this level. Paraspinous soft tissues are unremarkable. A 6 mm solid and cystic anterior left thyroid lobe nodule is present. No cervical lymphadenopathy. The visualized lung apices are clear. IMPRESSION: Negative CTA head and neck for hemodynamically significant stenosis, dissection, occlusion, aneurysm, vascular malformation or intracranial tumor. Ancillary findings as above. No significant interval change since the comparison CTA head and neck. Dictated By: Cristopher Blue DO Signed By: <Electronically signed by Cristopher Blue DO in OV> 12/16/24 1432 Medications / Prescriptions Medications or Prescriptions considered but not ordered:: None Medication administrations:: Medication Administration History Discontinued Medications Acetaminophen (Acetaminophen 500 Mg Tablet) 1,000 mg PO X1 ONE Stop: 12/16/24 15:17 Last Admin: 12/16/24 17:06 Dose: 1,000 mg Documented By: GM Acetaminophen (Acetaminophen 325 Mg Tablet) 650 mg PO Q6H PRN PRN Reason: Fever >100.4 or pain 1-3 Stop: 01/15/25 17:39 Last Admin: 12/17/24 21:17 Dose: 650 mg Documented By: SS Acetaminophen (Acetaminophen 325 Mg Tablet) 650 mg PO X1 ONE Stop: 12/19/24 05:14 Last Admin: 12/19/24 05:19 Dose: 650 mg Documented By: SS Hydrocodone Bitart/Acetaminophen (Hydrocodone/Apap 5/325 Tablet) 1 tab PO Q4HR PRN PRN Reason: PAIN SCALE 4-10(Mod-Sev Stop: 12/21/24 17:39 Last Admin: 12/18/24 16:49 Dose: 1 tab Documented By: Admin: 12/18/24 12:04 Dose: 1 tab Documented By: Admin: 12/18/24 06:00 Dose: 1 tab Documented By: Admin: 12/17/24 16:58 Dose: 1 tab Documented By: Admin: 12/17/24 11:02 Dose: 1 tab Documented By: Admin: 12/17/24 05:16 Dose: 1 tab Documented By: Admin: 12/17/24 00:46 Dose: 1 tab Documented By: CARO Hydrocodone Bitart/Acetaminophen (Hydrocodone/Apap 5/325 Tablet) 1 tab PO X1 ONE Stop: 12/16/24 17:46 Last Admin: 12/16/24 19:00 Dose: 1 tab Documented By: GM Atorvastatin Calcium (Atorvastatin Calcium 20 Mg Tablet) 40 mg PO HS THU Stop: 01/15/25 20:59 Last Admin: 12/18/24 21:17 Dose: 40 mg Documented By: Admin: 12/17/24 21:17 Dose: 40 mg Documented By: Admin: 12/16/24 21:06 Dose: 40 mg Documented By: CARO (Ubrelvy 100 Mg) (Tablet) 0 ea PO X1 ONE Stop: 12/19/24 10:01 Last Admin: 12/19/24 10:34 Dose: 1 tablet Documented By: Heparin Sodium (Porcine) (Heparin Sod Inj 5000 Unit/Ml Vial) 5,000 unit SC Q8HR THU Stop: 12/30/24 21:59 Last Admin: 12/19/24 05:19 Dose: 5,000 unit Documented By: DAVID Co-signed By: ROBERT Admin: 12/18/24 21:18 Dose: 5,000 unit Documented By: DAVID Co-signed By: CARO Admin: 12/18/24 15:32 Dose: 5,000 unit Documented By: SABINA Co-signed By: IZZY Comments: delayed d/t other pt blood transfusion Admin: 12/18/24 06:00 Dose: 5,000 unit Documented By: DAVID Co-signed By: ARIAS Admin: 12/17/24 21:19 Dose: 5,000 unit Documented By: DAVID Co-signed By: ROBERT Admin: 12/17/24 14:40 Dose: 5,000 unit Documented By: SABINA Co-signed By: PERLA Admin: 12/17/24 05:16 Dose: 5,000 unit Documented By: CARO Co-signed By: ROBERT Admin: 12/16/24 21:06 Dose: 5,000 unit Documented By: CARO Co-signed By: IG Lacosamide (Lacosamide 50 Mg Tablet) 50 mg PO BID THU Stop: 01/15/25 20:59 Last Admin: 12/17/24 08:59 Dose: 50 mg Documented By: Admin: 12/16/24 21:06 Dose: 50 mg Documented By: CARO Lacosamide (Lacosamide 50 Mg Tablet) 100 mg PO BID THU Stop: 01/16/25 20:59 Last Admin: 12/19/24 09:18 Dose: 100 mg Documented By: Admin: 12/18/24 21:17 Dose: 100 mg Documented By: Admin: 12/18/24 08:04 Dose: 100 mg Documented By: Admin: 12/17/24 21:18 Dose: 100 mg Documented By: SS Lorazepam (Lorazepam 2 Mg/Ml Vial) 2 mg IVP Q8HR PRN PRN Reason: ANXIETY Stop: 12/21/24 17:44 Ondansetron HCl (Ondansetron Inj 2 Mg/Ml Inj 2 Ml) 4 mg IVP Q6H PRN; Protocol PRN Reason: NAUSEA OR VOMITING Stop: 01/15/25 17:39 Pantoprazole Sodium (Pantoprazole 40 Mg Tablet) 40 mg PO QDAY THU Stop: 01/16/25 08:59 Last Admin: 12/19/24 09:18 Dose: 40 mg Documented By: Admin: 12/18/24 08:05 Dose: 40 mg Documented By: Admin: 12/17/24 08:58 Dose: 40 mg Documented By: SABINA Potassium Chloride (Potassium Chloride 20 Meq Tabcr) 20 meq PO X1 ONE Stop: 12/17/24 07:53 Last Admin: 12/17/24 08:58 Dose: 20 meq Documented By: SABINA Potassium Chloride (Potassium Chloride 20 Meq Tabcr) 40 meq PO X1 ONE Stop: 12/18/24 07:52 Last Admin: 12/18/24 08:04 Dose: 40 meq Documented By: SABINA See above Consultations Consultation(s) initiated? (list below): Yes Consultation #1 (Physician, Specialty, Details): I spoke with teleneurologist who reports the dry head CT is negative for acute findings. Time: 13:50 Consultation #2 (Physician, Specialty, Details): I spoke with teleneurologist Dr. Puentes who reports patient is not a TNK candidate at this time. Time: 14:07 Consultation #3 (Physician, Specialty, Details): I spoke with resident Dr. Brennan working with hospitalist Dr. Pabon. Discussed patients PMHx, HPI, ED course, exam findings, labs, and radiology results. The hospitalist agree to accept the patient for admission. Time: 16:16 Diagnosis Differential diagnosis head injury: epidural hematoma, closed head injury, subarachnoid hematoma, postconcussion syndrome and subdural hematoma Most likely diagnosis given after review of the tests above:: Syncope Head injury Admission Indicated Admission indicated?: indicated Admission Request Was there a request for admission?: Yes Admission Attestation Admission request attestation: Discussed case with [] from Hospitalist service regarding admission. Discussed patients ED course, exam findings, labs, and radiology results. The Hospitalist [agrees,declines] to accept the patient for admission. Disposition Plan Disposition Plan: Admit Discharge Plan Plan Patient Disposition: Admit Acute Care w/in Hospital Patient condition on transfer: Stable Problem List Clinical Impression: Syncope, Head injury
[2024-12-16 14:08] LABS: Lactate (Lactic Acid) 1.2 mMol/L (0.4-2.0)
[2024-12-16 14:12] LABS: Basophils # (Auto) 0.1 Thou/mm3 (0.0-0.2); Basophils % (Auto) 1 % (0-2.5); Eosinophils # (Auto) 0.1 Thou/mm3 (0.0-0.5); Eosinophils % (Auto) 1 % (0-10); Hematocrit 40.9 % (36.0-46.0); Hemoglobin 13.6 g/dL (12.0-16.0); Immature Granulocytes Auto 0.03 Thou/mm3 (0.00-0.00); Lymphocytes # (Auto) 2.8 Thou/mm3 (1.0-4.8); Lymphocytes % (Auto) 28 % (10-50); Mean Corpuscular HGB Conc 33.3 g/dl (31.0-37.0); Mean Corpuscular Hemoglobin 29.6 pg (25.0-35.0); Mean Corpuscular Volume 89 fL (80-100); Monocytes # (Auto) 0.4 Thou/mm3 (0.0-0.8); Monocytes % (Auto) 4 % (0-12); Neutrophils # (Auto) 6.6 Thou/mm3 (1.8-7.7); Neutrophils % (Auto) 66 % (37-80); Nucleated Red Blood Cell # 0.00 Thou/mm3 (0.00-0.00); Nucleated Red Blood Cell % 0 /100 WBC (0); Platelet Count 286 Thou/mm3 (140-440); RDW Standard Deviation 44.3 fL (36.4-46.3); Red Blood Count 4.60 Miln/mm3 (4.00-5.20); White Blood Count 10.0 Thou/mm3 (3.6-11.0)
--- NOTE | 2024-12-16 14:18 | ESCONSULT_ITS ---
Tele Neuro Consultation Consultation Date 12/16/24 Most Recent Vital Signs Last Vital Signs Temp 98.6 F 12/16/24 13:23 Pulse 80 12/16/24 13:33 Resp 18 12/16/24 13:23 BP 125/88 H 12/16/24 13:23 Pulse Ox 98 12/16/24 13:23 O2 Del Method Room Air 12/16/24 13:23 Consultation Narrative [facility] Tele[facility]rology Consult [facility] Patient Name:???MARCO ANTONIO SALAS Date of :???1985 Identification Number:??? Date of Service:???12/16/2024 13:32:41 Diagnosis:?R55 - Syncope (blackout, fainting, vasovagal attack) Impression: ?Loss of consciousness/head trauma and persistent lightheadedness in the setting of recurrent headaches with stroke-like symptoms (left sided weakness and vision changes) despite negative MRIs over the past several months. Neurological exam is notable for multiple functional features, and clinical presentation is consistent with possible syncope vs seizure/head trauma with functional neurological symptoms rather than acute stroke, therefore IV thrombolysis was not recommended. ? ?Recommendations: ?- Syncope eval ?- EEG, seizure precautions, continue home dose lacosamide ?- Metabolic/infectious workup Our recommendations are outlined below. Recommendations: ? Stroke/Telemetry Floor ? Neuro Checks ? Bedside Swallow Eval ? DVT Prophylaxis ? IV Fluids, Normal Saline ? Head of Bed 30 Degrees ? Euglycemia and Avoid Hyperthermia (PRN Acetaminophen) Sign Out: ? Discussed with Emergency Department Provider Advanced Imaging: Advanced imaging has been ordered. Results pending. Metrics: Last Known Well: 12/16/2024 11:00:00 Dispatch Time: 12/16/2024 13:32:40 Arrival Time: 12/16/2024 13:15:00 Initial Response Time: 12/16/2024 13:34:35Symptoms: dizziness. Initial patient interaction: 12/16/2024 13:41:20 NIHSS Assessment Completed: 12/16/2024 13:46:50Patient is not a candidate for Thrombolytic. Thrombolytic Medical Decision: 12/16/2024 13:47:12Patient was not deemed candidate for Thrombolytic because of following reasons: other diagnosis suspected syncope, suspect functional neurological disorder. CT Head: I personally reviewed all the CT images that were available to me and it showed: No acute pathology Primary Provider Notified of Diagnostic Impression and Management Plan on: 12/16/2024 14:07:08 History of Present Illness:Patient is a 39 year old Female. Patient was brought by private transportation with symptoms of dizziness. Patient is a 39-year-old woman presenting to the ED due to onset of headache, lightheadedness, and loss of consciousness with fall/head trauma at 11am. She is flaccid on the left side (arm and leg) but reports that this has been the case since August 2024. On review of EMR, she has previous admissions in August and October with headache, left sided visual changes, left sided weakness, and dizziness. MRI brain was negative in August and October, and MRV was negative in October. She reports that she hit her head on the sink when she fell. Past Medical History: ?Hyperlipidemia ?Migraine Headaches ?There is no history of Diabetes Mellitus ?There is no history of Atrial Fibrillation Other PMH:? occipital neuralgia, right sided CRPS, possible epilepsy (prior EEG showing bitemporal epileptiform discharges) Medications: No Anticoagulant use? Antiplatelet use:?Unknown Reviewed EMR for current medications Other Medications Pertinent To Assessment Include: lacosamide 50mg BID Allergies:? Reviewed Social History: Drug Use: No Family History: There is no family history of premature cerebrovascular disease pertinent to this consultation ROS : 14 Points Review of Systems was performed and was negative except mentioned in HPI. Past Surgical History: There Is No Surgical History Contributory To Today?s Visit Examination: BP(119/84),?Pulse(85),?Blood Glucose(96) 1A: Level of Consciousness - Alert; keenly responsive?+ 0 1B: Ask Month and Age - Both Questions Right?+ 0 1C: Blink Eyes & Squeeze Hands - Performs Both Tasks?+ 0 2: Test Horizontal Extraocular Movements - Normal?+ 0 3: Test Visual Valerio - No Visual Loss?+ 0 4: Test Facial Palsy (Use Grimace if Obtunded) - Normal symmetry?+ 0 5A: Test Left Arm Motor Drift - No Movement?+ 4 5B: Test Right Arm Motor Drift - No Drift for 10 Seconds?+ 0 6A: Test Left Leg Motor Drift - No Movement?+ 4 6B: Test Right Leg Motor Drift - Drift, but doesn't hit bed?+ 1 7: Test Limb Ataxia (FNF/Heel-Daigle) - No Ataxia?+ 0 8: Test Sensation - Mild-Moderate Loss: Can Sense Being Touched?+ 1 9: Test Language/Aphasia - Normal; No aphasia?+ 0 10: Test Dysarthria - Mild-Moderate Dysarthria: Slurring but can be understood?+ 1 11: Test Extinction/Inattention - No abnormality?+ 0 NIHSS Score:?11 NIHSS Free Text :?Completely flaccid in the left arm and leg but reports that this is her baseline since August and that she is able to walk with a walker. Inconsistent left eye visual changes but right eye valerio intact. Pre-Morbid Modified Elizabeth Scale: 3 Points = Moderate disability; requiring some help, but able to walk without assistance Spoke with :?Dr. Haider This consult was conducted in real time using interactive audio and video technology. Patient was informed of the technology being used for this visit and agreed to proceed. Patient located in hospital and provider located at home/office setting. Patient is being evaluated for possible acute neurologic impairment and high probability of imminent or life-threatening deterioration. I spent total of 44 minutes providing care to this patient, including time for face to face visit via telemedicine, review of medical records, imaging studies and discussion of findings with providers, the patient and/or family. Dr Chiara Puentes [facility] For Inpatient follow-up with [facility] physician please call [facility] at . As we are not an outpatient service for any post hospital di scharge needs please contact the hospital for assistance. If you have any questions for the [facility] physicians or need to reconsult for clinical or diagnostic changes please contact us via [facility] at . Non-radiologist review of imaging performed to assist with emergent clinical decision-making. Remote physician workstations do not possess the same resolution, calibration, or diagnostic capabilities as hospital-based radiology reading stations, and formal radiologist read is necessary. Signature :Kurt Puentes
[2024-12-16 14:21] LABS: Base Excess -2 (-3-3); HCO3 23 mEq/L (20-26); Inspired Oxygen, FIO2 21 %; O2 Saturation 98 % (91-98); PCO2 37 mmHg (32.0-48.0); PO2 87 mmHg (83-108); pH, Arterial 7.40 (7.35-7.45)
[2024-12-16 14:26] LABS: HCG Titer if Positive Negative
[2024-12-16 14:29] LABS: Allen Test Performed/OK; Puncture Site Left Radial
[2024-12-16 14:31] LABS: INR 1.0 (0.9-1.3); Partial Thromboplastin Time 27.6 Seconds (22.0-36.0); Prothrombin Time 10.3 Seconds (9.0-12.2)
[2024-12-16 14:38] LABS: Alanine Aminotransferase 17 U/L (10-49); Albumin, Serum 5.2 gm/dL (3.5-5.0); Albumin/Globulin Ratio 2.9 (1.2-2.2); Alkaline Phosphatase 94 U/L (46-116); Anion Gap 11 (7-16); Aspartate Amino Transferase 16 U/L (0-34); BUN/Creatinine Ratio 11 Ratio (12-20); Bilirubin,Total 0.3 mg/dL (0.3-1.2); Blood Urea Nitrogen 8 mg/dL (9-23); Calcium 10.1 mg/dL (8.3-10.6); Calcium (Corrected) 10.1 mg/dL (8.5-10.1); Carbon Dioxide 23.1 mMol/L (20.0-31.0); Chloride 109 mMol/L (98-107); Creatinine (Component) 0.7 mg/dL (0.6-1.3); Estimated Creatinine Clearance 108.6 mL/min (>60); Globulin 1.8 gm/dL (2.3-3.5); Glucose 83 mg/dL (74-106); Magnesium 2.1 mg/dL (1.6-2.6); Osmolality,Calculated 282 (275-295); Potassium 4.1 mMol/L (3.4-5.1); Procalcitonin < 0.04 ng/ml (0.0-0.49); Sodium 143 mMol/L (136-145); Total Protein 7.0 gm/dL (5.7-8.2); Troponin I < 0.002 ng/mL (0.0-0.045); eGFR > 60 See Note
[2024-12-16 15:14] LABS: B-Type Natriuretic Peptide < 20 pg/mL (0-100)
[2024-12-16] MEDS: ACETAMINOPHEN 500 MG TABLET 1000 MG PO (17:06)
--- NOTE | 2024-12-16 17:10 | XR_ITS ---
Examination: Right hip AP, lateral, AP pelvis 3 views Technique: Hip AP lateral, AP pelvis, 3 views Exam date and time: 12/16/2024, 5:23 p.m. INDICATION: Fall, injury today with right hip pain COMPARISON: Pelvic and hip radiographs 03/15/2018 FINDINGS: The bony pelvis including the proximal femurs appear intact and unremarkable. No evidence for acute fracture or dislocation. No avascular necrosis or significant degenerative changes identified. No overt regional soft tissue abnormality detected radiographically. Contrast distended urinary bladder is seen. Partially imaged neurostimulator device on the right side. IMPRESSION: No evidence for acute fracture or dislocation.
--- NOTE | 2024-12-16 17:50 | XR_ITS ---
EXAMINATION: AP lumbar spine single view TECHNIQUE: AP lumbar spine single view Date and time: December 16, 2024, 1804 hours INDICATIONS: Patient fell today with injury to the back, back pain FINDINGS: Pulse generator with pain leads projecting above the level of the film No lumbar fracture noted on this AP view only Mild osteopenia IMPRESSION: No lumbar fracture noted on this AP view only
--- NOTE | 2024-12-16 18:02 | ESHP_ITS ---
Documentation for date of: 12/16/24 [facility] History of Present Illness Chief complaint: Head Injury after syncope with subsequent fall History of present illness: 39-year-old female with a past medical history of right-sided complex regional pain syndrome (CRPS) status post nerve stimulator, possible epilepsy, migraines, occipital neuralgia, hyperlipidemia, nephrolithiasis, and chronic left-sided weakness since August, presenting to the ED after a fall. Patient reports she was standing while drying her hair when she became dizzy, felt lightheaded, and passed out, striking her head on a sink. She recalls the last thing being her hand on the sink before passing out. Family reported the event occurred around 1:00 PM. This episode is the second occurrence of syncope within the last few days. She also reports ongoing left-sided weakness and numbness since August, which limits her mobility and necessitates use of a walker. The patient denies any chest pain, palpitations, or urinary incontinence during the event. No significant trauma to the head, but she experienced right hip pain after the fall. This is the first time she has hit her head in such a manner. She has a history of chronic left-sided weakness with difficulty moving her left leg and hand, which began after a suspected stroke-like event in August. She was referred to a movement disorder specialist at [facility] [place], with an upcoming appointment in February. Past Medical History: * Right-sided CRPS (post nerve stimulator) * Possible epilepsy * Migraines * Occipital neuralgia * Hyperlipidemia * Nephrolithiasis * Chronic left-sided weakness/hemiplagia? (since August 2024) Surgical History: * None reported Allergies: * Penicillin * Morphine * Diphenhydramine Medications: * Lacosamide 50 mg BID (for epilepsy) * Atorvastatin 40 mg nightly (for hyperlipidemia) * Alprazolam PRN for anxiety * Pain medications as needed (Ibuprofen for headache) Family History: * No known family history of stroke or similar neurologic conditions Social History: * Denies smoking, alcohol, or illicit drug use * Lives with her mother, who assists with daily care Review of Systems Constitutional Comments: Negative unless stated above Exam Vital Signs Temp Pulse Resp BP Pulse Ox O2 Del Method 98.5 F 89 17 107/86 H 99 Room Air 12/16/24 17:07 12/16/24 17:07 12/16/24 17:07 12/16/24 17:07 12/16/24 17:07 12/16/24 17:07 Narrative Exam General: Awake, alert, and oriented to person, place, and time. Appears stated age, in mild distress due to headache HEENT: NC/AT. Moist mucosa. PERRLA/EOMI. No visible head trauma or lacerations. Cardiovascular: Regular rate and rhythm, no murmurs or gallops. No JVD Pulmonary: Clear to auscultation bilaterally, No signs of respiratory distress. Gastrointestinal: Soft, non-tender, non-distended, positive bowel sounds Musculoskeletal/Extremities: * No edema, erythema, or deformities * 5/5 strength in the right upper and lower extremities * 0/5 strength in the left upper and lower extremities (unable to move) * Left-sided sensory deficit noted Neurological: Cranial nerves II-XII intact. Normal sensation on the right, no abnormal findings. Results: Labs 12/16/24 13:51 12/17/24 05:55 Labs: Short CBC 12/16/24 Range/Units 13:51 WBC 10.0 (3.6-11.0) Thou/mm3 Hgb 13.6 (12.0-16.0) g/dL Hct 40.9 (36.0-46.0) % Plt Count 286 D (140-440) Thou/mm3 BMP 12/16/24 13:51 Sodium 143 Potassium 4.1 Chloride 109 H Carbon Dioxide 23.1 BUN 8 L Creatinine 0.7 Glucose 83 Calcium 10.1 Cardiac Enzymes 12/16/24 Range/Units 13:51 Troponin I < 0.002 (0.0-0.045) ng/mL Liver Function 12/16/24 Range/Units 13:51 Total Bilirubin 0.3 (0.3-1.2) mg/dL AST 16 (0-34) U/L ALT 17 (10-49) U/L Alkaline Phosphatase 94 (46-116) U/L Albumin 5.2 H (3.5-5.0) gm/dL ABG Interpretation ABG results: 12/16/24 14:16 ABG pH 7.40 ABG pCO2 37 ABG pO2 87 ABG HCO3 23 ABG O2 Saturation 98 ABG Base Excess -2 Quality Measures Quality Measures stroke Suspected type of Stroke: Unknown at this time Tenecteplase given: Reason(s) Tenecteplase not given: Stroke severity too mild (non-disabling) not given Rehab services: PT evaluation ordered VTE Prophylaxis: pharmaceutical Antithrombotic by day 2:: ordered Statin ordered: <75 y/o high intensity dose Anticoagulation ordered for A-fib or flutter (current or hx): not indicated Medications Home Medications and Allergies Allergies Allergy/AdvReac Type Severity Reaction Status Date / Time alcohol Allergy Severe ICHY, Verified 12/16/24 13:18 REDNESS TO FACE diphenhydramine (From Allergy Severe Difficulty Verified 12/16/24 13:18 Benadryl Allergy) Swallowing ibuprofen Allergy Severe RASH Verified 12/16/24 13:18 loratadine (From Claritin) Allergy Severe Hives Verified 12/16/24 13:18 morphine Allergy Severe Difficulty Verified 12/16/24 13:18 Breathing oxycodone Allergy Severe Hives Verified 12/16/24 13:18 Penicillins Allergy Severe Difficulty Verified 12/16/24 13:18 Swallowing hydrocodone (From [place]) Allergy Intermediate Hypertensio Verified 12/16/24 13:18 n cinnamon Allergy Verified 12/17/24 01:00 Harvey And Derivatives Allergy Verified 12/17/24 01:00 strawberry Allergy Verified 12/17/24 01:00 ketorolac (From Toradol) AdvReac Severe Fainting Verified 12/16/24 13:18 Visit Medications Acetaminophen (Acetaminophen 325 Mg Tablet) 650 mg PO Q6H PRN PRN Reason: Fever >100.4 or pain 1-3 Stop: 01/15/25 17:39 Hydrocodone Bitart/Acetaminophen (Hydrocodone/Apap 5/325 Tablet) 1 tab PO Q4HR PRN PRN Reason: PAIN SCALE 4-10(Mod-Sev Stop: 12/21/24 17:39 Atorvastatin Calcium (Atorvastatin Calcium 20 Mg Tablet) 40 mg PO HS THU Stop: 01/15/25 20:59 Heparin Sodium (Porcine) (Heparin Sod Inj 5000 Unit/Ml Vial) 5,000 unit SC Q8HR THU Stop: 12/30/24 21:59 Lacosamide (Lacosamide 50 Mg Tablet) 50 mg PO BID THU Stop: 01/15/25 20:59 Lorazepam (Lorazepam 2 Mg/Ml Vial) 2 mg IVP Q8HR PRN PRN Reason: ANXIETY Stop: 12/21/24 17:44 Ondansetron HCl (Ondansetron Inj 2 Mg/Ml Inj 2 Ml) 4 mg IVP Q6H PRN; Protocol PRN Reason: NAUSEA OR VOMITING Stop: 01/15/25 17:39 Pantoprazole Sodium (Pantoprazole 40 Mg Tablet) 40 mg PO QDAY THU Stop: 01/16/25 08:59 Discontinued Medications Acetaminophen (Acetaminophen 500 Mg Tablet) 1,000 mg PO X1 ONE Stop: 12/16/24 15:17 Last Admin: 12/16/24 17:06 Dose: 1,000 mg Hydrocodone Bitart/Acetaminophen (Hydrocodone/Apap 5/325 Tablet) 1 tab PO X1 ONE Stop: 12/16/24 17:46 Assessment & Plan Plan 39-year-old female with a history of left hemiplegia, possible epilepsy, and chronic migraines, presenting with syncope, head injury, and headache after a fall; suspected seizure-like episode or functional neurological disorder, further evaluation with neurology, MRI, and EEG planned. #Syncope #Head Injury Patient with syncope, dizziness, and head injury after passing out while in the bathroom. Struck her head on the sink. Second syncope episode in the last few days. No loss of consciousness beyond the event. Right hip pain reported but no significant head trauma. Possible underlying cause for syncope remains unclear, considering seizure-like events, functional neurological disorder (FND), or postural syncope. Plan: * Continue neuro checks and monitoring for any focal deficits * CT head negative for acute hemorrhage * Neuro consult for further evaluation of syncope, recent neurological symptoms, and seizures * Pain management with acetaminophen for mild headache, norco for severe if can tolerate * Fall precautions and seizure precautions in place #Left Hemiplegia (Chronic) Ongoing left hemiplegia and sensory loss since August, likely multifactorial, with potential neurological cause. The patient was referred to a movement disorder specialist at [facility] [place], with a follow-up appointment in February. Plan: * Continue neurology follow-up with movement disorder specialist * Monitor closely for any acute changes in left hemiplegia * Continue current medications (lacosamide, statin) * EEG to rule out subclinical seizures or epileptic activity that may contribute to weakness #Seizure-like Symptoms #Possible Functional Neurological Disorder (FND) Patient has a history of possible epilepsy and recent episodes of syncope and dizziness. These symptoms, combined with her chronic left-sided weakness and neurologic history, raise concerns for seizure-like episodes or FND. An EEG is warranted to rule out abnormal electrical activity. Plan: * Order EEG to evaluate for subclinical seizures or epileptic activity * Continue current anti-seizure medication (Lacosamide) * If EEG is normal, consider FND and adjust management accordingly * Workup with neurology for further assessment and therapy #Migraine #Occipital Neuralgia Chronic headache with occipital neuralgia likely contributing to current headache symptoms. The patient's neurological background and history of migraines exacerbate this. Plan: * Continue headache management with appropriate medications * Assess possible interventional options for occipital neuralgia through neurology * Monitor for any worsening or new symptoms #Hyperlipidemia Well-controlled on statin therapy. No changes in lipid levels noted recently. Plan: * Continue atorvastatin 40 mg nightly * Repeat lipid panel prior to discharge to assess long-term control * Continue monitoring for cardiovascular risk factors #Thyroid Nodule Incidental 4 mm thyroid nodule noted on CTA. No immediate concern but will monitor. Plan: * Follow-up with primary care for outpatient monitoring * TSH level in the morning to assess thyroid function Health Maintenance: Diet: Regular GI Prophylaxis: PPI DVT Prophylaxis: Heparin subcutaneous Disposition: Neurology consultation for stroke-like symptoms Code Status: Full ----- Plan discussed with attending physician Dr. Pepper Vieira MD PGY-1 Internal Medicine Attending Provider Attestation/Addendum I have seen and examined the patient. I was physically present for the singer portions of the services provided including history, physical exam, diagnosis, treatment plans and orders. I agree with assessment and plan of care as documented by residents. After examination of the patient and review of the clinical data I feel that this patient needs admission to the hospital for further treatment/evaluation. Patient is a 39 years old female with past medical history of right-sided complex regional pain syndrome status post neurostimulator, epilepsy, migraines, occipital neuralgia, hyperlipidemia, nephrolithiasis, chronic left-sided weakness, possible functional neurological disorder who presented to the ED after an episode of fall. Patient has been feeling dizziness, lightheaded, headache which led to the fall. She had a similar episode about 3 days back as well. Patient has been having complete left-sided weakness and follows movement disorder specialist at [facility] [place]. In the ED, stroke alert was called, teleneurology was consulted, recommended obtaining EEG for possible absence seizure. We will admit the patient for management of possible syncopal episode, possible seizure episode, migraine or episode of functional neurological disorder. CT head was obtained in the ED, which was negative for acute findings. We will obtain EEG, and neurology consult, start her on pain management And monitor her neurological function closely. Even though this this note was carefully revised there may still be minor errors in pulp beater due to voice recognition software. Wilman Pabon MD
[2024-12-16 18:23] LABS: Creatine Kinase 54 U/L (34-171)
[2024-12-16] MEDS: HYDROcodone/APAP 5/325 TABLET 1 TAB PO (19:00)
[2024-12-16 19:53] LABS: Collection Type, Urine Catheter
[2024-12-16 20:33] LABS: Amphetamine/Methamp Scrn,U Negative (Negative); Barbiturate Screen,Urine Negative (Negative); Benzodiazepines Screen,Urine Negative (Negative); Benzoylecgonine Screen, Ur Negative (Negative); Fentanyl Screen,Urine Negative (Negative); Opiate Screen,Urine Negative (Negative); THC Screen,Urine Negative (Negative)
[2024-12-16 20:46] LABS: Bacteria,Urine 1+; Bilirubin,Urine Negative (Negative); Blood,Urine Trace (Negative); Clarity,Urine Clear (Clear/Hazy); Color,Urine Lt-Yellow (Lt Yel-Yel); Glucose, Urine Negative (Negative); Ketones,Urine Trace (Negative); Leukocyte Esterase,Urine Negative (Negative); Nitrite,Urine Negative (Negative); PH,Urine 6.0 (5.0-7.0); Protein,Urine Trace (Neg - Trace); RBC,Urine 14 /hpf (0-3); Specific Gravity,Urine 1.050 (1.001-1.035); Squamous Epithelial Cell,Urine 3 /hpf (0-5); Urobilinogen,Urine Negative mg/dL (0.0-1.0); WBC,Urine 10 /hpf (0-5)
[2024-12-16 20:48] LABS: Culture Indicated,Urine Yes
[2024-12-16] MEDS: LACOSAMIDE 50 MG TABLET PO (21:06)
[2024-12-16] MEDS: ATORVASTATIN CALCIUM 20 MG TABLET 40 MG PO (21:06)
[2024-12-16] MEDS: HEPARIN SOD INJ 5000 UNIT/ML VIAL SC (21:06)
[2024-12-17] VITALS: BP 104/76; PULSE 60; PULSE 62; RESP 14; TEMP 36.4; O2SAT 98
[2024-12-17] MEDS: HYDROcodone/APAP 5/325 TABLET 1 TAB PO ×4 (00:46→16:58)
[2024-12-17 04:00] VITALS: BP 103/68; PULSE 64; PULSE 65; RESP 16; TEMP 36.6; O2SAT 98
[2024-12-17] MEDS: HEPARIN SOD INJ 5000 UNIT/ML VIAL SC ×3 (05:16→21:19)
[2024-12-17 05:36] VITALS: BMI 29.5
[2024-12-17 06:00] VITALS: BMI 29.5
[2024-12-17 06:27] LABS: Basophils # (Auto) 0.0 Thou/mm3 (0.0-0.2); Basophils % (Auto) 1 % (0-2.5); Eosinophils # (Auto) 0.2 Thou/mm3 (0.0-0.5); Eosinophils % (Auto) 2 % (0-10); Hematocrit 37.1 % (36.0-46.0); Hemoglobin 12.2 g/dL (12.0-16.0); Immature Granulocytes Auto 0.02 Thou/mm3 (0.00-0.00); Lymphocytes # (Auto) 3.2 Thou/mm3 (1.0-4.8); Lymphocytes % (Auto) 41 % (10-50); Mean Corpuscular HGB Conc 32.9 g/dl (31.0-37.0); Mean Corpuscular Hemoglobin 29.7 pg (25.0-35.0); Mean Corpuscular Volume 90 fL (80-100); Monocytes # (Auto) 0.4 Thou/mm3 (0.0-0.8); Monocytes % (Auto) 5 % (0-12); Neutrophils # (Auto) 4.0 Thou/mm3 (1.8-7.7); Neutrophils % (Auto) 52 % (37-80); Nucleated Red Blood Cell # 0.00 Thou/mm3 (0.00-0.00); Nucleated Red Blood Cell % 0 /100 WBC (0); Platelet Count 250 Thou/mm3 (140-440); RDW Standard Deviation 45.1 fL (36.4-46.3); Red Blood Count 4.11 Miln/mm3 (4.00-5.20); White Blood Count 7.8 Thou/mm3 (3.6-11.0)
[2024-12-17 06:53] LABS: Alanine Aminotransferase 12 U/L (10-49); Albumin, Serum 4.5 gm/dL (3.5-5.0); Albumin/Globulin Ratio 2.0 (1.2-2.2); Alkaline Phosphatase 81 U/L (46-116); Anion Gap 6 (7-16); Aspartate Amino Transferase 13 U/L (0-34); BUN/Creatinine Ratio 10 Ratio (12-20); Bilirubin,Total 0.5 mg/dL (0.3-1.2); Blood Urea Nitrogen 6 mg/dL (9-23); Calcium 9.3 mg/dL (8.3-10.6); Calcium (Corrected) 9.3 mg/dL (8.5-10.1); Carbon Dioxide 25.7 mMol/L (20.0-31.0); Chloride 108 mMol/L (98-107); Creatinine (Component) 0.6 mg/dL (0.6-1.3); Estimated Creatinine Clearance 129.4 mL/min (>60); Globulin 2.2 gm/dL (2.3-3.5); Glucose 78 mg/dL (74-106); Magnesium 2.0 mg/dL (1.6-2.6); Osmolality,Calculated 276 (275-295); Phosphorous 4.1 mg/dL (2.4-5.1); Potassium 3.4 mMol/L (3.4-5.1); Sodium 140 mMol/L (136-145); Thyroid Stimulating Hormone 3.83 uIU/mL (0.55-4.78); Total Protein 6.7 gm/dL (5.7-8.2); eGFR > 60 See Note
[2024-12-17 08:00] VITALS: BP 110/67; PULSE 64; PULSE 74; RESP 21; TEMP 36.7; O2SAT 96
--- NOTE | 2024-12-17 08:02 | RESP.EEG ---
EEG COMPLETED AND READY TO READ
[2024-12-17] MEDS: PANTOPRAZOLE 40 MG TABLET PO (08:58)
[2024-12-17] MEDS: LACOSAMIDE 50 MG TABLET PO (08:59)
--- NOTE | 2024-12-17 10:56 | PC.SS ---
SS follow up note; Patient is pending EEG to be read. Neurology following. Patient will discharge home when medically cleared.
[2024-12-17 12:00] VITALS: BP 95/76; PULSE 68; PULSE 82; RESP 15; TEMP 36.7; O2SAT 97
[2024-12-17 14:06] VITALS: BMI 13.0
--- NOTE | 2024-12-17 14:25 | PC.PT ---
Patient is safe to continue using the bedside commode with staff. RN made aware.
--- NOTE | 2024-12-17 14:29 | ESPR_ITS ---
<Statement entered by Adolfo Borja MD - 01/01/25 07:50> I reviewed above note and agree with findings and plans. I have also personally examined the patient with medicine team and went over assessment and plan with medical team including equine internship and resident physician. Documentation for date of: 12/17/24 Subjective Subjective Interval history: Patient continues to complain of severe headache and dizziness, which is transiently relieved by [place] (effective for about 1 hour). She reports headache is severe again after the medication wears off, with associated nausea. She denies any new symptoms such as visual changes or weakness. Right hip and back pain persists after the fall, but she is able to tolerate mild movement. Patient remains bedbound, and left hemiplegia remains unchanged. Exam Vital Signs Temp Pulse Resp BP Pulse Ox O2 Del Method 98.1 F 82 15 95/76 97 Room Air 12/17/24 12:00 12/17/24 12:00 12/17/24 12:00 12/17/24 12:00 12/17/24 12:00 12/17/24 12:00 Narrative Exam General: Awake, alert, and oriented to person, place, and time. Appears stated age, in mild distress due to headache HEENT: NC/AT. Moist mucosa. PERRLA/EOMI. No visible head trauma or lacerations. Cardiovascular: Regular rate and rhythm, no murmurs or gallops. No JVD Pulmonary: Clear to auscultation bilaterally, No signs of respiratory distress. Gastrointestinal: Soft, non-tender, non-distended, positive bowel sounds Musculoskeletal/Extremities: * No edema, erythema, or deformities * 5/5 strength in the right upper and lower extremities * 0/5 strength in the left upper and lower extremities (unable to move) * Left-sided sensory deficit noted Neurological: Cranial nerves II-XII intact. Normal sensation on the right, no abnormal findings. Objective Labs 12/17/24 05:55 12/17/24 05:55 Labs: Laboratory Results - last 24 hr 12/16/24 12/16/24 12/16/24 13:51 14:16 19:40 WBC RBC Hgb Hct MCV MCH MCHC RDW Std Deviation Plt Count Neut % (Auto) Lymph % (Auto) [place] % (Auto) Eos % (Auto) Baso % (Auto) Neut # (Auto) Lymph # (Auto) [place] # (Auto) Eos # (Auto) Baso # (Auto) Immature Gran # (Auto) Absolute Nucleated RBC Immature Gran % Nucleated RBC % PT 10.3 INR 1.0 APTT 27.6 Puncture Site Left Radial ABG pH 7.40 ABG pCO2 37 ABG pO2 87 ABG HCO3 23 ABG O2 Saturation 98 ABG Base Excess -2 FiO2 21 Sodium 143 Potassium 4.1 Chloride 109 H Carbon Dioxide 23.1 Anion Gap 11 BUN 8 L Creatinine 0.7 Estim Creat Clear Calc 108.6 eGFR > 60 BUN/Creatinine Ratio 11 L Glucose 83 Calculated Osmolality 282 Lactic Acid 1.2 Calcium 10.1 Corrected Calcium 10.1 Phosphorus Magnesium 2.1 Total Bilirubin 0.3 AST 16 ALT 17 Alkaline Phosphatase 94 Total Creatine Kinase 54 Troponin I < 0.002 B-Natriuretic Peptide < 20 Total Protein 7.0 Albumin 5.2 H Globulin 1.8 L Albumin/Globulin Ratio 2.9 H Procalcitonin < 0.04 TSH Ur Collection Type Catheter Urine Color Lt-Yellow Urine Clarity Clear Urine pH 6.0 Ur Specific [place] 1.050 H Urine Protein Trace Urine Glucose (UA) Negative Urine Ketones Trace Urine Blood Trace Urine Nitrite Negative Urine Bilirubin Negative Urine Urobilinogen (Auto) Negative Ur Leukocyte Esterase Negative Urine RBC 14 H Urine WBC 10 H Ur Squamous Epith Cells 3 Urine Bacteria 1+ A Ur Culture Indicated? Yes Urine Opiates Screen Negative Urine Fentanyl Screen Negative Ur Barbiturates Screen Negative U Amphetamin/Meth Scrn Negative U Benzodiazepines Scrn Negative U Cocaine Metab Screen Negative U Marijuana (THC) Screen Negative 12/17/24 05:55 WBC 7.8 RBC 4.11 Hgb 12.2 Hct 37.1 MCV 90 MCH 29.7 MCHC 32.9 RDW Std Deviation 45.1 Plt Count 250 D Neut % (Auto) 52 Lymph % (Auto) 41 [place] % (Auto) 5 Eos % (Auto) 2 Baso % (Auto) 1 Neut # (Auto) 4.0 Lymph # (Auto) 3.2 [place] # (Auto) 0.4 Eos # (Auto) 0.2 Baso # (Auto) 0.0 Immature Gran # (Auto) 0.02 H Absolute Nucleated RBC 0.00 Immature Gran % 0 Nucleated RBC % 0 PT INR APTT Puncture Site ABG pH ABG pCO2 ABG pO2 ABG HCO3 ABG O2 Saturation ABG Base Excess FiO2 Sodium 140 Potassium 3.4 D Chloride 108 H Carbon Dioxide 25.7 Anion Gap 6 L BUN 6 L Creatinine 0.6 Estim Creat Clear Calc 129.4 eGFR > 60 BUN/Creatinine Ratio 10 L Glucose 78 Calculated Osmolality 276 Lactic Acid Calcium 9.3 Corrected Calcium 9.3 Phosphorus 4.1 Magnesium 2.0 Total Bilirubin 0.5 AST 13 ALT 12 Alkaline Phosphatase 81 Total Creatine Kinase Troponin I B-Natriuretic Peptide Total Protein 6.7 Albumin 4.5 D Globulin 2.2 L Albumin/Globulin Ratio 2.0 Procalcitonin TSH 3.83 Ur Collection Type Urine Color Urine Clarity Urine pH Ur Specific [place] Urine Protein Urine Glucose (UA) Urine Ketones Urine Blood Urine Nitrite Urine Bilirubin Urine Urobilinogen (Auto) Ur Leukocyte Esterase Urine RBC Urine WBC Ur Squamous Epith Cells Urine Bacteria Ur Culture Indicated? Urine Opiates Screen Urine Fentanyl Screen Ur Barbiturates Screen U Amphetamin/Meth Scrn U Benzodiazepines Scrn U Cocaine Metab Screen U Marijuana (THC) Screen ABG Interpretation ABG results: 12/16/24 14:16 ABG pH 7.40 ABG pCO2 37 ABG pO2 87 ABG HCO3 23 ABG O2 Saturation 98 ABG Base Excess -2 Quality Measures Quality Measures stroke Suspected type of Stroke: Non Acute Last known well (date): 12/16/24 Last known well (time): 11:00 Tenecteplase given: Reason(s) Tenecteplase not given: Stroke severity too mild (non-disabling) (possible syncope vs seizure/head trauma with functional neurological symptoms rather than acute stroke) not given Rehab services: PT evaluation ordered VTE Prophylaxis: pharmaceutical Antithrombotic by day 2:: ordered Statin ordered: <75 y/o high intensity dose Anticoagulation ordered for A-fib or flutter (current or hx): not indicated Assessment & Plan Assessment Current Active Medications: Generic Name Dose Route Start Last Admin Trade Name Freq PRN Reason Stop Dose Admin Acetaminophen 650 mg 12/16/24 17:40 Acetaminophen 325 Mg Tablet PO 01/15/25 17:39 Q6H PRN Fever >100.4 or pain 1-3 Hydrocodone Bitart/Acetaminophen 1 tab 12/16/24 17:40 12/17/24 11:02 Hydrocodone/Apap 5/325 Tablet PO 12/21/24 17:39 1 tab Q4HR PRN Administration PAIN SCALE 4-10(Mod-Sev Atorvastatin Calcium 40 mg 11/04/25 21:00 12/16/24 21:06 Atorvastatin Calcium 20 Mg Tablet PO 01/15/25 20:59 40 mg HS THU Administration Heparin Sodium (Porcine) 5,000 unit 12/16/24 22:00 12/17/24 05:16 Heparin Sod Inj 5000 Unit/Ml Vial SC 12/30/24 21:59 5,000 unit Q8HR THU Administration Lacosamide 50 mg 12/16/24 21:00 12/17/24 08:59 Lacosamide 50 Mg Tablet PO 01/15/25 20:59 50 mg BID THU Administration Lorazepam 2 mg 12/16/24 17:45 Lorazepam 2 Mg/Ml Vial IVP 12/21/24 17:44 Q8HR PRN ANXIETY Ondansetron HCl 4 mg 12/16/24 17:40 Ondansetron Inj 2 Mg/Ml Inj 2 Ml IVP 01/15/25 17:39 Q6H PRN NAUSEA OR VOMITING Protocol Pantoprazole Sodium 40 mg 12/17/24 09:00 12/17/24 08:58 Pantoprazole 40 Mg Tablet PO 01/16/25 08:59 40 mg QDAY THU Administration Plan 39-year-old female with a history of left hemiplegia, possible epilepsy, and chronic migraines, presenting with syncope, head injury, and headache after a fall; suspected seizure-like episode or functional neurological disorder, further evaluation with neurology, and EEG planned. #Syncope #Head Injury Patient with syncope, dizziness, and head injury after passing out while in the bathroom. Struck her head on the sink. Second syncope episode in the last few days. No loss of consciousness beyond the event. Right hip pain reported but no significant head trauma. Possible underlying cause for syncope remains unclear, considering seizure-like events, functional neurological disorder (FND), or postural syncope. Plan: * Continue neuro checks and monitoring for any focal deficits * CT head negative for acute hemorrhage * Neuro consult for further evaluation of syncope, recent neurological symptoms, and seizures * Pain management with acetaminophen for mild headache, norco for severe if can tolerate * Fall precautions and seizure precautions in place #Left Hemiplegia (Chronic) Ongoing left hemiplegia and sensory loss since August, likely multifactorial, with potential neurological cause. The patient was referred to a movement disorder specialist at [facility], with a follow-up appointment in February. Plan: * Continue neurology follow-up with movement disorder specialist * Monitor closely for any acute changes in left hemiplegia * Continue current medications (lacosamide, statin) * EEG to rule in/out subclinical seizures or epileptic activity that may contribute to weakness #Seizure-like Symptoms #Functional Neurological Disorder (FND) Patient has a history of possible epilepsy and recent episodes of syncope and dizziness. These symptoms, combined with her chronic left-sided weakness and neurologic history, raise concerns for seizure-like episodes or FND. An EEG is warranted to rule out abnormal electrical activity. Plan: * Order EEG to evaluate for subclinical seizures or epileptic activity * Continue current anti-seizure medication (Lacosamide) * If EEG is normal, consider FND and adjust management accordingly * Workup with neurology for further assessment and therapy #Migraine #Occipital Neuralgia Chronic headache with occipital neuralgia likely contributing to current headache symptoms. The patient's neurological background and history of migraines exacerbate this. Plan: * Continue headache management with appropriate medications * Assess possible interventional options for occipital neuralgia through neurology * Monitor for any worsening or new symptoms #Hyperlipidemia Well-controlled on statin therapy. No changes in lipid levels noted recently. Plan: * Continue atorvastatin 40 mg nightly * Continue monitoring for cardiovascular risk factors #Thyroid Nodule Incidental 4 mm thyroid nodule noted on CTA. No immediate concern but will monitor. Tsh within normal range Plan: * Follow-up with primary care for outpatient monitoring Health Maintenance: Diet: Regular GI Prophylaxis: PPI DVT Prophylaxis: Heparin subcutaneous Disposition: Neurology consultation for stroke-like symptoms Code Status: Full ----- Plan discussed with attending physician Dr. Borja and senior resident Dr. Mika Vieira MD PGY-1 Internal Medicine
[2024-12-17 16:00] VITALS: BP 112/80; PULSE 77; PULSE 79; RESP 16; TEMP 36.7; O2SAT 97
--- NOTE | 2024-12-17 17:44 | ESCONSULT_ITS ---
HPI Data of Consult Requesting Physician: Wilman Pabon MD Admitting Provider: Wilman Pabon MD Attending Provider: Bora Carmona MD Primary Care Provider: Physician No Primary/Family Consult Narrative History of present illness: Ms. Jackson is a 39-year-old female With past medical history of complex regional pain syndrome s/p right sided nerve stimulator, history of epilepsy- questionable, chronic migraines, occipital neuralgia and nephrolithiasis who was brought to the ED after a ground-level mechanical fall with syncope. Per documentation, patient was drying her hair when she became lightheaded and passed out, striking her head on a sink. The last thing that she can recall is her hand on the sink before passing out. Per family and patient the event occurred in the afternoon around 1?1:30 PM on 12/16/2024 and was the second syncopal episode occurred in the last 4 days. Patient also complains of worsening left-sided weakness since August 2024, which limits her mobility and requires her to use a walker to ambulate. Patient previously had history of right-sided weakness which improved after placement of neurostimulator. Stroke alert was called in the ED, with teleneuro recommending EEG to evaluate for possible absence seizures. 1900 on 12/17/2024: Patient is able to move her right upper and lower extremity, she is able to move left lower extremity however states that she has excruciating pain in her left shoulder and is unable to use or move her left arm. Patient has seen doctors in [place] who gave her nerve blocks in the occipital region and bilateral shoulders, with minimal relief from pain. She was offered Botox for her next visit, however landed in the hospital before that. Patient is supposed to follow-up with [facility] for further evaluation, apparently had an appointment today which she has now missed but had to reschedule. She was counseled extensively regarding overuse of Tylenol and having medication induced headaches. EEG showed epileptic activity on this admission. Head CT negative. cc:: cc: Wilman Pabon MD Review of Systems Review of Systems Narrative Review of Systems: GENERAL: Denies fevers/chills, diaphoresis. NEURO: Denies unusual weakness or difficulty speaking. Left upper extremity weakness, occipital headaches, worsens with light exposure CARDIO: Denies chest pain, palpitations. PULM: Denies SOB, cough, wheezing. GI: Denies abdominal pain, no N/V, no C/D. Reports having BMs URO: Denies burning/itching/pain/urinary changes. 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 PSYCH: Cooperative, pleasant mood & affect. The rest of the review of systems is otherwise negative. Exam Vital Signs Temp Pulse Resp BP Pulse Ox O2 Del Method 98.1 F 77 16 112/80 97 Room Air 12/17/24 16:00 12/17/24 16:00 12/17/24 16:00 12/17/24 16:00 12/17/24 16:00 12/17/24 16:00 Narrative Exam Constitutional Alert, oriented x3. Overweight BMI 29.6 HEENT Vision grossly intact, PERRLA. Patent nares. Trachea midline. Migraine headaches, worsens with light exposure, sitting in dark room with lights off. Respiratory Chest normal on inspection and clear to auscultation bilaterally. Cardiovascular S1 and S2 audible, RRR. No murmurs or carotid bruit. No gross JVD. Abdominal Soft and BS + ; non tender to palpation in all quadrants. Genitourinary No bladder tenderness, no flank pain. Normal to palpation. Musculoskeletal Extremities tone within normal limits. No LE edema. Neurological CN II - XII grossly intact. Left upper extremity strength 1/5, right upper extremity and bilateral lower extremity within normal limits. Sensation intact Skin Warm, dry and intact. No apparent lesions. Psychiatric Patient has a good affect, is cooperative. Results Labs 12/18/24 04:34 12/18/24 04:34 Labs: Short CBC 12/17/24 Range/Units 05:55 WBC 7.8 (3.6-11.0) Thou/mm3 Hgb 12.2 (12.0-16.0) g/dL Hct 37.1 (36.0-46.0) % Plt Count 250 D (140-440) Thou/mm3 BMP 12/17/24 05:55 Sodium 140 Potassium 3.4 D Chloride 108 H Carbon Dioxide 25.7 BUN 6 L Creatinine 0.6 Glucose 78 Calcium 9.3 Cardiac Enzymes 12/16/24 Range/Units 13:51 Total Creatine Kinase 54 (34-171) U/L Liver Function 12/17/24 Range/Units 05:55 Total Bilirubin 0.5 (0.3-1.2) mg/dL AST 13 (0-34) U/L ALT 12 (10-49) U/L Alkaline Phosphatase 81 (46-116) U/L Albumin 4.5 D (3.5-5.0) gm/dL Urine 12/16/24 Range/Units 19:40 Urine Color Lt-Yellow (Lt Yel-Yel) Urine Clarity Clear (Clear/Hazy) Urine pH 6.0 (5.0-7.0) Ur Specific [place] 1.050 H (1.001-1.035) Urine Protein Trace (Neg - Trace) Urine Glucose (UA) Negative (Negative) ABG Interpretation ABG results: 12/16/24 14:16 ABG pH 7.40 ABG pCO2 37 ABG pO2 87 ABG HCO3 23 ABG O2 Saturation 98 ABG Base Excess -2 Quality Measures Quality Measures stroke Suspected type of Stroke: Non Acute Last known well (date): 12/16/24 Last known well (time): 11:00 Tenecteplase given: Reason(s) Tenecteplase not given: Stroke severity too mild (non-disabling) (possible syncope vs seizure/head trauma with functional neurological symptoms rather than acute stroke) not given Rehab services: PT evaluation ordered VTE Prophylaxis: pharmaceutical Antithrombotic by day 2:: ordered Statin ordered: <75 y/o high intensity dose Anticoagulation ordered for A-fib or flutter (current or hx): ordered Medications Home Medications and Allergies Allergies Allergy/AdvReac Type Severity Reaction Status Date / Time alcohol Allergy Severe ICHY, Verified 12/16/24 13:18 REDNESS TO FACE diphenhydramine (From Allergy Severe Difficulty Verified 12/16/24 13:18 Benadryl Allergy) Swallowing ibuprofen Allergy Severe RASH Verified 12/16/24 13:18 loratadine (From Claritin) Allergy Severe Hives Verified 12/16/24 13:18 morphine Allergy Severe Difficulty Verified 12/16/24 13:18 Breathing oxycodone Allergy Severe Hives Verified 12/16/24 13:18 Penicillins Allergy Severe Difficulty Verified 12/16/24 13:18 Swallowing hydrocodone (From [place]) Allergy Intermediate Hypertensio Verified 12/16/24 13:18 n cinnamon Allergy Verified 12/17/24 01:00 [place] And Derivatives Allergy Verified 12/17/24 01:00 strawberry Allergy Verified 12/17/24 01:00 ketorolac (From Toradol) AdvReac Severe Fainting Verified 12/16/24 13:18 Visit Medications Acetaminophen (Acetaminophen 325 Mg Tablet) 650 mg PO Q6H PRN PRN Reason: Fever >100.4 or pain 1-3 Stop: 01/15/25 17:39 Hydrocodone Bitart/Acetaminophen (Hydrocodone/Apap 5/325 Tablet) 1 tab PO Q4HR PRN PRN Reason: PAIN SCALE 4-10(Mod-Sev Stop: 12/21/24 17:39 Last Admin: 12/17/24 16:58 Dose: 1 tab Atorvastatin Calcium (Atorvastatin Calcium 20 Mg Tablet) 40 mg PO HS THU Stop: 01/15/25 20:59 Last Admin: 12/16/24 21:06 Dose: 40 mg Heparin Sodium (Porcine) (Heparin Sod Inj 5000 Unit/Ml Vial) 5,000 unit SC Q8HR THU Stop: 12/30/24 21:59 Last Admin: 12/17/24 14:40 Dose: 5,000 unit Lorazepam (Lorazepam 2 Mg/Ml Vial) 2 mg IVP Q8HR PRN PRN Reason: ANXIETY Stop: 12/21/24 17:44 Ondansetron HCl (Ondansetron Inj 2 Mg/Ml Inj 2 Ml) 4 mg IVP Q6H PRN; Protocol PRN Reason: NAUSEA OR VOMITING Stop: 01/15/25 17:39 Pantoprazole Sodium (Pantoprazole 40 Mg Tablet) 40 mg PO QDAY THU Stop: 01/16/25 08:59 Last Admin: 12/17/24 08:58 Dose: 40 mg Discontinued Medications Acetaminophen (Acetaminophen 500 Mg Tablet) 1,000 mg PO X1 ONE Stop: 12/16/24 15:17 Last Admin: 12/16/24 17:06 Dose: 1,000 mg Hydrocodone Bitart/Acetaminophen (Hydrocodone/Apap 5/325 Tablet) 1 tab PO X1 ONE Stop: 12/16/24 17:46 Last Admin: 12/16/24 19:00 Dose: 1 tab Lacosamide (Lacosamide 50 Mg Tablet) 50 mg PO BID THU Stop: 01/15/25 20:59 Last Admin: 12/17/24 08:59 Dose: 50 mg Potassium Chloride (Potassium Chloride 20 Meq Tabcr) 20 meq PO X1 ONE Stop: 12/17/24 07:53 Last Admin: 12/17/24 08:58 Dose: 20 meq Assessment & Plan Plan Patient is a 39-year-old female admitted for new onset seizure in the setting of chronic pain syndrome. New onset seizure History of epilepsy, unclear Medication overuse headache Chronic pain syndrome L>R , s/p neurostimulator device - Questionable history of seizure disorder in the past - EEG on this admission shows epileptic changes - Patient was supposed to have an appointment at [facility] today which she missed for further evaluation - Has been overusing Tylenol up to 4 times a day, 1000mg dose. Recommendations: - Avoid Tylenol use, likely medications overuse headache - Increased dose of Vimpat 50mg --> 100mg BID for optimization - Continue management for now Other medical problems: per primary team management. Thank you for the consult. Neurology will continue to follow the case with you Plan of care discussed with attending Neurologist Dr Carmona, - Kaden Govea M.D. PGY3 Disclaimer: Minor errors in auto body builder apprentice may be present as this note was dictated using voice recognition software. Attending Provider Attestation/Addendum I personally have seen and examined the patient at the bedside and agreed with the resident's findings, assessment and plan of care. Patient with a history of epilepsy, chronic pain syndrome frequently gets admitted with a different symptoms with persistent left sided giveaway weakness but getting around with a walker at home after admission for few days here. As the EEG showed abnormal activity with epileptiform discharges consistent with seizures, we will increase the dose of the Vimpat to 100 mg twice a day. For migraine headache//chronic daily headache: Advised her to cut down on frequency of Tylenol as it can cause analgesic rebound headache. Noted that she is getting Botox injection at [facility], which did not help much after a week to 10 days. Not a candidate for Topamax as she has history of nephrolithiasis. We might consider CGRP inhibitors such as Qulipta 60 mg daily for prevention and Ubrelvy 100 mg as needed while she is cutting down on Tylenol. Consider physical therapy evaluation and then decide about the discharge when the pain is under control and overall symptoms are subsiding to some extent.
[2024-12-17 20:00] VITALS: BP 119/67; PULSE 70; PULSE 76; RESP 12; TEMP 36.9; O2SAT 97
[2024-12-17] MEDS: ATORVASTATIN CALCIUM 20 MG TABLET 40 MG PO (21:17)
[2024-12-17] MEDS: ACETAMINOPHEN 325 MG TABLET 650 MG PO (21:17)
[2024-12-17] MEDS: LACOSAMIDE 50 MG TABLET 100 MG PO (21:18)
[2024-12-18] VITALS (7 sets, daily range): BP systolic 92–111; BP diastolic 57–85; PULSE 62–87; RESP 16–18; TEMP 36.4–36.7; O2SAT 95–98; BMI 29.5
[2024-12-18] MEDS: HEPARIN SOD INJ 5000 UNIT/ML VIAL SC ×3 (06:00→21:18)
[2024-12-18] MEDS: HYDROcodone/APAP 5/325 TABLET 1 TAB PO ×3 (06:00→16:49)
[2024-12-18 06:24] LABS: Basophils # (Auto) 0.0 Thou/mm3 (0.0-0.2); Basophils % (Auto) 1 % (0-2.5); Eosinophils # (Auto) 0.2 Thou/mm3 (0.0-0.5); Eosinophils % (Auto) 2 % (0-10); Hematocrit 37.9 % (36.0-46.0); Hemoglobin 12.2 g/dL (12.0-16.0); Immature Granulocytes Auto 0.02 Thou/mm3 (0.00-0.00); Lymphocytes # (Auto) 3.4 Thou/mm3 (1.0-4.8); Lymphocytes % (Auto) 45 % (10-50); Mean Corpuscular HGB Conc 32.2 g/dl (31.0-37.0); Mean Corpuscular Hemoglobin 29.3 pg (25.0-35.0); Mean Corpuscular Volume 91 fL (80-100); Monocytes # (Auto) 0.4 Thou/mm3 (0.0-0.8); Monocytes % (Auto) 5 % (0-12); Neutrophils # (Auto) 3.5 Thou/mm3 (1.8-7.7); Neutrophils % (Auto) 47 % (37-80); Nucleated Red Blood Cell # 0.00 Thou/mm3 (0.00-0.00); Nucleated Red Blood Cell % 0 /100 WBC (0); Platelet Count 268 Thou/mm3 (140-440); RDW Standard Deviation 44.9 fL (36.4-46.3); Red Blood Count 4.17 Miln/mm3 (4.00-5.20); White Blood Count 7.5 Thou/mm3 (3.6-11.0)
[2024-12-18 06:53] LABS: Anion Gap 9 (7-16); BUN/Creatinine Ratio 9 Ratio (12-20); Blood Urea Nitrogen 6 mg/dL (9-23); Calcium 9.4 mg/dL (8.3-10.6); Carbon Dioxide 25.6 mMol/L (20.0-31.0); Chloride 106 mMol/L (98-107); Creatinine (Component) 0.7 mg/dL (0.6-1.3); Estimated Creatinine Clearance 110.9 mL/min (>60); Glucose 81 mg/dL (74-106); Magnesium 1.9 mg/dL (1.6-2.6); Osmolality,Calculated 277 (275-295); Potassium 3.3 mMol/L (3.4-5.1); Sodium 141 mMol/L (136-145); eGFR > 60 See Note
[2024-12-18] MEDS: LACOSAMIDE 50 MG TABLET 100 MG PO ×2 (08:04→21:17)
[2024-12-18] MEDS: PANTOPRAZOLE 40 MG TABLET PO (08:05)
--- NOTE | 2024-12-18 11:31 | PD.RESDS ---
Planned Discharge Date 12/19/24 DS: Providers Provider Date of admission: 12/16/24 17:40 Primary care physician: Physician No Primary/Family Admitting Provider: Wilman Pabon MD Attending Provider on Admission: Adolfo Borja MD Consults: 12/16/24 13:29 Consult to Neurology / Tele-Neurology Routine Comment: Consulting Provider: [facility] 12/16/24 17:45 Consult to Neurology / Tele-Neurology Routine Comment: Consulting Provider: Bora Carmona 12/16/24 17:48 PT [Referral Physical Therapy] Routine Comment: Physician Instructions: Attending Provider on DC: Adolfo Borja MD Discharging Provider: Kana Vieira MD DS: Diagnosis Problem List Completed Was Problem List Reviewed/Reconciled?: Yes Hospital Course Hospital Course Hospital course: 39-year-old female with a history of right-sided complex regional pain syndrome (CRPS) status post nerve stimulator, possible epilepsy, migraines, occipital neuralgia, hyperlipidemia, and chronic left hemiplegia was admitted after a syncopal episode at home resulting in a head injury. Initial CT head was negative for acute findings. Neurology was consulted given her prior history and chronic neurological symptoms. MRI brain and cervical spine were ordered, and EEG showed epileptiform [id number] discharges in both temporal lobes, consistent with a seizure disorder, though no active seizures were recorded. During hospitalization, the patient complained of severe headache and dizziness, which improved with conservative management. It was discovered that she had been overusing Tylenol (1000 mg up to 4 times daily), contributing to a medication overuse headache. Neurology recommended discontinuing Tylenol, increasing Vimpat from 50 mg BID to 100 mg BID, and considering CGRP inhibitors such as Qulipta or Ubrelvy for migraine prevention and rescue, respectively. The patient?s left hemiplegia remained unchanged from baseline. Right hip and lumbar spine X-rays were obtained for post-fall pain and were negative for fracture. She remained hemodynamically stable and had no further seizure-like events or syncopal episodes. Discharge Diagnoses: #Seizure disorder (newly confirmed on EEG) #Headache secondary to medication overuse #Chronic left hemiplegia #Chronic pain syndrome #Hypokalemia (resolved) #Hyperlipidemia Discharge instructions: -Follow-up with PCP within 1 week of discharge. If you do not have appointment, please follow-up with the [facility] with Dr. Brennan. Call [phone] to make an appointment. -PT recommended patient to have home health PT. -Recommended to increase Lacosamide dose from 50 to 100mg twice daily -Recommended to start Ubrelvy 100mg as needed for Breakthrough pain,not more than 10tablets/month, 100mg/day -Continue other home medications -Recommedned to follow up with [facility] appointment in february for Botox injections -Return to ED if symptoms persist or return ----- Plan discussed with attending physician Dr. Jonh Vieira MD PGY-1 Internal Medicine Time Spent with Patient Time attestation: Total time spent providing and/or coordinating discharge services: Time spent: Greater than 30 minutes Exam Vital Signs Temp Pulse Resp BP Pulse Ox O2 Del Method 97.6 F 63 17 104/71 98 Room Air 12/18/24 08:00 12/18/24 08:00 12/18/24 08:00 12/18/24 08:00 12/18/24 08:00 12/18/24 08:00 Narrative Exam General: Awake, alert, oriented ?3, no acute distress. HEENT: NC/AT, moist mucosa, pupils equal/reactive; reports left eye blurry vision. Cardiac: Regular rate and rhythm, no murmurs. Pulmonary: Clear to auscultation bilaterally. Abdomen: Soft, non-tender, non-distended. Extremities: No edema; right hip and back tenderness improved. Neuro: Left hemiplegia (0/5 LUE/LLE) unchanged; right side 5/5; cranial nerves II?XII intact. Skin: Warm, dry, intact. Discharge Plan Plan Patient Disposition: HOME (Self Care) Patient condition on transfer: Stable Care Plan Goals: -Follow-up with PCP within 1 week of discharge. If you do not have appointment, please follow-up with the [facility] with Dr. Brennan. Call [phone] to make an appointment. -PT recommended patient to have home health PT. -Recommended to increase Lacosamide dose from 50 to 100mg twice daily -Recommended to start Ubrelvy 100mg as needed for Breakthrough pain,not more than 10tablets/month, 100mg/day -Continue other home medications -Recommedned to follow up with [facility] appointment in february for Botox injections -Return to ED if symptoms persist or return Prescriptions/Referrals Prescriptions/Med Rec: New Ubrelvy 100 mg tablet 100 mg PO QDAY MDD 100mg Qty: 10 0RF epinephrine [EpiPen] 0.3 mg/0.3 mL auto-injector 0.3 ml subcut PRN PRN (Reason: hypersensitivity reaction) Qty: 1 1RF Continued rosuvastatin 40 mg tablet 40 mg PO HS 30 Days Qty: 30 0RF Changed lacosamide 50 mg tablet 100 mg PO BID Qty: 60 0RF Referrals: No Primary/Family,Physician [Primary Care Provider] Patient/Caregiver Discharge Instructions Education Materials: What Is Syncope?, Understanding Vision Problems, Self-Care for Headaches, Understanding the Pain Response Print Language: Khmer Stand Alone Forms: [facility] Award Info., Patient Portal Info Letter Discharge Order Discharge Orders: Discharge (Routine); Ordered 12/18/24 Ordered By: Abundio Brennan Quality Discharge Quality Measures VTE prophylaxis
--- NOTE | 2024-12-18 13:42 | PD.RESPRO ---
Documentation for date of: 12/18/24 Subjective Subjective Interval history: Ms. Jackson is a 39-year-old female With past medical history of complex regional pain syndrome s/p right sided nerve stimulator, history of epilepsy-questionable, chronic migraines, occipital neuralgia and nephrolithiasis who was brought to the ED after a ground-level mechanical fall with syncope. Per documentation, patient was drying her hair when she became lightheaded and passed out, striking her head on a sink. The last thing that she can recall is her hand on the sink before passing out. Per family and patient the event occurred in the afternoon around 1?1:30 PM on 12/16/2024 and was the second syncopal episode occurred in the last 4 days. Patient also complains of worsening left-sided weakness since August 2024, which limits her mobility and requires her to use a walker to ambulate. Patient previously had history of right-sided weakness which improved after placement of neurostimulator. Stroke alert was called in the ED, with teleneuro recommending EEG to evaluate for possible absence seizures. 1900 on 12/17/2024: Patient is able to move her right upper and lower extremity, she is able to move left lower extremity however states that she has excruciating pain in her left shoulder and is unable to use or move her left arm. Patient has seen doctors in [place] who gave her nerve blocks in the occipital region and bilateral shoulders, with minimal relief from pain. She was offered Botox for her next visit, however landed in the hospital before that. Patient is supposed to follow-up with [facility] for further evaluation, apparently had an appointment today which she has now missed but had to reschedule. She was counseled extensively regarding overuse of Tylenol and having medication induced headaches. EEG showed epileptic activity on this admission. Head CT negative. 1344 on 12/18/2024: Patient seen and examined at bedside, appears to be at baseline. LT UE pain better today, able to move her arm slightly. Primary team ordered Qulipta and Ubrelvy on discharge, unablet o get Qulipta at this time from her pharmacy/insurance issue. Patient advised to follow up at the Neuro clinic after discharge for continued management. Avoid Tylenol to prevent rebound headaches. Exam Vital Signs Temp Pulse Resp BP Pulse Ox O2 Del Method 97.6 F 69 16 111/72 97 Room Air 12/18/24 12:00 12/18/24 12:00 12/18/24 12:00 12/18/24 12:00 12/18/24 12:00 12/18/24 12:00 Narrative Exam Constitutional Alert, oriented x3. Overweight BMI 29.6 HEENT Vision grossly intact, PERRLA. Patent nares. Trachea midline. Migraine headaches, worsens with light exposure, sitting in dark room with lights off. Respiratory Chest normal on inspection and clear to auscultation bilaterally. Cardiovascular S1 and S2 audible, RRR. No murmurs or carotid bruit. No gross JVD. Abdominal Soft and BS + ; non tender to palpation in all quadrants. Genitourinary No bladder tenderness, no flank pain. Normal to palpation. Musculoskeletal Extremities tone within normal limits. No LE edema. Neurological CN II - XII grossly intact. Left upper extremity strength 1/5, right upper extremity and bilateral lower extremity within normal limits. Sensation intact Skin Warm, dry and intact. No apparent lesions. Psychiatric Patient has a good affect, is cooperative. Objective Labs 12/19/24 05:53 12/19/24 05:53 Labs: Laboratory Results - last 24 hr 12/18/24 04:34 WBC 7.5 RBC 4.17 Hgb 12.2 Hct 37.9 MCV 91 MCH 29.3 MCHC 32.2 RDW Std Deviation 44.9 Plt Count 268 Neut % (Auto) 47 Lymph % (Auto) 45 [place] % (Auto) 5 Eos % (Auto) 2 Baso % (Auto) 1 Neut # (Auto) 3.5 Lymph # (Auto) 3.4 [place] # (Auto) 0.4 Eos # (Auto) 0.2 Baso # (Auto) 0.0 Immature Gran # (Auto) 0.02 H Absolute Nucleated RBC 0.00 Immature Gran % 0 Nucleated RBC % 0 Sodium 141 Potassium 3.3 L Chloride 106 Carbon Dioxide 25.6 Anion Gap 9 BUN 6 L Creatinine 0.7 Estim Creat Clear Calc 110.9 eGFR > 60 BUN/Creatinine Ratio 9 L Glucose 81 Calculated Osmolality 277 Calcium 9.4 Magnesium 1.9 ABG Interpretation ABG results: 12/16/24 14:16 ABG pH 7.40 ABG pCO2 37 ABG pO2 87 ABG HCO3 23 ABG O2 Saturation 98 ABG Base Excess -2 Quality Measures Quality Measures stroke Suspected type of Stroke: Non Acute Last known well (date): 12/16/24 Last known well (time): 11:00 Tenecteplase given: Reason(s) Tenecteplase not given: Stroke severity too mild (non-disabling) (possible syncope vs seizure/head trauma with functional neurological symptoms rather than acute stroke) not given Rehab services: PT evaluation ordered VTE Prophylaxis: pharmaceutical Antithrombotic by day 2:: ordered Statin ordered: <75 y/o high intensity dose Anticoagulation ordered for A-fib or flutter (current or hx): ordered Assessment & Plan Assessment Current Active Medications: Generic Name Dose Route Start Last Admin Trade Name Freq PRN Reason Stop Dose Admin Hydrocodone Bitart/Acetaminophen 1 tab 12/16/24 17:40 12/18/24 12:04 Hydrocodone/Apap 5/325 Tablet PO 12/21/24 17:39 1 tab Q4HR PRN Administration PAIN SCALE 4-10(Mod-Sev Atorvastatin Calcium 40 mg 12/16/24 21:00 12/17/24 21:17 Atorvastatin Calcium 20 Mg Tablet PO 01/15/25 20:59 40 mg HS THU Administration Heparin Sodium (Porcine) 5,000 unit 12/16/24 22:00 12/18/24 06:00 Heparin Sod Inj 5000 Unit/Ml Vial SC 12/30/24 21:59 5,000 unit Q8HR THU Administration Lacosamide 100 mg 12/17/24 21:00 12/18/24 08:04 Lacosamide 50 Mg Tablet PO 01/16/25 20:59 100 mg BID THU Administration Lorazepam 2 mg 12/16/24 17:45 Lorazepam 2 Mg/Ml Vial IVP 12/21/24 17:44 Q8HR PRN ANXIETY Ondansetron HCl 4 mg 12/16/24 17:40 Ondansetron Inj 2 Mg/Ml Inj 2 Ml IVP 01/15/25 17:39 Q6H PRN NAUSEA OR VOMITING Protocol Pantoprazole Sodium 40 mg 12/17/24 09:00 12/18/24 08:05 Pantoprazole 40 Mg Tablet PO 01/16/25 08:59 40 mg QDAY THU Administration Plan Patient is a 39-year-old female admitted for new onset seizure in the setting of chronic pain syndrome. New onset seizure Chronic pain syndrome L>R , s/p neurostimulator device - Questionable history of seizure disorder in the past - Pt has chronic pain syndrome frequently gets admitted with a different symptoms with persistent left sided giveaway weakness but getting around with a walker at home after admission for few days here. - EEG on this admission shows epileptic changes Recommendations - Increased dose of Vimpat 50mg --> 100mg BID for optimization - Consider physical therapy evaluation and then decide about the discharge when the pain is under control and overall symptoms are subsiding to some extent. Hx of Migraines Rebound headaches - Noted that she is getting Botox injection at [facility], which did not help much after a week to 10 days. - Has been overusing Tylenol up to 4 times a day, 1000mg dose. Recommendations: - Avoid Tylenol use, or cut down on frequency of Tylenol as it can cause analgesic rebound headache. - Not a candidate for Topamax as she has history of nephrolithiasis. - Ordered CGRP inhibitors : Qulipta 60 mg daily for prevention and Ubrelvy 100 mg as needed while she is cutting down on Tylenol. - Even if patient unable to get Qulipta, please still order Ubrelvy for PRN use, atleast 10 tabs per month. Other medical problems: per primary team management. Thank you for the consult. Neurology will continue to follow the case with you Plan of care discussed with attending Neurologist Juan Duran M.D. PGY3 Disclaimer: Minor errors in senior cognos developer may be present as this note was dictated using voice recognition software. Attending Provider Attestation/Addendum I personally have seen and examined the patient at the bedside and agreed with the resident's findings, assessment and plan of care. Will go up on the dose of the Vimpat 200 mg twice a day as she tolerates. Advised her to cut down on NSAIDs to prevent medication overuse headache and try Ubrelvy as needed for abortive therapy and Qulipta 60 mg a day for prophylaxis. Noted insurance did not approve Qulipta as she is on Botox for patient as well and she has an appointment with [facility] in February for Botox treatment for chronic migraine. Not a candidate for Topamax as she has history of nephrolithiasis. She will follow-up with neurology as an outpatient at [facility].
--- NOTE | 2024-12-18 17:37 | PC.NURSE ---
Pt discharge pending, pt allowed by Dr. Vieira to take first dose of Ubrelvy to watch for any adverse reaction d/t pt having many allergies. Patient states medicine is not ready at [facility], my sister cannot get it yet. I informed patient to let me know when her sister arrives. Dr. Vieira and Charge Nurse Bossman made aware.
[2024-12-18] MEDS: ATORVASTATIN CALCIUM 20 MG TABLET 40 MG PO (21:17)
[2024-12-19] VITALS: BP 93/61; PULSE 73; PULSE 74; RESP 18; TEMP 36.9; O2SAT 96
[2024-12-19 04:00] VITALS: BP 94/68; PULSE 64; PULSE 72; RESP 18; TEMP 36.8; O2SAT 97
[2024-12-19] MEDS: HEPARIN SOD INJ 5000 UNIT/ML VIAL SC (05:19)
[2024-12-19] MEDS: ACETAMINOPHEN 325 MG TABLET 650 MG PO (05:19)
[2024-12-19 06:00] VITALS: BMI 29.5
[2024-12-19 06:14] LABS: Basophils # (Auto) 0.0 Thou/mm3 (0.0-0.2); Basophils % (Auto) 0 % (0-2.5); Eosinophils # (Auto) 0.2 Thou/mm3 (0.0-0.5); Eosinophils % (Auto) 3 % (0-10); Hematocrit 35.8 % (36.0-46.0); Hemoglobin 11.8 g/dL (12.0-16.0); Immature Granulocytes Auto 0.03 Thou/mm3 (0.00-0.00); Lymphocytes # (Auto) 3.1 Thou/mm3 (1.0-4.8); Lymphocytes % (Auto) 40 % (10-50); Mean Corpuscular HGB Conc 33.0 g/dl (31.0-37.0); Mean Corpuscular Hemoglobin 29.9 pg (25.0-35.0); Mean Corpuscular Volume 91 fL (80-100); Monocytes # (Auto) 0.4 Thou/mm3 (0.0-0.8); Monocytes % (Auto) 6 % (0-12); Neutrophils # (Auto) 3.9 Thou/mm3 (1.8-7.7); Neutrophils % (Auto) 51 % (37-80); Nucleated Red Blood Cell # 0.00 Thou/mm3 (0.00-0.00); Nucleated Red Blood Cell % 0 /100 WBC (0); Platelet Count 236 Thou/mm3 (140-440); RDW Standard Deviation 44.0 fL (36.4-46.3); Red Blood Count 3.95 Miln/mm3 (4.00-5.20); White Blood Count 7.7 Thou/mm3 (3.6-11.0)
[2024-12-19 06:45] LABS: Anion Gap 9 (7-16); BUN/Creatinine Ratio 10 Ratio (12-20); Blood Urea Nitrogen 7 mg/dL (9-23); Calcium 8.9 mg/dL (8.3-10.6); Carbon Dioxide 25.5 mMol/L (20.0-31.0); Chloride 106 mMol/L (98-107); Creatinine (Component) 0.7 mg/dL (0.6-1.3); Estimated Creatinine Clearance 110.9 mL/min (>60); Glucose 87 mg/dL (74-106); Magnesium 2.0 mg/dL (1.6-2.6); Osmolality,Calculated 276 (275-295); Potassium 3.8 mMol/L (3.4-5.1); Sodium 140 mMol/L (136-145); eGFR > 60 See Note
[2024-12-19 08:00] VITALS: BP 94/61; PULSE 62; PULSE 90; RESP 18; TEMP 36.7; O2SAT 97
[2024-12-19] MEDS: LACOSAMIDE 50 MG TABLET 100 MG PO (09:18)
[2024-12-19] MEDS: PANTOPRAZOLE 40 MG TABLET PO (09:18)
--- NOTE | 2024-12-19 11:50 | PC.SS ---
IMPREGNATOR AND DRIER HELPER conducted bedside contact with the patient conduct initial assessment and to discuss discharge planning.? Patient confirmed demographic information.? Patient resides at home with mother, Lauryn Velazquez .? Patient is currently employed.? Patient does not utilize any form of DME to assist with ambulation.? Patient does not utilize home oxygen.? Patient describes the ability to complete ADL?s independently.? Patient identified mother, Lauryn Velazquez; as medical surrogate decision maker.? Patient?s PCP is Wyatt Kellogg, [facility].? Patient does not participate with dialysis.? Patient does not possess any specialty providers.? Patient utilizes [facility] for medication services.? Plan is for the patient to return home at the time of discharge.? Family will provide transportation on behalf of the patient.? No further discharge needs identified by the patient.? No further intervention required at this time, social work specialist will be available to address any further concerns.? Next of Kin: Lauryn Velazquez D/C Plan: Home
[2024-12-19 12:00] VITALS: BP 107/76; PULSE 67; PULSE 72; RESP 16; TEMP 36.5; O2SAT 96
--- NOTE | 2024-12-19 12:43 | ESDS_ITS ---
<Statement entered by Adolfo Borja MD - 01/01/25 07:55> I reviewed above note and agree with findings and plans. I have also personally examined the patient with medicine team and went over assessment and plan with medical team including business services intern and resident physician. Planned Discharge Date 12/19/24 DS: Providers Provider Date of admission: 12/16/24 17:40 Primary care physician: Physician No Primary/Family Admitting Provider: Wilman Pabon MD Attending Provider on Admission: Adolfo Borja MD Consults: 12/16/24 13:29 Consult to Neurology / Tele-Neurology Routine Comment: Consulting Provider: [facility] 12/16/24 17:45 Consult to Neurology / Tele-Neurology Routine Comment: Consulting Provider: Bora Carmona 12/16/24 17:48 PT [Referral Physical Therapy] Routine Comment: Physician Instructions: Attending Provider on DC: Adolfo Borja MD Discharging Provider: Kana Vieira MD DS: Diagnosis Problem List Completed Was Problem List Reviewed/Reconciled?: Yes Hospital Course Hospital Course Hospital course: 39-year-old female with a history of right-sided complex regional pain syndrome (CRPS) status post nerve stimulator, possible epilepsy, migraines, occipital neuralgia, hyperlipidemia, and chronic left hemiplegia was admitted after a syncopal episode at home resulting in a head injury. Initial CT head was negative for acute findings. Neurology was consulted given her prior history and chronic neurological symptoms. MRI brain and cervical spine were ordered, and EEG showed epileptiform [id number] discharges in both temporal lobes, consistent with a seizure disorder, though no active seizures were recorded. During hospitalization, the patient complained of severe headache and dizziness, which improved with conservative management. It was discovered that she had been overusing Tylenol (1000 mg up to 4 times daily), contributing to a medication overuse headache. Neurology recommended discontinuing Tylenol, increasing Vimpat from 50 mg BID to 100 mg BID, and considering CGRP inhibitors such as Qulipta or Ubrelvy for migraine prevention and rescue, respectively. The patient?s left hemiplegia remained unchanged from baseline. Right hip and lumbar spine X-rays were obtained for post-fall pain and were negative for fracture. She remained hemodynamically stable and had no further seizure-like events or syncopal episodes. Discharge Diagnoses: #Seizure disorder (newly confirmed on EEG) #Headache secondary to medication overuse #Chronic left hemiplegia #Chronic pain syndrome #Hypokalemia (resolved) #Hyperlipidemia Discharge instructions: -Follow-up with PCP within 1 week of discharge. If you do not have appointment, please follow-up with the [facility] with Dr. Brennan. Call [phone] to make an appointment. -PT recommended patient to have home health PT. -Recommended to increase Lacosamide dose from 50 to 100mg twice daily -Recommended to start Ubrelvy 100mg as needed for Breakthrough pain,not more than 10tablets/month, 100mg/day -Continue other home medications -Recommedned to follow up with [facility] appointment in february for Botox injections -Return to ED if symptoms persist or return ----- Plan discussed with attending physician Dr. Jonh Vieira MD PGY-1 Internal Medicine Time Spent with Patient Time attestation: Total time spent providing and/or coordinating discharge services: Time spent: Greater than 30 minutes Exam Vital Signs Temp Pulse Resp BP Pulse Ox O2 Del Method 98.1 F 67 18 94/61 97 Room Air 12/19/24 08:00 12/19/24 12:00 12/19/24 08:00 12/19/24 08:00 12/19/24 08:00 12/19/24 08:00 Narrative Exam General: Awake, alert, oriented ?3, no acute distress. HEENT: NC/AT, moist mucosa, pupils equal/reactive; reports left eye blurry vision. Cardiac: Regular rate and rhythm, no murmurs. Pulmonary: Clear to auscultation bilaterally. Abdomen: Soft, non-tender, non-distended. Extremities: No edema; right hip and back tenderness improved. Neuro: Left hemiplegia (0/5 LUE/LLE) unchanged; right side 5/5; cranial nerves II?XII intact. Skin: Warm, dry, intact. Discharge Plan Plan Patient Disposition: HOME (Self Care) Patient condition on transfer: Stable Care Plan Goals: -Follow-up with PCP within 1 week of discharge. If you do not have appointment, please follow-up with the [facility] with Dr. Brennan. Call [phone] to make an appointment. -PT recommended patient to have home health PT. -Recommended to increase Lacosamide dose from 50 to 100mg twice daily -Recommended to start Ubrelvy 100mg as needed for Breakthrough pain,not more than 10tablets/month, 100mg/day -Continue other home medications -Recommedned to follow up with [facility] appointment in february for Botox injections -Return to ED if symptoms persist or return Prescriptions/Referrals Prescriptions/Med Rec: New Ubrelvy 100 mg tablet 100 mg PO QDAY MDD 100mg Qty: 10 0RF epinephrine [EpiPen] 0.3 mg/0.3 mL auto-injector 0.3 ml subcut PRN PRN (Reason: hypersensitivity reaction) Qty: 1 1RF Continued rosuvastatin 40 mg tablet 40 mg PO HS 30 Days Qty: 30 0RF Changed lacosamide 50 mg tablet 100 mg PO BID Qty: 60 0RF Referrals: No Primary/Family,Physician [Primary Care Provider] Patient/Caregiver Discharge Instructions Education Materials: What Is Syncope?, Understanding Vision Problems, Self-Care for Headaches, Understanding the Pain Response Print Language: Welsh Stand Alone Forms: [facility] Award Info., Patient Portal Info Letter Discharge Order Discharge Orders: Discharge (Routine); Ordered 12/18/24 Ordered By: Abundio Brennan Quality Discharge Quality Measures VTE prophylaxis
--- NOTE | 2024-12-19 12:44 | ESPR_ITS ---
<Statement entered by Adolfo Borja MD - 01/01/25 07:55> I reviewed above note and agree with findings and plans. I have also personally examined the patient with medicine team and went over assessment and plan with medical team including biology internship and resident physician. <Statement entered by Abundio Brennan MD - 12/20/24 16:06> I have personally seen and examined the patient, agree with residents assessment and plan Patient plan of care was discussed with the attending physician, Dr. Jonh Brennan, PGY2 Documentation for date of: 12/18/24 Subjective Subjective Interval history: Patient continues to complain of severe headache and dizziness, which is transiently relieved by [place] (effective for about 1 hour). She reports headache is severe again after the medication wears off, with associated nausea. She denies any new symptoms such as visual changes or weakness. Right hip and back pain persists after the fall, but she is able to tolerate mild movement. Patient remains bedbound, and left hemiplegia remains unchanged. Exam Vital Signs Temp Pulse Resp BP Pulse Ox O2 Del Method 98.1 F 67 18 94/61 97 Room Air 12/19/24 08:00 12/19/24 12:00 12/19/24 08:00 12/19/24 08:00 12/19/24 08:00 12/19/24 08:00 Narrative Exam General: Awake, alert, oriented ?3, no acute distress. HEENT: NC/AT, moist mucosa, pupils equal/reactive; reports left eye blurry vision. Cardiac: Regular rate and rhythm, no murmurs. Pulmonary: Clear to auscultation bilaterally. Abdomen: Soft, non-tender, non-distended. Extremities: No edema; right hip and back tenderness improved. Neuro: Left hemiplegia (0/5 LUE/LLE) unchanged; right side 5/5; cranial nerves II?XII intact. Skin: Warm, dry, intact. Objective Labs 12/19/24 05:53 12/19/24 05:53 Labs: Laboratory Results - last 24 hr 12/19/24 05:53 WBC 7.7 RBC 3.95 L Hgb 11.8 L Hct 35.8 L MCV 91 MCH 29.9 MCHC 33.0 RDW Std Deviation 44.0 Plt Count 236 D Neut % (Auto) 51 Lymph % (Auto) 40 [place] % (Auto) 6 Eos % (Auto) 3 Baso % (Auto) 0 Neut # (Auto) 3.9 Lymph # (Auto) 3.1 [place] # (Auto) 0.4 Eos # (Auto) 0.2 Baso # (Auto) 0.0 Immature Gran # (Auto) 0.03 H Absolute Nucleated RBC 0.00 Immature Gran % 0 Nucleated RBC % 0 Sodium 140 Potassium 3.8 D Chloride 106 Carbon Dioxide 25.5 Anion Gap 9 BUN 7 L Creatinine 0.7 Estim Creat Clear Calc 110.9 eGFR > 60 BUN/Creatinine Ratio 10 L Glucose 87 Calculated Osmolality 276 Calcium 8.9 Magnesium 2.0 ABG Interpretation ABG results: 12/16/24 14:16 ABG pH 7.40 ABG pCO2 37 ABG pO2 87 ABG HCO3 23 ABG O2 Saturation 98 ABG Base Excess -2 Quality Measures Quality Measures VTE prophylaxis Assessment & Plan Assessment Current Active Medications: Generic Name Dose Route Start Last Admin Trade Name Freq PRN Reason Stop Dose Admin Hydrocodone Bitart/Acetaminophen 1 tab 12/16/24 17:40 12/18/24 16:49 Hydrocodone/Apap 5/325 Tablet PO 12/21/24 17:39 1 tab Q4HR PRN Administration PAIN SCALE 4-10(Mod-Sev Atorvastatin Calcium 40 mg 12/16/24 21:00 12/18/24 21:17 Atorvastatin Calcium 20 Mg Tablet PO 01/15/25 20:59 40 mg HS THU Administration Heparin Sodium (Porcine) 5,000 unit 12/16/24 22:00 12/19/24 05:19 Heparin Sod Inj 5000 Unit/Ml Vial SC 12/30/24 21:59 5,000 unit Q8HR THU Administration Lacosamide 100 mg 12/17/24 21:00 12/19/24 09:18 Lacosamide 50 Mg Tablet PO 01/16/25 20:59 100 mg BID THU Administration Lorazepam 2 mg 12/16/24 17:45 Lorazepam 2 Mg/Ml Vial IVP 12/21/24 17:44 Q8HR PRN ANXIETY Ondansetron HCl 4 mg 12/16/24 17:40 Ondansetron Inj 2 Mg/Ml Inj 2 Ml IVP 01/15/25 17:39 Q6H PRN NAUSEA OR VOMITING Protocol Pantoprazole Sodium 40 mg 12/17/24 09:00 12/19/24 09:18 Pantoprazole 40 Mg Tablet PO 01/16/25 08:59 40 mg QDAY THU Administration Plan 39-year-old female with a history of left hemiplegia, possible epilepsy, and chronic migraines, presenting with syncope, head injury, and headache after a fall; suspected seizure-like episode or functional neurological disorder, further evaluation with neurology, and EEG planned. #Syncope #Head Injury Patient with syncope, dizziness, and head injury after passing out while in the bathroom. Struck her head on the sink. Second syncope episode in the last few days. No loss of consciousness beyond the event. Right hip pain reported but no significant head trauma. Possible underlying cause for syncope remains unclear, considering seizure-like events, functional neurological disorder (FND), or postural syncope. Plan: * Continue neuro checks and monitoring for any focal deficits * CT head negative for acute hemorrhage * Neuro consult for further evaluation of syncope, recent neurological symptoms, and seizures * Pain management with acetaminophen for mild headache, norco for severe if can tolerate * Fall precautions and seizure precautions in place #Left Hemiplegia (Chronic) Ongoing left hemiplegia and sensory loss since August, likely multifactorial, with potential neurological cause. The patient was referred to a movement disorder specialist at [facility], with a follow-up appointment in February. Plan: * Continue neurology follow-up with movement disorder specialist * Monitor closely for any acute changes in left hemiplegia * Continue current medications (lacosamide, statin) * EEG to rule in/out subclinical seizures or epileptic activity that may contribute to weakness #Seizure-like Symptoms #Functional Neurological Disorder (FND) Patient has a history of possible epilepsy and recent episodes of syncope and dizziness. These symptoms, combined with her chronic left-sided weakness and neurologic history, raise concerns for seizure-like episodes or FND. An EEG is warranted to rule out abnormal electrical activity. Plan: * Order EEG to evaluate for subclinical seizures or epileptic activity * Continue current anti-seizure medication (Lacosamide) * If EEG is normal, consider FND and adjust management accordingly * Workup with neurology for further assessment and therapy #Migraine #Occipital Neuralgia Chronic headache with occipital neuralgia likely contributing to current headache symptoms. The patient's neurological background and history of migraines exacerbate this. Plan: * Continue headache management with appropriate medications * Assess possible interventional options for occipital neuralgia through neurology * Monitor for any worsening or new symptoms #Hyperlipidemia Well-controlled on statin therapy. No changes in lipid levels noted recently. Plan: * Continue atorvastatin 40 mg nightly * Continue monitoring for cardiovascular risk factors #Thyroid Nodule Incidental 4 mm thyroid nodule noted on CTA. No immediate concern but will monitor. Tsh within normal range Plan: * Follow-up with primary care for outpatient monitoring Health Maintenance: Diet: Regular GI Prophylaxis: PPI DVT Prophylaxis: Heparin subcutaneous Disposition: Neurology consultation for stroke-like symptoms Code Status: Full ----- Plan discussed with attending physician Dr. Borja and senior resident Dr. Mika Vieira MD PGY-1 Internal Medicine
== END 2024-12-19 13:22 | disposition home or self-care (01) | DRG 54 ==
LOC: SERX 14:47 → SERHOLD 18:16 → S2NX 20:54
PROVIDERS: Admitting Provider Student in an Organized Health Care Education/Training Program; Emergency Provider Emergency Medicine; Visit Provider Internal Medicine
DX: G44.40 Drug-induced headache, not elsewhere classified, not intractable (principal); G40.909 Epilepsy, unspecified, not intractable, without status epilepticus; E78.5 Hyperlipidemia, unspecified; E03.9 Hypothyroidism, unspecified; M54.81 Occipital neuralgia; S09.90XA Unspecified injury of head, initial encounter; R42 Dizziness and giddiness; G81.94 Hemiplegia, unspecified affecting left nondominant side; E87.6 Hypokalemia; M25.551 Pain in right hip; G89.4 Chronic pain syndrome; E04.1 Nontoxic single thyroid nodule; Z74.01 Bed confinement status; Z79.899 Other long term (current) drug therapy; Z87.442 Personal history of urinary calculi; Z88.5 Allergy status to narcotic agent; Z88.0 Allergy status to penicillin; Z88.8 Allergy status to other drugs, medicaments and biological substances; T39.1X5A Adverse effect of 4-Aminophenol derivatives, initial encounter
CPT/HCPCS: 36415; 36600; 70450; 70496; 70498; 71045; 72020; 73502; 80048; 80053; 80307; 81001; 82550; 82803; 83605; 83735; 83880; 84100; 84145; 84443; 84484; 84703; 85025; 85610; 85730; 87040; 87086; 93005; 95816; 96372; 97162; 99285; A4649; J1644; Q9967; A9270